=== PATIENT | female | born 1940 | race Caucasian/White ===

== ENCOUNTER 2018-04-28 20:36 | Inpatient (IN) | payer MEDICARE, BC ==
[2018-04-28] MEDS ORDERED: SODIUM CHLORIDE 0.9% 1,000 ML IV STA (21:22)
[2018-04-28 22:07] LABS: ALT 31 U/L (9-52); AST 17 U/L (14-36); Albumin 3.4 g/dL (3.5-5.0); Alkaline Phosphatase 78 U/L (38-126); Anion Gap 7 mmol/L; Blood Urea Nitrogen 23 mg/dL (7-17); Calcium 8.4 mg/dL (8.4-10.2); Carbon Dioxide 24 mmol/L (22-30); Chloride 108 mmol/L (98-107); Glucose 101 mg/dL (74-99); Lipase 35 U/L (23-300); Magnesium 1.9 mg/dL (1.6-2.3); Partial Thromboplastin Time 23.2 sec (22.0-30.0); Potassium 3.9 mmol/L (3.5-5.1); Sodium 139 mmol/L (137-145); Total Bilirubin 0.7 mg/dL (0.2-1.3); Total Protein 6.3 g/dL (6.3-8.2)
[2018-04-28 22:09] LABS: Anisocytosis Moderate; Basophils % (A) 0 %; Eosinophils # (A) 0.1 k/uL (0-0.7); Eosinophils % (A) 4 %; HCT 20.3 % (34.0-46.0); HGB 7.1 gm/dL (11.4-16.0); Lymphocytes # (A) 0.9 k/uL (1.0-4.8); Lymphocytes % (A) 51 %; MCH 32.3 pg (25.0-35.0); MCHC 34.9 g/dL (31.0-37.0); MCV 92.4 fL (80.0-100.0); Macrocytosis Slight; Monocytes % (A) 2 %; Neutrophils # (A) 0.7 k/uL (1.3-7.7); Neutrophils % (A) 40 %; RBC 2.19 m/uL (3.80-5.40); RDW 21.7 % (11.5-15.5)
[2018-04-28 22:20] LABS: Platelet Count 10 k/uL (150-450); WBC 1.8 k/uL (3.8-10.6)
[2018-04-28 22:32] LABS: Creatine Kinase MB 0.7 ng/mL (0.0-2.4); Troponin I 0.013 ng/mL (0.000-0.034)
[2018-04-28 22:48] LABS: Poikilocytosis (M) Present
--- NOTE | 2018-04-28 22:49 | ED ---
General Adult HPI - General Chief complaint: Recheck/Abnormal Lab/Rx Stated complaint: abnormal labs Time Seen by Provider: 04/28/18 20:44 Source: patient, EMS, RN notes reviewed, old records reviewed Mode of arrival: EMS Limitations: no limitations - History of Present Illness Initial comments: This is a 78-year-old female the ER for evaluation. Patient resents today for evaluation regards to pancytopenia. Patient is a transfer patient accepted from [facility] for evaluation and treatment of oncological or hematological issue. Patient denies history of CVA. Patient was recently prescribed antibiotic for UTI they think that might be culprit curtis is no prior history of similar issue. Patient has history of polycythemia , history of recent UTI on antibiotic - Related Data Home Medications Medication Instructions Recorded Confirmed Acetaminophen Tab [Tylenol Tab] 650 mg PO Q4H PRN 04/28/18 04/28/18 Aspirin EC [Ecotrin Low Dose] 81 mg PO DAILY 04/28/18 04/28/18 Atorvastatin [Lipitor] 40 mg PO HS 04/28/18 04/28/18 Ciprofloxacin HCl [Cipro] 500 mg PO Q12H 04/28/18 04/28/18 Clopidogrel Bisulfate [Plavix] 75 mg PO DAILY 04/28/18 04/28/18 Docusate [Colace] 100 mg PO Q12H 04/28/18 04/28/18 Hydroxyurea [Hydrea] 1,000 mg PO BID 04/28/18 04/28/18 Metoprolol Tartrate [Lopressor] 12.5 mg PO BID 04/28/18 04/28/18 Promethazine 25mg/Ml 25 mg IM Q6H PRN 04/28/18 04/28/18 traMADol HCL [Ultram] 50 mg PO Q8H PRN 04/28/18 04/28/18 Allergies Allergy/AdvReac Type Severity Reaction Status Date / Time Penicillins Allergy Rash/Hives Verified 04/28/18 21:02 codeine AdvReac Nausea & Verified 04/28/18 21:02 Vomiting Review of Systems ROS Statement: Those systems with pertinent positive or pertinent negative responses have been documented in the HPI. ROS Other: All systems not noted in ROS Statement are negative. Past Medical History Past Medical History: Hyperlipidemia Additional Past Medical History / Comment(s): polycythemia, History of Any Multi-Drug Resistant Organisms: None Reported Past Surgical History: Cholecystectomy, Coronary Bypass/CABG, Hysterectomy Additional Past Surgical History / Comment(s): stomach abscess removed, Past Psychological History: No Psychological Hx Reported Smoking Status: Never smoker Past Alcohol Use History: None Reported Past Drug Use History: None Reported General Exam Limitations: no limitations General appearance: alert, in no apparent distress Head exam: Present: atraumatic, normocephalic, normal inspection Eye exam: Present: normal appearance, PERRL, EOMI. Absent: scleral icterus, conjunctival injection, periorbital swelling ENT exam: Present: normal exam, mucous membranes moist Neck exam: Present: normal inspection. Absent: tenderness, meningismus, lymphadenopathy Respiratory exam: Present: normal lung sounds bilaterally. Absent: respiratory distress, wheezes, rales, rhonchi, stridor Cardiovascular Exam: Present: regular rate, normal rhythm, normal heart sounds. Absent: systolic murmur, diastolic murmur, rubs, gallop, clicks GI/Abdominal exam: Present: soft, normal bowel sounds. Absent: distended, tenderness, guarding, rebound, rigid Extremities exam: Present: normal inspection, full ROM, normal capillary refill. Absent: tenderness, pedal edema, joint swelling, calf tenderness Back exam: Present: normal inspection Neurological exam: Present: alert, oriented X3, CN II-XII intact Psychiatric exam: Present: normal affect, normal mood Skin exam: Present: warm, dry, intact, normal color. Absent: rash Course Vital Signs 04/28/18 20:38 Temperature 97.2 F L Pulse Rate 106 H Respiratory 18 Rate Blood Pressure 126/60 O2 Sat by Pulse 98 Oximetry - Reevaluation(s) Reevaluation #1: 04/28/18 22:47 Patient was accepted in transfer from [facility] for abnormal lab values including anemia and pancytopenia. Medical Decision Making - Medical Decision Making Plan I female the ER for evaluation and pancytopenia. Unknown cause. Patient denies blood in stool. Patient will be admitted for hematology evaluation - Lab Data Result diagrams: 04/28/18 20:55 04/28/18 20:55 Lab Results 04/28/18 04/28/18 04/28/18 Range/Units 20:48 20:55 20:55 WBC 1.8 L* (3.8-10.6) k/uL RBC 2.19 L (3.80-5.40) m/uL Hgb 7.1 L (11.4-16.0) gm/dL Hct 20.3 L (34.0-46.0) % MCV 92.4 (80.0-100.0) fL MCH 32.3 (25.0-35.0) pg MCHC 34.9 (31.0-37.0) g/dL RDW 21.7 H (11.5-15.5) % Plt Count 10 L* (150-450) k/uL PT (9.0-12.0) sec INR (<1.2) APTT (22.0-30.0) sec Sodium (137-145) mmol/L Potassium (3.5-5.1) mmol/L Chloride (98-107) mmol/L Carbon Dioxide (22-30) mmol/L Anion Gap mmol/L BUN (7-17) mg/dL Creatinine (0.52-1.04) mg/dL Est GFR (CKD-EPI)AfAm (>60 ml/min/1.73 sqM) Est GFR (CKD-EPI)NonAf (>60 ml/min/1.73 sqM) Glucose (74-99) mg/dL Calcium (8.4-10.2) mg/dL Magnesium (1.6-2.3) mg/dL Total Bilirubin (0.2-1.3) mg/dL AST (14-36) U/L ALT (9-52) U/L Alkaline Phosphatase (38-126) U/L Total Creatine Kinase 20 L (30-135) U/L CK-MB (CK-2) 0.7 (0.0-2.4) ng/mL CK-MB (CK-2) Rel Index 3.5 Troponin I 0.013 (0.000-0.034) ng/mL Total Protein (6.3-8.2) g/dL Albumin (3.5-5.0) g/dL Lipase (23-300) U/L Blood Type A Positive Blood Type Recheck CABO Indicated Antibody Screen NEGATIVE Spec Expiration Date 05/01/2018 - 235404/28/18 04/28/18 Range/Units 20:55 20:55 WBC (3.8-10.6) k/uL RBC (3.80-5.40) m/uL Hgb (11.4-16.0) gm/dL Hct (34.0-46.0) % MCV (80.0-100.0) fL MCH (25.0-35.0) pg MCHC (31.0-37.0) g/dL RDW (11.5-15.5) % Plt Count (150-450) k/uL PT 10.0 (9.0-12.0) sec INR 1.0 (<1.2) APTT 23.2 (22.0-30.0) sec Sodium 139 (137-145) mmol/L Potassium 3.9 (3.5-5.1) mmol/L Chloride 108 H (98-107) mmol/L Carbon Dioxide 24 (22-30) mmol/L Anion Gap 7 mmol/L BUN 23 H (7-17) mg/dL Creatinine 0.63 (0.52-1.04) mg/dL Est GFR (CKD-EPI)AfAm >90 (>60 ml/min/1.73 sqM) Est GFR (CKD-EPI)NonAf 86 (>60 ml/min/1.73 sqM) Glucose 101 H (74-99) mg/dL Calcium 8.4 (8.4-10.2) mg/dL Magnesium 1.9 (1.6-2.3) mg/dL Total Bilirubin 0.7 (0.2-1.3) mg/dL AST 17 (14-36) U/L ALT 31 (9-52) U/L Alkaline Phosphatase 78 (38-126) U/L Total Creatine Kinase (30-135) U/L CK-MB (CK-2) (0.0-2.4) ng/mL CK-MB (CK-2) Rel Index Troponin I (0.000-0.034) ng/mL Total Protein 6.3 (6.3-8.2) g/dL Albumin 3.4 L (3.5-5.0) g/dL Lipase 35 (23-300) U/L Blood Type Blood Type Recheck Antibody Screen Spec Expiration Date Disposition Clinical Impression: Pancytopenia Disposition: ADMITTED IP TO THIS HOSP Condition: Fair Is patient prescribed a controlled substance at d/c from ED?: No Referrals: Josseline Zambrano MD [Primary Care Provider] - 1-2 days
[2018-04-28 23:57] VITALS: BMI 19.1
[2018-04-29 10:11] LABS: Anisocytosis Moderate; Basophils % (A) 0 %; Eosinophils # (A) 0.1 k/uL (0-0.7); Eosinophils % (A) 5 %; Lymphocytes # (A) 0.7 k/uL (1.0-4.8); Lymphocytes % (A) 44 %; MCH 34.1 pg (25.0-35.0); MCHC 35.8 g/dL (31.0-37.0); MCV 95.2 fL (80.0-100.0); Macrocytosis Slight; Mean Platelet Volume 8.3; Monocytes % (A) 1 %; Neutrophils # (A) 0.7 k/uL (1.3-7.7); Neutrophils % (A) 47 %; Poikilocytosis Slight; RBC 1.76 m/uL (3.80-5.40); RDW 22.5 % (11.5-15.5); Reticulocyte % 0.3 % (0.5-2.0)
[2018-04-29] MEDS ORDERED: ACETAMINOPHEN TAB 325 MG TAB PO PRN (10:36)
[2018-04-29] MEDS ORDERED: PROMETHAZINE IM PRN (10:36)
[2018-04-29] MEDS ORDERED: traMADol 50 MG TAB PO PRN (10:36)
[2018-04-29 10:37] LABS: WBC 1.5 k/uL (3.8-10.6)
[2018-04-29 10:39] LABS: HCT 16.8 % (34.0-46.0); Platelet Count 10 k/uL (150-450)
--- NOTE | 2018-04-29 14:28 | P.CONS ---
History of Present Illness - Reason for Consult Consult date: 04/29/18 pancytopenia Requesting physician: Eris Araiza - Chief Complaint abnormal labs on routine blood work - History of Present Illness Ms. Mays is a very pleasant female pt who had triple bypass in February. Since then she has been rehabilitation and residing at skilled facility. She recently was treated for UTI with cipro, then on routine lab work she was found to be pancytopenic. She was sent to the hospital for evaluation and work up. On questioning pt blood problems started in February, she was told she has a blood disorder-sounded like polycythemia vera- but could not remember for certain, she thinks she saw a strategic partnership representative at the [facility], she has hydrea on her med list, not sure why she takes it or who prescribes it. Denies fevers, sweats, dysphagia, nausea, vomiting, can't say how much wt. loss, she has lost her appetite some, no diarrhea, constipation, black or bloody stool. 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 No other physical c/o, no new or unusual pain. Review of Systems ROS as stated, pt has trouble with remembering the timing of some events ROS unobtainable: due to mental status Past Medical History Past Medical History: Hyperlipidemia Additional Past Medical History / Comment(s): polycythemia, History of Any Multi-Drug Resistant Organisms: None Reported Past Surgical History: Cholecystectomy, Coronary Bypass/CABG, Hysterectomy Additional Past Surgical History / Comment(s): stomach abscess removed, CABG (01/2018) Past Anesthesia/Blood Transfusion Reactions: No Reported Reaction Past Psychological History: No Psychological Hx Reported Smoking Status: Never smoker Past Alcohol Use History: None Reported Past Drug Use History: None Reported - Past Family History Mother Family Medical History: Myocardial Infarction ([place]) Father Family Medical History: Asthma, COPD, Myocardial Infarction ([place]) Medications and Allergies Home Medications Medication Instructions Recorded Confirmed Type Acetaminophen Tab [Tylenol Tab] 650 mg PO Q4H PRN 04/28/18 04/28/18 History Aspirin EC [Ecotrin Low Dose] 81 mg PO DAILY 04/28/18 04/28/18 History Atorvastatin [Lipitor] 40 mg PO HS 04/28/18 04/28/18 History Ciprofloxacin HCl [Cipro] 500 mg PO Q12H 04/28/18 04/28/18 History Clopidogrel Bisulfate [Plavix] 75 mg PO DAILY 04/28/18 04/28/18 History Docusate [Colace] 100 mg PO Q12H 04/28/18 04/28/18 History Hydroxyurea [Hydrea] 1,000 mg PO BID 04/28/18 04/28/18 History Metoprolol Tartrate [Lopressor] 12.5 mg PO BID 04/28/18 04/28/18 History Promethazine 25mg/Ml 25 mg IM Q6H PRN 04/28/18 04/28/18 History traMADol HCL [Ultram] 50 mg PO Q8H PRN 04/28/18 04/28/18 History Allergies Allergy/AdvReac Type Severity Reaction Status Date / Time Penicillins Allergy Rash/Hives Verified 04/28/18 21:02 codeine AdvReac Nausea & Verified 04/28/18 21:02 Vomiting Physical Exam Vitals: Vital Signs Temp Pulse Pulse Resp BP BP Pulse Ox 04/29/18 12:12 97.9 F 93 16 101/50 98 04/29/18 11:42 97.6 F 95 16 99/55 98 04/29/18 11:32 98.7 F 95 16 101/57 98 04/29/18 04:23 97.7 F 56 L 14 118/58 96 04/28/18 23:51 97.5 F L 103 H 14 121/59 97 04/28/18 22:58 90 18 96/53 99 04/28/18 20:38 97.2 F L 106 H 18 126/60 98 Intake and Output 04/28/18 04/29/18 04/29/18 22:59 06:59 14:59 Intake Total 570 0 Balance 570 0 Intake: Intake, IV Titration 450 Amount Sodium Chloride 0.9% 1, 450 000 ml @ 75 mls/hr IV . [id number] STA Rx#:[id number] Oral 120 Blood Product 0 Rc As-3 Unit 0 [id number] Other: Voiding Method Incontinent Toilet Incontinent # Voids 2 Weight 52.163 kg 52.16 kg 52.16 kg - Constitutional General appearance: average body habitus, cooperative, no acute distress - EENT Eyes: anicteric sclerae, normal appearance ENT: normal oropharynx - Neck Neck: no lymphadenopathy - Respiratory Respiratory: bilateral: CTA - Cardiovascular Rhythm: irregularly irregular Heart sounds: normal: S1, S2 Abnormal Heart Sounds: systolic murmur leg Peripheral Edema: bilateral: Trace - Gastrointestinal General gastrointestinal: no absent bowel sounds, no decreased bowel sounds, no distended, no hepatomegaly, no hyperactive bowel sounds, normal bowel sounds, no organomegaly, no rigid, no scaphoid, soft, no splenomegaly, no tenderness, no umbilical hernia, no ventral hernia - Integumentary Integumentary: pale - Neurologic Neurologic: CNII-XII intact - Musculoskeletal Musculoskeletal: generalized weakness, strength equal bilaterally - Psychiatric Psychiatric: A&O x's 3, appropriate affect Results CBC & Chem 7: 04/29/18 09:30 04/28/18 20:55 Labs: Abnormal Lab Results - Last 24 Hours (Table) 04/28/18 04/28/18 04/28/18 Range/Units 20:48 20:55 20:55 WBC 1.8 L* (3.8-10.6) k/uL RBC 2.19 L (3.80-5.40) m/uL Hgb 7.1 L (11.4-16.0) gm/dL Hct 20.3 L (34.0-46.0) % RDW 21.7 H (11.5-15.5) % Plt Count 10 L* (150-450) k/uL Neutrophils # 0.7 L (1.3-7.7) k/uL Lymphocytes # 0.9 L (1.0-4.8) k/uL Retic Count (0.5-2.0) % Chloride (98-107) mmol/L BUN (7-17) mg/dL Glucose (74-99) mg/dL Total Creatine Kinase 20 L (30-135) U/L Albumin (3.5-5.0) g/dL Crossmatch See Detail 04/28/18 04/29/18 Range/Units 20:55 09:30 WBC 1.5 L* (3.8-10.6) k/uL RBC 1.76 L (3.80-5.40) m/uL Hgb 6.0 L* (11.4-16.0) gm/dL Hct 16.8 L* (34.0-46.0) % RDW 22.5 H (11.5-15.5) % Plt Count 10 L* (150-450) k/uL Neutrophils # 0.7 L (1.3-7.7) k/uL Lymphocytes # 0.7 L (1.0-4.8) k/uL Retic Count 0.3 L (0.5-2.0) % Chloride 108 H (98-107) mmol/L BUN 23 H (7-17) mg/dL Glucose 101 H (74-99) mg/dL Total Creatine Kinase (30-135) U/L Albumin 3.4 L (3.5-5.0) g/dL Crossmatch Assessment and Plan (1) Pancytopenia Narrative/Plan: From what I can make out of pt history she was diagnosed with polycythemia in [place] when she was having heart surgery. She has been taking hydrea and not sure who prescriber is. I have a call out to PCP. Hold hydrea Pancytopenia work-up has been ordered. IM has ordered blood, transfuse to keep Hgb >7 unless symptomatic. No s/s bleeding, close monitoring, transfuse for plt<10,000 or symptoms. No GCSF at this time, ANC 700, monitor for fever, pt is on abx. Current Visit: Yes Status: Acute Priority: High Code(s): D61.818 - OTHER PANCYTOPENIA SNOMED Code(s): 196474451
[2018-04-29 16:59] LABS: Iron Saturation 95.69 (12.00-45.00); Rheumatoid Factor <4 IU/mL (0-13)
[2018-04-29] MEDS ORDERED: CIPROFLOXACIN HCL 500 MG TAB PO SCH (21:00)
[2018-04-29] MEDS ORDERED: HYDROXYUREA 500 MG CAP PO SCH (21:00)
[2018-04-29] MEDS: ATORVASTATIN 40 MG TAB PO SCH (21:42)
[2018-04-29] MEDS: METOPROLOL TARTRATE 12.5 MG TAB PO SCH (21:42)
[2018-04-29] MEDS: DOCUSATE 100 MG CAP PO SCH (21:42)
--- NOTE | 2018-04-30 00:46 | P.HPIM ---
History of Present Illness H&P Date: 04/29/18 Chief Complaint: Pancytopenia Patient is a 78-year-old female with a known history of recent triple vessel coronary artery bypass graft in February 2018 and polycythemia who is currently at rehab and is being treated for urinary tract infection with ciprofloxacin. Patient had lab workup done yesterday showed pancytopenia and patient was transferred to ER for further evaluation. Patient also developed some petechial rash on the hand. Currently denied any fever or chills. Denied any previous history of blood dyscrasias. Otherwise patient denied any chest pain or shortness of breath. No nausea vomiting or abdominal pain no diarrhea or dysuria. No hematemesis or melena. Patientwas previously taking have a medication for her bladder before surgery. Patient is unsure why she is taking Hydrea. Hematology was consulted for further evaluation. Review of Systems Constitutional: Patient denies any fever or chills . No generalized weakness or weight loss. Abdomen: Patient denied nausea vomiting and diarrhea and abdominal pain. Cardiovascular: Patient denies any chest pain or short of breath no palpitations. Respiratory: patient denied any cough is from production. No shortness of breath Neurologic: Patient denied any numbness or tingling headache. Musculoskeletal: Patient denies any complaints of joint swelling or deformity. Skin: Negative Psychiatric: Negative Endocrine: No heat or cold intolerance. No recent weight gain. Genitourinary: No dysuria or hematuria. All other 14 point ROS negative except the above Past Medical History Past Medical History: Hyperlipidemia Additional Past Medical History / Comment(s): polycythemia, History of Any Multi-Drug Resistant Organisms: None Reported Past Surgical History: Cholecystectomy, Coronary Bypass/CABG, Hysterectomy Additional Past Surgical History / Comment(s): stomach abscess removed, CABG (01/2018) Past Anesthesia/Blood Transfusion Reactions: No Reported Reaction Past Psychological History: No Psychological Hx Reported Smoking Status: Never smoker Past Alcohol Use History: None Reported Past Drug Use History: None Reported - Past Family History Mother Family Medical History: Myocardial Infarction ([place]) Father Family Medical History: Asthma, COPD, Myocardial Infarction ([place]) Medications and Allergies Home Medications Medication Instructions Recorded Confirmed Type Acetaminophen Tab [Tylenol Tab] 650 mg PO Q4H PRN 04/28/18 04/28/18 History Aspirin EC [Ecotrin Low Dose] 81 mg PO DAILY 04/28/18 04/28/18 History Atorvastatin [Lipitor] 40 mg PO HS 04/28/18 04/28/18 History Ciprofloxacin HCl [Cipro] 500 mg PO Q12H 04/28/18 04/28/18 History Clopidogrel Bisulfate [Plavix] 75 mg PO DAILY 04/28/18 04/28/18 History Docusate [Colace] 100 mg PO Q12H 04/28/18 04/28/18 History Hydroxyurea [Hydrea] 1,000 mg PO BID 04/28/18 04/28/18 History Metoprolol Tartrate [Lopressor] 12.5 mg PO BID 04/28/18 04/28/18 History Promethazine 25mg/Ml 25 mg IM Q6H PRN 04/28/18 04/28/18 History traMADol HCL [Ultram] 50 mg PO Q8H PRN 04/28/18 04/28/18 History Allergies Allergy/AdvReac Type Severity Reaction Status Date / Time Penicillins Allergy Rash/Hives Verified 04/28/18 21:02 codeine AdvReac Nausea & Verified 04/28/18 21:02 Vomiting Physical Exam Vitals: Vital Signs Temp Pulse Pulse Resp BP BP Pulse Ox 04/29/18 11:32 98.7 F 95 16 101/57 98 04/29/18 04:23 97.7 F 56 L 14 118/58 96 04/28/18 23:51 97.5 F L 103 H 14 121/59 97 04/28/18 22:58 90 18 96/53 99 04/28/18 20:38 97.2 F L 106 H 18 126/60 98 Intake and Output 04/28/18 04/29/18 04/29/18 22:59 06:59 14:59 Intake Total 570 0 Balance 570 0 Intake: Intake, IV Titration 450 Amount Sodium Chloride 0.9% 1, 450 000 ml @ 75 mls/hr IV . [id number] STA Rx#:[id number] Oral 120 Blood Product 0 Rc As-3 Unit 0 [id number] Other: Voiding Method Incontinent Toilet Incontinent # Voids 2 Weight 52.163 kg 52.16 kg 52.16 kg PHYSICAL EXAMINATION: Patient is lying in the bed comfortably, no acute distress, awake alert and oriented.. HEENT: Normocephalic. Neck is supple. Pupils reactive. Nostrils clear. Oral cavity is moist. Ears reveal no drainage. Neck reveals no JVD, carotid bruits, or thyromegaly. CHEST EXAMINATION: Trachea is central. Symmetrical expansion. Lung jeffery clear to auscultation and percussion. CARDIAC: Normal S1, S2 with no gallops. No murmurs ABDOMEN: Soft. Bowel sounds normal. No organomegaly. No abdominal bruits. Extremities: reveal no edema. No clubbing or cyanosis Neurologically awake, alert, oriented x3 with well-coordinated movements. No focal deficits noted Skin: Some petechial rash noted on the right forearm and no other skin lesions. Psychiatric: Coperative. Nonsuicidal Musculoskeletal: No joint swelling or deformity. Normal range of motion. Results CBC & Chem 7: 04/29/18 09:30 04/28/18 20:55 Labs: Abnormal Lab Results - Last 24 Hours (Table) 04/28/18 04/28/18 04/28/18 Range/Units 20:48 20:55 20:55 WBC 1.8 L* (3.8-10.6) k/uL RBC 2.19 L (3.80-5.40) m/uL Hgb 7.1 L (11.4-16.0) gm/dL Hct 20.3 L (34.0-46.0) % RDW 21.7 H (11.5-15.5) % Plt Count 10 L* (150-450) k/uL Neutrophils # 0.7 L (1.3-7.7) k/uL Lymphocytes # 0.9 L (1.0-4.8) k/uL Retic Count (0.5-2.0) % Chloride (98-107) mmol/L BUN (7-17) mg/dL Glucose (74-99) mg/dL Total Creatine Kinase 20 L (30-135) U/L Albumin (3.5-5.0) g/dL Crossmatch See Detail 04/28/18 04/29/18 Range/Units 20:55 09:30 WBC 1.5 L* (3.8-10.6) k/uL RBC 1.76 L (3.80-5.40) m/uL Hgb 6.0 L* (11.4-16.0) gm/dL Hct 16.8 L* (34.0-46.0) % RDW 22.5 H (11.5-15.5) % Plt Count 10 L* (150-450) k/uL Neutrophils # 0.7 L (1.3-7.7) k/uL Lymphocytes # 0.7 L (1.0-4.8) k/uL Retic Count 0.3 L (0.5-2.0) % Chloride 108 H (98-107) mmol/L BUN 23 H (7-17) mg/dL Glucose 101 H (74-99) mg/dL Total Creatine Kinase (30-135) U/L Albumin 3.4 L (3.5-5.0) g/dL Crossmatch Thrombosis Risk Factor Assmnt - DVT/VTE Prophylaxis DVT/VTE Prophylaxis: Mechanical Prophylaxis ordered - Choose All That Apply Any of the Below Risk Factors Present?: No Other Risk Factors: Yes Each Risk Factor Represents 3 Points: History of DVT/PE Thrombosis Risk Factor Assessment Total Risk Factor Score: 3 Thrombosis Risk Factor Assessment Level: Moderate Risk Assessment and Plan Assessment: Pancytopenia etiology unknown. Possible medication induced versus infection Urinary tract infection and is being treated with ciprofloxacin Recent coronary artery bypass graft in February 2018 History of polycythemia Plan: Patient be continued on IV fluids and follow up CBC. Pancytopenia workup including iron studies B12 folate level, serum protein electrophoresis and immuno fixation, anemia and rheumatoid factor was ordered. Hematology is following. Will hold antiplatelet medication and follow up closely. Further recommendations based on the clinical course. Time with Patient: Greater than 30
[2018-04-30 07:39] LABS: Anisocytosis Moderate; HCT 20.8 % (34.0-46.0); MCH 32.8 pg (25.0-35.0); MCHC 36.7 g/dL (31.0-37.0); Macrocytosis Slight; Mean Platelet Volume 9.4; Poikilocytosis Slight; RBC 2.32 m/uL (3.80-5.40); RDW 21.9 % (11.5-15.5)
[2018-04-30 07:42] LABS: HGB 7.6 gm/dL (11.4-16.0); MCV 89.6 fL (80.0-100.0); Platelet Count 10 k/uL (150-450); WBC 1.9 k/uL (3.8-10.6)
[2018-04-30 08:22] LABS: Eosinophils # (M) 0.02 k/uL (0-0.7); Lymphocytes # (M) 0.93 k/uL (1.0-4.8); Monocytes # (M) 0.11 k/uL (0-1.0); Neutrophils # (M) 0.84 k/uL (1.3-7.7); Neutrophils % (M) 44 %; Nucleated Red Blood Cells 0 /100 WBC (0-0); Total Cells Counted 100
[2018-04-30] MEDS: DOCUSATE 100 MG CAP PO SCH ×2 (09:00→21:16)
[2018-04-30] MEDS: METOPROLOL TARTRATE 12.5 MG TAB PO SCH ×2 (09:00→21:16)
[2018-04-30] MEDS ORDERED: CLOPIDOGREL 75 MG TAB PO SCH (09:00)
[2018-04-30] MEDS ORDERED: POLYETHYLENE GLYCOL 3350 17 GM POWD.PACK PO PRN (11:43)
[2018-04-30] MEDS: CYANOCOBALAMIN 1,000 MCG/ML 1 ML VIAL IM SCH (15:51)
--- NOTE | 2018-04-30 15:59 | P.PN ---
Subjective Progress Note Date: 04/30/18 Principal diagnosis: Pancytopenia Patient seen today in follow-up, she states feeling pretty well today, her stomach is still occasionally upset, no vomiting, chest pains, difficulty in breathing, abdominal cramping, diarrhea or constipation, no black or bloody stool, her urine is blood tinged, she denies dysuria, swelling or pain. Objective - Vital Signs Vital signs: Vital Signs Temp 98.2 F 04/30/18 14:24 Pulse 86 04/30/18 14:24 Resp 18 04/30/18 14:24 BP 102/58 04/30/18 14:24 Pulse Ox 97 04/30/18 14:24 Intake & Output 04/29/18 04/30/18 04/30/18 18:59 06:59 18:59 Intake Total 760 385 0 Balance 760 385 0 Weight 52.16 kg Intake: Intake, IV Titration 450 385 Amount Sodium Chloride 0.9% 1, 450 385 000 ml @ 75 mls/hr IV . [id number] STA Rx#:[id number] Blood Product 310 0 Platelet Pheresis Acda 0 Unit [id number] Rc As-3 Unit 310 [id number] Other: Voiding Method Toilet Toilet Toilet Incontinent Incontinent Incontinent # Voids 1 1 - Constitutional General appearance: Present: average body habitus, cooperative, no acute distress - EENT Eyes: Present: anicteric sclerae ENT: Present: normal oropharynx - Respiratory Respiratory: bilateral: CTA - Cardiovascular Heart sounds: normal: S1, S2 - Gastrointestinal General gastrointestinal: Present: normal bowel sounds, soft - Integumentary Integumentary: Present: pale - Neurologic Neurologic: Present: CNII-XII intact - Musculoskeletal Musculoskeletal: Present: generalized weakness, strength equal bilaterally - Psychiatric Psychiatric: Present: A&O x's 3, appropriate affect, intact judgment & insight - Labs CBC & Chem 7: 04/30/18 06:43 04/28/18 20:55 Labs: Abnormal Lab Results - Last 24 Hours (Table) 04/28/18 04/28/18 04/30/18 Range/Units 20:48 20:55 06:43 WBC 1.9 L* (3.8-10.6) k/uL RBC 2.32 L (3.80-5.40) m/uL Hgb 7.6 L D (11.4-16.0) gm/dL Hct 20.8 L (34.0-46.0) % RDW 21.9 H (11.5-15.5) % Plt Count 10 L* (150-450) k/uL Neutrophils # (Manual) 0.84 L (1.3-7.7) k/uL Lymphocytes # (Manual) 0.93 L (1.0-4.8) k/uL Iron 222 H (50-170) ug/dL Iron Saturation 95.69 H (12.00-45.00) Ferritin 495.5 H (10.0-291.0) ng/mL Free [place] LC, Quant 3.11 H (0.33-1.94) mg/dL Crossmatch See Detail Assessment and Plan (1) Pancytopenia Narrative/Plan: Workup negative for iron deficiency. B12 level is low normal, will supplement while inpatient. Electrophoresis and immunofixation still pending. Discussed the case with patient primary care physician Dr. Sanfordrect the patient is new to her as well just last week. Patient has diagnosis of polycythemia vera , diagnosed back in January or February when she was in the hospital for cardiac bypass surgery. Patient was seen by hematology and started on a dose of 1000 mg of Hydrea twice a day, patient has not followed up with hematology since then. Highly suspect that patient's pancytopenia is related to Hydrea dose, as it typically needs to be adjusted based on counts. Hydrea has been placed on hold for now. Continue to monitor CBC and recommend patient follow up with hematology as soon as possible the outpatient setting. 1 unit of platelets has been ordered for hematuria, platelet count of 10,000. Urinalysis has been requested. Current Visit: Yes Status: Acute Priority: High Code(s): D61.818 - OTHER PANCYTOPENIA SNOMED Code(s): 118914826
[2018-04-30 16:13] LABS: Appearance,Urine Clear (Clear); Bacteria,Urine Rare /hpf; Bilirubin,Urine Negative (Negative); Blood,Urine Large (Negative); Color,Urine Light Red; Glucose,Urine (UA) Negative (Negative); Ketones,Urine Negative (Negative); Leukocyte Esterase,Urine Negative (Negative); Nitrite,Urine Negative (Negative); Protein,Urine Trace (Negative); RBC,Urine >182 /hpf (0-5); Specific Gravity,Urine 1.015 (1.001-1.035); Urobilinogen,Urine <2.0 mg/dL (<2.0)
[2018-04-30] MEDS: ATORVASTATIN 40 MG TAB PO SCH (21:16)
[2018-05-01 08:21] LABS: Anisocytosis Moderate; Basophils % (A) 0 %; Eosinophils # (A) 0.1 k/uL (0-0.7); Eosinophils % (A) 4 %; HCT 20.3 % (34.0-46.0); HGB 7.1 gm/dL (11.4-16.0); Lymphocytes # (A) 0.7 k/uL (1.0-4.8); Lymphocytes % (A) 47 %; MCV 91.2 fL (80.0-100.0); Macrocytosis Slight; Mean Platelet Volume 9.8; Monocytes % (A) 2 %; Neutrophils # (A) 0.7 k/uL (1.3-7.7); Neutrophils % (A) 43 %; RBC 2.23 m/uL (3.80-5.40); RDW 21.3 % (11.5-15.5)
[2018-05-01 08:22] LABS: Platelet Count 14 k/uL (150-450); WBC 1.5 k/uL (3.8-10.6)
[2018-05-01 08:57] LABS: Poikilocytosis (M) Present
[2018-05-01] MEDS: METOPROLOL TARTRATE 12.5 MG TAB PO SCH ×2 (10:09→20:51)
[2018-05-01] MEDS: CYANOCOBALAMIN 1,000 MCG/ML 1 ML VIAL IM SCH (10:09)
[2018-05-01] MEDS: DOCUSATE 100 MG CAP PO SCH ×2 (10:10→20:51)
[2018-05-01] MEDS ORDERED: FILGRASTIM-SNDZ 480 MCG/0.8 ML SYRINGE SQ SCH (20:15)
--- NOTE | 2018-05-01 20:16 | P.PN ---
Subjective Progress Note Date: 05/01/18 Principal diagnosis: Pancytopenia Patient seen and examined in follow-up today. She is feeling better since admission. Apparently she was seeing fur operator out of [facility] and was discharged to [facility] and has not follow-up or had labs monitored since this time. Objective - Vital Signs Vital signs: Vital Signs Temp 98 F 05/01/18 15:00 Pulse 84 05/01/18 15:00 Resp 16 05/01/18 15:00 BP 102/61 05/01/18 15:00 Pulse Ox 95 05/01/18 15:00 Intake & Output 05/01/18 05/01/18 05/02/18 06:59 18:59 06:59 Intake Total 640 Balance 640 Weight 52.16 kg Intake: Oral 640 Other: Voiding Method Toilet Toilet Incontinent Incontinent # Voids 2 3 # Bowel Movements 3 - Constitutional General appearance: Present: cooperative, no acute distress, thin - EENT Eyes: Present: EOMI, PERRLA, dentition normal ENT: Present: hard of hearing, NA/AT, normal oropharynx - Neck Details: Supple, Trachea midline Neck: Present: normal ROM - Respiratory Respiratory: bilateral: CTA (No increased effort) - Cardiovascular Rhythm: regular Heart sounds: normal: S1, S2 - Labs CBC & Chem 7: 05/01/18 07:03 04/28/18 20:55 Labs: Abnormal Lab Results - Last 24 Hours (Table) 04/29/18 05/01/18 Range/Units 09:30 07:03 WBC 1.5 L* (3.8-10.6) k/uL RBC 2.23 L (3.80-5.40) m/uL Hgb 7.1 L (11.4-16.0) gm/dL Hct 20.3 L (34.0-46.0) % RDW 21.3 H (11.5-15.5) % Plt Count 14 L* (150-450) k/uL Neutrophils # 0.7 L (1.3-7.7) k/uL Lymphocytes # 0.7 L (1.0-4.8) k/uL RBC Folate 1,544 H (280 - 791) ng/mL Assessment and Plan Plan: Assessment and Plan (1) Pancytopenia Narrative/Plan: Workup negative for iron deficiency. B12 level is low normal, will supplement while inpatient. Electrophoresis and immunofixation still pending. - I have requested the patients diagnostics labs/scans/Bone Marrow, JAK2 from previous Language Teacher. She states she was discharged to a rehabilitation and has not had labs monitored since. She apparently has diagnosis of polycythemia vera, diagnosed back in January or February when she was in the hospital for cardiac bypass surgery. Patient was seen by hematology and started on a dose of 1000 mg of Hydrea twice a day, patient has not followed up with hematology since then. Highly suspect that patient's pancytopenia is related to Hydrea dose, as it typically needs to be adjusted based on counts. - Hydrea has been placed on hold for now. - Continue to monitor CBC and recommend patient follow up with hematology as soon as possible the outpatient setting. In discussion with her today she would prefer further follow-up here through [facility], will await all diagnostics from recent outside hospital stay before re-initiation of hydroxyurea. - Monitor blood counts closely and provide supportive transfusions prn. - With Neutropenia Fever and identified UTI, I will start zarxio today, discussed case in detail with Dr. Zavala Current Visit: Yes Status: Acute Priority: High Code(s): D61.818 - OTHER PANCYTOPENIA SNOMED Code(s): 356585357
[2018-05-01] MEDS: ATORVASTATIN 40 MG TAB PO SCH (20:50)
[2018-05-01] MEDS: FILGRASTIM-SNDZ 480 MCG/0.8 ML SYRINGE SQ SCH (22:36)
--- NOTE | 2018-05-02 01:30 | P.PN ---
Subjective Progress Note Date: 04/30/18 Principal diagnosis: Pancytopenia Patient is a 78-year-old female with a known history of recent triple vessel coronary artery bypass graft in February 2018 and polycythemia who is currently at rehab and is being treated for urinary tract infection with ciprofloxacin. Patient had lab workup done yesterday showed pancytopenia and patient was transferred to ER for further evaluation. Patient also developed some petechial rash on the hand. Currently denied any fever or chills. Denied any previous history of blood dyscrasias. Otherwise patient denied any chest pain or shortness of breath. No nausea vomiting or abdominal pain no diarrhea or dysuria. No hematemesis or melena. Patientwas previously taking have a medication for her bladder before surgery. Patient is unsure why she is taking Hydrea. Hematology was consulted for further evaluation. 04/30/2018 Patient denied any complaints of chest pain or shortness of breath. No bruising or active bleeding noted. No commerce abdominal pain nausea or vomiting. Patient is still thrombocytopenic and is being transfused with platelets. Otherwise patient has recent history of polycythemia vera and was started on Hydrea by hematology. Patient never followed up off of that. Pancytopenia likely due to Hydrea as per hematology evaluation. Otherwise patient denied any complaints today. All other review of systems negative except the above Current medications reviewed. Objective - Vital Signs Vital signs: Vital Signs Temp 97.3 F L 04/30/18 22:15 Pulse 100 04/30/18 22:15 Resp 16 04/30/18 22:15 BP 99/58 04/30/18 22:15 Pulse Ox 95 04/30/18 22:15 Intake & Output 04/30/18 04/30/18 05/01/18 06:59 18:59 06:59 Intake Total 385 525 590 Balance 385 525 590 Intake: Intake, IV Titration 385 Amount Sodium Chloride 0.9% 1, 385 000 ml @ 75 mls/hr IV . [id number] STA Rx#:[id number] Oral 590 Blood Product 525 Platelet Pheresis Acda 525 Unit [id number] Other: Voiding Method Toilet Toilet Incontinent Incontinent # Voids 1 1 2 - Exam PHYSICAL EXAMINATION: Patient is lying in the bed comfortably, no acute distress, awake alert and oriented.. HEENT: Normocephalic. Neck is supple. Pupils reactive. Nostrils clear. Oral cavity is moist. Ears reveal no drainage. Neck reveals no JVD, carotid bruits, or thyromegaly. CHEST EXAMINATION: Trachea is central. Symmetrical expansion. Lung jeffery clear to auscultation and percussion. CARDIAC: Normal S1, S2 with no gallops. No murmurs ABDOMEN: Soft. Bowel sounds normal. No organomegaly. No abdominal bruits. Extremities: reveal no edema. No clubbing or cyanosis Neurologically awake, alert, oriented x3 with well-coordinated movements. No focal deficits noted Skin: No rash or skin lesions. Psychiatric: Coperative. Nonsuicidal Musculoskeletal: No joint swelling or deformity. Normal range of motion. - Labs CBC & Chem 7: 05/01/18 07:03 04/28/18 20:55 Labs: Abnormal Lab Results - Last 24 Hours (Table) 04/28/18 04/30/18 04/30/18 Range/Units 20:55 06:43 15:55 WBC 1.9 L* (3.8-10.6) k/uL RBC 2.32 L (3.80-5.40) m/uL Hgb 7.6 L D (11.4-16.0) gm/dL Hct 20.8 L (34.0-46.0) % RDW 21.9 H (11.5-15.5) % Plt Count 10 L* (150-450) k/uL Neutrophils # (Manual) 0.84 L (1.3-7.7) k/uL Lymphocytes # (Manual) 0.93 L (1.0-4.8) k/uL Urine Protein Trace H (Negative) Urine Blood Large H (Negative) Urine RBC >182 H (0-5) /hpf Urine Bacteria Rare H (None) /hpf Free [place] LC, Quant 3.11 H (0.33-1.94) mg/dL Assessment and Plan Assessment: Pancytopenia. Likely due to Hydrea History of polycythemia vera Urinary tract infection and is being treated with ciprofloxacin Recent coronary artery bypass graft in February 2018 History of polycythemia Plan: Patient be continued on IV fluids and follow up CBC. Pancytopenia workup including iron studies B12 folate level, serum protein electrophoresis and immuno fixation, anemia and rheumatoid factor was ordered. Hematology is following. Will hold antiplatelet medication and follow up closely. Further recommendations based on the clinical course. Time with Patient: Greater than 30
--- NOTE | 2018-05-02 01:31 | P.PN ---
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 Patient had lab workup done yesterday showed pancytopenia and patient was transferred to ER for further evaluation. Patient also developed some petechial rash on the hand. Currently denied any fever or chills. Denied any previous history of blood dyscrasias. Otherwise patient denied any chest pain or shortness of breath. No nausea vomiting or abdominal pain no diarrhea or dysuria. No hematemesis or melena. Patientwas previously taking have a medication for her bladder before surgery. Patient is unsure why she is taking Hydrea. Hematology was consulted for further evaluation. 04/30/2018 Patient denied any complaints of chest pain or shortness of breath. No bruising or active bleeding noted. No commerce abdominal pain nausea or vomiting. Patient is still thrombocytopenic and is being transfused with platelets. Otherwise patient has recent history of polycythemia vera and was started on Hydrea by hematology. Patient never followed up off of that. Pancytopenia likely due to Hydrea as per hematology evaluation. Otherwise patient denied any complaints today. 05/01/2018 Patient denied any new complaints today. Platelet count slightly improved to 14 ,000. No other acute overnight issues otherwise. All other review of systems negative except the above Current medications reviewed. Objective - Vital Signs Vital signs: Vital Signs Temp 97.6 F 05/01/18 06:29 Pulse 73 05/01/18 06:29 Resp 16 05/01/18 06:29 BP 107/51 05/01/18 06:29 Pulse Ox 97 05/01/18 06:29 Intake & Output 04/30/18 05/01/18 05/01/18 18:59 06:59 18:59 Intake Total 525 640 Balance 525 640 Weight 52.16 kg Intake: Oral 640 Blood Product 525 Platelet Pheresis Acda 525 Unit [id number] Other: Voiding Method Toilet Toilet Toilet Incontinent Incontinent Incontinent # Voids 1 2 3 # Bowel Movements 3 - Exam PHYSICAL EXAMINATION: Patient is lying in the bed comfortably, no acute distress, awake alert and oriented.. HEENT: Normocephalic. Neck is supple. Pupils reactive. Nostrils clear. Oral cavity is moist. Ears reveal no drainage. Neck reveals no JVD, carotid bruits, or thyromegaly. CHEST EXAMINATION: Trachea is central. Symmetrical expansion. Lung jeffery clear to auscultation and percussion. CARDIAC: Normal S1, S2 with no gallops. No murmurs ABDOMEN: Soft. Bowel sounds normal. No organomegaly. No abdominal bruits. Extremities: reveal no edema. No clubbing or cyanosis Neurologically awake, alert, oriented x3 with well-coordinated movements. No focal deficits noted Skin: No rash or skin lesions. Psychiatric: Coperative. Nonsuicidal Musculoskeletal: No joint swelling or deformity. Normal range of motion. - Labs CBC & Chem 7: 05/01/18 07:03 04/28/18 20:55 Labs: Abnormal Lab Results - Last 24 Hours (Table) 04/29/18 05/01/18 Range/Units 09:30 07:03 WBC 1.5 L* (3.8-10.6) k/uL RBC 2.23 L (3.80-5.40) m/uL Hgb 7.1 L (11.4-16.0) gm/dL Hct 20.3 L (34.0-46.0) % RDW 21.3 H (11.5-15.5) % Plt Count 14 L* (150-450) k/uL Neutrophils # 0.7 L (1.3-7.7) k/uL Lymphocytes # 0.7 L (1.0-4.8) k/uL RBC Folate 1,544 H (280 - 791) ng/mL Assessment and Plan Assessment: Pancytopenia. Likely due to Hydrea History of polycythemia vera Urinary tract infection and is being treated with ciprofloxacin Recent coronary artery bypass graft in February 2018 History of polycythemia Plan: Patient be continued on IV fluids and follow up CBC. Pancytopenia workup including iron studies B12 folate level, serum protein electrophoresis and immuno fixation, anemia and rheumatoid factor was ordered. Hematology is following. Will hold antiplatelet medication and follow up closely. Further recommendations based on the clinical course. Time with Patient: Greater than 30
[2018-05-02 07:43] LABS: Anisocytosis Slight; Basophils % (A) 0 %; Eosinophils % (A) 2 %; HCT 20.6 % (34.0-46.0); HGB 7.3 gm/dL (11.4-16.0); Lymphocytes # (A) 0.5 k/uL (1.0-4.8); Lymphocytes % (A) 36 %; MCH 31.3 pg (25.0-35.0); MCHC 35.3 g/dL (31.0-37.0); MCV 88.7 fL (80.0-100.0); Mean Platelet Volume 8.9; Monocytes # (A) 0.1 k/uL (0-1.0); Monocytes % (A) 4 %; Neutrophils # (A) 0.8 k/uL (1.3-7.7); Neutrophils % (A) 57 %; RBC 2.32 m/uL (3.80-5.40); RDW 19.7 % (11.5-15.5)
[2018-05-02 07:47] LABS: Platelet Count 15 k/uL (150-450); WBC 1.5 k/uL (3.8-10.6)
[2018-05-02 09:43] LABS: Albumin 3.56 g/dL (3.80-4.90); Gamma Globulin 1.21 g/dL (0.70-1.50); Protein, Total 6.4 g/dL (6.2-8.2)
--- NOTE | 2018-05-02 09:56 | PN ---
PROGRESS NOTE DATE OF SERVICE: May 02, 2018. CHIEF COMPLAINT: Tired. Adelaide is seen today as a followup. She feels tired, but overall she reported she feels better and she is improving. No nausea or vomiting. No fever or chills. No melena, hematochezia, or hematuria. CURRENT MEDICATION: Include Tylenol 650 mg every 4 hours as needed, Lipitor 40 mg q.h.s., vitamin B12 at 1000 mcg daily, and Colace 100 mg q.12 hours. Filgrastim 480 mcg subcu daily, metoprolol 12.5 mg b.i.d., MiraLAX as needed, and tramadol 50 every 8 hours as needed. PHYSICAL EXAMINATION: She is alert, oriented x3. She is not is not in acute distress. Well developed. Her vital signs are temperature 98, a afebrile. The pulse is 73. The blood pressure 97/53. The pulse ox 90% on room air. HEENT: Normocephalic, atraumatic. The oral mucosa are intact. NECK: Supple. Chest: Equal expansion bilaterally. LUNGS: Clear to auscultation. Heart is regular rate and rhythm. ABDOMEN: Soft. No obvious organomegaly or masses. No tenderness. Extremities revealed no significant edema. Skin a few bruises especially on her upper extremities. LABORATORY DATA: WBC are 1.5, hemoglobin 7.3, hematocrit is 20.6, platelets are 15. IMPRESSION: 1. Severe pancytopenia. This is suspected to be related to hydroxyurea. The patient started 1000 mg b.i.d. of hydroxyurea in February of 2018 after heart surgery at [facility] and apparently she has not had any followup on that. We are still awaiting the records to find out the exact reason why the patient was not on hydroxyurea. Apparently she had open-heart surgery in early February and then this hematologic issue arose after her surgery. As far as to her knowledge, she was not told that she has any hematologic issue until after her heart surgery. I am not so sure if she really has a myeloproliferative disorder which required her to be to started on hydroxyurea or if she had reactive thrombocytosis after her open-heart surgery. Her current iron studies are not consistent with the reported polycythemia vera. Usually you would expect the iron studies to be low normal or below or significantly low in polycythemia vera due to increased iron consumption. Also, she has a low normal B12 level and that also is not consistent with myeloproliferative disorder as well. 2. Urinary tract infection. She is currently being treated. RECOMMENDATION: 1. Continue stimulating factor for now. 2. Monitor blood count very closely. 3. Awaiting records from [facility]. 4. It may take up prolonged time for her blood count to recover from hydroxyurea. If there is no improvement in her blood count, then may consider further evaluation with bone marrow aspirate and biopsy. Thank you very much. The above was discussed with the patient and I have answered all her questions. MMODL / IJN: [id number] /
[2018-05-02] MEDS: METOPROLOL TARTRATE 12.5 MG TAB PO SCH ×2 (10:16→21:55)
[2018-05-02] MEDS: CYANOCOBALAMIN 1,000 MCG/ML 1 ML VIAL IM SCH (10:17)
[2018-05-02] MEDS: DOCUSATE 100 MG CAP PO SCH ×2 (10:17→21:55)
[2018-05-02] MEDS: ATORVASTATIN 40 MG TAB PO SCH (21:55)
[2018-05-02] MEDS: FILGRASTIM-SNDZ 480 MCG/0.8 ML SYRINGE SQ SCH (21:55)
[2018-05-03 07:27] LABS: Anisocytosis Moderate; MCH 32.6 pg (25.0-35.0); MCHC 36.1 g/dL (31.0-37.0); MCV 90.2 fL (80.0-100.0); Macrocytosis Slight; Mean Platelet Volume 9.1; RBC 2.09 m/uL (3.80-5.40); RDW 20.7 % (11.5-15.5)
[2018-05-03 07:44] LABS: HCT 18.8 % (34.0-46.0); HGB 6.8 gm/dL (11.4-16.0); WBC 1.7 k/uL (3.8-10.6)
[2018-05-03 07:45] LABS: Platelet Count 21 k/uL (150-450)
[2018-05-03 08:53] LABS: Band Neutrophils % 1 %; Lymphocytes # (M) 0.65 k/uL (1.0-4.8); Neutrophils % (M) 55 %; Nucleated Red Blood Cells 0 /100 WBC (0-0); Total Cells Counted 100
[2018-05-03] MEDS: CYANOCOBALAMIN 1,000 MCG/ML 1 ML VIAL IM SCH (09:20)
[2018-05-03] MEDS: DOCUSATE 100 MG CAP PO SCH ×2 (09:20→21:05)
[2018-05-03] MEDS: METOPROLOL TARTRATE 12.5 MG TAB PO SCH ×3 (12:59→23:10)
--- NOTE | 2018-05-03 18:44 | PN ---
PROGRESS NOTE DATE OF SERVICE: May 03, 2018. CHIEF COMPLAINT: Tired. Adelaide was seen today in followup. She feels tired, but no fever or chills. No melena. No hematochezia or hematuria. Her appetite is poor, but she is doing okay. MEDICATIONS: Medications reviewed in her electronic medical record. PHYSICAL EXAMINATION: She is alert, oriented x3. No distress. Vital signs: Temperature 97.5, pulse is 83, respirations 16, blood pressure 90/50. HEENT: Normocephalic, atraumatic. NECK: Supple. Chest equal expansion bilaterally. LUNGS: Clear to auscultation. Heart is regular rate and rhythm. ABDOMEN: Soft. No obvious organomegaly. Extremities reveal no edema. Skin reveals a few bruises. LABORATORY DATA: WBC 1.7, hemoglobin 6.8, hematocrit 18.8, platelets are 21. IMPRESSION: Severe pancytopenia. This is likely related to hydroxyurea. She was taking 1000 mg b.i.d. for about 2 months. Some records are available now from [facility]. Prior to her cardiac surgery, she had CBC done on February 12, 2018 which revealed hemoglobin around 17 g/dL, and she also has some leukocytosis and thrombocytosis. This is likely consistent with myeloproliferative disorder with possible polycythemia vera. However, additional studies such as JAK2 mutation and BCR/ABL, mutation are not available to me at this point in time. RECOMMENDATION: 1. Continue granulocyte colony-stimulating factors. 2. Continue to hold the hydroxyurea for now. 3. Supportive transfusion as needed. 4. I expect if her bone marrow does not fully recover to a bit to its baseline, despite holding hydroxyurea, then may consider bone marrow evaluation. The above was discussed with the patient and family at bedside and I have answered all their questions to their satisfaction. Thank you end. MMODL / IJN: [id number] /
[2018-05-03] MEDS: ATORVASTATIN 40 MG TAB PO SCH (21:05)
[2018-05-03] MEDS: FILGRASTIM-SNDZ 480 MCG/0.8 ML SYRINGE SQ SCH (21:05)
--- NOTE | 2018-05-04 01:42 | P.PN ---
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 Patient had lab workup done yesterday showed pancytopenia and patient was transferred to ER for further evaluation. Patient also developed some petechial rash on the hand. Currently denied any fever or chills. Denied any previous history of blood dyscrasias. Otherwise patient denied any chest pain or shortness of breath. No nausea vomiting or abdominal pain no diarrhea or dysuria. No hematemesis or melena. Patientwas previously taking have a medication for her bladder before surgery. Patient is unsure why she is taking Hydrea. Hematology was consulted for further evaluation. 04/30/2018 Patient denied any complaints of chest pain or shortness of breath. No bruising or active bleeding noted. No commerce abdominal pain nausea or vomiting. Patient is still thrombocytopenic and is being transfused with platelets. Otherwise patient has recent history of polycythemia vera and was started on Hydrea by hematology. Patient never followed up off of that. Pancytopenia likely due to Hydrea as per hematology evaluation. Otherwise patient denied any complaints today. 05/01/2018 Patient denied any new complaints today. Platelet count slightly improved to 14 ,000. No other acute overnight issues otherwise. 05/02/2018 Patient denied any new complaints today. WBC count improved to 1.5. Platelets 15,000. No other issues at this time. All other review of systems negative except the above Current medications reviewed. Objective - Vital Signs Vital signs: Vital Signs Temp 98.8 F 05/02/18 13:54 Pulse 84 05/02/18 15:22 Resp 16 05/02/18 15:22 BP 96/57 05/02/18 13:54 Pulse Ox 97 05/02/18 13:54 Intake & Output 05/02/18 05/02/18 05/03/18 06:59 18:59 06:59 Intake Total 237 240 Balance 237 240 Intake: Oral 237 240 Other: Voiding Method Toilet Toilet Incontinent Incontinent # Voids 1 3 - Exam PHYSICAL EXAMINATION: Patient is lying in the bed comfortably, no acute distress, awake alert and oriented.. HEENT: Normocephalic. Neck is supple. Pupils reactive. Nostrils clear. Oral cavity is moist. Ears reveal no drainage. Neck reveals no JVD, carotid bruits, or thyromegaly. CHEST EXAMINATION: Trachea is central. Symmetrical expansion. Lung jeffery clear to auscultation and percussion. CARDIAC: Normal S1, S2 with no gallops. No murmurs ABDOMEN: Soft. Bowel sounds normal. No organomegaly. No abdominal bruits. Extremities: reveal no edema. No clubbing or cyanosis Neurologically awake, alert, oriented x3 with well-coordinated movements. No focal deficits noted Skin: No rash or skin lesions. Psychiatric: Coperative. Nonsuicidal Musculoskeletal: No joint swelling or deformity. Normal range of motion. - Labs CBC & Chem 7: 05/03/18 06:29 04/28/18 20:55 Labs: Abnormal Lab Results - Last 24 Hours (Table) 04/28/18 05/02/18 Range/Units 20:55 07:10 WBC 1.5 L* (3.8-10.6) k/uL RBC 2.32 L (3.80-5.40) m/uL Hgb 7.3 L (11.4-16.0) gm/dL Hct 20.6 L (34.0-46.0) % RDW 19.7 H (11.5-15.5) % Plt Count 15 L* (150-450) k/uL Neutrophils # 0.8 L (1.3-7.7) k/uL Lymphocytes # 0.5 L (1.0-4.8) k/uL Albumin (PEP) 3.56 L (3.80-4.90) g/dL Assessment and Plan Assessment: Pancytopenia. Likely due to Hydrea History of polycythemia vera and was placed on Hydrea and patient followed up. Urinary tract infection and is being treated with ciprofloxacin Recent coronary artery bypass graft in February 2018 History of polycythemia Plan: Patient be continued on IV fluids and follow up CBC. Pancytopenia workup including iron studies B12 folate level, serum protein electrophoresis and immuno fixation, anemia and rheumatoid factor was ordered. Negative workup so far. Hematology is following. Will hold antiplatelet medication and follow up closely. Further recommendations based on the clinical course. Time with Patient: Greater than 30
--- NOTE | 2018-05-04 01:43 | P.PN ---
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 Patient had lab workup done yesterday showed pancytopenia and patient was transferred to ER for further evaluation. Patient also developed some petechial rash on the hand. Currently denied any fever or chills. Denied any previous history of blood dyscrasias. Otherwise patient denied any chest pain or shortness of breath. No nausea vomiting or abdominal pain no diarrhea or dysuria. No hematemesis or melena. Patientwas previously taking have a medication for her bladder before surgery. Patient is unsure why she is taking Hydrea. Hematology was consulted for further evaluation. 04/30/2018 Patient denied any complaints of chest pain or shortness of breath. No bruising or active bleeding noted. No commerce abdominal pain nausea or vomiting. Patient is still thrombocytopenic and is being transfused with platelets. Otherwise patient has recent history of polycythemia vera and was started on Hydrea by hematology. Patient never followed up off of that. Pancytopenia likely due to Hydrea as per hematology evaluation. Otherwise patient denied any complaints today. 05/01/2018 Patient denied any new complaints today. Platelet count slightly improved to 14 ,000. No other acute overnight issues otherwise. 05/02/2018 Patient denied any new complaints today. WBC count improved to 1.5. Platelets 15,000. No other issues at this time. 05/03/2018 The physical slightly improved to 1.7 and platelets 20,000. Patient is otherwise is symptomatic. And spit discharge in next 1-2 days if the counts continues to improve. Patient can be restarted back on aspirin and Plavix upon discharge. Patient says that she is also on anticoagulation with eliquis due to recent DVT. All other review of systems negative except the above Current medications reviewed. Objective - Vital Signs Vital signs: Vital Signs Temp 98.1 F 05/03/18 15:40 Pulse 84 05/03/18 16:00 Resp 18 05/03/18 16:00 BP 104/68 05/03/18 15:40 Pulse Ox 98 05/03/18 15:40 Intake & Output 05/03/18 05/03/18 05/04/18 06:59 18:59 06:59 Intake Total 120 550 Balance 120 550 Intake: Oral 120 240 Blood Product 310 Rc Irr As3 Unit 310 [id number] Other: Voiding Method Toilet Toilet Incontinent # Voids 1 1 - Exam PHYSICAL EXAMINATION: Patient is lying in the bed comfortably, no acute distress, awake alert and oriented.. HEENT: Normocephalic. Neck is supple. Pupils reactive. Nostrils clear. Oral cavity is moist. Ears reveal no drainage. Neck reveals no JVD, carotid bruits, or thyromegaly. CHEST EXAMINATION: Trachea is central. Symmetrical expansion. Lung jeffery clear to auscultation and percussion. CARDIAC: Normal S1, S2 with no gallops. No murmurs ABDOMEN: Soft. Bowel sounds normal. No organomegaly. No abdominal bruits. Extremities: reveal no edema. No clubbing or cyanosis Neurologically awake, alert, oriented x3 with well-coordinated movements. No focal deficits noted Skin: No rash or skin lesions. Psychiatric: Coperative. Nonsuicidal Musculoskeletal: No joint swelling or deformity. Normal range of motion. - Labs CBC & Chem 7: 05/03/18 06:29 08 20:55 Labs: Abnormal Lab Results - Last 24 Hours (Table) 05/03/18 05/03/18 Range/Units 06:29 10:49 WBC 1.7 L* (3.8-10.6) k/uL RBC 2.09 L (3.80-5.40) m/uL Hgb 6.8 L* (11.4-16.0) gm/dL Hct 18.8 L* (34.0-46.0) % RDW 20.7 H (11.5-15.5) % Plt Count 21 L* (150-450) k/uL Neutrophils # (Manual) 0.90 L (1.3-7.7) k/uL Lymphocytes # (Manual) 0.65 L (1.0-4.8) k/uL Crossmatch See Detail Assessment and Plan Assessment: Pancytopenia. Likely due to Hydrea History of polycythemia vera and was placed on Hydrea and patient followed up. Urinary tract infection and is being treated with ciprofloxacin Recent coronary artery bypass graft in February 2018 History of polycythemia Plan: Patient be continued on IV fluids and follow up CBC. Pancytopenia workup including iron studies B12 folate level, serum protein electrophoresis and immuno fixation, anemia and rheumatoid factor was ordered. Negative workup so far. Hematology is following. Will hold antiplatelet medication and follow up closely. Further recommendations based on the clinical course. Time with Patient: Greater than 30
[2018-05-04 07:13] LABS: Anisocytosis Slight; HGB 7.3 gm/dL (11.4-16.0); MCH 30.6 pg (25.0-35.0); MCHC 34.8 g/dL (31.0-37.0); Mean Platelet Volume 9.6; RBC 2.38 m/uL (3.80-5.40); RDW 18.8 % (11.5-15.5)
[2018-05-04 07:16] LABS: WBC 1.7 k/uL (3.8-10.6)
[2018-05-04 07:35] LABS: Anion Gap 6 mmol/L; Blood Urea Nitrogen 22 mg/dL (7-17); Calcium 8.3 mg/dL (8.4-10.2); Carbon Dioxide 25 mmol/L (22-30); Chloride 108 mmol/L (98-107); Glucose 92 mg/dL (74-99); Potassium 4.1 mmol/L (3.5-5.1); Sodium 139 mmol/L (137-145)
[2018-05-04 07:44] LABS: Band Neutrophils % 3 %; Eosinophils # (M) 0.02 k/uL (0-0.7); Neutrophils % (M) 43 %; Nucleated Red Blood Cells 0 /100 WBC (0-0); Total Cells Counted 100
[2018-05-04 07:45] LABS: Platelet Count 31 k/uL (150-450); Poikilocytosis (M) Present
[2018-05-04 07:46] LABS: Hypochromasia (M) Present
[2018-05-04] MEDS: DOCUSATE 100 MG CAP PO SCH ×2 (08:41→22:23)
[2018-05-04] MEDS: METOPROLOL TARTRATE 12.5 MG TAB PO SCH ×2 (08:41→21:42)
[2018-05-04] MEDS: CYANOCOBALAMIN 1,000 MCG/ML 1 ML VIAL IM SCH (08:42)
--- NOTE | 2018-05-04 11:59 | P.PN ---
Subjective Progress Note Date: 05/04/18 Principal diagnosis: Pancytopenia Pt seen in f/u, her CBC continues to be low, her hydrea was discontinued on admit, she has received PRBCs x 2 and 1 unit SDP, she is on G-CSF. Pt denies any bleeding but she did have some blood smeared in her brief, she thinks it is vaginal in origin. Her stomach remains upset but denies vomiting, she eats and drinks most of her meals pe documentation, not taking in supplements. No other physical c/o, she is working with PT. Objective - Vital Signs Vital signs: Vital Signs Temp 97.8 F 05/04/18 07:00 Pulse 77 05/04/18 07:00 Resp 16 05/04/18 07:00 BP 113/65 05/04/18 07:00 Pulse Ox 97 05/04/18 07:00 Intake & Output 05/03/18 05/04/18 05/04/18 18:59 06:59 18:59 Intake Total 550 220 Balance 550 220 Intake: Oral 240 220 Blood Product 310 Rc Irr As3 Unit 310 [id number] Other: Voiding Method Toilet Toilet Toilet # Voids 1 2 - Constitutional General appearance: Present: average body habitus, cooperative, no acute distress - Respiratory Respiratory: bilateral: CTA - Cardiovascular Heart sounds: normal: S1, S2 - Gastrointestinal General gastrointestinal: Present: soft Localized gastrointestinal: tender: epigastric periumbilical - Integumentary Integumentary: Present: pale - Neurologic Neurologic: Present: CNII-XII intact - Musculoskeletal Musculoskeletal: Present: generalized weakness - Psychiatric Psychiatric: Present: A&O x's 3, appropriate affect, intact judgment & insight - Labs CBC & Chem 7: 05/04/18 06:54 05/04/18 06:54 Labs: Abnormal Lab Results - Last 24 Hours (Table) 05/03/18 05/04/18 05/04/18 Range/Units 10:49 06:54 06:54 WBC 1.7 L* (3.8-10.6) k/uL RBC 2.38 L (3.80-5.40) m/uL Hgb 7.3 L (11.4-16.0) gm/dL Hct 21.0 L (34.0-46.0) % RDW 18.8 H (11.5-15.5) % Plt Count 31 L* (150-450) k/uL Neutrophils # (Manual) 0.70 L (1.3-7.7) k/uL Lymphocytes # (Manual) 0.90 L (1.0-4.8) k/uL Chloride 108 H (98-107) mmol/L BUN 22 H (7-17) mg/dL Calcium 8.3 L (8.4-10.2) mg/dL Crossmatch See Detail Assessment and Plan (1) Pancytopenia Narrative/Plan: Workup negative for iron deficiency. B12 level is low normal, IM supplementation has been changed to oral. Electrophoresis and immunofixation are negative for monoclonal protein. Hydrea was discontinued for now. Continue to monitor CBC. Patient follow up with hematology as soon as possible the outpatient setting, she already has appt scheduled. Current Visit: Yes Status: Acute Priority: High Code(s): D61.818 - OTHER PANCYTOPENIA SNOMED Code(s): 187940934
--- NOTE | 2018-05-04 15:30 | P.PN ---
Subjective Progress Note Date: 05/04/18 Progress note being dictated for Dr. Marmolejo. Pancytopenia Interval history:Patient is a 78-year-old female with a known history of recent triple vessel coronary artery bypass graft in February 2018 and polycythemia who is currently at rehab and is being treated for urinary tract infection with ciprofloxacin. Patient had lab workup done yesterday showed pancytopenia and patient was transferred to ER for further evaluation. Patient also developed some petechial rash on the hand. Currently denied any fever or chills. Denied any previous history of blood dyscrasias. Otherwise patient denied any chest pain or shortness of breath. No nausea vomiting or abdominal pain no diarrhea or dysuria. No hematemesis or melena. Patientwas previously taking have a medication for her bladder before surgery. Patient is unsure why she is taking Hydrea. Hematology was consulted for further evaluation. 04/30/2018 Patient denied any complaints of chest pain or shortness of breath. No bruising or active bleeding noted. No commerce abdominal pain nausea or vomiting. Patient is still thrombocytopenic and is being transfused with platelets. Otherwise patient has recent history of polycythemia vera and was started on Hydrea by hematology. Patient never followed up off of that. Pancytopenia likely due to Hydrea as per hematology evaluation. Otherwise patient denied any complaints today. 05/01/2018 Patient denied any new complaints today. Platelet count slightly improved to 14 ,000. No other acute overnight issues otherwise. 05/02/2018 Patient denied any new complaints today. WBC count improved to 1.5. Platelets 15,000. No other issues at this time. 05/03/2018 The physical slightly improved to 1.7 and platelets 20,000. Patient is otherwise is symptomatic. And spit discharge in next 1-2 days if the counts continues to improve. Patient can be restarted back on aspirin and Plavix upon discharge. Patient says that she is also on anticoagulation with eliquis due to recent DVT. All other review of systems negative except the above Current medications reviewed. 05/04/2018 maintained on G-CSF, with platelets improving up into the 30s. Received packed RBC transfusions yesterday with current hemoglobin 7.3. Reporting"significant bleeding, possibly from vaginal area". Denies chest pain , palpitations. Objective - Vital Signs Vital signs: Vital Signs Temp 97.8 F 05/04/18 07:00 Pulse 77 05/04/18 07:00 Resp 16 05/04/18 07:00 BP 113/65 05/04/18 07:00 Pulse Ox 97 05/04/18 07:00 Intake & Output 05/03/18 05/04/18 05/04/18 18:59 06:59 18:59 Intake Total 550 220 Balance 550 220 Intake: Oral 240 220 Blood Product 310 Rc Irr As3 Unit 310 [id number] Other: Voiding Method Toilet Toilet Toilet # Voids 1 2 - Exam PHYSICAL EXAMINATION: Patient is lying in the bed comfortably, no acute distress, awake alert and oriented.. HEENT: Normocephalic. Neck is supple. Pupils reactive. Nostrils clear. Oral cavity is moist. Neck reveals no JVD, carotid bruits, or thyromegaly. CHEST EXAMINATION: Trachea is central. Symmetrical expansion. Lung jeffery clear to auscultation and percussion. CARDIAC: Normal S1, S2 with no gallops. No murmurs ABDOMEN: Soft. Bowel sounds normal. No organomegaly. No abdominal bruits. Extremities: reveal no edema. No clubbing or cyanosis Neurologically awake, alert, oriented x3 with well-coordinated movements. No focal deficits noted Skin: No rash or skin lesions. Psychiatric: Coperative. Nonsuicidal Musculoskeletal: No joint swelling or deformity. Normal range of motion. - Labs CBC & Chem 7: 05/04/18 06:54 05/04/18 06:54 Labs: Abnormal Lab Results - Last 24 Hours (Table) 05/03/18 05/04/18 05/04/18 Range/Units 10:49 06:54 06:54 WBC 1.7 L* (3.8-10.6) k/uL RBC 2.38 L (3.80-5.40) m/uL Hgb 7.3 L (11.4-16.0) gm/dL Hct 21.0 L (34.0-46.0) % RDW 18.8 H (11.5-15.5) % Plt Count 31 L* (150-450) k/uL Neutrophils # (Manual) 0.70 L (1.3-7.7) k/uL Lymphocytes # (Manual) 0.90 L (1.0-4.8) k/uL Chloride 108 H (98-107) mmol/L BUN 22 H (7-17) mg/dL Calcium 8.3 L (8.4-10.2) mg/dL Crossmatch See Detail Assessment and Plan Assessment: Pancytopenia. Likely due to Hydrea History of polycythemia vera and was placed on Hydrea and patient followed up. Urinary tract infection and is being treated with ciprofloxacin Recent coronary artery bypass graft in February 2018 History of polycythemia Plan: Continue on current medication regime ,monitoring and symptomatic treatment. Antiplatelet medications remain on hold, platelets slowly improving , up to 31. Initially planning for discharge back to subacute rehab, but patient now reporting bleeding, possibly from the vaginal area. History of recent CABG in February and recent PE in March. Continue monitoring overnight, close monitoring of CBC. Discharge anticoagulation recommendations as per hematology/oncology. The impression and plan of care has been dictated as directed. : I performed a history and examination of this patient, discussed the same with the dictator. I agree with the dictator's note ,documented as a scribe. Any additional findings or plans will be noted.
[2018-05-04] MEDS: ATORVASTATIN 40 MG TAB PO SCH (21:42)
[2018-05-04] MEDS: FILGRASTIM-SNDZ 480 MCG/0.8 ML SYRINGE SQ SCH (22:23)
[2018-05-05 08:16] VITALS: RESP 18
[2018-05-05] MEDS: CYANOCOBALAMIN 1,000 MCG/ML 1 ML VIAL IM SCH (09:00)
[2018-05-05] MEDS: METOPROLOL TARTRATE 12.5 MG TAB PO SCH (09:00)
[2018-05-05] MEDS: DOCUSATE 100 MG CAP PO SCH (09:00)
[2018-05-05 10:41] LABS: Anisocytosis Moderate; HCT 21.9 % (34.0-46.0); HGB 7.4 gm/dL (11.4-16.0); MCH 31.3 pg (25.0-35.0); MCHC 33.9 g/dL (31.0-37.0); MCV 92.3 fL (80.0-100.0); Macrocytosis Slight; Mean Platelet Volume 8.3; RBC 2.37 m/uL (3.80-5.40); RDW 20.6 % (11.5-15.5)
[2018-05-05 10:47] LABS: Platelet Count 58 k/uL (150-450)
[2018-05-05 10:48] LABS: WBC 1.3 k/uL (3.8-10.6)
[2018-05-05 11:16] LABS: Band Neutrophils % 2 %; Eosinophils # (M) 0.01 k/uL (0-0.7); Lymphocytes # (M) 0.72 k/uL (1.0-4.8); Monocytes # (M) 0.21 k/uL (0-1.0); Neutrophils % (M) 26 %; Nucleated Red Blood Cells 0 /100 WBC (0-0); Total Cells Counted 100
[2018-05-05 11:17] LABS: Poikilocytosis (M) Present
--- NOTE | 2018-05-05 11:34 | P.PN ---
Subjective Progress Note Date: 05/05/18 Principal diagnosis: Pancytopenia Pt seen in f/u, she is feeling okay this a.m. No fevers, nausea, dysuria, diarrhea, bleeding or pain to report Objective - Vital Signs Vital signs: Vital Signs Temp 97.8 F 05/05/18 07:00 Pulse 74 05/05/18 07:00 Resp 18 05/05/18 07:00 BP 114/68 05/05/18 07:00 Pulse Ox 95 05/05/18 07:00 Intake & Output 05/04/18 05/05/18 05/05/18 18:59 06:59 18:59 Intake Total 180 125 Balance 180 125 Intake: IV 180 .9 kvo 180 Oral 125 Other: Voiding Method Toilet Toilet Incontinent # Voids 2 - Exam Well-developed, thin, sitting up in bed, no acute distress, alert and oriented to self place and time, most of situation, respirations even and unlabored, patient able to move herself independently, no gross focal or motor or neuro deficits are noted, no lower extremity swelling visible. - Labs CBC & Chem 7: 05/05/18 09:44 05/04/18 06:54 Labs: Abnormal Lab Results - Last 24 Hours (Table) 05/05/18 Range/Units 09:44 WBC 1.3 L* (3.8-10.6) k/uL RBC 2.37 L (3.80-5.40) m/uL Hgb 7.4 L (11.4-16.0) gm/dL Hct 21.9 L (34.0-46.0) % RDW 20.6 H (11.5-15.5) % Plt Count 58 L D (150-450) k/uL Assessment and Plan (1) Pancytopenia Current Visit: Yes Status: Acute Priority: High Code(s): D61.818 - OTHER PANCYTOPENIA SNOMED Code(s): 484335870 (2) Pancytopenia due to chemotherapy Current Visit: Yes Status: Acute Priority: High Code(s): D61.810 - ANTINEOPLASTIC CHEMOTHERAPY INDUCED PANCYTOPENIA SNOMED Code(s): 5522624 (3) Polycythemia Current Visit: Yes Status: Acute Priority: High Code(s): D75.1 - SECONDARY POLYCYTHEMIA SNOMED Code(s): 915859292 Plan: This case was reviewed with Primary Care physician who did confirm that patient was recently diagnosed with polycythemia vera. 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 No follow up with inhalation therapist since initiation of Hydrea. Pancytopenia on admission is secondary to treatment of polycythemia with the Hydrea. Patient has been transfused with 2 units of blood and 1 unit of single donor platelets since admission. Since discontinuation of Hydrea patient's counts have been slow to improve but, they are improving. Platelet count today is up to 58,000, hemoglobin stable at 7.4, white count down slightly from yesterday to 1.3. Case discussed with Attending. Reinforced with patient, and will document in medical record patient needs to have CBC and follow-up with inhalation therapist for treatment of polycythemia vera. Patient will continue to hold Hydrea at this time. Patient was on eliquis for PE diagnosed 03/16/18 at [facility], provoked postoperatively, confirmed with records obtained from [facility]. She was also on Plavix from cardiology who performed her CABG. Due to patient's platelet count of 58,000 today she is okay for anticoagulation with caution. Would prefer that patient only be on anticoagulation and not combination with antiplatelet therapy until her platelet count is certain to be recovering. She needs to follow-up with her Electrophysiologist in regards to antiplatelet therapy as soon as possible. No further Hematologic intervention.
--- NOTE | 2018-05-05 14:48 | P.DS ---
Providers Date of admission: 04/28/18 22:49 Attending physician: Bradley Medina MD Consults: 04/28/18 22:49 Consult Physician Routine Consulting Provider: Cesar Coles Consult Reason/Comments: pancytopenia Do you want consulting provider notified?: Yes Primary care physician: Josseline Zambrano Hospital Course: Final Diagnoses: Pancytopenia. 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 Patient had lab workup done yesterday showed pancytopenia and patient was transferred to ER for further evaluation. Patient also developed some petechial rash on the hand. Currently denied any fever or chills. Denied any previous history of blood dyscrasias. Otherwise patient denied any chest pain or shortness of breath. No nausea vomiting or abdominal pain no diarrhea or dysuria. No hematemesis or melena. Patientwas previously taking have a medication for her bladder before surgery. Patient is unsure why she is taking Hydrea. Hematology was consulted for further evaluation. 04/30/2018 Patient denied any complaints of chest pain or shortness of breath. No bruising or active bleeding noted. No commerce abdominal pain nausea or vomiting. Patient is still thrombocytopenic and is being transfused with platelets. Otherwise patient has recent history of polycythemia vera and was started on Hydrea by hematology. Patient never followed up off of that. Pancytopenia likely due to Hydrea as per hematology evaluation. Otherwise patient denied any complaints today. 05/01/2018 Patient denied any new complaints today. Platelet count slightly improved to 14 ,000. No other acute overnight issues otherwise. 05/02/2018 Patient denied any new complaints today. WBC count improved to 1.5. Platelets 15,000. No other issues at this time. 05/03/2018 The physical slightly improved to 1.7 and platelets 20,000. Patient is otherwise is symptomatic. And spit discharge in next 1-2 days if the counts continues to improve. Patient can be restarted back on aspirin and Plavix upon discharge. Patient says that she is also on anticoagulation with eliquis due to recent DVT. All other review of systems negative except the above Current medications reviewed. 05/04/2018 maintained on G-CSF, with platelets improving up into the 30s. Received packed RBC transfusions yesterday with current hemoglobin 7.3. Reporting"significant bleeding, possibly from vaginal area". Denies chest pain , palpitations. 05/05/2018. No further bleeding . Hemoglobin 7.4, platelets improved up to 58, WBC 1.3. Cleared by consults for discharge. Patient is being discharged in a stable condition with guarded prognosis to subacute rehab. Exam General: ALert & oriented X3, no acute distress, awake alert and oriented.. CHEST EXAMINATION: Trachea is central. Symmetrical expansion. Lung jeffery clear to auscultation and percussion. CARDIAC: Normal S1, S2 with no gallops. No murmurs ABDOMEN: Soft. Bowel sounds normal. No organomegaly. Neurologically No focal deficits noted. The impression and plan of care has been dictated as directed. : I performed a history and examination of this patient, discussed the same with the dictator. I agree with the dictator's note ,documented as a scribe. Any additional findings or plans will be noted. Time taken: 35 minutes Patient Condition at Discharge: Stable Plan - Discharge Summary Discharge Rx Participant: No New Discharge Prescriptions: New Filgrastim-Sndz [Zarxio] 480 mcg SQ HS syringe Aspirin EC [Ecotrin Low Dose] 81 mg PO DAILY #1 tablet.dr Vasquez Promethazine 25mg/Ml 25 mg IM Q6H PRN PRN Reason: Nausea Metoprolol Tartrate [Lopressor] 12.5 mg PO BID Docusate [Colace] 100 mg PO Q12H Atorvastatin [Lipitor] 40 mg PO HS Acetaminophen Tab [Tylenol] 650 mg PO Q4H PRN PRN Reason: Pain traMADol HCL [Ultram] 50 mg PO Q8H PRN #9 tablet PRN Reason: Moderate Pain Discontinued Clopidogrel Bisulfate [Plavix] 75 mg PO DAILY Hydroxyurea [Hydrea] 1,000 mg PO BID Ciprofloxacin HCl [Cipro] 500 mg PO Q12H Aspirin EC [Ecotrin Low Dose] 81 mg PO DAILY Discharge Medication List Acetaminophen Tab [Tylenol] 650 mg PO Q4H PRN 04/28/18 [History] Atorvastatin [Lipitor] 40 mg PO HS 04/28/18 [History] Docusate [Colace] 100 mg PO Q12H 04/28/18 [History] Metoprolol Tartrate [Lopressor] 12.5 mg PO BID 04/28/18 [History] Promethazine 25mg/Ml 25 mg IM Q6H PRN 04/28/18 [History] Aspirin EC [Ecotrin Low Dose] 81 mg PO DAILY #1 tablet. 05/04/18 [Rx] Filgrastim-Sndz [Zarxio] 480 mcg SQ HS syringe 05/04/18 [Rx] traMADol HCL [Ultram] 50 mg PO Q8H PRN #9 tablet 05/05/18 [Rx] Follow up Appointment(s)/Referral(s): PCP, @Jasmina Peters F [Other] - 3 Days Josseline Zambrano MD [Primary Care Provider] - 1 Week (after dc from [facility]) Activity/Diet/Wound Care/Special Instructions: Morena plavix,eliquis currently on hold, anticoagulation rec. as per Hematology/ONC. Plavix to be re-evaluated OP with Cardiothoracic Surgery & Hematology this week. [facility] - [phone] cbc,bmp in 3 days
[2018-05-05 15:11] VITALS: BP 120/72; PULSE 85; TEMP 98
[2018-05-05] MEDS ORDERED: APIXABAN 5 MG TAB PO SCH (21:00)
== END 2018-05-05 18:51 | disposition home health service (06) | DRG 810 ==
LOC: EC 20:36 → 5ONC 22:49
PROVIDERS: ADMIT Internal Medicine; ATTEND Internal Medicine
PROC: 30233N1 Transfusion of Nonautologous Red Blood Cells into Peripheral Vein, Percutaneous Approach (ICD-10-PCS; 2018-04-29)
PROC: 30233R1 Transfusion of Nonautologous Platelets into Peripheral Vein, Percutaneous Approach (ICD-10-PCS; principal; 2018-04-30)
DX: D61.810 Antineoplastic chemotherapy induced pancytopenia (principal); T45.1X5A Adverse effect of antineoplastic and immunosuppressive drugs, initial encounter; E78.5 Hyperlipidemia, unspecified; R50.81 Fever presenting with conditions classified elsewhere; R32 Unspecified urinary incontinence; Z79.02 Long term (current) use of antithrombotics/antiplatelets; Z79.82 Long term (current) use of aspirin; Z79.899 Other long term (current) drug therapy; Z95.1 Presence of aortocoronary bypass graft; Z86.2 Personal history of diseases of the blood and blood-forming organs and certain disorders involving the immune mechanism; Z79.01 Long term (current) use of anticoagulants; Z90.49 Acquired absence of other specified parts of digestive tract; Z86.718 Personal history of other venous thrombosis and embolism; Z90.710 Acquired absence of both cervix and uterus; Z88.5 Allergy status to narcotic agent; Z88.0 Allergy status to penicillin; Z82.49 Family history of ischemic heart disease and other diseases of the circulatory system; Z82.5 Family history of asthma and other chronic lower respiratory diseases
CPT/HCPCS: 36415; 80048; 80053; 81001; 82550; 82553; 82607; 82728; 82747; 83540; 83550; 83615; 83690; 83735; 83883; 84165; 84484; 85025; 85045; 85384; 85610; 85730; 86038; 86334; 86431; 86850; 86900; 86901; 86920; 99285

== ENCOUNTER 2022-07-11 08:54 | Inpatient (IN) | payer MEDICARE, BC ==
[2022-07-11] MEDS ORDERED: SODIUM CHLORIDE 0.9% 500 ML 500 ML IV ONE (09:16)
[2022-07-11 09:50] LABS: ALT 31 U/L (4-34); AST 26 U/L (14-36); African American GFR (CKD) >90 (>60 ml/min/1.73 sqM); Albumin 4.1 g/dL (3.5-5.0); Alkaline Phosphatase 93 U/L (38-126); Anion Gap 11 mmol/L; Blood Urea Nitrogen 19 mg/dL (7-17); Calcium 8.9 mg/dL (8.4-10.2); Carbon Dioxide 25 mmol/L (22-30); Chloride 102 mmol/L (98-107); Glucose 117 mg/dL (74-99); Magnesium 2.1 mg/dL (1.6-2.3); Non-African American GFR(CKD) 83 (>60 ml/min/1.73 sqM); Potassium 4.6 mmol/L (3.5-5.1); Sodium 138 mmol/L (137-145); Total Protein 6.9 g/dL (6.3-8.2)
[2022-07-11 09:51] LABS: Basophils # (A) 0.1 k/uL (0-0.2); Basophils % (A) 1 %; Eosinophils # (A) 0.5 k/uL (0-0.7); Eosinophils % (A) 3 %; HCT 52.7 % (34.0-46.0); Hypochromasia Slight; Lymphocytes # (A) 0.7 k/uL (1.0-4.8); Lymphocytes % (A) 4 %; MCH 30.5 pg (25.0-35.0); MCHC 32.2 g/dL (31.0-37.0); MCV 94.9 fL (80.0-100.0); Monocytes # (A) 0.2 k/uL (0-1.0); Monocytes % (A) 1 %; Neutrophils % (A) 90 %; Platelet Count 591 k/uL (150-450); RBC 5.55 m/uL (3.80-5.40); RDW 13.9 % (11.5-15.5); WBC 16.6 k/uL (3.8-10.6)
[2022-07-11 10:00] LABS: INR 1.1 (<1.2); Partial Thromboplastin Time 26.2 sec (22.0-30.0); Prothrombin Time 11.5 sec (9.0-12.0)
--- NOTE | 2022-07-11 10:17 | XR ---
EXAMINATION TYPE: XR chest 2V DATE OF EXAM: 07/11/2022 COMPARISON: None HISTORY: 82-year-old female chest pain TECHNIQUE: AP and lateral views FINDINGS: Median sternotomy wires are present with clips in the mediastinum. Heart borderline in size. Mild hyp erinflation. Mild interstitial prominence is likely chronic. Accentuated mid thoracic kyphosis. Ther e is focal nodularity along the medial aspect of the left upper lobe/left apex that could prevent ect atic vascularity. Underlying mass not excluded at this time. Otherwise, no consolidation or pleural e ffusion. IMPRESSION: 1. Borderline heart size, postoperative changes, and suspected underlying COPD. No definite acute pro cess. 2. However, there is nodular soft tissue density at the medial left upper lobe. Underlying nodule/mas s not excluded. Ectatic vasculature is a possibility. Nonemergent follow-up contrast enhanced CT ches t recommended.
--- NOTE | 2022-07-11 10:39 | ED ---
Chest Pain HPI - General Chief Complaint: Chest Pain Stated Complaint: chest tightness, dehydration Time Seen by Provider: 07/11/22 09:04 Source: patient, RN notes reviewed Mode of arrival: ambulatory Limitations: no limitations - History of Present Illness Initial Comments: This 82-year-old female presents emergency Department chief complaint chest pain , cough congestion. Patient states she's been having chest tightness worsened just today. Patient does admit that she's had a CABG in the past. Patient states that she has a minimal productive cough patient denies prior smoker. Patient had CABG in 2018. Patient denies any leg pain History DVT or PE. Patient states she feels very weak, run down to this time. Patient is brought in by family. - Related Data Home Medications Medication Instructions Recorded Confirmed Acetaminophen Tab [Tylenol] 650 mg PO Q4H PRN 04/28/18 04/28/18 Atorvastatin [Lipitor] 40 mg PO HS 04/28/18 04/28/18 Docusate [Colace] 100 mg PO Q12H 04/28/18 04/28/18 Metoprolol Tartrate [Lopressor] 12.5 mg PO BID 04/28/18 04/28/18 Promethazine 25mg/Ml 25 mg IM Q6H PRN 04/28/18 04/28/18 Apixaban [Eliquis] 5 mg PO BID 05/05/18 05/05/18 Previous Rx's Medication Instructions Recorded Apixaban [Eliquis] 5 mg PO BID #1 tab 05/05/18 Cyanocobalamin (Vitamin B-12) 1,000 mcg PO DAILY #30 tablet 05/05/18 [Vitamin B-12] Allergies Allergy/AdvReac Type Severity Reaction Status Date / Time Penicillins Allergy Rash/Hives Verified 07/11/22 09:00 codeine AdvReac Nausea & Verified 07/11/22 09:00 Vomiting Review of Systems ROS Statement: Those systems with pertinent positive or pertinent negative responses have been documented in the HPI. ROS Other: All systems not noted in ROS Statement are negative. Past Medical History Past Medical History: Hyperlipidemia Additional Past Medical History / Comment(s): polycythemia, History of Any Multi-Drug Resistant Organisms: None Reported Past Surgical History: Cholecystectomy, Coronary Bypass/CABG, Hysterectomy Additional Past Surgical History / Comment(s): stomach abscess removed, CABG (02/17/2018) Past Anesthesia/Blood Transfusion Reactions: No Reported Reaction Past Psychological History: No Psychological Hx Reported Smoking Status: Never smoker Past Alcohol Use History: None Reported Past Drug Use History: None Reported - Past Family History Mother Family Medical History: Myocardial Infarction ([place]) Father Family Medical History: Asthma, COPD, Myocardial Infarction ([place]) General Exam Limitations: no limitations General appearance: alert, in no apparent distress Head exam: Present: atraumatic, normocephalic, normal inspection Eye exam: Present: normal appearance, PERRL, EOMI. Absent: scleral icterus, c onjunctival injection, periorbital swelling ENT exam: Present: normal exam, mucous membranes moist Neck exam: Present: normal inspection. Absent: tenderness, meningismus, lymphadenopathy Respiratory exam: Absent: normal lung sounds bilaterally, respiratory distress, wheezes, rales, rhonchi, stridor Cardiovascular Exam: Present: regular rate, normal rhythm, normal heart sounds. Absent: systolic murmur, diastolic murmur, rubs, gallop, clicks GI/Abdominal exam: Present: soft, normal bowel sounds. 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 Patient will have an patient CT, patient will have cardiology, facial placed on antibiotics Disposition Clinical Impression: Lung mass, Chest pain, URI (upper respiratory infection) Disposition: ADMITTED IP TO THIS HOSP Condition: Fair Referrals: Josseline Zambrano MD [Primary Care Provider] - 1-2 days Time of Disposition: 10:39
[2022-07-11] MEDS ORDERED: NITROGLYCERIN SL TABS 0.4 MG TAB SUBLINGUAL PRN (10:58)
[2022-07-11] MEDS ORDERED: RX INFO: IV CONTRAST WAS GIVEN 1 EACH MISC MISCELLANE PRN (10:59)
[2022-07-11] MEDS ORDERED: cefTRIAXone IN SWFI 1,000 MG/10 ML SYRINGE IVP STA (11:00)
[2022-07-11] MEDS ORDERED: AZITHROMYCIN 500 MG in SODIUM CHLORIDE 0.9% 250 ML IVPB STA (11:00)
--- NOTE | 2022-07-11 11:46 | CT ---
EXAMINATION TYPE: CT chest w con CT DLP: 196.4 mGycm, Automated exposure control for dose reduction was used. DATE OF EXAM: 07/11/2022 11:32 AM COMPARISON: . Chest radiograph from same day. CLINICAL INDICATION:Female, 82 years old with history of Abnormal x-ray, lung mass; PHH, Abnormal CXR , trouble breathing TECHNIQUE: Multiple axial images were obtained through the chest following the administration of 100 cc of Isovue 300. Coronal and sagittal reformats reviewed. FINDINGS: LUNGS/ PLEURA: No pneumothorax, pleural effusion, or focal consolidation. Medial left apical spiculat ed mass measuring 3.1 x 2.5 cm (series 204, image 8). Additional pleural base anterior left upper lob e 1.3 cm spiculated nodule (series 204, image 15). AIRWAY: Patent and unremarkable.. HEART: Mildly enlarged. No pericardial effusion. Mitral annulus calcifications. . MEDIASTINUM: No gross evidence of adenopathy. Calcified subcarinal lymph node. VASCULATURE: No aortic aneurysm. MUSCULOSKELETAL: No acute osseous abnormalities. No aggressive osseous lesion. Benign vertebral heman giomas within the T7, T8, T9, and T11 vertebral bodies. Increased thoracic kyphosis. Median sternotom y wires. SOFT TISSUES/LYMPH NODES: Unremarkable. LOWER NECK: Multinodular thyroid gland with dystrophic calcifications.. UPPER ABDOMEN: Nonspecific thickening of the left adrenal gland. Prominent right external renal pelvi s. Abnormal appearance of the partially visualized left kidney with 1.1 cm calculus and suggested hyd ronephrosis with stranding and questionable heterogenous mass. IMPRESSION: 1. Spiculated 3.1 cm left apical mass corresponding to chest radiograph with additional left upper lo be spiculated nodule. Findings concerning for metastasis versus primary malignancy. 2. Abnormal appearance of the partially visualized left kidney with a 1.1 cm calculus and suggested h ydronephrosis with stranding and questionable heterogenous mass. Further evaluation with CT abdomen a nd pelvis is recommended. 3. Nonspecific thickening of the left adrenal gland which could be related to #1 and #2.
[2022-07-11] MEDS: SODIUM CHLORIDE 0.9% 1,000 ML IV SCH (16:02)
--- NOTE | 2022-07-11 21:49 | CA ---
Transthoracic Echo Report Name: Adelaide Mays Age: 82 Gender: F : 1940 Exam Date: 07/11/2022 13:40 Exam Location: [facility] Ht (in): 63 Wt (lb): 130 Ordering Physician: Brandon Navarro Attending/Referring Phys: [id number], Melanie Certified Diabetes Educator Capri Toledo, [id number] Procedure CPT: Indications: Chest Pain Cardiac Hx: Technical Quality: Good Contrast 1: Total Dose (mL): Contrast 2: Total Dose (mL): MEASUREMENTS (Male / Female) Normal Values 2D ECHO LV Diastolic Diameter PLAX 4.9 cm 4.2 - 5.9 / 3.9 - 5.3 cm LV Systolic Diameter PLAX 3.4 cm IVS Diastolic Thickness 0.9 cm 0.6 - 1.0 / 0.6 - 0.9 cm LVPW Diastolic Thickness 1.0 cm 0.6 - 1.0 / 0.6 - 0.9 cm LV Relative Wall Thickness 0.4 RV Internal Dim ED PLAX 3.2 cm LA Systolic Diameter LX 3.7 cm 3.0 - 4.0 / 2.7 - 3.8 cm LA Volume 61.7 cm??? 18 - 58 / 22 - 52 cm??? M-MODE Aortic Root Diameter MM 3.2 cm MV E Point Septal Separation 0.9 cm AV Cusp Separation MM 2.2 cm DOPPLER AV Peak Velocity 107.5 cm/s AV Peak Gradient 4.6 mmHg MV Area PHT 3.3 cm??? Mitral E Point Velocity 100.4 cm/s Mitral A Point Velocity 119.8 cm/s Mitral E to A Ratio 0.8 MV Deceleration Time 230.9 ms MV E' Velocity 5.4 cm/s Mitral E to MV E' Ratio 18.6 TR Peak Velocity 228.1 cm/s TR Peak Gradient 20.8 mmHg Right Ventricular Systolic Press 25.2 mmHg FINDINGS Left Ventricle Left ventricular ejection fraction is estimated at 60-65 %. Left ventricular cavity size normal. Left ventricular wall thickness normal. Right Ventricle Normal right ventricular size and function. Right ventricular systolic pressure within normal limits. Right Atrium Normal right atrial size. Left Atrium Mildly increased left atrial volume. No evidence for an atrial septal defect. Mitral Valve Mitral valve thickened. Mild mitral regurgitation. Aortic Valve Trileaflet aortic valve. Focal thickening of the aortic valve cusps. Tricuspid Valve Mild tricuspid regurgitation. Pulmonic Valve Structurally normal pulmonic valve. Pericardium Normal pericardium. No pericardial effusion. Aorta Normal size aortic root and proximal ascending aorta. CONCLUSIONS Normal LV size and systolic function Previewed by: Dr. Tom Almodovar MD (Electronically Signed) Final Date: 11 July 2022 21:48
--- NOTE | 2022-07-11 23:48 | P.HPIM ---
History of Present Illness H&P Date: 07/11/22 Chief Complaint: Chest pain Patient is a 82-year-old female with a known history of hypertension, hyperlipidemia and memory impairment, coronary artery disease history of CABG in 2018 presents to ER with complaints of chest pain and congestion with cough for the past 1 week which is worsening. Patient felt like tightness in the lower chest. No radiation of the pain. Associated nausea. No episodes of vomiting. Patient is also complaining of generalized weakness and not being active as before. Denied any diarrhea. Denied any hematemesis or melena. Patient is also having exertional shortness of breath. Appetite has decreased recently. Denies any loss of weight. Denies any leg swelling. Patient was brought to the hospital by her family. Chest x-ray showed borderline heart size, postoperative changes and suspected underlying COPD. No definite acute process. However there is nodular soft tissue density in the medial left upper lobe. Underlying nodule/mass not excluded. Ectatic vasculature is possibility. Nonemergent follow-up contrast- enhanced CT chest was recommended. EKG showed sinus rhythm with first-degree AV block CT chest showed a spiculated 3.1 cm left apical mass corresponding to chest radiograph with additional left upper lobe spiculated nodule. Findings concerning for metastasis versus primary malignancy. Abnormal A. 70 partially visualized left kidney with a 1.1 cm calculus and suggested hydronephrosis with stranding and questionable heterogenous mass. Further evaluation with CT abdomen pelvis is recommended. Nonspecific thickening of the left adrenal gland which could be related to 1 and 2 Laboratory data showed WBC 16.6 hemoglobin 17.0 and platelets 591 Sodium 138 potassium 4.6 chloride 102 bicarb is 25 BUN 19 and creatinine 0.63 and calcium 8.9 troponin x3 negative proBNP 222 and albumin 4.1 and liver enzymes are not elevated. Review of Systems Constitutional: Patient denies any fever or chills . Patient does have generalized weakness. Abdomen: Patient denied any nausea or vomiting or abd. pain Cardiovascular: Patient complains of chest pain. Respiratory shortness of breath. No leg swelling. No palpitations. Respiratory: Complains of congested cough and shortness of breath Neurologic: Patient denied any numbness or tingling headache. Musculoskeletal: Patient denies any complaints of joint swelling or deformity. Skin: Negative Psychiatric: Negative Endocrine: No heat or cold intolerance. No recent weight gain. Genitourinary: No dysuria or hematuria. All other 14 point ROS negative except the above Past Medical History Past Medical History: Hyperlipidemia, Hypertension, Memory Impairment Additional Past Medical History / Comment(s): polycythemia, History of Any Multi-Drug Resistant Organisms: None Reported Past Surgical History: Cholecystectomy, Coronary Bypass/CABG, Hysterectomy Additional Past Surgical History / Comment(s): stomach abscess removed, CABG (02/17/2018) Past Anesthesia/Blood Transfusion Reactions: No Reported Reaction Past Psychological History: No Psychological Hx Reported Smoking Status: Never smoker Past Alcohol Use History: None Reported Past Drug Use History: None Reported - Past Family History Mother Family Medical History: Myocardial Infarction ([place]) Father Family Medical History: Asthma, COPD, Myocardial Infarction ([place]) Medications and Allergies Home Medications Medication Instructions Recorded Confirmed Type Aspirin EC [Ecotrin Low Dose] 81 mg PO DAILY 07/11/22 07/11/22 History Hydroxyurea [Hydrea] 1,000 mg PO DAILY 07/11/22 07/11/22 History Isosorbide Mononitrate ER [Imdur] 30 mg PO DAILY 07/11/22 07/11/22 History Metoprolol Succinate (ER) [Toprol 25 mg PO DAILY 07/11/22 07/11/22 History Xl] Nitroglycerin Sl Tabs [Nitrostat] 0.4 mg SUBLINGUAL Q5M PRN 07/11/22 07/11/22 History Allergies Allergy/AdvReac Type Severity Reaction Status Date / Time Penicillins Allergy Rash/Hives Verified 07/11/22 11:28 codeine AdvReac Nausea & Verified 07/11/22 11:28 Vomiting Physical Exam Vitals: Vital Signs Temp Pulse Pulse Resp BP BP Pulse Ox 07/11/22 15:49 71 16 136/67 99 07/11/22 09:06 73 07/11/22 08:56 97 F L 72 18 161/83 96 Intake and Output 07/11/22 07/11/22 07/12/22 14:59 22:59 06:59 Intake Total 250 Balance 250 Intake: Oral 250 Other: Weight 58.967 kg PHYSICAL EXAMINATION: Patient is lying in the bed comfortably, no acute distress, awake alert and oriented.. Cachectic and thin build. HEENT: Normocephalic. Neck is supple. Pupils reactive. Nostrils clear. Oral cavity is moist. Neck reveals no JVD, carotid bruits, or thyromegaly. CHEST EXAMINATION: Trachea is central. Symmetrical expansion. Lung jeffery clear to auscultation and percussion. CARDIAC: Normal S1, S2 with no gallops. No murmurs ABDOMEN: Soft. Bowel sounds present. Nontender. No organomegaly. No abdominal bruits. Extremities: reveal no edema. No clubbing or cyanosis Neurologically awake, alert, oriented x3 with well-coordinated movements. No focal deficits noted Skin: No rash or skin lesions. Psychiatric: Coperative. Nonsuicidal, Musculoskeletal: No joint swelling or deformity. Normal range of motion. Results CBC & Chem 7: 07/11/22 09:26 07/11/22 09:26 Labs: Abnormal Lab Results - Last 24 Hours (Table) 07/11/22 07/11/22 Range/Units 09:26 09:26 WBC 16.6 H (3.8-10.6) k/uL RBC 5.55 H (3.80-5.40) m/uL Hgb 17.0 H (11.4-16.0) gm/dL Hct 52.7 H (34.0-46.0) % Plt Count 591 H (150-450) k/uL Neutrophils # 15.0 H (1.3-7.7) k/uL Lymphocytes # 0.7 L (1.0-4.8) k/uL BUN 19 H (7-17) mg/dL Glucose 117 H (74-99) mg/dL Thrombosis Risk Factor Assmnt - DVT/VTE Prophylaxis DVT/VTE Prophylaxis: Pharmacologic Prophylaxis ordered - Choose All That Apply Each Risk Factor Represents 3 Points: Age 75 years or older Other congenital or acquired thrombophilia - If yes, enter type in comment: No Thrombosis Risk Factor Assessment Total Risk Factor Score: 3 Thrombosis Risk Factor Assessment Level: Moderate Risk Assessment and Plan Assessment: Newly diagnosed left upper lobe 3.1 cm lung mass and pulmonary nodule. Highly suspicious for malignancy versus metastatic lesion. Left hydronephrosis and questionable heterogenous mass. Left adrenal gland nonspecific thickening. Chest tightness. Likely due to underlying mass. Rule out ACS. Leukocytosis Coronary artery disease history of CABG in 2018 Hyperlipidemia Hypertension Memory impairment DVT prophylaxis with heparin subcu Plan: Patient with recurrent IV hydration with normal saline and empiric antibiotics now ceftriaxone. Pulmonary and urology was consulted. Continue supportive care and telemetry monitoring and follow-up closely. Discussed with the patient and her family member at bedside in detail. Prognosis is guarded at this time. Time with Patient: Greater than 30
[2022-07-12 04:52] LABS: Appearance,Urine Clear (Clear); Bacteria,Urine Rare /hpf; Bilirubin,Urine Negative (Negative); Blood,Urine Moderate (Negative); Color,Urine Yellow; Glucose,Urine (UA) Negative (Negative); Ketones,Urine Negative (Negative); Leukocyte Esterase,Urine Large (Negative); Mucus,Urine Rare /hpf; Nitrite,Urine Negative (Negative); PH, Urine 6.5 (5.0-8.0); Protein,Urine Trace (Negative); RBC,Urine 40 /hpf (0-5); Specific Gravity,Urine 1.022 (1.001-1.035); Squamous Epithelial Cell,Urine 2 /hpf (0-4); Urobilinogen,Urine <2.0 mg/dL (<2.0); WBC,Urine 102 /hpf (0-5)
[2022-07-12] MEDS ORDERED: ASPIRIN 325 MG TAB PO SCH (09:00)
[2022-07-12] MEDS: HEPARIN SODIUM,PORCINE/PF 5,000 UNIT/0.5 ML SYRINGE SQ SCH ×2 (09:05→21:20)
[2022-07-12] MEDS: ISOSORBIDE MONONITRATE ER 30 MG TAB.ER.24H PO SCH (09:06)
[2022-07-12] MEDS: HYDROXYUREA 500 MG CAP PO SCH (09:06)
[2022-07-12] MEDS: METOPROLOL SUCCINATE (ER) 25 MG TAB.ER.24H PO SCH (09:06)
--- NOTE | 2022-07-12 10:28 | P.CRDCN ---
History of Present Illness Consult date: 07/12/22 History of present illness: HISTORY OF PRESENT ILLNESS: This is a 82-year-old female with a past medical history significant for hypertension, hyperlipidemia, and coronary artery disease with previous three- vessel CABG in 2018. Patient does not follow with a former hand. We have been asked to see the patient in consultation for chest pain. Patient examined at the bedside. Patient states yesterday she began having some chest tightness. She s tates that when she takes her potassium pill, the pain resolves (?). She denies any chest pain or pressure this morning. Vital signs are stable. * EKG reveals sinus mechanism with right bundle branch block * Chest xray borderline heart size, postoperative changes, and suspected underlying COPD. No definite acute process. However there is nodular soft tissue density at the medial left upper lobe. Underlying nodule/mass not excluded. * Laboratory data: WBC 16.6. Hemoglobin 17.0. Platelet count 591. Sodium 138. Potassium 4.6. BUN 19. Creatinine 0.63. Troponin negative 3. ProBNP 222. * Current home cardiac medications include metoprolol succinate 25 mg daily, aspirin 81 mg daily, and Imdur 30 mg daily * Echocardiogram obtained revealed ejection fraction 60-65%, mild MR, mild TR REVIEW OF SYSTEMS: At the time of my exam: CONSTITUTIONAL: Denies fever or chills. HEENT: Denies blurred vision, vision changes, or eye pain. Denies hemoptysis CARDIOVASCULAR: Denies chest pain. Denies orthopnea. Denies PND. Denies palpitations RESPIRATORY: Denies shortness of breath. GASTROINTESTINAL: Denies abdominal pain. Denies nausea or vomiting. HEMATOLOGIC: Denies bleeding disorders. GENITOURINARY: Denies any blood in urine. SKIN: Denies pruitis. Denies rash. PHYSICAL EXAM: VITAL SIGNS: Reviewed. GENERAL: Well-developed in no acute distress. HEENT: Head is normocephalic. Pupils are equal, round. Sclerae anicteric. Mucous membranes of the mouth are moist. Neck supple. No JVD or thyromegaly LUNGS: Respirations even and unlabored. Lungs essentially clear to auscultation bilaterally. HEART: Regular rate and rhythm. S1 and S2 heard. ABDOMEN: Soft. Nondistended. Nontender. EXTREMITIES: Normal range of motion. No clubbing or cyanosis. Peripheral pulses intact. No lower extremity edema NEUROLOGIC: Awake and alert. Oriented x 3. ASSESSMENT: Chest pain Left upper lobe lung mass Left hydronephrosis and questionable mass Coronary artery disease with history of 3V CABG in 2018 Hypertension Hyperlipidemia, intolerance to statin, unsure of reaction PLAN: An acute coronary event has been ruled out Resume home cardiac medications No further inpatient recommendations from a cardiac standpoint We will sign off. Please reconsult if needed. Nurse practitioner note has been reviewed by physician. Signing provider agrees with the documented findings, assessment, and plan of care. Past Medical History Past Medical History: Hyperlipidemia, Hypertension, Memory Impairment Additional Past Medical History / Comment(s): polycythemia, History of Any Multi-Drug Resistant Organisms: None Reported Past Surgical History: Cholecystectomy, Coronary Bypass/CABG, Hysterectomy Additional Past Surgical History / Comment(s): stomach abscess removed, CABG (02/17/2018) Past Anesthesia/Blood Transfusion Reactions: No Reported Reaction Past Psychological History: No Psychological Hx Reported Smoking Status: Never smoker Past Alcohol Use History: None Reported Past Drug Use History: None Reported - Past Family History Mother Family Medical History: Myocardial Infarction ([place]) Father Family Medical History: Asthma, COPD, Myocardial Infarction ([place]) Medications and Allergies Home Medications Medication Instructions Recorded Confirmed Type Aspirin EC [Ecotrin Low Dose] 81 mg PO DAILY 07/11/22 07/11/22 History Hydroxyurea [Hydrea] 1,000 mg PO DAILY 07/11/22 07/11/22 History Isosorbide Mononitrate ER [Imdur] 30 mg PO DAILY 07/11/22 07/11/22 History Metoprolol Succinate (ER) [Toprol 25 mg PO DAILY 07/11/22 07/11/22 History Xl] Nitroglycerin Sl Tabs [Nitrostat] 0.4 mg SUBLINGUAL Q5M PRN 07/11/22 07/11/22 History Allergies Allergy/AdvReac Type Severity Reaction Status Date / Time Penicillins Allergy Rash/Hives Verified 07/11/22 11:28 codeine AdvReac Nausea & Verified 07/11/22 11:28 Vomiting Physical Exam Vitals: Vital Signs Temp Pulse Pulse Resp BP BP Pulse Ox 07/12/22 02:00 97.4 F L 71 17 126/78 95 07/11/22 15:49 71 16 136/67 99 07/11/22 09:06 73 10/27/22 08:56 97 F L 72 18 161/83 96 Intake and Output 07/11/22 07/12/22 07/12/22 22:59 06:59 14:59 Intake Total 250 Balance 250 Intake: Oral 250 Other: # Voids 8 # Bowel Movements 1 Results 07/11/22 09:26 07/11/22 09:26 Cardiac Enzymes 07/11/22 07/11/22 07/11/22 Range/Units 09:26 09:26 12:25 AST 26 (14-36) U/L Troponin I <0.012 <0.012 (0.000-0.034) ng/mL 07/11/22 Range/Units 15:32 AST (14-36) U/L Troponin I <0.012 (0.000-0.034) ng/mL Coagulation 07/11/22 Range/Units 09:26 PT 11.5 (9.0-12.0) sec APTT 26.2 (22.0-30.0) sec CBC 07/11/22 Range/Units 09:26 WBC 16.6 H (3.8-10.6) k/uL RBC 5.55 H (3.80-5.40) m/uL Hgb 17.0 H (11.4-16.0) gm/dL Hct 52.7 H (34.0-46.0) % Plt Count 591 H (150-450) k/uL Comprehensive Metabolic Panel 07/11/22 Range/Units 09:26 Sodium 138 (137-145) mmol/L Potassium 4.6 (3.5-5.1) mmol/L Chloride 102 (98-107) mmol/L Carbon Dioxide 25 (22-30) mmol/L BUN 19 H (7-17) mg/dL Creatinine 0.63 (0.52-1.04) mg/dL Glucose 117 H (74-99) mg/dL Calcium 8.9 (8.4-10.2) mg/dL AST 26 (14-36) U/L ALT 31 (4-34) U/L Alkaline Phosphatase 93 (38-126) U/L Total Protein 6.9 (6.3-8.2) g/dL Albumin 4.1 (3.5-5.0) g/dL Current Medications Generic Name Dose Route Start Last Admin Trade Name Freq PRN Reason Stop Dose Admin Aspirin 325 mg 07/12/22 09:00 Aspirin 325 Mg Tab PO DAILY [facility] Heparin Sodium (Porcine) 5,000 unit 07/12/22 09:00 Heparin Sodium,Porcine/Pf 5,000 Unit/0.5 Ml Syringe SQ Q12HR [facility] Hydroxyurea 1,000 mg 07/12/22 09:00 Hydroxyurea 500 Mg Cap PO DAILY [facility] Sodium Chloride 1,000 mls @ 75 mls/hr 07/11/22 15:30 07/11/22 16:02 Saline 0.9% IV 75 mls/hr .[id number] LUCIA Administration Ceftriaxone Sodium 1 gm/ 50 mls @ 100 mls/hr 07/12/22 09:00 Sodium Chloride IVPB Q24HR [facility] Protocol Isosorbide Mononitrate 30 mg 07/12/22 09:00 Isosorbide Mononitrate Er 30 Mg Tab.Er.24h PO DAILY [facility] Metoprolol Succinate 25 mg 07/12/22 09:00 Metoprolol Succinate (Er) 25 Mg Tab.Er.24h PO DAILY [facility] Miscellaneous Information 1 each 07/11/22 10:59 Rx Info: Iv Contrast Was Given 1 Each Misc MISCELLANE 07/13/22 10:59 DAILY PRN Per Protocol Nitroglycerin 0.4 mg 07/11/22 10:58 Nitroglycerin Sl Tabs 0.4 Mg Tab SUBLINGUAL Q5M PRN Chest Pain Intake and Output 07/11/22 07/12/22 07/12/22 22:59 06:59 14:59 Intake Total 250 Balance 250 Intake: Oral 250 Other: # Voids 8 # Bowel Movements 1 07/11/22 09:26 07/11/22 09:26
[2022-07-12 10:45] LABS: Basophils # (A) 0.11 X 10*3/uL (0.00-0.10); Eosinophils # (A) 1.04 X 10*3/uL (0.04-0.35); Eosinophils % (A) 9.5 %; HCT 50.9 % (37.2-46.3); HGB 16.1 g/dL (12.0-15.0); Immature Grans, Automated 0.4 %; Lymphocytes # (A) 1.01 X 10*3/uL (0.90-5.00); Lymphocytes % (A) 9.3 %; MCH 30.1 pg (27.0-32.0); MCHC 31.6 g/dL (32.0-37.0); MCV 95.3 fL (80.0-97.0); Mean Platelet Volume 9.4 fL (9.5-12.2); Monocytes # (A) 0.22 X 10*3/uL (0.20-1.00); NRBC Per 100 WBC 0 /100 WBCS (0.0-0.0); Neutrophils # (A) 8.49 X 10*3/uL (1.80-7.70); Neutrophils % (A) 77.8 %; Platelet Count 574 X 10*3/uL (140-440); RBC 5.34 X 10*6/uL (4.10-5.20); RDW 13.9 % (11.5-14.5); WBC 10.91 X 10*3/uL (4.50-10.00)
[2022-07-12 10:48] LABS: African American GFR (CKD) 97.1 (60.0-200.0); BUN/Creat Ratio 18.66 Ratio (12.00-20.00); Blood Urea Nitrogen 11.4 mg/dL (9.0-27.0); Calcium 8.6 mg/dL (8.7-10.3); Carbon Dioxide 24.3 mmol/L (20.0-27.5); Chloride 106 mmol/L (96-109); Chol/HDL Ratio 2.95 Ratio; Glucose 111 mg/dL (70-110); LDL Cholesterol,Calculated 64.8 mg/dL (0.0-131.0); Non-African American GFR(CKD) 83.8 (60.0-200.0); Potassium 4.6 mmol/L (3.5-5.5); Sodium 139 mmol/L (135-145); VLDL Calculation 16.54 mg/dL (5.00-40.00)
[2022-07-12] MEDS: SODIUM CHLORIDE 0.9% 1,000 ML IV SCH ×2 (11:18→21:21)
--- NOTE | 2022-07-12 11:25 | P.GSCN ---
History of Present Illness Consult date: 07/12/22 Reason for Consult: Renal mass Requesting physician: Brandon Navarro History of present illness: Patient is a 82-year-old female with a pmh significant for hypertension, hyperlipidemia, coronary artery disease, and CABG in 2018. She presented to the emergency department on 07/11/22 with complaints of chest pain, cough, and congestion for one week. The patient is also complained of generalized weakness and shortness of breath with exertion. Chest x-ray showed borderline heart size, postoperative changes and suspected underlying COPD. No definite acute process. However there is nodular soft tissue density in the medial left upper lobe. Underlying nodule/mass not excluded. Ectatic vasculature is possibility. EKG showed sinus rhythm with first-degree AV block. CT chest showed a spiculated 3.1 cm left apical mass corresponding to chest radiograph with additional left upper lobe spiculated nodule. Findings concerning for metastasis versus primary malignancy. Abnormal appearance of partially visualized left kidney with a 1.1 cm calculus and suggested hydronephrosis with stranding and questionable heterog enous mass. Nonspecific thickening of the left adrenal gland. Review of Systems - Constitutional Reports poor appetite, Denies weight loss - Cardiovascular Reports chest pain, Reports shortness of breath - Respiratory Reports cough - Gastrointestinal Reports constipation, Denies abdominal pain, Denies nausea, Denies vomiting - Genitourinary Genitourinary: Reports difficulty voiding, Reports flank pain, Reports hematuria, Denies dysuria Past Medical History Past Medical History: Hyperlipidemia, Hypertension, Memory Impairment Additional Past Medical History / Comment(s): polycythemia, History of Any Multi-Drug Resistant Organisms: None Reported Past Surgical History: Cholecystectomy, Coronary Bypass/CABG, Hysterectomy Additional Past Surgical History / Comment(s): stomach abscess removed, CABG (02/17/2018) Past Anesthesia/Blood Transfusion Reactions: No Reported Reaction Past Psychological History: No Psychological Hx Reported Smoking Status: Never smoker Past Alcohol Use History: None Reported Past Drug Use History: None Reported - Past Family History Mother Family Medical History: Myocardial Infarction ([place]) Father Family Medical History: Asthma, COPD, Myocardial Infarction ([place]) Medications and Allergies Home Medications Medication Instructions Recorded Confirmed Type Aspirin EC [Ecotrin Low Dose] 81 mg PO DAILY 07/11/22 07/11/22 History Hydroxyurea [Hydrea] 1,000 mg PO DAILY 07/11/22 07/11/22 History Isosorbide Mononitrate ER [Imdur] 30 mg PO DAILY 07/11/22 07/11/22 History Metoprolol Succinate (ER) [Toprol 25 mg PO DAILY 07/11/22 07/11/22 History Xl] Nitroglycerin Sl Tabs [Nitrostat] 0.4 mg SUBLINGUAL Q5M PRN 07/11/22 07/11/22 History Allergies Allergy/AdvReac Type Severity Reaction Status Date / Time Penicillins Allergy Rash/Hives Verified 07/11/22 11:28 codeine AdvReac Nausea & Verified 07/11/22 11:28 Vomiting Surgical - Exam Vital Signs Temp Pulse Resp BP Pulse Ox 97 F L 72 18 161/83 96 07/11/22 08:56 07/11/22 08:56 07/11/22 08:56 07/11/22 08:56 07/11/22 08:56 General: Well developed, well nourished. No acute distress. HEENT: Head is atraumatic, normocephalic. Lungs: Respirations even and nonlabored. Abdomen/GI: Soft. No guarding, rigidity, or abdominal tenderness. Musculoskeletal/ Extremities: PIERCE, + generalized weakness Skin: Warm and dry, Neurologic: Awake, alert and oriented times 3. CN II-XII grossly intact. No focal deficits. Psychiatric: Appropriate mood and affect. Results - Labs 07/12/22 08:01 07/12/22 08:01 Abnormal Lab Results - Last 24 Hours (Table) 07/12/22 Range/Units 01:00 Urine Protein Trace H (Negative) Urine Blood Moderate H (Negative) Ur Leukocyte Esterase Large H (Negative) Urine RBC 40 H (0-5) /hpf Urine WBC 102 H (0-5) /hpf Urine WBC Clumps Few H (None) /hpf Urine Bacteria Rare H (None) /hpf Urine Mucus Rare H (None) /hpf Microbiology - Last 24 Hours (Table) 07/12/22 01:00 Urine Culture - Preliminary Urine,Voided - Imaging Chest x-ray: report reviewed CT scan - chest: report reviewed EKG: report reviewed Assessment and Plan Assessment: The patient is sitting up in bed eating breakfast. No nausea or vomiting. She denies any history of previous kidney stones. She reports having intermittent left flank pain, some hematuria, her urine has been malodorous. She denies any dysuria. No lymph node enlargement or abdominal tenderness. Urine culture pending. (1) Renal calculus, left Current Visit: Yes Status: Acute Code(s): N20.0 - CALCULUS OF KIDNEY SNOMED Code(s): 66291305 Plan: The patient has just received IV contrast yesterday. To prevent any kidney injury, further evaluation with CT abdomen pelvis without and with contrast tomorrow is recommended. Creatinine currently 0.6. If the patient is cleared to be discharged by the attending, the abdominal/pelvis CT can be done on an outpatient basis with follow up at our office with Dr. Segundo. Impression and plan of care have been directed as dictated by the signing physician. Rosaline Schmidt nurse practitioner acting as scribe for signing physician. Rosaline Schmidt [facility] Palliative Care/Urology [employer] [id number] Email: [email or web address] I have personally seen and examined the patient, reviewed the documentation and agree with the assessment and plan as written. Number of minutes spent on the visit: 30. Carlito Segundo MD Time with Patient: Greater than 30
--- NOTE | 2022-07-12 14:30 | P.CNPUL ---
History of Present Illness Consult date: 07/12/22 Requesting physician: Norbert Persaud Reason for consult: abnormal CXR/CT Chief complaint: Chest pain, cough, congestion History of present illness: This is a pleasant 82-year-old female patient who follows with Dr. Zambrano as her primary care provider. She has a history of coronary artery disease with previous coronary artery bypass grafting in 2018, hyperlipidemia, polycythemia, lifelong nonsmoker. She presented here to the emergency room yesterday with complaints of chest pain, cough and congestion. No fever, chills or night sweats. No hemoptysis. No weight loss. Chest x-ray reveals mild cardiomegaly, no acute pulmonary process. Recent nodular soft tissue density in the medial left upper lobe. Computed tomography scan of the chest does reveal a spiculated 3.1 cm left apical mass with additional left upper lobe spiculated nodule. Concerns for metastasis versus primary malignancy. There is also 1.1 cm calculus and suggested hydronephrosis with stranding and questionable heterogenous mass on the left kidney. Echocardiogram reveals preserved left ventricular systolic function with ejection fraction of 60-65%. EKG reveals evidence of a right bundle branch block. Blood culture reveals no growth. Urinalysis with moderate blood. Large glucose site esterase. High WBCs. Culture pending. Troponins negative 3. White count 10.9. Hemoglobin 16.1. Sodium 139. Potassium 4.6. BUN 11. Creatinine 0.6. She was initiated on ceftriaxone. Heparin for DVT prophylaxis. Normal saline at 75 mL per hour. She is seen today in consultation on the regular medical floor. She is currently sitting up in bed. Awake and alert in no acute distress. Denies any worsening shortness of breath, cough or congestion. No hemoptysis. No weight loss. Afebrile. Maintaining O2 saturations in the 90s on room air. Review of Systems REVIEW OF SYSTEMS: CONSTITUTIONAL: Denies any recent significant weight loss or weight gain. EYES: Denies change in vision. EARS, NOSE, MOUTH, THROAT: Denies headaches, denies sore throat. CARDIOVASCULAR: Positive for chest pain, no palpitations or syncopal episodes. RESPIRATORY: Positive for shortness of breath, cough, congestion no hemoptysis. GASTROINTESTINAL: Denies change in appetite, denies abdominal pain GENITOURINARY: Denies hematuria, denies infections. MUSKULOSKELETAL: Denies pain, denies swelling. INTEGUMENTARY: Denies rash, denies eczema. NEUROLOGICAL: Denies recent memory loss, no recent seizure activity. PSYCHIATRIC: Denies anxiety, denies depression. HEMATOLOGIC/LYMPHATIC: Denies anemia, denies enlarged lymph nodes. Past Medical History Past Medical History: Hyperlipidemia, Hypertension, Memory Impairment Additional Past Medical History / Comment(s): polycythemia, History of Any Multi-Drug Resistant Organisms: None Reported Past Surgical History: Cholecystectomy, Coronary Bypass/CABG, Hysterectomy Additional Past Surgical History / Comment(s): stomach abscess removed, CABG (02/17/2018) Past Anesthesia/Blood Transfusion Reactions: No Reported Reaction Past Psychological History: No Psychological Hx Reported Smoking Status: Never smoker Past Alcohol Use History: None Reported Past Drug Use History: None Reported - Past Family History Mother Family Medical History: Myocardial Infarction ([place]) Father Family Medical History: Asthma, COPD, Myocardial Infarction ([place]) Medications and Allergies Home Medications Medication Instructions Recorded Confirmed Type Aspirin EC [Ecotrin Low Dose] 81 mg PO DAILY 07/11/22 07/11/22 History Hydroxyurea [Hydrea] 1,000 mg PO DAILY 07/11/22 07/11/22 History Isosorbide Mononitrate ER [Imdur] 30 mg PO DAILY 07/11/22 07/11/22 History Metoprolol Succinate (ER) [Toprol 25 mg PO DAILY 07/11/22 07/11/22 History Xl] Nitroglycerin Sl Tabs [Nitrostat] 0.4 mg SUBLINGUAL Q5M PRN 07/11/22 07/11/22 History Allergies Allergy/AdvReac Type Severity Reaction Status Date / Time Penicillins Allergy Rash/Hives Verified 07/11/22 11:28 codeine AdvReac Nausea & Verified 07/11/22 11:28 Vomiting Physical Exam Vitals: Vital Signs Temp Pulse Resp BP Pulse Ox 07/12/22 12:00 97.9 F 69 15 107/59 94 L 07/12/22 07:54 98.2 F 59 L 14 121/66 94 L 07/12/22 02:00 97.4 F L 71 17 126/78 95 07/11/22 15:49 71 16 136/67 99 Intake and Output 07/11/22 07/12/22 07/12/22 22:59 06:59 14:59 Intake Total 250 Balance 250 Intake: Oral 250 Other: # Voids 8 # Bowel Movements 1 GENERAL EXAM: Alert, pleasant 82-year-old female, on room air, comfortable in no apparent distress. HEAD: Normocephalic. EYES: Normal reaction of pupils, equal size. NOSE: Clear with pink turbinates. THROAT: No erythema or exudates. NECK: No masses, no JVD. CHEST: No chest wall deformity. LUNGS: Equal air entry with no crackles, wheeze, rhonchi or dullness. CVS: S1 and S2 normal with no audible murmur, regular rhythm. ABDOMEN: No hepatosplenomegaly, normal bowel sounds, no guarding or rigidity. SPINE: No scoliosis or deformity SKIN: No rashes CENTRAL NERVOUS SYSTEM: No focal deficits, tone is normal in all 4 extremities. EXTREMITIES: There is no peripheral edema. No clubbing, no cyanosis. Peripheral pulses are intact. Results - Laboratory Findings CBC and BMP: 07/12/22 08:01 07/12/22 08:01 PT/INR, D-dimer PT 11.5 sec (9.0-12.0) 07/11/22 09:26 INR 1.1 (<1.2) 07/11/22 09:26 Abnormal lab findings: Abnormal Labs 07/11/22 07/11/22 07/12/22 09:26 09:26 01:00 WBC 16.6 H RBC 5.55 H Hgb 17.0 H Hct 52.7 H MCHC Plt Count 591 H MPV Neutrophils # 15.0 H Lymphocytes # 0.7 L Eosinophils # Basophils # Anion Gap BUN 19 H Glucose 117 H Calcium Urine Protein Trace H Urine Blood Moderate H Ur Leukocyte Esterase Large H Urine RBC 40 H Urine WBC 102 H Urine WBC Clumps Few H Urine Bacteria Rare H Urine Mucus Rare H 07/12/22 07/12/22 08:01 08:01 WBC 10.91 H RBC 5.34 H Hgb 16.1 H Hct 50.9 H MCHC 31.6 L Plt Count 574 H MPV 9.4 L Neutrophils # 8.49 H Lymphocytes # Eosinophils # 1.04 H Basophils # 0.11 H Anion Gap 8.30 L BUN Glucose 111 H Calcium 8.6 L Urine Protein Urine Blood Ur Leukocyte Esterase Urine RBC Urine WBC Urine WBC Clumps Urine Bacteria Urine Mucus - Diagnostic Findings Chest x-ray: image reviewed CT scan - chest: image reviewed Assessment and Plan Assessment: Atypical chest pain, acute coronary syndrome ruled out Spiculated 3.1 cm left apical mass with additional left upper lobe spiculated nodule. Findings concerning for metastasis versus primary malignancy Abnormal appearance of the left kidney with a 1.1 cm calculus and suggested hydronephrosis with stranding and questionable heterogenous mass Urinary tract infection, suspected, cultures pending, currently on ceftriaxone History of coronary disease status post coronary artery bypass grafting, 2018 Lifelong nonsmoker Polycythemia maintained on Hydrea Plan: The patient was seen and evaluated CAT scan, chest x-ray, labs and medications reviewed Stable and on room air Could be discharged to home once cleared by medicine Antibiotics for suspected UTI Will need follow-up PET scan Follow-up in our office with Dr. Johnson in 1-2 weeks I have personally seen and examined the patient, performed the documentation and the assessment and plan as written. Number of minutes spent on the visit: 20.
--- NOTE | 2022-07-12 18:23 | P.PN ---
Subjective Progress Note Date: 07/12/22 82-year-old female with a known history of hypertension, hyperlipidemia and memory impairment, coronary artery disease history of CABG in 2018 presents to ER with complaints of chest pain and congestion with cough for the past 1 week which is worsening. Patient felt like tightness in the lower chest. No radiation of the pain. Associated nausea. No episodes of vomiting. Patient is also complaining of generalized weakness and not being active as before. Denied any diarrhea. Denied any hematemesis or melena. Patient is also having exertional shortness of breath. Appetite has decreased recently. Denies any loss of weight. Denies any leg swelling. Patient was brought to the hospital by her family. Chest x-ray showed borderline heart size, postoperative changes and suspected underlying COPD. No definite acute process. However there is nodular soft tissue density in the medial left upper lobe. Underlying nodule/mass not excluded. Ectatic vasculature is possibility. Nonemergent follow-up contrast- enhanced CT chest was recommended. EKG showed sinus rhythm with first-degree AV block CT chest showed a spiculated 3.1 cm left apical mass corresponding to chest radiograph with additional left upper lobe spiculated nodule. Findings concerning for metastasis versus primary malignancy. Abnormal A. 70 partially visualized left kidney with a 1.1 cm calculus and suggested hydronephrosis with stranding and questionable heterogenous mass. Further evaluation with CT abdomen pelvis is recommended. Nonspecific thickening of the left adrenal gland which could be related to 1 and 2 Laboratory data showed WBC 16.6 hemoglobin 17.0 and platelets 591 Sodium 138 potassium 4.6 chloride 102 bicarb is 25 BUN 19 and creatinine 0.63 and calcium 8.9 troponin x3 negative proBNP 222 and albumin 4.1 and liver enzymes are not elevated. Objective - Vital Signs Vital signs: Vital Signs Temp 98.2 F 07/12/22 07:54 Pulse 59 L 07/12/22 07:54 Resp 14 07/12/22 07:54 BP 121/66 07/12/22 07:54 Pulse Ox 94 L 07/12/22 07:54 FiO2 Intake & Output 07/11/22 07/12/22 07/12/22 18:59 06:59 18:59 Intake Total 250 Balance 250 Weight 58.967 kg Intake: Oral 250 Other: # Voids 8 # Bowel Movements 1 - Exam HEENT: Normocephalic. Neck is supple. Pupils reactive. Nostrils clear. Oral cavity is moist. Neck reveals no JVD, carotid bruits, or thyromegaly. CHEST EXAMINATION: Trachea is central. Symmetrical expansion. Lung jeffery clear to auscultation and percussion. CARDIAC: Normal S1, S2 with no gallops. No murmurs ABDOMEN: Soft. Bowel sounds present. Nontender. No organomegaly. No abdominal bruits. Extremities: reveal no edema. No clubbing or cyanosis Neurologically awake, alert, oriented x3 with well-coordinated movements. No focal deficits noted Skin: No rash or skin lesions. Psychiatric: Coperative. Nonsuicidal, Musculoskeletal: No joint swelling or deformity. Normal range of motion. - Labs CBC & Chem 7: 07/12/22 08:01 07/12/22 08:01 Labs: Abnormal Lab Results - Last 24 Hours (Table) 07/12/22 07/12/22 07/12/22 Range/Units 01:00 08:01 08:01 WBC 10.91 H (4.50-10.00) X 10*3/uL RBC 5.34 H (4.10-5.20) X 10*6/uL Hgb 16.1 H (12.0-15.0) g/dL Hct 50.9 H (37.2-46.3) % MCHC 31.6 L (32.0-37.0) g/dL Plt Count 574 H (140-440) X 10*3/uL MPV 9.4 L (9.5-12.2) fL Neutrophils # 8.49 H (1.80-7.70) X 10*3/uL Eosinophils # 1.04 H (0.04-0.35) X 10*3/uL Basophils # 0.11 H (0.00-0.10) X 10*3/uL Anion Gap 8.30 L (10.00-18.00) mmol/L Glucose 111 H (70-110) mg/dL Calcium 8.6 L (8.7-10.3) mg/dL Urine Protein Trace H (Negative) Urine Blood Moderate H (Negative) Ur Leukocyte Esterase Large H (Negative) Urine RBC 40 H (0-5) /hpf Urine WBC 102 H (0-5) /hpf Urine WBC Clumps Few H (None) /hpf Urine Bacteria Rare H (None) /hpf Urine Mucus Rare H (None) /hpf Microbiology - Last 24 Hours (Table) 07/12/22 01:00 Urine Culture - Preliminary Urine,Voided Assessment and Plan Assessment: Newly diagnosed left upper lobe 3.1 cm lung mass and pulmonary nodule. Highly suspicious for malignancy versus metastatic lesion. Left hydronephrosis and questionable heterogenous mass. Left adrenal gland nonspecific thickening. Chest tightness. Likely due to underlying mass. Rule out ACS. Leukocytosis Coronary artery disease history of CABG in 2018 Hyperlipidemia Hypertension Memory impairment DVT prophylaxis with heparin subcu Plan: Patient with recurrent IV hydration with normal saline and empiric antibiotics now ceftriaxone. Pulmonary and urology was consulted. Continue supportive care and telemetry monitoring and follow-up closely. Discussed with the patient and her family member at bedside in detail. Prognosis is guarded at this time.
--- NOTE | 2022-07-12 19:34 | P.CONS ---
History of Present Illness - Reason for Consult Consult date: 07/12/22 lung and adrenal mass Requesting physician: Norbert Persaud - Chief Complaint tightness in chest - History of Present Illness This is a very nice lady who was first evaluated at [facility] in April/2018 when she was admitted for severe pancytopenia and febrile neutropenia, she was treated with broad spectrum antibiotics, received transfusion with PRBC and G-CSF. (she had platelets counts of 10K,hemoglobin of 6gm/dl and total wbc of 1.5k). 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 Her records from [facility] were obtained when she was inpatient, it showed that she had hemoglobin of 17gm/dl and leukocytosis and thrombocytosis just prior to her open heart surgery. She had a PE after her open heart surgery and was on eliquis for 3 months. 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 Recs for hydrea, pt did not w ant, recs for phlebotomy, pt didn't want, she ultimately decided on the hydrea, taking dose and freq that she chooses. She follows up, last being seen in March 2022. She is currently admitted with c/o chest tightness, cough and SOB. She denies wt loss, gets around well on her own, she has noted decreased appetite, increased freq of PALACIOS lately but no other neuro symptoms. No other c/o. Review of Systems 10 point ROS is neg except as stated in HPI Past Medical History Past Medical History: Hyperlipidemia, Hypertension, Memory Impairment Additional Past Medical History / Comment(s): polycythemia, History of Any Multi-Drug Resistant Organisms: None Reported Past Surgical History: Cholecystectomy, Coronary Bypass/CABG, Hysterectomy Additional Past Surgical History / Comment(s): stomach abscess removed, CABG (02/17/2018) Past Anesthesia/Blood Transfusion Reactions: No Reported Reaction Past Psychological History: No Psychological Hx Reported Smoking Status: Never smoker Past Alcohol Use History: None Reported Past Drug Use History: None Reported - Past Family History Mother Family Medical History: Myocardial Infarction ([place]) Father Family Medical History: Asthma, COPD, Myocardial Infarction ([place]) Medications and Allergies Home Medications Medication Instructions Recorded Confirmed Type Aspirin EC [Ecotrin Low Dose] 81 mg PO DAILY 07/11/22 07/11/22 History Hydroxyurea [Hydrea] 1,000 mg PO DAILY 07/11/22 07/11/22 History Isosorbide Mononitrate ER [Imdur] 30 mg PO DAILY 07/11/22 07/11/22 History Metoprolol Succinate (ER) [Toprol 25 mg PO DAILY 07/11/22 07/11/22 History Xl] Nitroglycerin Sl Tabs [Nitrostat] 0.4 mg SUBLINGUAL Q5M PRN 07/11/22 07/11/22 History Allergies Allergy/AdvReac Type Severity Reaction Status Date / Time Penicillins Allergy Rash/Hives Verified 07/11/22 11:28 codeine AdvReac Nausea & Verified 07/11/22 11:28 Vomiting Physical Exam Vitals: Vital Signs Temp Pulse Resp BP Pulse Ox 07/12/22 07:54 98.2 F 59 L 14 121/66 94 L 07/12/22 02:00 97.4 F L 71 17 126/78 95 07/11/22 15:49 71 16 136/67 99 Intake and Output 07/11/22 07/12/22 07/12/22 22:59 06:59 14:59 Intake Total 250 Balance 250 Intake: Oral 250 Other: # Voids 8 # Bowel Movements 1 - Constitutional General appearance: average body habitus, cooperative, no acute distress - EENT dry mucous membranes Eyes: anicteric sclerae, edentulous ENT: hearing grossly normal - Neck Neck: no lymphadenopathy - Respiratory Respiratory: left: wheezing, bilateral: diminished - Cardiovascular Rhythm: regular Heart sounds: normal: S1, S2 Abnormal Heart Sounds: no systolic murmur, no diastolic murmur, no rub, no S3 Gallop, no S4 Gallop, no click, no other leg Peripheral Edema: bilateral: None - Gastrointestinal General gastrointestinal: no absent bowel sounds, no decreased bowel sounds, no distended, no hepatomegaly, no hyperactive bowel sounds, normal bowel sounds, no organomegaly, no rigid, no scaphoid, soft, no splenomegaly, no tenderness, no umbilical hernia, no ventral hernia - Integumentary Integumentary: normal - Neurologic Neurologic: CNII-XII intact - Musculoskeletal Musculoskeletal: strength equal bilaterally - Psychiatric Psychiatric: A&O x's 3, appropriate affect, intact judgment & insight Results CBC & Chem 7: 07/12/22 08:01 07/12/22 08:01 Labs: Abnormal Lab Results - Last 24 Hours (Table) 07/12/22 07/12/22 07/12/22 Range/Units 01:00 08:01 08:01 WBC 10.91 H (4.50-10.00) X 10*3/uL RBC 5.34 H (4.10-5.20) X 10*6/uL Hgb 16.1 H (12.0-15.0) g/dL Hct 50.9 H (37.2-46.3) % MCHC 31.6 L (32.0-37.0) g/dL Plt Count 574 H (140-440) X 10*3/uL MPV 9.4 L (9.5-12.2) fL Neutrophils # 8.49 H (1.80-7.70) X 10*3/uL Eosinophils # 1.04 H (0.04-0.35) X 10*3/uL Basophils # 0.11 H (0.00-0.10) X 10*3/uL Anion Gap 8.30 L (10.00-18.00) mmol/L Glucose 111 H (70-110) mg/dL Calcium 8.6 L (8.7-10.3) mg/dL Urine Protein Trace H (Negative) Urine Blood Moderate H (Negative) Ur Leukocyte Esterase Large H (Negative) Urine RBC 40 H (0-5) /hpf Urine WBC 102 H (0-5) /hpf Urine WBC Clumps Few H (None) /hpf Urine Bacteria Rare H (None) /hpf Urine Mucus Rare H (None) /hpf Microbiology - Last 24 Hours (Table) 07/12/22 01:00 Urine Culture - Preliminary Urine,Voided Comments: echo report reviewed Chest x-ray: report reviewed CT scan - chest: report reviewed Assessment and Plan (1) Lung mass Current Visit: Yes Status: Acute Priority: High Code(s): R91.8 - OTHER NONSPECIFIC ABNORMAL FINDING OF LUNG FIELD SNOMED Code(s): 458120892 (2) Polycythemia Current Visit: No Status: Chronic Priority: Medium Code(s): D75.1 - SECONDARY POLYCYTHEMIA SNOMED Code(s): 735945409 Plan: Patient states she does not take her Hydrea regularly for PV. Hemoglobin is elevated as would be anticipated. Hydrea is ordered. No phlebotomy right now. Lt chest mass found on work up for SOB. Pt is interested in having biopsy of this, Pulmonary is on consult, will await their assessment and recommendations. There was also a kidney mass seen. Urology has been consulted, await their assessment recommendations. Oncology will wait and see if any biopsies are going to be planned. PET scan is recommended outpt. attests: I have seen and examined patient, performed H&P, developed impression and plan of care. Discussed with dictator. Agree with documentation, dictated as a scribe Time with Patient: Greater than 30
--- NOTE | 2022-07-13 06:02 | P.PN ---
Progress Note - Text Progress Note Date: 07/13/22 Ms. Mays is afebrile. She reports mild abdominal discomfort. She denies dysuria and hematuria, but states that her urine is cloudy. Her serum creatinine level yesterday was stable at 0.6. A urine culture is pending. Blood cultures are negative. I have ordered a CT urogram to better evaluate the left renal abnormalities.
[2022-07-13] MEDS: METOPROLOL SUCCINATE (ER) 25 MG TAB.ER.24H PO SCH (09:30)
[2022-07-13] MEDS: HEPARIN SODIUM,PORCINE/PF 5,000 UNIT/0.5 ML SYRINGE SQ SCH ×2 (09:30→22:00)
[2022-07-13] MEDS: ASPIRIN 81 MG PO SCH (09:30)
[2022-07-13] MEDS: ISOSORBIDE MONONITRATE ER 30 MG TAB.ER.24H PO SCH (09:30)
[2022-07-13] MEDS: HYDROXYUREA 500 MG CAP PO SCH (09:31)
[2022-07-13] MEDS: SODIUM CHLORIDE 0.9% 1,000 ML IV SCH ×2 (11:42→22:00)
--- NOTE | 2022-07-13 13:10 | P.PN ---
Subjective Progress Note Date: 07/13/22 This is a pleasant 82-year-old female patient who follows with Dr. Zambrano as her primary care provider. She has a history of coronary artery disease with previous coronary artery bypass grafting in 2018, hyperlipidemia, polycythemia, lifelong nonsmoker. She presented here to the emergency room yesterday with complaints of chest pain, cough and congestion. No fever, chills or night sweats. No hemoptysis. No weight loss. Chest x-ray reveals mild cardiomegaly, no acute pulmonary process. Recent nodular soft tissue density in the medial left upper lobe. Computed tomography scan of the chest does reveal a spiculated 3.1 cm left apical mass with additional left upper lobe spiculated nodule. Concerns for metastasis versus primary malignancy. There is also 1.1 cm calculus and suggested hydronephrosis with stranding and questionable heterogenous mass on the left kidney. Echocardiogram reveals preserved left ventricular systolic function with ejection fraction of 60-65%. EKG reveals mel dence of a right bundle branch block. Blood culture reveals no growth. Urinalysis with moderate blood. Large leukocyte esterase. High WBCs. Culture pending. Troponins negative 3. White count 10.9. Hemoglobin 16.1. Sodium 139. Potassium 4.6. BUN 11. Creatinine 0.6. She was initiated on ceftriaxone. Heparin for DVT prophylaxis. Normal saline at 75 mL per hour. She is seen today in consultation on the regular medical floor. She is currently sitting up in bed. Awake and alert in no acute distress. Denies any worsening shortness of breath, cough or congestion. No hemoptysis. No weight loss. Afebrile. Maintaining O2 saturations in the 90s on room air. The patient is seen today 07/13/2022 in follow-up on the regular medical floor. She continues to rest comfortably in bed. Awake and alert in no acute distress. Denies any further chest discomfort. No shortness of breath cough or congestion. No hemoptysis. She is maintaining good O2 saturations in the 90s on room air. Afebrile. The culture shows no growth. Urine culture pending. She is continued on ceftriaxone. 0.9 normal saline at 75 ML's per hour. Heparin for DVT prophylaxis. Objective - Vital Signs Vital signs: Vital Signs Temp 98.1 F 07/13/22 07:52 Pulse 72 07/13/22 08:00 Resp 18 07/13/22 07:52 BP 164/52 07/13/22 07:52 Pulse Ox 95 07/13/22 07:52 FiO2 Intake & Output 07/12/22 07/13/22 07/13/22 18:59 06:59 18:59 Weight 58.8 kg Other: # Voids 5 4 - Exam GENERAL EXAM: Alert, 82-year-old female, on room air, comfortable in no apparent distress. HEAD: Normocephalic. EYES: Normal reaction of pupils, equal size. NOSE: Clear with pink turbinates. THROAT: No erythema or exudates. NECK: No masses, no JVD. CHEST: No chest wall deformity. LUNGS: Equal air entry with no crackles, wheeze, rhonchi or dullness. CVS: S1 and S2 normal with no audible murmur, regular rhythm. ABDOMEN: No hepatosplenomegaly, normal bowel sounds, no guarding or rigidity. SPINE: No scoliosis or deformity SKIN: No rashes CENTRAL NERVOUS SYSTEM: No focal deficits, tone is normal in all 4 extremities. EXTREMITIES: There is no peripheral edema. No clubbing, no cyanosis. Peripheral pulses are intact. - Labs CBC & Chem 7: 07/12/22 08:01 07/12/22 08:01 Labs: Microbiology - Last 24 Hours (Table) 07/11/22 11:20 Blood Culture - Preliminary Blood No Growth after 24 hours 07/11/22 11:17 Blood Culture - Preliminary Blood No Growth after 24 hours Assessment and Plan Assessment: Atypical chest pain, acute coronary syndrome ruled out Spiculated 3.1 cm left apical mass with additional left upper lobe spiculated nodule. Findings concerning for metastasis versus primary malignancy Abnormal appearance of the left kidney with a 1.1 cm calculus and suggested hydronephrosis with stranding and questionable heterogenous mass Urinary tract infection, suspected, cultures pending, currently on ceftriaxone History of coronary disease status post coronary artery bypass grafting, 2018 Lifelong nonsmoker Polycythemia maintained on Hydrea Plan: The patient was seen and evaluated Medications reviewed Stable and on room air Could be discharged to home Antibiotics for suspected UTI Will need follow-up PET scan Follow-up in our office with Dr. Johnson in 1-2 weeks I have personally seen and examined the patient, performed the documentation and the assessment and plan as written. Number of minutes spent on the visit: 10.
--- NOTE | 2022-07-13 14:29 | CT ---
EXAMINATION TYPE: CT abdomen pelvis wo/w con DATE OF EXAM: 07/13/2022 COMPARISON: None INDICATION: left flank pian, r/o renal stone vs. renal mass DLP: 1061.6 mGycm, Automated exposure control for dose reduction was used. CONTRAST: 100 mL of Isovue 300. Study performed without Oral Contrast TECHNIQUE: Axial images were obtained from above the diaphragm to the pubic rami in the axial plane a t 5 mm thick sections. Reconstructed images are reviewed on the computer in the coronal plane. FINDINGS: Limited CT sections are obtained the lung bases. The lung bases are clear. CT ABDOMEN: Liver: Normal Spleen: Normal Pancreas: Severely atrophic Adrenal glands: The adrenal glands are normal. Gallbladder: Partially decompressed. There appears to be a calcification external to the gallbladder adjacent to the hepatic cortex. Kidneys: No masses are evident. Bilateral hydronephrosis appears to be present greater on the left. T here is a obstructing 1.2 x 1.3 cm calcification within the left inferior pole renal pelvis. There i s a 0.5 cm calcification in the distal left hemipelvis. Distal ureteral stone may be within the diffe rential dislocation. Confirmation this is within the ureter is not identified. Dilated ureter distall y is not identified. No cysts are present. Aorta: Vascular calcification is within the aorta. Inferior vena cava: Normal. CT PELVIS: Scattered diverticuli are within the pelvis. No acute diverticulitis is evident. No suspicious dilate d loops of bowel are evident. Study is without oral contrast limiting bowel evaluation. Appendix: Normal as visualized. Urinary bladder: Normal. Genitourinary structures: Uterus and ovaries are not identified. Osseous structures: No suspicious lytic or sclerotic lesions. IMPRESSIONS: 1. 1.2 x 1.3 cm inferior pole left renal stone may be contributing to some hydronephrosis. 2. There is a 0.5 cm calcification in the distal left hemipelvis. Distal ureteral stone may be within the differential dislocation. Confirmation this is within the ureter is not identified. Dilated uret er distally is not identified. 2. There is bilateral hydronephrosis without additional etiologies for obstruction.
[2022-07-14] MEDS: METOPROLOL SUCCINATE (ER) 25 MG TAB.ER.24H PO SCH (07:12)
[2022-07-14] MEDS: HYDROXYUREA 500 MG CAP PO SCH (07:12)
[2022-07-14] MEDS: ISOSORBIDE MONONITRATE ER 30 MG TAB.ER.24H PO SCH (07:12)
[2022-07-14] MEDS: ASPIRIN 81 MG PO SCH (07:12)
[2022-07-14] MEDS: HEPARIN SODIUM,PORCINE/PF 5,000 UNIT/0.5 ML SYRINGE SQ SCH ×2 (07:12→20:47)
[2022-07-14 09:24] LABS: Basophils # (A) 0.14 X 10*3/uL (0.00-0.10); Basophils % (A) 1.5 %; Eosinophils # (A) 0.78 X 10*3/uL (0.04-0.35); Eosinophils % (A) 8.5 %; HCT 47.1 % (37.2-46.3); HGB 14.7 g/dL (12.0-15.0); Immature Grans, Automated 0.4 %; Lymphocytes # (A) 1.15 X 10*3/uL (0.90-5.00); Lymphocytes % (A) 12.5 %; MCH 29.6 pg (27.0-32.0); MCHC 31.2 g/dL (32.0-37.0); Mean Platelet Volume 9.1 fL (9.5-12.2); Monocytes # (A) 0.23 X 10*3/uL (0.20-1.00); Monocytes % (A) 2.5 %; NRBC Per 100 WBC 0 /100 WBCS (0.0-0.0); Neutrophils # (A) 6.87 X 10*3/uL (1.80-7.70); Neutrophils % (A) 74.6 %; Platelet Count 543 X 10*3/uL (140-440); RBC 4.96 X 10*6/uL (4.10-5.20); RDW 13.8 % (11.5-14.5); WBC 9.21 X 10*3/uL (4.50-10.00)
--- NOTE | 2022-07-14 10:35 | P.PN ---
Progress Note - Text Progress Note Date: 07/14/22 Ms. Mays continues to report mild left flank discomfort. I reviewed her CT scan. There is evidence of bilateral mild hydronephrosis. A calcification is seen within the left hemipelvis, which likely is a phlebolith rather than a ureteral calculus but this cannot be determined with certainty. She has a 12 x 13 mm left lower pole renal calculus which may be contributing to her left hydronephrosis. There is no renal mass. I had a lengthy discussion with Ms. Mays this morning reviewing alternative treatment options. These include extracorporal shockwave lithotripsy (ESWL), ureteroscopy with laser lithotripsy, and percutaneous nephrolithotomy (PCNL). The pros, cons, and risks of each were reviewed with her. She is undecided between ureteroscopy and a PCNL. She also experiences occasional right-sided discomfort, so I will recommend that bilateral retrograde pyelograms be performed at the time of which ever procedure she chooses. Given that she is undecided at this time, she will follow up with me in 2 weeks after considering these options. Once she makes a choice, arrangements will be made to proceed in that manner. Please notify me if I can be of any further assistance during this hospitalization.
[2022-07-14 11:12] LABS: African American GFR (CKD) 103.7 (60.0-200.0); Anion Gap 10.1 mmol/L (10.00-18.00); Calcium 8.3 mg/dL (8.7-10.3); Carbon Dioxide 22.9 mmol/L (20.0-27.5); Non-African American GFR(CKD) 89.5 (60.0-200.0)
[2022-07-14] MEDS: SODIUM CHLORIDE 0.9% 1,000 ML IV SCH ×2 (14:24→23:15)
--- NOTE | 2022-07-14 18:52 | P.PN ---
Subjective Progress Note Date: 07/13/22 82-year-old female with a known history of hypertension, hyperlipidemia and memory impairment, coronary artery disease history of CABG in 2018 presents to ER with complaints of chest pain and congestion with cough for the past 1 week which is worsening. Patient felt like tightness in the lower chest. No radiation of the pain. Associated nausea. No episodes of vomiting. Patient is also complaining of generalized weakness and not being active as before. Denied any diarrhea. Denied any hematemesis or melena. Patient is also having exertional shortness of breath. Appetite has decreased recently. Denies any loss of weight. Denies any leg swelling. Patient was brought to the hospital by her family. Chest x-ray showed borderline heart size, postoperative changes and suspected underlying COPD. No definite acute process. However there is nodular soft tissue density in the medial left upper lobe. Underlying nodule/mass not excluded. Ectatic vasculature is possibility. Nonemergent follow-up contrast- enhanced CT chest was recommended. EKG showed sinus rhythm with first-degree AV block CT chest showed a spiculated 3.1 cm left apical mass corresponding to chest radiograph with additional left upper lobe spiculated nodule. Findings concerning for metastasis versus primary malignancy. Abnormal A. 70 partially visualized left kidney with a 1.1 cm calculus and suggested hydronephrosis with stranding and questionable heterogenous mass. Further evaluation with CT abdomen pelvis is recommended. Nonspecific thickening of the left adrenal gland which could be related to 1 and 2 Laboratory data showed WBC 16.6 hemoglobin 17.0 and platelets 591 Sodium 138 potassium 4.6 chloride 102 bicarb is 25 BUN 19 and creatinine 0.63 and calcium 8.9 troponin x3 negative proBNP 222 and albumin 4.1 and liver enzymes are not elevated. 07/13/2022 Patient is seen and evaluated in follow-up on the regular medical floor. She continues to rest comfortably in bed. Awake and alert in no acute distress. Denies any further chest discomfort. No shortness of breath cough or congestion. No hemoptysis. She is maintaining good O2 saturations in the 90s on room air. Afebrile. The culture shows no growth. Urine culture pending. She is continued on ceftriaxone. 0.9 normal saline at 75 ML's per hour. Heparin for DVT prophylaxis. - Patient is cleared by pulmonary for discharge home with further workup as an outpatient with Dr. Agarwal in 1-2 weeks; patient will need a PET scan -- Urology is consulted and evaluation is pending Objective - Vital Signs Vital signs: Vital Signs Temp 98.1 F 07/13/22 07:52 Pulse 72 07/13/22 08:00 Resp 18 07/13/22 07:52 BP 164/52 07/13/22 07:52 Pulse Ox 95 07/13/22 07:52 FiO2 Intake & Output 07/12/22 07/13/22 07/13/22 18:59 06:59 18:59 Weight 58.8 kg Other: # Voids 5 4 - Exam HEENT: Normocephalic. Neck is supple. Pupils reactive. Nostrils clear. Oral cavity is moist. Neck reveals no JVD, carotid bruits, or thyromegaly. CHEST EXAMINATION: Trachea is central. Symmetrical expansion. Lung jeffery clear to auscultation and percussion. CARDIAC: Normal S1, S2 with no gallops. No murmurs ABDOMEN: Soft. Bowel sounds present. Nontender. No organomegaly. No abdominal bruits. Extremities: reveal no edema. No clubbing or cyanosis Neurologically awake, alert, oriented x3 with well-coordinated movements. No focal deficits noted Skin: No rash or skin lesions. Psychiatric: Coperative. Nonsuicidal, Musculoskeletal: No joint swelling or deformity. Normal range of motion. - Labs CBC & Chem 7: 07/14/22 04:47 07/14/22 04:47 Labs: Microbiology - Last 24 Hours (Table) 07/11/22 11:20 Blood Culture - Preliminary Blood No Growth after 24 hours 07/11/22 11:17 Blood Culture - Preliminary Blood No Growth after 24 hours 07/12/22 01:00 Urine Culture - Preliminary Urine,Voided Assessment and Plan Assessment: Newly diagnosed left upper lobe 3.1 cm lung mass and pulmonary nodule. Highly suspicious for malignancy versus metastatic lesion. Left hydronephrosis and questionable heterogenous mass. Left adrenal gland nonspecific thickening. Chest tightness. Likely due to underlying mass. Rule out ACS. Leukocytosis Coronary artery disease history of CABG in 2018 Hyperlipidemia Hypertension Memory impairment DVT prophylaxis with heparin subcu Plan: Patient with recurrent IV hydration with normal saline and empiric antibiotics now ceftriaxone. Pulmonary and urology was consulted. Continue supportive care and telemetry monitoring and follow-up closely. Discussed with the patient and her family member at bedside in detail. Progn osis is guarded at this time.
--- NOTE | 2022-07-14 18:56 | P.PN ---
Subjective Progress Note Date: 07/14/22 Principal diagnosis: Spiculated 3.1 cm left apical mass Urinary tract infection Left kidney with a 1.1 cm calculus and suggested hydronephrosis with stranding and questionable heterogenous mass 82-year-old female with a known history of hypertension, hyperlipidemia and memory impairment, coronary artery disease history of CABG in 2018 presents to ER with complaints of chest pain and congestion with cough for the past 1 week which is worsening. Patient felt like tightness in the lower chest. No radiation of the pain. Associated nausea. No episodes of vomiting. Patient is also complaining of generalized weakness and not being active as before. Denied any diarrhea. Denied any hematemesis or melena. Patient is also having exertional shortness of breath. Appetite has decreased recently. Denies any loss of weight. Denies any leg swelling. Patient was brought to the hospital by her family. Chest x-ray showed borderline heart size, postoperative changes and suspected underlying COPD. No definite acute process. However there is nodular soft tissue density in the medial left upper lobe. Underlying nodule/mass not excluded. Ectatic vasculature is possibility. Nonemergent follow-up contrast- enhanced CT chest was recommended. EKG showed sinus rhythm with first-degree AV block CT chest showed a spiculated 3.1 cm left apical mass corresponding to chest radiograph with additional left upper lobe spiculated nodule. Findings conc erning for metastasis versus primary malignancy. Abnormal A. 70 partially visualized left kidney with a 1.1 cm calculus and suggested hydronephrosis with stranding and questionable heterogenous mass. Further evaluation with CT abdomen pelvis is recommended. Nonspecific thickening of the left adrenal gland which could be related to 1 and 2 Laboratory data showed WBC 16.6 hemoglobin 17.0 and platelets 591 Sodium 138 potassium 4.6 chloride 102 bicarb is 25 BUN 19 and creatinine 0.63 and calcium 8.9 troponin x3 negative proBNP 222 and albumin 4.1 and liver enzymes are not elevated. 07/13/2022 Patient is seen and evaluated in follow-up on the regular medical floor. She continues to rest comfortably in bed. Awake and alert in no acute distress. Denies any further chest discomfort. No shortness of breath cough or congestion. No hemoptysis. She is maintaining good O2 saturations in the 90s on room air. Afebrile. The culture shows no growth. Urine culture pending. She is continued on ceftriaxone. 0.9 normal saline at 75 ML's per hour. Heparin for DVT prophylaxis. - Patient is cleared by pulmonary for discharge home with further workup as an outpatient with Dr. Agarwal in 1-2 weeks; patient will need a PET scan -- Urology is consulted and evaluation is pending 07/14/2022 Patient is seen and evaluated in room at bedside; denies any specific complaints Has been evaluated by urology-- CT scan-- bilateral mild hydronephrosis. A calcification is seen within the left hemipelvis, which likely is a phlebolith rather than a ureteral calculus but this cannot be determined with certainty. She has a 12 x 13 mm left lower pole renal calculus which may be contributing to her left hydronephrosis. There is no renal mass. Patient will follow up with urology in 2 weeks for further recommendations and treatment of renal calculus -- Patient has been cleared by pulmonary for follow-up as an outpatient in about 2 weeks and further workup - Oncology has seen patient and recommending PET scan as an outpatient Patient has a difficult social situation and requesting discharge be postponed until tomorrow Objective - Vital Signs Vital signs: Vital Signs Temp 97.6 F 07/14/22 07:33 Pulse 68 07/14/22 07:33 Resp 17 07/14/22 07:33 BP 134/74 07/14/22 07:33 Pulse Ox 94 L 07/14/22 07:33 FiO2 Intake & Output 07/13/22 07/14/22 07/14/22 18:59 06:59 18:59 Intake Total 1500 800 Balance 1500 800 Intake: Intake, IV Titration 1000 Amount Sodium Chloride 0.9% 1, 900 000 ml @ 75 mls/hr IV . [id number] [facility]UC[facility] Rx#:[id number] cefTRIAXone 1 gm In 100 Sodium Chloride 0.9% 50 ml @ 100 mls/hr IVPB Q24HR LUC[facility] Rx#:[id number] Oral 500 800 Other: # Voids 5 2 - Exam HEENT: Normocephalic. Neck is supple. Pupils reactive. Nostrils clear. Oral cavity is moist. Neck reveals no JVD, carotid bruits, or thyromegaly. CHEST EXAMINATION: Trachea is central. Symmetrical expansion. Lung jeffery clear to auscultation and percussion. CARDIAC: Normal S1, S2 with no gallops. No murmurs ABDOMEN: Soft. Bowel sounds present. Nontender. No organomegaly. No abdominal bruits. Extremities: reveal no edema. No clubbing or cyanosis Neurologically awake, alert, oriented x3 with well-coordinated movements. No focal deficits noted Skin: No rash or skin lesions. Psychiatric: Coperative. Nonsuicidal, Musculoskeletal: No joint swelling or deformity. Normal range of motion. - Labs CBC & Chem 7: 07/14/22 04:47 07/14/22 04:47 Labs: Abnormal Lab Results - Last 24 Hours (Table) 07/14/22 07/14/22 Range/Units 04:47 04:47 Hct 47.1 H (37.2-46.3) % MCHC 31.2 L (32.0-37.0) g/dL Plt Count 543 H (140-440) X 10*3/uL MPV 9.1 L (9.5-12.2) fL Eosinophils # 0.78 H (0.04-0.35) X 10*3/uL Basophils # 0.14 H (0.00-0.10) X 10*3/uL BUN 8.0 L (9.0-27.0) mg/dL Creatinine 0.5 L (0.6-1.5) mg/dL Calcium 8.3 L (8.7-10.3) mg/dL Microbiology - Last 24 Hours (Table) 07/12/22 01:00 Urine Culture - Final Urine,Voided 07/11/22 11:17 Blood Culture - Preliminary Blood No Growth after 48 hours 07/11/22 11:20 Blood Culture - Preliminary Blood No Growth after 48 hours Assessment and Plan Assessment: Newly diagnosed left upper lobe 3.1 cm lung mass and pulmonary nodule. Highly suspicious for malignancy versus metastatic lesion. Left hydronephrosis and questionable heterogenous mass. Left adrenal gland nonspecific thickening. Chest tightness. Likely due to underlying mass. Rule out ACS. Leukocytosis Coronary artery disease history of CABG in 2018 Hyperlipidemia Hypertension Memory impairment DVT prophylaxis with heparin subcu Plan: Patient with recurrent IV hydration with normal saline and empiric antibiotics now ceftriaxone. Pulmonary and urology was consulted. Continue supportive care and telemetry monitoring and follow-up closely. Discussed with the patient and her family member at bedside in detail. Prognosis is guarded at this time.
[2022-07-15 08:12] VITALS: BP 165/82; PULSE 72; RESP 17; TEMP 98.3
[2022-07-15 09:36] LABS: African American GFR (CKD) 97.7 (60.0-200.0); Anion Gap 11.2 mmol/L (10.00-18.00); Basophils # (A) 0.16 X 10*3/uL (0.00-0.10); Basophils % (A) 1.6 %; Blood Urea Nitrogen 9.6 mg/dL (9.0-27.0); Calcium 8.6 mg/dL (8.7-10.3); Carbon Dioxide 21.8 mmol/L (20.0-27.5); Eosinophils # (A) 0.67 X 10*3/uL (0.04-0.35); Eosinophils % (A) 6.9 %; HCT 50.2 % (37.2-46.3); HGB 15.4 g/dL (12.0-15.0); Immature Grans, Automated 0.4 %; Lymphocytes # (A) 0.95 X 10*3/uL (0.90-5.00); Lymphocytes % (A) 9.8 %; MCH 29.3 pg (27.0-32.0); MCHC 30.7 g/dL (32.0-37.0); MCV 95.6 fL (80.0-97.0); Mean Platelet Volume 9.3 fL (9.5-12.2); Monocytes % (A) 2.1 %; NRBC Per 100 WBC 0 /100 WBCS (0.0-0.0); Neutrophils # (A) 7.72 X 10*3/uL (1.80-7.70); Neutrophils % (A) 79.2 %; Non-African American GFR(CKD) 84.3 (60.0-200.0); Platelet Count 583 X 10*3/uL (140-440); Potassium 4.3 mmol/L (3.5-5.5); RBC 5.25 X 10*6/uL (4.10-5.20); WBC 9.74 X 10*3/uL (4.50-10.00)
[2022-07-15] MEDS: HEPARIN SODIUM,PORCINE/PF 5,000 UNIT/0.5 ML SYRINGE SQ SCH (09:44)
[2022-07-15] MEDS: ASPIRIN 81 MG PO SCH (09:44)
[2022-07-15] MEDS: METOPROLOL SUCCINATE (ER) 25 MG TAB.ER.24H PO SCH (09:44)
[2022-07-15] MEDS: HYDROXYUREA 500 MG CAP PO SCH (09:44)
[2022-07-15] MEDS: ISOSORBIDE MONONITRATE ER 30 MG TAB.ER.24H PO SCH (09:44)
--- NOTE | 2022-07-15 17:51 | P.PN ---
Subjective Progress Note Date: 07/15/22 Principal diagnosis: PV, new lung mass In f/u today pt is sitting at bedside, dressed and ready to go home. Denies ongoing chest pain, she can ambulate short distances without significant SOB Objective - Vital Signs Vital signs: Vital Signs Temp 98.3 F 07/15/22 08:00 Pulse 72 07/15/22 08:00 Resp 17 07/15/22 08:00 BP 165/82 07/15/22 08:00 Pulse Ox 93 L 07/15/22 08:00 FiO2 Intake & Output 07/14/22 07/15/22 07/15/22 18:59 06:59 18:59 Intake Total 1150 300 Balance 1150 300 Intake: Intake, IV Titration 850 Amount Sodium Chloride 0.9% 1, 750 000 ml @ 75 mls/hr IV . [id number] [facility]UC[facility] Rx#:[id number] cefTRIAXone 1 gm In 100 Sodium Chloride 0.9% 50 ml @ 100 mls/hr IVPB Q24HR LUCIA Rx#:[id number] Oral 300 300 Other: # Voids 4 2 - Constitutional General appearance: Present: cooperative, no acute distress, thin - EENT Eyes: Present: anicteric sclerae, EOMI ENT: Present: hearing grossly normal - Neurologic Neurologic: Present: CNII-XII intact (grossly) - Musculoskeletal Musculoskeletal: Present: strength equal bilaterally - Psychiatric Psychiatric: Present: A&O x's 3, appropriate affect, intact judgment & insight - Labs CBC & Chem 7: 07/15/22 04:30 07/15/22 04:30 Labs: Abnormal Lab Results - Last 24 Hours (Table) 07/15/22 07/15/22 Range/Units 04:30 04:30 RBC 5.25 H (4.10-5.20) X 10*6/uL Hgb 15.4 H (12.0-15.0) g/dL Hct 50.2 H (37.2-46.3) % MCHC 30.7 L (32.0-37.0) g/dL Plt Count 583 H (140-440) X 10*3/uL MPV 9.3 L (9.5-12.2) fL Neutrophils # 7.72 H (1.80-7.70) X 10*3/uL Eosinophils # 0.67 H (0.04-0.35) X 10*3/uL Basophils # 0.16 H (0.00-0.10) X 10*3/uL Calcium 8.6 L (8.7-10.3) mg/dL Microbiology - Last 24 Hours (Table) 07/11/22 11:20 Blood Culture - Preliminary Blood No Growth after 96 hours 07/11/22 11:17 Blood Culture - Preliminary Blood No Growth after 96 hours Assessment and Plan (1) Lung mass Status: Acute Priority: High Code(s): R91.8 - OTHER NONSPECIFIC ABNORMAL FINDING OF LUNG FIELD SNOMED Code(s): 254770872 (2) Polycythemia Status: Chronic Priority: Medium Code(s): D75.1 - SECONDARY POLYCYTHEMIA SNOMED Code(s): 802036595 Plan: Patient states she does not take her Hydrea regularly for PV. Hemoglobin is elevated as would be anticipated. Hydrea is ordered. No phlebotomy right now. F/U with Dr. Byrd as sched in a few weeks Lt chest mass found on work up for SOB. Pt stated today she does NOT think she wants a biopsy. She has seen Pulmonary and the plan is to have a PET and f/u with Dr. Johnson. Will await Pulm assessment and recommendations. Pt does have a f/u with Dr. Byrd at the end of Jul. There was also a kidney mass seen. Urology has been consulted, await their assessment recommendations.
== END 2022-07-15 11:15 | disposition home health service (06) | DRG 153 ==
LOC: EC 08:54 → 6NMEDSUR 11:25 → OBSVTOIN 12:00 → 3SCARD 12:32 → 4SSUR 17:48
PROVIDERS: ADMIT Internal Medicine; ATTEND Internal Medicine
DX: J06.9 Acute upper respiratory infection, unspecified (principal); N13.6 Pyonephrosis; R07.89 Other chest pain; R91.8 Other nonspecific abnormal finding of lung field; I25.10 Atherosclerotic heart disease of native coronary artery without angina pectoris; D75.1 Secondary polycythemia; E27.8 Other specified disorders of adrenal gland; E78.5 Hyperlipidemia, unspecified; E86.0 Dehydration; I08.1 Rheumatic disorders of both mitral and tricuspid valves; I10 Essential (primary) hypertension; I44.0 Atrioventricular block, first degree; I45.10 Unspecified right bundle-branch block; I87.8 Other specified disorders of veins; Z79.01 Long term (current) use of anticoagulants; Z79.82 Long term (current) use of aspirin; Z79.899 Other long term (current) drug therapy; Z90.710 Acquired absence of both cervix and uterus; Z95.1 Presence of aortocoronary bypass graft; Z88.0 Allergy status to penicillin; Z88.5 Allergy status to narcotic agent; Z87.19 Personal history of other diseases of the digestive system; Z90.49 Acquired absence of other specified parts of digestive tract
CPT/HCPCS: 36415; 71046; 71260; 74178; 80048; 80053; 80061; 81001; 83735; 83880; 84484; 85025; 85610; 85730; 87040; 87086; 93005; 93306; 96365; 96375; 99285

== ENCOUNTER 2022-08-21 12:36 | Day surgery (SDC) | payer MEDICARE, BC ==
[2022-08-20 11:19] VITALS: BMI 21.2
[~2022-08-21 12:36] MED LIST: ALBUTEROL NEB (CONC) 2.5 MG/0.5 ML INHALATION ONE; ATROPINE SULFATE 0.4 MG/ML 1 ML VIAL IM ONE; LACTATED RINGERS 1,000 ML IV SCH; LIDOCAINE 2% (PF) 20 MG/ML 5 ML VIAL INHALATION ONE; LIDOCAINE VISCOUS 300 MG/15 ML CUP MUCOUS MEM ONE; SODIUM CHLORIDE 0.9% 1,000 ML IV SCH
[2022-08-21] MEDS ORDERED: LIDOCAINE 1% (10MG/ML) FOR IV START INTRADERMA ONE (13:35)
[2022-08-21 13:36] VITALS: TEMP 97.4
--- NOTE | 2022-08-21 14:43 | CT ---
EXAMINATION TYPE: CT Chest wo con Veran Protocol DATE OF EXAM: 08/21/2022 COMPARISON: Chest CT July 11, 2022 HISTORY: Veran Protocol CT DLP: 573 mGycm Automated exposure control for dose reduction was used. FINDINGS: Exam is for bronchoscopy planning and not for diagnostic purposes. There is persistent suspicion is 3 .1 x 2.4 cm medial left upper lobe mass axial series 6 image 14. There is persistent 1.2 cm spiculate d nodule in the periphery of the left upper lobe axial image 19. Mild bibasilar linear scarring and/o r atelectasis is redemonstrated. Mild cardiomegaly with post-CABG changes redemonstrated. Calcified s ubcentimeter subcarinal lymph node. Persistent severe left-sided hydronephrosis with dominant calculu s in the collecting system. IMPRESSION: As above.
[2022-08-21] MEDS ORDERED: fentaNYL (PF) 50 MCG/ML 2 ML AMP ONE (14:48)
[2022-08-21] MEDS ORDERED: PHENYLEPHRINE-0.9% NACL SYG 1,000 MCG/10 ML SYRINGE ONE (14:48)
[2022-08-21] MEDS ORDERED: LIDOCAINE 2% INJ 20 MG/ML (2 ML VIAL) ONE (14:48)
[2022-08-21] MEDS ORDERED: PROPOFOL 10 MG/ML 20 ML VIAL IV ONE (14:48)
[2022-08-21] MEDS ORDERED: SUCCINYLCHOLINE CHLORIDE 200 MG/10 ML VIAL IV ONE (14:48)
--- NOTE | 2022-08-21 16:18 | XR ---
EXAMINATION TYPE: XR chest 1V portable DATE OF EXAM: 08/21/2022 COMPARISON: CT study earlier today. HISTORY: Postbronchoscopy. TECHNIQUE: Single AP portable frontal upright view of the chest is obtained. FINDINGS: There is background chronic emphysematous and pulmonary fibrotic changes with some areas o f increased opacity in the left upper lung corresponding to the 2 nodules redemonstrated. No pneumoth orax seen after bronchoscopy and sampling. Overlying sternal wires and mediastinal clips redemonstrat ed. The cardiac silhouette size is stable and mildly enlarged. The osseous structures are demineral ized. IMPRESSION: As above. No pneumothorax is noted.
[2022-08-21 16:21] VITALS: RESP 16
[2022-08-21 16:48] VITALS: BP 130/62; PULSE 84
--- NOTE | 2022-08-21 19:49 | OP ---
OPERATIVE REPORT PROCEDURE PERFORMED: Navigational bronchoscopy with washes; transbronchial biopsies, left upper lobe; brushes left upper lobe; and needle biopsy, left upper lobe. PREOPERATIVE DIAGNOSIS: Lung mass, rule out lung cancer. POSTOPERATIVE DIAGNOSIS: Lung mass, rule out lung cancer. There was informed consent and universal timeout. The patient's procedure took place and was in room #1. ELIGIBILITY ANALYST: Dr. Ortega. DESCRIPTION OF PROCEDURE: The patient's general anesthesia was provided by the anesthesiologist, Dr. Anderson and the [employer] Mc[employer]. The patient was maintained on the mechanical ventilator under general anesthesia. At that point, the bronchoscope was inserted through the bronchoscope adapter connected to the endotracheal tube. There was a thorough evaluation of both lungs. The right upper lobe and its 3 segments, right middle lobe and its 2 segments, right lower lobe and its 5 segments, left upper lobe proper and its 2 segments, lingula and its 2 segments and left lower lobe and its 4 segments were all evaluated. Mucosa was normal. There were no distinct masses or tumors. There was no bleeding. Next, we used the electromagnetic navigational system to guide us to lesion in the left upper lobe. There were 2 lesions, 1 more medially and posteriorly, and 1 more peripherally. We chose to go after the 1 that was more peripheral. Multiple transbronchial biopsies were done with good localization. Also, the needle biopsies were done in this area as well. After that, brushes and washes were done in this area as well. The patient tolerated the procedure well without any complication. There was minimal bleeding. The patient was stable throughout the procedure. She will be recovered by Anesthesia. Again, there were no complications. I was able to speak with both daughters, who came to the hospital with her mother. MMODL / IJN: [id number] /
== END 2022-08-21 17:04 | disposition home or self-care (01) ==
LOC: ORWHC2ENDO 12:36
PROVIDERS: ATTEND Internal Medicine Critical Care Medicine
DX: R91.8 Other nonspecific abnormal finding of lung field (principal)
CPT/HCPCS: 31628; 89050; 71045; 71250; 31629; 31625; 31623; 31624; 31627; J0330; J3010; J2370; J2704; J2001; 88104; 88108; 88305

== ENCOUNTER 2024-01-01 08:36 | Day surgery (SDC) | payer MEDICARE, BC ==
[2023-12-31 13:25] VITALS: BMI 22.6
[~2024-01-01 08:36] MED LIST changes: -ALBUTEROL NEB (CONC) 2.5 MG/0.5 ML INHALATION ONE; -ATROPINE SULFATE 0.4 MG/ML 1 ML VIAL IM ONE; +DEXAMETHASONE SOD PHOSPHATE 4 MG/ML 1 ML VIAL IV ONE; -LIDOCAINE 2% (PF) 20 MG/ML 5 ML VIAL INHALATION ONE; -LIDOCAINE VISCOUS 300 MG/15 ML CUP MUCOUS MEM ONE; +ONDANSETRON 4 MG/2 ML VIAL IVP ONE; -SODIUM CHLORIDE 0.9% 1,000 ML IV SCH; +fentaNYL (PF) 50 MCG/ML 2 ML AMP IV PRN
[2024-01-01] MEDS: LACTATED RINGERS 1,000 ML IV SCH (09:20)
[2024-01-01] MEDS: LIDOCAINE 1% (10MG/ML) FOR IV START INTRADERMA ONE (09:44)
[2024-01-01] MEDS ORDERED: LIDOCAINE 1% INJ 10MG/ML (20 ML MDV) ONE (10:40)
[2024-01-01] MEDS ORDERED: SUCCINYLCHOLINE CHLORIDE 200 MG/10 ML VIAL IV ONE (10:40)
[2024-01-01] MEDS ORDERED: PROPOFOL 10 MG/ML 20 ML VIAL IV ONE (10:40)
[2024-01-01] MEDS ORDERED: fentaNYL (PF) 50 MCG/ML 2 ML AMP ONE (10:40)
[2024-01-01] MEDS: EPINEPHrine 10 ML SYRINGE (0.1 MG/ML) MISCELLANE ONE (11:13)
--- NOTE | 2024-01-01 11:25 | CT ---
EXAMINATION TYPE: CT chest wo con, ION bronchoscopy protocol DATE OF EXAM: 01/01/2024 COMPARISON: 08/21/2022 HISTORY: 83-year-old female scheduled for bronchoscopy, protocol for ION bronchoscopy TECHNIQUE: Contiguous CT of the chest without IV contrast. Coronal/sagittal reconstructions performed . CT DLP: 404.2mGycm. Automatic exposure control utilized for a dose reduction. FINDINGS: Heart borderline enlarged without pericardial effusion. 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 Ectatic ascending aorta 3.9 cm. In metatarsal vessel branching anatomy. Thyroid nodules measuring up to 2.9 cm on the right are unchanged. Borderline caliber right and left main pulmonary arteries up to 2.5 cm may reflect underlying pulmona ry hypertension. Calcified subcarinal lymph node. Additional scattered nonenlarged and mildly enlarged mediastinal lym ph nodes measuring up to 1.3 cm precarinal space and 1.1 cm prevascular space. Strandy atelectasis or scarring in the lower lungs. Medial left upper lobe mass measuring 5.8 cm versus 3.1 cm back in 2021. 1.5 cm subpleural nodule ant erior left upper lobe versus 1.2 cm in 202. No consolidation or pleural effusion. Visualized upper abdomen shows unchanged mild left hydronephrosis which should be correlated clinical ly. Similar low-density thickening of the left adrenal gland. There may be new enlargement of the rig ht adrenal gland to approximately 3.0 x 1.9 cm. Markedly accentuated midthoracic kyphosis. No osseous process seen. IMPRESSION: 1. Medial left upper lobe mass currently 5.8 cm versus 3.1 cm back in 2021. 2. 1.5 cm subpleural nodule anterior left upper lobe versus 1.2 cm, previously. 3. A couple mildly enlarged mediastinal lymph nodes 1.3 cm precarinal and 1.1 cm prevascular space. 4. Unchanged mild left hydronephrosis partially visualized left kidney. 5. There may be new enlargement of the right adrenal gland. Metastatic disease here is a differentia l consideration.
--- NOTE | 2024-01-01 11:44 | P.PCN ---
Date of Procedure: 01/01/24 Operative Findings: Operative Findings: Preoperative Diagnosis: Left upper lobe pulmonary mass Medistinal adenopathy Postoperative Diagnosis: same Procedure(s) Performed: Flexible bronchoscopy Robotic-assisted bronchoscopy and addition to radial ultrasound evaluation of the left upper lobe mass Robotic-assisted transbronchial needle aspirate, transbronchial biopsies of the left upper lobe mass nodule in addition to a bronchioloalveolar lavage EBUS EBUS guided transbronchial needle aspirate biopsy station 4 L and 7 lymph nodes. Anesthesia: GETA Surgeon: Natan Lindsay Estimated Blood Loss (ml): 0 Pathology: other Condition: stable Disposition: same day Operative Findings: A physical exam was performed. Informed consent was obtained from the patient after explaining all the risks (pneumothorax, life threatening bleeding, infection and adverse effects due to medications), benefits and alternatives to the procedure which the patient appeared to understand and so stated. The patient was connected to the monitoring devices. General anesthesia was induced and the patient was intubated by anesthesia. A final timeout was performed and the procedure confirmed by the attending staff bronchoscopist. The bronchoscope was inserted and the airway examined. The flexible bronchoscope was removed and the robotic bronchoscope was inserted. Registration was completed. I next guided the robotic bronchoscope using the navigation system into the left upper lobe superior segment. Once in proper position, the bronchoscope was frozen. The radial EBUS probe was placed through the bronchoscope and confirmed abnormal u/s images vs normal lung. A needle was placed through the working channel and under fluoroscopic guidance, we sampled the area thought to have the mass twice. We then used a cloud biopsy pattern with ultrasound confirmation for 2 additional passes with the needle. U/S evaluation was then used to reconfirm location. Forceps were next introduced through working channel and extended the appropriate distance and 3 transbronchial biopsies were performed using fluoroscopic guidance. The u/s probe was then reinserted to confirm location. When confirmed this process was repeated for a total of 8-10 transbronchial biopsies. After reassessment with EBUS, a brush was placed through the extendable working channel for 1 pass with fluoroscopic guidance. U/S evaluation was then used to confirm location. 40ml of saline was then instilled into the area of the lesion. 10cc was aspiratred. Initially bloody aspiorate was obtained consistent with some endobronchial bleeding encountered postbiopsy. A total of 2 cc of epinephrine was given and following that this is a cold saline solution. The bleeding was stopped. lavage was done. Another 20 cc saline was infused and 10 ml of effluent from the BAL was collected. The aspirate was bloody and ultimately declotted and based on that, the sample was discarded. The robotic bronchoscope was removed and the airway inspected no evidence of any ongoing endobronchial bleeding. Following that, the robotic bronchoscope was removed and endobronchial ultrasound was inserted. Careful examination of the mediastinal stations was done and the patient was found to have a 5 mm station 4 L lymph node, a 10x9 mm station 7 lymph node. Transbronchial needle aspirate of the mediastinal stations was done using a 22-gauge with a sharp needle. A total of 3 passes were obtained from each station. The endobronchial ultrasound was removed. Flex. bronchoscope was inserted and regular suctioning was done. At the completion of the procedure, no residual secretions or bloody material within the airway. The bronchoscope was removed. The patient was extubated. FINDINGS: 1.The airways appeared normal 2 Successful navigation, ultrasonographic identification, and biopsies of left upper lobe mass 3.The the radial ultrasound view was eccentric/concentric 4 successful mediastinal staging by endobronchial ultrasound RECOMMENDATIONS: Await pathology and cytology results The referring physician will be alerted to the results when available. The patient was advised to follow up with the referring physician with the biopsy results Patient will be called with results.
--- NOTE | 2024-01-01 12:02 | FL ---
EXAMINATION TYPE: FL bronchoscopy Intraoperative/procedural fluoroscopic services were provided. Tota l fluoroscopy time is 27 seconds with a total of 1 submitted images to PACS. Please see the operative /procedural note for further details. DAP: 0.4543 Gycm2
[2024-01-01 12:11] VITALS: TEMP 97
--- NOTE | 2024-01-01 12:26 | XR ---
EXAMINATION TYPE: XR chest 1V DATE OF EXAM: 01/01/2024 COMPARISON: 12/10/2023 and 08/21/2022 HISTORY: 83-year-old female post biopsy follow-up TECHNIQUE: Single frontal view of the chest is obtained. FINDINGS: Known left apical mass. The patient is rotated towards the left altering normal cardiac me diastinal contours. There may be some minimal associated postbiopsy contusion. No appreciable pneumot horax. Hyperinflation. Heart upper limits of normal in size. Median sternotomy wires and post-CABG cl ips. IMPRESSION: No left apical mass. Limited due to patient rotation. No obvious pneumothorax. There may be some minimal associated postbiopsy contusion.
[2024-01-01 13:40] VITALS: BP 146/79; PULSE 81; RESP 18
== END 2024-01-01 13:25 | disposition home or self-care (01) ==
LOC: ORWHC2ENDO 08:36
PROVIDERS: ATTEND Internal Medicine Critical Care Medicine
DX: C34.12 Malignant neoplasm of upper lobe, left bronchus or lung (principal); I25.2 Old myocardial infarction; I10 Essential (primary) hypertension; E78.5 Hyperlipidemia, unspecified; E03.9 Hypothyroidism, unspecified; K21.9 Gastro-esophageal reflux disease without esophagitis; Z95.5 Presence of coronary angioplasty implant and graft; Z87.442 Personal history of urinary calculi; Z79.51 Long term (current) use of inhaled steroids; Z79.82 Long term (current) use of aspirin; Z98.890 Other specified postprocedural states; Z79.899 Other long term (current) drug therapy; Z90.710 Acquired absence of both cervix and uterus; Z88.0 Allergy status to penicillin; Z88.5 Allergy status to narcotic agent
CPT/HCPCS: 88305; 88342; 88341; 87070; 87205; 87116; 87102; 87206; 71045; 71250; 31628; 31629; 31623; 31624; 31652; J0330; J2001; J0171; J3010; J2704; S2900

== ENCOUNTER → 2024-01-15 | Outpatient (CLI) | payer MEDICARE, BC ==
--- NOTE | 2024-01-17 11:35 | PE ---
EXAMINATION TYPE: PET CT fusion skull to thigh DATE OF EXAM: 01/15/2024 COMPARISON: CT chest 01/01/2024 Prior PET/CT: None HISTORY: Lung cancer TECHNIQUE: Following the intravenous administration of 11.58 mCi of F-18 FDG, whole body images are performed from the skull base to the midthigh. Images are reviewed on the computer in the coronal, a xial, and sagittal planes. Reconstructed rotating images are created on independent workstation and reviewed on the computer. A localization and attenuation correction CT is performed in conjunction with the PET scan. DLP: 239.36 mGycm SCAN: Initial Blood glucose: 104 mg/dL Average Mediastinum SUV: 1.93 Average Liver SUV: 2.36 FINDINGS: NECK: No abnormal uptake THORAX: There is enhancement of the periphery of the left apical mass. SUV is 19.41, example image 36 and 12.47, example image 47. The hypodense area within the anterior left upper lung field is photopenic, the periphery has mild up take at 2.89. Example image 51 the inferior medial border is slightly greater at 3.91. There is intense uptake within a mediastinal lymph node image 58, SUV 8.36. Aortopulmonic window lymp h node has intensity of 7.03, image 60 some subtle uptake may be anterior to the aorta within the med iastinum. Image 63, SUV 3.16. ABDOMEN: There is intense uptake within the posterior medial liver, example image 99, SUV 10.96. Find ing is suspicious for metastatic lesion. PELVIS: No abnormal uptake OSSEOUS STRUCTURES: No abnormal uptake LOCALIZATION CT: Findings correlate with the PET/CT. COMPARISON: None IMPRESSION: 1. Marked increased uptake within the left lung mass with some peripheral uptake of a more anterior l eft upper lobe lesion compatible with neoplasm. 2. Scattered hyperintense small lymph nodes compatible with metastatic lesions discussed above. 3. Marked uptake within the posterior medial right lobe liver compatible with a neoplasm.
== END | disposition home or self-care (01) ==
LOC: RADPETMAIN 07:13
PROVIDERS: ATTEND Internal Medicine Hematology & Oncology
DX: C34.12 Malignant neoplasm of upper lobe, left bronchus or lung (principal); R91.8 Other nonspecific abnormal finding of lung field
CPT/HCPCS: 78815; A9552

== ENCOUNTER 2024-02-08 12:26 | Inpatient (IN) | payer MEDICARE, BC ==
[2024-02-08 13:20] LABS: Anisocytosis Moderate; HCT 40.9 % (34.0-46.0); HGB 12.9 gm/dL (11.4-16.0); MCH 29.4 pg (25.0-35.0); MCHC 31.5 g/dL (31.0-37.0); MCV 93.3 fL (80.0-100.0); Macrocytosis Slight; Mean Platelet Volume 8.2; Microcytosis Slight; Platelet Count 609 k/uL (150-450); RBC 4.38 m/uL (3.80-5.40); RDW 23.7 % (11.5-15.5); WBC 35.1 k/uL (3.8-10.6)
--- NOTE | 2024-02-08 13:20 | ED ---
Weakness HPI - General Chief complaint: Weakness Stated complaint: Nausea, vomiting Time Seen by Provider: 02/08/24 12:52 Source: patient, family, RN notes reviewed Mode of arrival: wheelchair Limitations: no limitations - History of Present Illness Initial comments: This is an 83-year-old female who presents to the emergency department for weakness. Patient has metastatic lung cancer and follows with Dr. Byrd. For the last 2 days she has been increasingly weak. She is nauseous and not eating anything. Also reports generalized abdominal discomfort and constipation. She does have Zofran which is effective, however family has not been able to get her to take it. She did just begin the new medication Tabrecta for the lung cancer before symptoms began. She is not receiving chemotherapy infusions in conjunction with the Tabrecta. She has a hx of UTIs in the past and reports a recent episode of incontinence. MD Complaint: generalized weakness - Related Data Home Medications Medication Instructions Recorded Confirmed Aspirin EC [Ecotrin Low Dose] 81 mg PO DAILY 07/11/22 02/08/24 Nitroglycerin Sl Tabs [Nitrostat] 0.4 mg SUBLINGUAL Q5M PRN 07/11/22 02/08/24 Albuterol Sulfate [Albuterol 1 - 2 puff INHALATION RT-Q4H PRN 08/20/22 02/08/24 Sulfate Hfa] ALPRAZolam [Xanax] 0.5 mg PO BID PRN 02/08/24 02/08/24 Capmatinib Hydrochloride [Tabrecta] 400 mg PO BID 02/08/24 02/08/24 HYDROcodone/APAP 5-325MG [[place] 1 tab PO QID PRN 02/08/24 02/08/24 5-325] Ibuprofen [Motrin] 800 mg PO Q8H PRN 02/08/24 02/08/24 Magic Mouth Wash 5 ml PO QID 02/08/24 02/08/24 Metoprolol Succinate (ER) [Toprol 25 - 50 mg PO DAILY PRN 02/08/24 02/08/24 Xl] Ondansetron [Zofran] 4 mg PO Q6H PRN 02/08/24 02/08/24 dexAMETHasone [Decadron] 4 mg PO DAILY 02/08/24 02/08/24 Allergies Allergy/AdvReac Type Severity Reaction Status Date / Time codeine Allergy Rash/Hives, Verified 02/08/24 14:20 swelling in throat Penicillins Allergy Rash/Hives, Verified 02/08/24 14:20 swelling in throat Review of Systems ROS Statement: Those systems with pertinent positive or pertinent negative responses have been documented in the HPI. ROS Other: All systems not noted in ROS Statement are negative. Past Medical History Past Medical History: Cancer, Hyperlipidemia, Hypertension, Myocardial Infarction ([place]) Additional Past Medical History / Comment(s): polycythemia, kidney stone, uterine cancer, lung cancer, was to have started a different antihypertensive but is not currently taking - couldn't remember what it was Last Myocardial Infarction Date:: 2017 History of Any Multi-Drug Resistant Organisms: None Reported Past Surgical History: Cholecystectomy, Coronary Bypass/CABG, Hysterectomy Additional Past Surgical History / Comment(s): stomach abscess removed, CABG (02/17/2018) Past Anesthesia/Blood Transfusion Reactions: No Reported Reaction, Motion Sickness Past Psychological History: No Psychological Hx Reported Smoking Status: Never smoker - Past Family History Mother Family Medical History: Myocardial Infarction ([place]) Father Family Medical History: Asthma, COPD, Myocardial Infarction ([place]) General Exam Limitations: no limitations General appearance: alert, in no apparent distress Head exam: Present: atraumatic, normocephalic, normal inspection Respiratory exam: Present: normal lung sounds bilaterally. Absent: respiratory distress, wheezes, rales, rhonchi, stridor Cardiovascular Exam: Present: tachycardia GI/Abdominal exam: Present: soft, tenderness (generalized), normal bowel sounds. Absent: distended Neurological exam: Present: alert, oriented X3, CN II-XII intact Psychiatric exam: Present: normal affect, normal mood Skin exam: Present: warm, dry, intact, normal color. Absent: rash Course Vital Signs 02/08/24 02/08/24 02/08/24 12:44 13:31 14:51 Temperature 99.1 F 98.3 F Pulse Rate 120 H 121 H 105 H Respiratory 20 20 20 Rate Blood Pressure 100/65 96/59 107/57 O2 Sat by Pulse 97 95 97 Oximetry 02/08/24 02/08/24 02/08/24 16:59 18:45 19:23 Temperature 99.1 F Pulse Rate 104 H 151 H 138 H Respiratory 16 18 16 Rate Blood Pressure 109/55 118/58 93/53 O2 Sat by Pulse 95 95 98 Oximetry 02/08/24 02/08/24 02/08/24 19:30 19:43 20:15 Temperature Pulse Rate 135 H 117 H 109 H Respiratory 18 18 17 Rate Blood Pressure 91/53 90/48 O2 Sat by Pulse 96 95 Oximetry 02/08/24 02/09/24 02/09/24 23:29 00:00 04:00 Temperature Pulse Rate 101 H 101 H 71 Respiratory 17 16 18 Rate Blood Pressure 80/48 83/47 99/61 O2 Sat by Pulse 101 H 95 98 Oximetry Medical Decision Making - Medical Decision Making This is an 83 year old female who presents to the emergency department for weakness and nausea. Was pt. sent in by a medical professional or institution? @ -No Did you speak to anyone other than the patient for history? @ -No Did you review nursing and triage notes? @ -Yes, and I agree, it is accurate with regards to the patient's symptoms. Were old charts reviewed? @ -No Differential Diagnosis? @ -Differential Weakness: Hypoglycemia, shock, sepsis, hyponatremia, anemia, infection, [place], ETOH, adverse medicine reaction, overdose, stroke, this is not meant to be an all-inclusive list. EKG interpreted by me (3pts min.)? @ -EKG interpreted by me demonstrating the following: Sinus tachycardia versus A-fib with RVR. Ventricular rate 121 bpm, QRS duration 136 ms, QTc 426 ms. X-rays interpreted by me (1pt min.)? @ -Not obtained CT interpreted by me (1pt min.)? @ -CTA of the chest obtained. My interpretation identifies no evidence of a pu lmonary embolus. CT scan of the abdomen and pelvis obtained. My interpretation identifies no dilation of the bowel loops. U/S interpreted by me (1pt. min.)? @ -Not obtained What testing was considered but not performed? (CT, X-rays, U/S, labs)? Why? @ -None What meds were considered but not given? Why? @ -None Did you discuss the management of the patient with other professionals? @ -Yes, Dr. Cardoso, who accepts the patient for admission. Did you reconcile home meds? @ -Yes Was smoking cessation discussed for >3mins.? @ -No Was critical care preformed (if so, how long)? @ -Yes, >35 minutes Were there social determinants of health that impacted care today? How? (Homelessness, low income, unemployed, alcoholism, drug addiction, transportation, low edu. Level, literacy, decrease access to med. care, intermediate, rehab)? @ -No Was there de-escalation of care discussed even if they declined? (Discuss DNR or withdrawal of care, Hospice)? @ -No What co-morbidities impacted this encounter? (DM, HTN, Smoking, COPD, CAD, Cancer, CVA, Hep., AIDS, mental health diagnosis, sleep apnea, morbid obesity)? @ -Metastatic lung cancer, HLD, HTN Was patient admitted / discharged? @ -Admitted. Lab work demonstrates significant leukocytosis with a white blood cell count of 35,100. She also has signs of dehydration with a BUN of 34 and slightly decreased GFR. Troponin elevated at 0.050. Blood sugar elevated at 203. Patient denies a hx of diabetes. Hemoglobin A1c ordered. Urinalysis is suggestive of infection and urine was sent for culture. CTA of the chest obtained demonstrating no evidence of a pulmonary embolus. She has an enlarged pulmonary trunk, which can be seen with pulmonary hypertension. There is slight interval progression of malignancy in the left upper lobe and stable size/appearance of mediastinal lymph nodes. CT scan of the abdomen/pelvis demonstrates right adrenal metastasis which is similar to the PET scan on 01/15/2024. There is a calculus in the left renal pelvis which was present on pr ior study and seems slightly larger. Proximal left ureter is inflamed and mildly enlarged however no definitive ureteral calculi are observed. There is also peripelvic and perinephric fat stranding concerning for hydronephrosis with superimposed infectious/inflammatory process. She did have some increased intrahepatic and extrahepatic biliary duct dilation which extends to the ampulla. Cause is not clear. LFTs fairly unremarkable. Patient was tachycardic in the emergency department, initially with heart rates in the 120s. After a 2 L bolus of IV fluids heart rate did improve into the low 100s. Based on the leukocytosis with tachycardia and identified source of infection, patient does meet sepsis criteria at 1538 when I saw the positive urinalysis. Blood cultures were obtained and she was given 2 g of ceftriaxone. A total of 2L of IV fluids had already been given as a bolus and maintenance fluids were initiated. Patient admitted to medicine for to UTI, sepsis, and elevated trop onin. Serial troponins ordered. Consult placed for infectious disease regarding the UTI/sepsis, urology regarding the renal pelvis calculus with hydronephrosis, cardiology regarding the elevated troponins, and hem/onc due to this being a cancer patient. After admission orders were placed, patient went to stand up and her heart rate jumped into the 150s. She maintained a heart rate in the 140s to 150s and seemed to be in A-fib versus a-flutter. Repeat EKG obtained demonstrating atrial fibrillation with RVR. On observation of the satellite project site monitor, patient seemed to be continuing to go back and forth between sinus tachycardia and A-fib during the whole time she was in the emergency department. Patient was was started on Cardizem and heparin drip. Undiagnosed new problem with uncertain prognosis? @ -None Drug Therapy requiring intensive monitoring for toxicity (Heparin, Nitro, Insulin, Cardizem)? @ -Cardizem and Heparin Were any procedures done? @ -None Diagnosis/symptom? @ -Sepsis, UTI, elevated troponin, new onset a-fib Acute, or Chronic, or Acute on Chronic? @ -Acute Uncomplicated (without systemic symptoms) or Complicated (systemic symptoms)? @ -Complicated Side effects of treatment? @ -None Exacerbation, Progression, or Severe Exacerbation] @ -Not applicable Poses a threat to life or bodily function? @ -Yes, sepsis can lead to organ failure and . This case was discussed in detail with the attending ED physician, Dr. Araiza. Presentation, findings, and treatment plan discussed in detail as well. - Lab Data Result diagrams: 02/09/24 03:37 02/08/24 13:08 Lab Results 02/08/24 02/08/24 02/08/24 Range/Units 13:08 13:08 13:08 WBC 35.1 H (3.8-10.6) k/uL RBC 4.38 (3.80-5.40) m/uL Hgb 12.9 (11.4-16.0) gm/dL Hct 40.9 (34.0-46.0) % MCV 93.3 (80.0-100.0) fL MCH 29.4 (25.0-35.0) pg MCHC 31.5 (31.0-37.0) g/dL RDW 23.7 H (11.5-15.5) % Plt Count 609 H (150-450) k/uL MPV 8.2 Neutrophils % (Manual) 96 % Band Neuts % (Manual) 2 % Monocytes % (Manual) 2 % Neutrophils # (Manual) 34.30 H (1.3-7.7) k/uL Monocytes # (Manual) 0.70 (0-1.0) k/uL Nucleated RBCs 0 (0-0) /100 WBC Manual Slide Review Performed Anisocytosis Moderate Microcytosis Slight Macrocytosis Slight PT 11.9 (10.0-12.5) sec INR 1.1 (<1.2) APTT 25.0 (22.0-30.0) sec Sodium 139 (137-145) mmol/L Potassium 3.9 (3.5-5.1) mmol/L Chloride 107 (98-107) mmol/L Carbon Dioxide 24 (22-30) mmol/L Anion Gap 8 mmol/L BUN 34 H (7-17) mg/dL Creatinine 1.00 (0.52-1.04) mg/dL Est GFR (CKD-EPI)AfAm 60 (>60 ml/min/1.73 sqM) Est GFR (CKD-EPI)NonAf 52 (>60 ml/min/1.73 sqM) Glucose 203 H (74-99) mg/dL Plasma Lactic Acid Ho (0.7-2.0) mmol/L Calcium 8.9 (8.4-10.2) mg/dL Magnesium 1.7 (1.6-2.3) mg/dL Total Bilirubin 0.8 (0.2-1.3) mg/dL AST 18 (14-36) U/L ALT 17 (4-34) U/L Alkaline Phosphatase 137 H (38-126) U/L Troponin I (0.000-0.034) ng/mL Total Protein 6.6 (6.3-8.2) g/dL Albumin 3.2 L (3.5-5.0) g/dL Urine Color Urine Appearance (Clear) Urine pH (5.0-8.0) Ur Specific [place] (1.001-1.035) Urine Protein (Negative) Urine Glucose (UA) (Negative) Urine Ketones (Negative) Urine Blood (Negative) Urine Nitrite (Negative) Urine Bilirubin (Negative) Urine Urobilinogen (<2.0) mg/dL Ur Leukocyte Esterase (Negative) Urine RBC (0-5) /hpf Urine WBC (0-5) /hpf Urine WBC Clumps (None) /hpf Urine Bacteria (None) /hpf Urine Mucus (None) /hpf 02/08/24 02/08/24 02/08/24 Range/Units 13:08 13:08 13:08 WBC (3.8-10.6) k/uL RBC (3.80-5.40) m/uL Hgb (11.4-16.0) gm/dL Hct (34.0-46.0) % MCV (80.0-100.0) fL MCH (25.0-35.0) pg MCHC (31.0-37.0) g/dL RDW (11.5-15.5) % Plt Count (150-450) k/uL MPV Neutrophils % (Manual) % Band Neuts % (Manual) % Monocytes % (Manual) % Neutrophils # (Manual) (1.3-7.7) k/uL Monocytes # (Manual) (0-1.0) k/uL Nucleated RBCs (0-0) /100 WBC Manual Slide Review Anisocytosis Microcytosis Macrocytosis PT (10.0-12.5) sec INR (<1.2) APTT (22.0-30.0) sec Sodium (137-145) mmol/L Potassium (3.5-5.1) mmol/L Chloride (98-107) mmol/L Carbon Dioxide (22-30) mmol/L Anion Gap mmol/L BUN (7-17) mg/dL Creatinine (0.52-1.04) mg/dL Est GFR (CKD-EPI)AfAm (>60 ml/min/1.73 sqM) Est GFR (CKD-EPI)NonAf (>60 ml/min/1.73 sqM) Glucose (74-99) mg/dL Plasma Lactic Acid Ho 1.8 (0.7-2.0) mmol/L Calcium (8.4-10.2) mg/dL Magnesium (1.6-2.3) mg/dL Total Bilirubin (0.2-1.3) mg/dL AST (14-36) U/L ALT (4-34) U/L Alkaline Phosphatase (38-126) U/L Troponin I 0.050 H* (0.000-0.034) ng/mL Total Protein (6.3-8.2) g/dL Albumin (3.5-5.0) g/dL Urine Color Yellow Urine Appearance Turbid H (Clear) Urine pH 6.0 (5.0-8.0) Ur Specific [place] 1.023 (1.001-1.035) Urine Protein 2+ H (Negative) Urine Glucose (UA) Negative (Negative) Urine Ketones 1+ H (Negative) Urine Blood Moderate H (Negative) Urine Nitrite Negative (Negative) Urine Bilirubin Negative (Negative) Urine Urobilinogen <2.0 (<2.0) mg/dL Ur Leukocyte Esterase Large H (Negative) Urine RBC 32 H (0-5) /hpf Urine WBC >182 H (0-5) /hpf Urine WBC Clumps Many H (None) /hpf Urine Bacteria Few H (None) /hpf Urine Mucus Many H (None) /hpf - Radiology Data Radiology results: report reviewed, image reviewed Disposition Clinical Impression: Sepsis, UTI (urinary tract infection), Elevated troponin, New onset a-fib Disposition: ADMITTED IP TO THIS HOSP
[2024-02-08] MEDS: SODIUM CHLORIDE 0.9% 1,000 ML IV STA ×3 (13:27→17:03)
[2024-02-08] MEDS: ONDANSETRON 4 MG/2 ML VIAL IVP STA (13:30)
[2024-02-08] MEDS: DEXAMETHASONE SOD PHOSPHATE 10 MG/ML 1 ML VIAL IVP STA (13:33)
[2024-02-08 13:34] LABS: ALT 17 U/L (4-34); AST 18 U/L (14-36); African American GFR (CKD) 60 (>60 ml/min/1.73 sqM); Albumin 3.2 g/dL (3.5-5.0); Alkaline Phosphatase 137 U/L (38-126); Anion Gap 8 mmol/L; Blood Urea Nitrogen 34 mg/dL (7-17); Calcium 8.9 mg/dL (8.4-10.2); Carbon Dioxide 24 mmol/L (22-30); Chloride 107 mmol/L (98-107); Glucose 203 mg/dL (74-99); Magnesium 1.7 mg/dL (1.6-2.3); Non-African American GFR(CKD) 52 (>60 ml/min/1.73 sqM); Potassium 3.9 mmol/L (3.5-5.1); Sodium 139 mmol/L (137-145); Total Bilirubin 0.8 mg/dL (0.2-1.3); Total Protein 6.6 g/dL (6.3-8.2)
[2024-02-08] MEDS: HYDROmorphone 0.5 MG/0.5 ML SYRINGE IVP STA (13:36)
[2024-02-08 13:37] LABS: INR 1.1 (<1.2); Prothrombin Time 11.9 sec (10.0-12.5)
[2024-02-08 13:57] LABS: Band Neutrophils % 2 %; Neutrophils % (M) 96 %; Nucleated Red Blood Cells 0 /100 WBC (0-0); Total Cells Counted 100
[2024-02-08 15:34] LABS: Appearance,Urine Turbid (Clear); Bacteria,Urine Few /hpf; Bilirubin,Urine Negative (Negative); Blood,Urine Moderate (Negative); Color,Urine Yellow; Glucose,Urine (UA) Negative (Negative); Ketones,Urine 1+ (Negative); Leukocyte Esterase,Urine Large (Negative); Mucus,Urine Many /hpf; Nitrite,Urine Negative (Negative); Protein,Urine 2+ (Negative); RBC,Urine 32 /hpf (0-5); Specific Gravity,Urine 1.023 (1.001-1.035); Urobilinogen,Urine <2.0 mg/dL (<2.0); WBC,Urine >182 /hpf (0-5)
--- NOTE | 2024-02-08 16:53 | CT ---
EXAMINATION TYPE: CT chest angio for PE CT DLP: 349.2 mGycm, Automated exposure control for dose reduction was used. DATE OF EXAM: 02/08/2024 2:58 PM COMPARISON: CT chest 01/01/2024. Refer PET/CT 01/15/2024 CLINICAL INDICATION:Female, 83 years old with history of Tachycardia, new onset a-fib, lung cancer pt ; a-fib, lung ca TECHNIQUE/CONTRAST: CTA scan of the thorax is performed with IV Contrast, patient injected with 80 mL of Isovue 370, MIP images are created and reviewed these are created on a separate workstation.. FINDINGS: There is adequate contrast bolus and timing. PULMONARY ARTERIES: There is no evidence for a filling defect within the pulmonary vasculature to sug gest acute pulmonary embolism. The pulmonary trunk is enlarged, this can be seen with pulmonary hyper tension. Trunk measures 3.6 CM. AORTA: Mild atherosclerotic calcifications of the aorta and branches. Ascending aorta is 3.4 CM, josé cending is 2.2 CM. No dissection flap is seen. HEART: Mild cardiomegaly. [place] coronary arterial calcifications, and post-CABG changes. No appreci able pericardial effusion. LOWER NECK: Diffuse thyroid hypodense nodularity and calcifications again seen.. MEDIASTINUM: To the left of the proximal aortic arch there is a node with short axis of 8 mm image 46 series 401 which is unchanged from the last CT, and was shown to be hot on PET. A couple of mildly p rominent lymph nodes along the arch more distally appear unchanged, with short axes 6.6 mm and 6.7 mm . There was elevated radiotracer activity in the left anterior hilar region, which could be related t o a lymph node, nevertheless not clearly demonstrated by this exam. Other nonenlarged mediastinal nod es remain stable. No new or enlarging adenopathy is suggested. SOFT TISSUES/AXILLA: Chest wall soft tissues show no evidence of mass. No enlarged axillary nodes are seen. LUNGS/ PLEURA: Left upper lobe lung mass does not appear significantly changed, allowing for techniqu e and measurement differences, measuring approximately 5.5 cm AP currently. There is now a bridge of soft tissue extending from this mass anteriorly and encompassing 1.5 cm the region of the previous lara bpleural spiculated nodule suggesting progression of malignancy/metastatic disease. Apart from this, there is no new or enlarging nodularity, mass, or airspace consolidation. Mild depen dent subsegmental atelectasis. AIRWAY: Central airways are patent. MUSCULOSKELETAL: Generalized osteopenia. Sternotomy wires. Chronic degenerative changes of the dorsal spine with exaggerated kyphosis. No clearly acute bony abnormality. UPPER ABDOMEN: Please see CT abdomen report for findings. IMPRESSION: 1. No evidence of pulmonary embolism. 2. Enlarged pulmonary trunk, can be seen with pulmonary hypertension. 3. Slight interval progression of malignancy in the left upper lobe, with bridging soft tissue now ex tending in contiguity from the previously seen mass anteriorly and encompassing the 1.5 cm region of spiculated subpleural nodularity present before. 4. Stable size/appearance of mediastinal lymph nodes, a couple of which along the left aortic arch and left hilum were shown to be hot on PET. These will be reasses sed on subsequent follow-up imaging.
[2024-02-08] MEDS ORDERED: NITROGLYCERIN SL TABS 0.4 MG TAB SUBLINGUAL PRN (16:58)
[2024-02-08] MEDS ORDERED: ONDANSETRON 4 MG TAB PO PRN (16:58)
--- NOTE | 2024-02-08 17:59 | CT ---
EXAMINATION TYPE: CT abdomen pelvis w con CT DLP: 391 mGycm, Automated exposure control for dose reduction was used. DATE OF EXAM: 02/08/2024 2:58 PM COMPARISON: PET/CT 02/07/2024, CT abdomen and pelvis 07/13/2022 CLINICAL INDICATION:Female, 83 years old with history of Abdominal pain, N/V, leukocytosis; nausea, v omiting TECHNIQUE: Axial CT of the abdomen and pelvis. Sagittal and coronal reformats were created on a [employer] workstation. IV contrast used:80 mL of Isovue-370 Oral contrast used: None FINDINGS: LOWER CHEST: Please see separate CT chest for other findings. Mitral valve calcification versus prost hesis noted. ABDOMEN LIVER: Unremarkable GALLBLADDER AND BILE DUCTS: What may be the gallbladder appears similar to before. There is increased intrahepatic and extrahepatic biliary dilatation which extends to the ampulla. Cause not apparent by this study. PANCREAS: Diffuse fatty infiltration without acute finding SPLEEN: Unremarkable. ADRENAL GLANDS: Right adrenal gland is enlarged and smudgy in appearance measuring 4.6 x 2.7 cm; this appears to represent metastasis which is new since 07/13/2022 but appears similar to the PET CT 2023 (and was shown to be hot on that exam). Left adrenal appears stable, generally thickened and jason ws homogeneous enhancement and no distinct evidence of mass. KIDNEYS AND URETERS: Kidneys are enhancing, albeit with slightly delayed nephrogram on the left. There is a 15.5 x 11 mm c alculus within the left renal pelvis trending inferiorly, which was also present on the prior study a nd seems slightly larger. There are abnormally dilated calyces throughout, especially the upper pole calyx with shows urothelial enhancement as well. Peripelvic and perinephritic fat stranding is also s uggested. Proximal ureter also appears inflamed and mildly enlarged, however becomes difficult to tra ce continuing distally and no definite ureteral calculi are observed. A couple of cysts are suggested in the mid to lower left kidney. On the right, there appears to be a punctate calculus lower pole. No definite collecting system calcu li are seen, however there are cystic-appearing areas in the right renal hilum which could reflect pa rapelvic cysts over dilated calyces. No clear evidence of hydroureter or ureteral calculus is seen. PELVIS BLADDER: Moderately distended, grossly unremarkable. REPRODUCTIVE: Uterus and ovaries not clearly seen, correlate with surgical history. ABDOMEN & PELVIS STOMACH AND BOWEL: Nondistended, without evidence of obstruction. Appendix not readily visualized. Mi ld/moderate stool throughout colon. Numerous diverticula in the distal aspects of the colon without e vidence of diverticulitis. PERITONEUM/RETROPERITONEUM: No evidence of pneumoperitoneum or free fluid. VASCULATURE: Moderate mixed atherosclerotic disease is present throughout the abdominal aorta and its branches. No evidence of aortic aneurysm. Mild narrowings of the proximal celiac and superior mesen teric arteries. Mild narrowing of the proximal right more than left renal arteries. Multiple surgical clips are seen extending along the bilateral iliac vessels. Portal veins are enhancing. Splenic vei n appears patent. LYMPH NODES: Multiple mildly prominent left para-aortic lymph nodes, likely reactive. No enlarged nod es by CT size criteria. SOFT TISSUE/ABDOMINAL WALL: No acute abnormality. Mild body wall edema suggested. MUSCULOSKELETAL: Generalized osteopenia. Mild/moderate degenerative changes of the lumbar spine. No a cute abnormality is demonstrated. IMPRESSION: 1. Increased intrahepatic and extrahepatic biliary dilatation which extends to the ampulla. Cause no t apparent by this study. Correlate with LFTs. 2. Right adrenal metastasis, new since 07/13/2022 but appears similar to the PET CT 01/15/2024. 3. Kidneys are enhancing, with slightly delayed nephrogram on the left. 4. There is a 15.5 x 11 mm calculus within the left renal pelvis trending inferiorly, which was also present on the prior study and seems slightly larger. 5. Abnormally dilated calyces throughout the left kidney, especially the upper pole calyx which show s urothelial enhancement. Proximal ureter also appears inflamed and mildly enlarged, however becomes difficult to trace continuing distally and no definite ureteral calculi are observed. Peripelvic and perinephritic fat stranding is also suggested. Findings raise concern for hydronephrosis with superim posed infectious/inflammatory process. 6. On the right, there appears to be a punctate calculus in the lower pole. No definite collecting s ystem calculi are seen, however there are cystic-appearing areas in the right renal hilum which could reflect parapelvic cysts over dilated calyces. No clear evidence of hydroureter or ureteral calculus is seen. 7. Moderately distended bladder. 8. No evidence of bowel obstruction, free fluid, or free air. 9. Numerous diverticula in the distal aspects of the colon without convincing evidence of diverticul itis.
[2024-02-08] MEDS ORDERED: NALOXONE 0.4 MG/ML 1 ML VIAL IV PRN (18:03)
[2024-02-08] MEDS ORDERED: ACETAMINOPHEN TAB 325 MG TAB PO PRN (18:03)
[2024-02-08] MEDS ORDERED: HYDROmorphone 1 MG/ML 1 ML SYRINGE IVP PRN (18:03)
[2024-02-08] MEDS: NON FORMULARY DRUG (Magic Mouth Wash 5 ML) PO SCH (18:30)
[2024-02-08] MEDS: ONDANSETRON 4 MG/2 ML VIAL IVP PRN (18:43)
[2024-02-08] MEDS: HYDROmorphone 0.5 MG/0.5 ML SYRINGE IVP PRN (18:49)
[2024-02-08] MEDS: SODIUM CHLORIDE 0.9% 500 ML 500 ML IV STA (19:32)
[2024-02-08] MEDS: HEPARIN SOD,PORK IN 0.45% NACL 25,000 UNIT in 0.45% NACL 1 250ML.BAG IV SCH (19:35)
[2024-02-08] MEDS: HEPARIN SODIUM 1,000 UN/ML (10ML VL) IV ONE (19:36)
[2024-02-08] MEDS: DILTIAZEM DRIP BOLUS FROM BAG 1 MG SOLN IV ONE ×2 (19:39→20:01)
[2024-02-08] MEDS: DILTIAZEM 125 MG in SODIUM CHLORIDE 0.9% 100 ML IV SCH (19:44)
[2024-02-08] MEDS: CAPMATINIB HYDROCHLORIDE 200 MG PO SCH (20:16)
[2024-02-08] MEDS: METOPROLOL TARTRATE 5 MG/5 ML VIAL IVP STA (21:08)
[2024-02-08] MEDS: MAG HYDROX/AL HYDROX/SIMETH 30 ML, LIDOCAINE VISCOUS 2% 30 ML, diphenhydrAMINE ELIXIR 7... PO SCH (23:26)
[2024-02-09 04:04] LABS: Anisocytosis Moderate; Basophils % (A) 0 %; Eosinophils % (A) 0 %; HGB 10.3 gm/dL (11.4-16.0); Hypochromasia Slight; Lymphocytes # (A) 0.3 k/uL (1.0-4.8); Lymphocytes % (A) 1 %; MCH 30.7 pg (25.0-35.0); MCHC 32.2 g/dL (31.0-37.0); MCV 95.1 fL (80.0-100.0); Macrocytosis Moderate; Mean Platelet Volume 8.2; Monocytes # (A) 0.5 k/uL (0-1.0); Monocytes % (A) 2 %; Neutrophils # (A) 22.3 k/uL (1.3-7.7); Neutrophils % (A) 96 %; Platelet Count 421 k/uL (150-450); RBC 3.37 m/uL (3.80-5.40); RDW 23.6 % (11.5-15.5); WBC 23.2 k/uL (3.8-10.6)
[2024-02-09 04:13] LABS: INR 1.1 (<1.2); Prothrombin Time 11.7 sec (10.0-12.5)
[2024-02-09] MEDS: HEPARIN SODIUM 1,000 UN/ML (10ML VL) IV PRN (04:27)
[2024-02-09] MEDS: ALBUTEROL NEBULIZED 2.5 MG/3 ML INHALATION PRN (08:31)
[2024-02-09] MEDS: PANTOPRAZOLE 40 MG/10 ML VIAL IV SCH (08:39)
[2024-02-09] MEDS: METOCLOPRAMIDE 5 MG/ML 2 ML VIAL IVP PRN (08:57)
[2024-02-09] MEDS: ASPIRIN 81 MG PO SCH (09:16)
[2024-02-09] MEDS: dexAMETHasone 4 MG TAB PO SCH (09:16)
[2024-02-09] MEDS: ALPRAZolam 0.5 MG TAB PO PRN (09:20)
--- NOTE | 2024-02-09 12:00 | P.GSCN ---
History of Present Illness Consult date: 02/09/24 Reason for Consult: Left renal calculus, UTI Requesting physician: John Cardoso History of present illness: The patient is an 83-year-old white female being treated by Dr. Byrd for metastatic lung cancer. She presented to the ER yesterday with a 2-day history of progressive weakness, associated with nausea, diminished appetite, constipation, and abdominal discomfort. She denies dysuria, hematuria, and flank pain. She has known she has a left renal calculus for a couple of years, and states that she intermittently experiences left flank discomfort, but not pain. She has been treated for UTIs in the past. Review of Systems - Constitutional Reports poor appetite, Reports weakness - Cardiovascular Reports high blood pressure - Gastrointestinal Reports abdominal pain, Reports constipation, Reports nausea - Genitourinary Genitourinary: Reports as per HPI Past Medical History Past Medical History: Cancer, Hyperlipidemia, Hypertension, Myocardial Infarction ([place]) Additional Past Medical History / Comment(s): polycythemia, kidney stone, uterine cancer, lung cancer, was to have started a different antihypertensive but is not currently taking - couldn't remember what it was Last Myocardial Infarction Date:: 2017 History of Any Multi-Drug Resistant Organisms: None Reported Past Surgical History: Cholecystectomy, Coronary Bypass/CABG, Hysterectomy Additional Past Surgical History / Comment(s): stomach abscess removed, CABG (02/17/2018) Past Anesthesia/Blood Transfusion Reactions: No Reported Reaction, Motion Sickness Past Psychological History: No Psychological Hx Reported Smoking Status: Never smoker - Past Family History Mother Family Medical History: Myocardial Infarction (MA) Father Family Medical History: Asthma, COPD, Myocardial Infarction ([place]) Medications and Allergies Home Medications Medication Instructions Recorded Confirmed Type Aspirin EC [Ecotrin Low Dose] 81 mg PO DAILY 07/11/22 02/08/24 History Nitroglycerin Sl Tabs [Nitrostat] 0.4 mg SUBLINGUAL Q5M PRN 07/11/22 02/08/24 History Albuterol Sulfate [Albuterol 1 - 2 puff INHALATION RT-Q4H PRN 08/20/22 02/08/24 History Sulfate Hfa] ALPRAZolam [Xanax] 0.5 mg PO BID PRN 02/08/24 02/08/24 History Capmatinib Hydrochloride [Tabrecta] 400 mg PO BID 02/08/24 02/08/24 History HYDROcodone/APAP 5-325MG [[place] 1 tab PO QID PRN 02/08/24 02/08/24 History 5-325] Ibuprofen [Motrin] 800 mg PO Q8H PRN 02/08/24 02/08/24 History Magic Mouth Wash 5 ml PO QID 02/08/24 02/08/24 History Metoprolol Succinate (ER) [Toprol 25 - 50 mg PO DAILY PRN 02/08/24 02/08/24 History Xl] Ondansetron [Zofran] 4 mg PO Q6H PRN 02/08/24 02/08/24 History dexAMETHasone [Decadron] 4 mg PO DAILY 02/08/24 02/08/24 History Allergies Allergy/AdvReac Type Severity Reaction Status Date / Time codeine Allergy Rash/Hives, Verified 02/08/24 14:20 swelling in throat Penicillins Allergy Rash/Hives, Verified 02/08/24 14:20 swelling in throat Surgical - Exam Vital Signs Temp Pulse Resp BP Pulse Ox 99.1 F 120 H 20 100/65 97 02/08/24 12:44 02/08/24 12:44 02/08/24 12:44 02/08/24 12:44 02/08/24 12:44 - General well developed, well nourished, moderate distress - Respiratory normal respiratory effort - Abdomen Abdomen: soft, non tender, no guarding, no rigid, no rebound - Psychiatric oriented to time, oriented to person, oriented to place, speech is normal, memory intact Results - Labs 02/09/24 03:37 02/08/24 13:08 Abnormal Lab Results - Last 24 Hours (Table) 02/08/24 02/08/24 02/08/24 Range/Units 13:08 13:08 13:08 WBC 35.1 H (3.8-10.6) k/uL RBC (3.80-5.40) m/uL Hgb (11.4-16.0) gm/dL Hct (34.0-46.0) % RDW 23.7 H (11.5-15.5) % Plt Count 609 H (150-450) k/uL Neutrophils # (1.3-7.7) k/uL Neutrophils # (Manual) 34.30 H (1.3-7.7) k/uL Lymphocytes # (1.0-4.8) k/uL APTT (22.0-30.0) sec BUN 34 H (7-17) mg/dL Glucose 203 H (74-99) mg/dL Hemoglobin A1c (<=6.0) % Alkaline Phosphatase 137 H (38-126) U/L Troponin I 0.050 H* (0.000-0.034) ng/mL Albumin 3.2 L (3.5-5.0) g/dL Urine Appearance (Clear) Urine Protein (Negative) Urine Ketones (Negative) Urine Blood (Negative) Ur Leukocyte Esterase (Negative) Urine RBC (0-5) /hpf Urine WBC (0-5) /hpf Urine WBC Clumps (None) /hpf Urine Bacteria (None) /hpf Urine Mucus (None) /hpf 02/08/24 02/08/24 02/08/24 Range/Units 13:08 19:59 19:59 WBC (3.8-10.6) k/uL RBC (3.80-5.40) m/uL Hgb (11.4-16.0) gm/dL Hct (34.0-46.0) % RDW (11.5-15.5) % Plt Count (150-450) k/uL Neutrophils # (1.3-7.7) k/uL Neutrophils # (Manual) (1.3-7.7) k/uL Lymphocytes # (1.0-4.8) k/uL APTT (22.0-30.0) sec BUN (7-17) mg/dL Glucose (74-99) mg/dL Hemoglobin A1c 6.2 H (<=6.0) % Alkaline Phosphatase (38-126) U/L Troponin I 0.040 H* (0.000-0.034) ng/mL Albumin (3.5-5.0) g/dL Urine Appearance Turbid H (Clear) Urine Protein 2+ H (Negative) Urine Ketones 1+ H (Negative) Urine Blood Moderate H (Negative) Ur Leukocyte Esterase Large H (Negative) Urine RBC 32 H (0-5) /hpf Urine WBC >182 H (0-5) /hpf Urine WBC Clumps Many H (None) /hpf Urine Bacteria Few H (None) /hpf Urine Mucus Many H (None) /hpf 02/09/24 02/09/24 02/09/24 Range/Units 00:35 00:35 03:37 WBC 23.2 H (3.8-10.6) k/uL RBC 3.37 L (3.80-5.40) m/uL Hgb 10.3 L (11.4-16.0) gm/dL Hct 32.0 L (34.0-46.0) % RDW 23.6 H (11.5-15.5) % Plt Count (150-450) k/uL Neutrophils # 22.3 H (1.3-7.7) k/uL Neutrophils # (Manual) (1.3-7.7) k/uL Lymphocytes # 0.3 L (1.0-4.8) k/uL APTT 41.3 H (22.0-30.0) sec BUN (7-17) mg/dL Glucose (74-99) mg/dL Hemoglobin A1c (<=6.0) % Alkaline Phosphatase (38-126) U/L Troponin I 0.052 H* (0.000-0.034) ng/mL Albumin (3.5-5.0) g/dL Urine Appearance (Clear) Urine Protein (Negative) Urine Ketones (Negative) Urine Blood (Negative) Ur Leukocyte Esterase (Negative) Urine RBC (0-5) /hpf Urine WBC (0-5) /hpf Urine WBC Clumps (None) /hpf Urine Bacteria (None) /hpf Urine Mucus (None) /hpf 02/09/24 Range/Units 03:37 WBC (3.8-10.6) k/uL RBC (3.80-5.40) m/uL Hgb (11.4-16.0) gm/dL Hct (34.0-46.0) % RDW (11.5-15.5) % Plt Count (150-450) k/uL Neutrophils # (1.3-7.7) k/uL Neutrophils # (Manual) (1.3-7.7) k/uL Lymphocytes # (1.0-4.8) k/uL APTT 33.9 H (22.0-30.0) sec BUN (7-17) mg/dL Glucose (74-99) mg/dL Hemoglobin A1c (<=6.0) % Alkaline Phosphatase (38-126) U/L Troponin I (0.000-0.034) ng/mL Albumin (3.5-5.0) g/dL Urine Appearance (Clear) Urine Protein (Negative) Urine Ketones (Negative) Urine Blood (Negative) Ur Leukocyte Esterase (Negative) Urine RBC (0-5) /hpf Urine WBC (0-5) /hpf Urine WBC Clumps (None) /hpf Urine Bacteria (None) /hpf Urine Mucus (None) /hpf Diabetes panel 02/08/24 02/08/24 Range/Units 13:08 19:59 Sodium 139 (137-145) mmol/L Potassium 3.9 (3.5-5.1) mmol/L Chloride 107 (98-107) mmol/L Carbon Dioxide 24 (22-30) mmol/L BUN 34 H (7-17) mg/dL Creatinine 1.00 (0.52-1.04) mg/dL Glucose 203 H (74-99) mg/dL Hemoglobin A1c 6.2 H (<=6.0) % Calcium 8.9 (8.4-10.2) mg/dL AST 18 (14-36) U/L ALT 17 (4-34) U/L Alkaline Phosphatase 137 H (38-126) U/L Total Protein 6.6 (6.3-8.2) g/dL Albumin 3.2 L (3.5-5.0) g/dL Calcium panel 02/08/24 Range/Units 13:08 Calcium 8.9 (8.4-10.2) mg/dL Albumin 3.2 L (3.5-5.0) g/dL Pituitary panel 02/08/24 Range/Units 13:08 Sodium 139 (137-145) mmol/L Potassium 3.9 (3.5-5.1) mmol/L Chloride 107 (98-107) mmol/L Carbon Dioxide 24 (22-30) mmol/L BUN 34 H (7-17) mg/dL Creatinine 1.00 (0.52-1.04) mg/dL Glucose 203 H (74-99) mg/dL Calcium 8.9 (8.4-10.2) mg/dL Adrenal panel 02/08/24 Range/Units 13:08 Sodium 139 (137-145) mmol/L Potassium 3.9 (3.5-5.1) mmol/L Chloride 107 (98-107) mmol/L Carbon Dioxide 24 (22-30) mmol/L BUN 34 H (7-17) mg/dL Creatinine 1.00 (0.52-1.04) mg/dL Glucose 203 H (74-99) mg/dL Calcium 8.9 (8.4-10.2) mg/dL Total Bilirubin 0.8 (0.2-1.3) mg/dL AST 18 (14-36) U/L ALT 17 (4-34) U/L Alkaline Phosphatase 137 H (38-126) U/L Total Protein 6.6 (6.3-8.2) g/dL Albumin 3.2 L (3.5-5.0) g/dL - Imaging CT scan - abdomen: report reviewed, image reviewed Assessment and Plan Assessment: CT scan shows an 11 x 16 mm left renal pelvic calculus. There is evidence of left hydronephrosis, though it is not obviously due to the renal pelvic calculus. (1) Acute pyelonephritis Current Visit: Yes Status: Acute Code(s): N10 - ACUTE PYELONEPHRITIS SNOMED Code(s): 80578024 (2) Calculus of kidney Current Visit: Yes Status: Acute Code(s): N20.0 - CALCULUS OF KIDNEY SNOMED Code(s): 03764832 (3) Hydronephrosis with renal and ureteral calculous obstruction Current Visit: Yes Status: Acute Code(s): N13.2 - HYDRONEPHROSIS WITH RENAL AND URETERAL CALCULOUS OBSTRUCTION SNOMED Code(s): 108556830 Plan: When I initially saw the patient, she had hoped that she could avoid in tervention of any type. However, blood cultures have shown E. coli, which is likely of urinary origin. In view of this, I have strongly advised the patient to undergo left ureteral stent insertion, to which she is reluctantly agreeable. I explained the rationale for the procedure, as well as potential risks. She is undecided whether or not she would wish to undergo ureteroscopy with laser lithotripsy to remove the calculus, but I explained that a ureteral stent can remain in place for up to 3 months since she will have plenty of time to make that decision. Time with Patient: Greater than 30
--- NOTE | 2024-02-09 12:23 | P.CRDCN ---
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 Patient does not follow with a scientific technical writer. We have been asked to evaluate the patient for new onset of atrial fibrillation and elevated troponins. Patient states she came into the hospital because she was not able to urinate, not eating and drinking. She started chemotherapy and radiation [address] Byrd. She denies history of afib. No palpitations. She complains of chills. Patient states she is feeling a little bit better. At the time of evaluation, telemetry is sinus rhythm with PACs. Patient is status post 3 and half liters of IV fluid with improvement of the initial tachycardia. Patient was prepared for admission and then she had an EKG change and what appears to be atrial fibrillation with RVR and that is when Cardizem drip was started. She has subsequently converted to sinus rhythm and Cardizem was discontinued. She has also been started on heparin drip, and IV antibiotics. Regarding scientific technical writer, patient states that she sees Dr. Almodovar but she only saw him in the hospital in June 2022. Patient did not follow-up in the office. EKG #1 sinus mechaism with PACs at 121 bpm with right bundle branch block, #2 suspect atrial fibrillation at 151 bpm with right bundle branch block CTA of the chest: No PE. Enlarged pulmonary trunk seen and pulmonary hypertension. Slight interval progression of malignancy in the left upper lobe. Stable size of mediastinal lymph nodes. CT of the abdomen pelvis revealed increased intrahepatic and extrahepatic biliary dilatation. Right adrenal metastasis. A 15 x 11 mm calculus in the left renal pelvis. Concern for hydronephrosis with superimposed infectious or inflammatory process. Laboratory studies: Initial WBC 35.1 now 23.2, hemoglobin 10.3. Platelet count 421. Potassium 3.9, BUN 34 creatinine 1. Troponins 0.05, 0.04, 0.052. Alkaline phosphatase 137. Lipase 69. Urinalysis leukoesterase large, RBCs 32 and WBCs greater than 182. Home cardiac medications: Aspirin 81 mg daily, Toprol XL 25 to 50 mg daily as needed, Nitrostat as needed Echocardiogram performed on 07/11/2022 revealed EF of 60 to 65%. Review Of Systems: At the time of my exam: CONSTITUTIONAL: Denies fever or chills. Reports fatigue HEENT: Denies blurred vision, vision changes, or eye pain. Denies hemoptysis CARDIOVASCULAR: Denies chest pain. Denies orthopnea. Denies PND. Denies palpitations RESPIRATORY: Denies shortness of breath. GASTROINTESTINAL: Denies abdominal pain. Denies nausea or vomiting. HEMATOLOGIC: Denies bleeding disorders. GENITOURINARY: Denies any blood in urine. + urinary symptoms SKIN: Denies pruitis. Denies rash. Physical examination: Gen: This is an 83-year-old female in no acute distress VS: reviewed, blood pressure 90/43, heart rate 77, pulse ox 99% on 2 L nasal cannula. HEENT: Head is atraumatic, normocephalic. Pupils equal, round. Sclerae is anicteric. NECK: Supple. No JVD. LUNGS: Clear to auscultation. No wheezes or rhonchi. No intercostal retractions. HEART: Regular rate and rhythm. No murmur. ABDOMEN: Soft No tenderness. EXTREMITIES: No pedal edema. No calf tenderness. NEUROLOGICAL: Patient is awake, alert and oriented x3. 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 Nurse practitioner note has been reviewed, I agree with documented findings and plan of care. Patient was seen and examined. Past Medical History Past Medical History: Cancer, Hyperlipidemia, Hypertension, Myocardial Infarction (MA) Additional Past Medical History / Comment(s): polycythemia, kidney stone, uterine cancer, lung cancer, was to have started a different antihypertensive but is not currently taking - couldn't remember what it was Last Myocardial Infarction Date:: 2017 History of Any Multi-Drug Resistant Organisms: None Reported Past Surgical History: Cholecystectomy, Coronary Bypass/CABG, Hysterectomy Additional Past Surgical History / Comment(s): stomach abscess removed, CABG (02/17/2018) Past Anesthesia/Blood Transfusion Reactions: No Reported Reaction, Motion Sickness Past Psychological History: No Psychological Hx Reported Smoking Status: Never smoker - Past Family History Mother Family Medical History: Myocardial Infarction ([place]) Father Family Medical History: Asthma, COPD, Myocardial Infarction ([place]) Medications and Allergies Home Medications Medication Instructions Recorded Confirmed Type Aspirin EC [Ecotrin Low Dose] 81 mg PO DAILY 07/11/22 02/08/24 History Nitroglycerin Sl Tabs [Nitrostat] 0.4 mg SUBLINGUAL Q5M PRN 07/11/22 02/08/24 History Albuterol Sulfate [Albuterol 1 - 2 puff INHALATION RT-Q4H PRN 08/20/22 02/08/24 History Sulfate Hfa] ALPRAZolam [Xanax] 0.5 mg PO BID PRN 02/08/24 02/08/24 History Capmatinib Hydrochloride [Tabrecta] 400 mg PO BID 02/08/24 02/08/24 History HYDROcodone/APAP 5-325MG [[place] 1 tab PO QID PRN 02/08/24 02/08/24 History 5-325] Ibuprofen [Motrin] 800 mg PO Q8H PRN 02/08/24 02/08/24 History Magic Mouth Wash 5 ml PO QID 02/08/24 02/08/24 History Metoprolol Succinate (ER) [Toprol 25 - 50 mg PO DAILY PRN 02/08/24 02/08/24 History Xl] Ondansetron [Zofran] 4 mg PO Q6H PRN 02/08/24 02/08/24 History dexAMETHasone [Decadron] 4 mg PO DAILY 02/08/24 02/08/24 History Allergies Allergy/AdvReac Type Severity Reaction Status Date / Time codeine Allergy Rash/Hives, Verified 02/08/24 14:20 swelling in throat Penicillins Allergy Rash/Hives, Verified 02/08/24 14:20 swelling in throat Physical Exam Vitals: Vital Signs Temp Pulse Resp BP Pulse Ox 02/09/24 06:00 77 16 90/43 99 02/09/24 04:00 71 18 99/61 98 02/09/24 00:00 101 H 16 83/47 95 02/08/24 23:29 101 H 17 80/48 101 H 02/08/24 20:15 109 H 17 90/48 95 02/08/24 19:43 117 H 18 02/08/24 19:30 135 H 18 91/53 96 02/08/24 19:23 138 H 16 93/53 98 02/08/24 18:45 99.1 F 151 H 18 118/58 95 02/08/24 16:59 104 H 16 109/55 95 02/08/24 14:51 105 H 20 107/57 97 02/08/24 13:31 98.3 F 121 H 20 96/59 95 02/08/24 12:44 99.1 F 120 H 20 100/65 97 Intake and Output 02/08/24 02/09/24 02/09/24 22:59 06:59 14:59 Intake Total 112.772 Balance 112.772 Intake: Intake, IV Titration 112.772 Amount Diltiazem 125 mg In 53.667 Sodium Chloride 0.9% 100 ml @ 5 MG/HR 5 mls/hr IV .Q24H [facility] Rx#:[id number] Heparin Sod,Pork in 0.45% 59.105 NaCl 25,000 unit In 0.45 % NaCl 1 250ml.bag @ 12 UNITS/KG/HR 6.641 mls/hr IV .Q24H [facility] Rx#: [id number] Results 02/09/24 03:37 02/08/24 13:08 Cardiac Enzymes 02/08/24 02/08/24 02/08/24 Range/Units 13:08 13:08 19:59 AST 18 (14-36) U/L Troponin I 0.050 H* 0.040 H* (0.000-0.034) ng/mL 02/09/24 Range/Units 00:35 AST (14-36) U/L Troponin I 0.052 H* (0.000-0.034) ng/mL Coagulation 02/08/24 02/09/24 02/09/24 Range/Units 13:08 00:35 03:37 PT 11.9 11.7 (10.0-12.5) sec APTT 25.0 41.3 H (22.0-30.0) sec 02/09/24 Range/Units 03:37 PT (10.0-12.5) sec APTT 33.9 H (22.0-30.0) sec CBC 02/08/24 02/09/24 Range/Units 13:08 03:37 WBC 35.1 H 23.2 H (3.8-10.6) k/uL RBC 4.38 3.37 L (3.80-5.40) m/uL Hgb 12.9 10.3 L (11.4-16.0) gm/dL Hct 40.9 32.0 L (34.0-46.0) % Plt Count 609 H 421 (150-450) k/uL Comprehensive Metabolic Panel 02/08/24 Range/Units 13:08 Sodium 139 (137-145) mmol/L Potassium 3.9 (3.5-5.1) mmol/L Chloride 107 (98-107) mmol/L Carbon Dioxide 24 (22-30) mmol/L BUN 34 H (7-17) mg/dL Creatinine 1.00 (0.52-1.04) mg/dL Glucose 203 H (74-99) mg/dL Calcium 8.9 (8.4-10.2) mg/dL AST 18 (14-36) U/L ALT 17 (4-34) U/L Alkaline Phosphatase 137 H (38-126) U/L Total Protein 6.6 (6.3-8.2) g/dL Albumin 3.2 L (3.5-5.0) g/dL Current Medications Generic Name Dose Route Start Last Admin Trade Name Freq PRN Reason Stop Dose Admin Acetaminophen 650 mg 02/08/24 18:03 Acetaminophen Tab 325 Mg Tab PO Q6HR PRN Mild Pain or Fever > 100.5 Hydrocodone Bitart/Acetaminophen 1 each 02/08/24 16:58 Hydrocodone/Apap 5-325mg 1 Each Tab PO QID PRN Pain Albuterol Sulfate 2.5 mg 02/08/24 16:58 Albuterol Nebulized 2.5 Mg/3 Ml INHALATION RT-Q4H PRN Shortness Of Breath Alprazolam 0.5 mg 02/08/24 16:58 Alprazolam 0.5 Mg Tab PO BID PRN Anxiety Aspirin 81 mg 02/09/24 09:00 Aspirin 81 Mg PO DAILY [facility] Al Hydroxide/Mg Hydroxide 30 0 ml 02/08/24 22:00 02/08/24 23:26 ml/ Lidocaine HCl 30 ml/ PO Not Given Diphenhydramine HCl 75 mg/ QID [facility] Nystatin 3,000,000 unit Dexamethasone 4 mg 02/09/24 09:00 Dexamethasone 4 Mg Tab PO DAILY [facility] Heparin Sodium (Porcine) 0 unit 02/08/24 18:56 02/09/24 04:27 Heparin Sodium 1,000 Un/Ml (10ml Vl) IV 2,766.9 unit PER PROTOCOL PRN Administration Low PTT Protocol Hydromorphone HCl 0.5 mg 02/08/24 18:03 02/08/24 18:49 Hydromorphone 0.5 Mg/0.5 Ml Syringe IVP 0.5 mg Q3HR PRN Administration Moderate Pain (Scale 4 to 6) Hydromorphone HCl 1 mg 02/08/24 18:03 Hydromorphone 1 Mg/Ml 1 Ml Syringe IVP Q3HR PRN Severe Pain (Scale 7 to 10) Ceftriaxone Sodium 2 gm/ 50 mls @ 100 mls/hr 02/09/24 09:00 Sodium Chloride IVPB Q24HR [facility] Protocol Diltiazem HCl 125 mg/ Sodium 125 mls @ 5 mls/hr 02/08/24 19:00 02/09/24 06:28 Chloride IV 0 mg/hr .Q24H [facility] 0 mls/hr Infusion 5 MG/HR Heparin Sodium/Sodium Chloride 250 mls @ 6.641 mls/hr 02/08/24 19:00 02/09/24 04:29 25,000 unit/ Sodium Chloride IV 15 units/kg/hr .Q24H [facility] 8.301 mls/hr Titration Protocol 12 UNITS/KG/HR Ibuprofen 800 mg 02/08/24 16:58 Ibuprofen 800 Mg Tab PO Q8H PRN Pain Naloxone HCl 0.2 mg 02/08/24 18:03 Naloxone 0.4 Mg/Ml 1 Ml Vial IV Q2M PRN Opioid Reversal Nitroglycerin 0.4 mg 02/08/24 16:58 Nitroglycerin Sl Tabs 0.4 Mg Tab SUBLINGUAL Q5M PRN Chest Pain Non-Formulary Medication 400 mg 02/08/24 21:00 02/08/24 20:16 Capmatinib Hydrochloride [Tabrecta] PO Not Given BID [facility] Ondansetron HCl 4 mg 02/08/24 16:58 Ondansetron 4 Mg Tab PO Q6H PRN Nausea Ondansetron HCl 4 mg 02/08/24 18:03 02/09/24 05:06 Ondansetron 4 Mg/2 Ml Vial IVP 4 mg Q8HR PRN Administration Nausea And Vomiting Pantoprazole Sodium 40 mg 02/09/24 09:00 Pantoprazole 40 Mg/10 Ml Vial IV DAILY [facility] Intake and Output 02/08/24 02/09/24 02/09/24 22:59 06:59 14:59 Intake Total 112.772 Balance 112.772 Intake: Intake, IV Titration 112.772 Amount Diltiazem 125 mg In 53.667 Sodium Chloride 0.9% 100 ml @ 5 MG/HR 5 mls/hr IV .Q24H [facility] Rx#:[id number] Heparin Sod,Pork in 0.45% 59.105 NaCl 25,000 unit In 0.45 % NaCl 1 250ml.bag @ 12 UNITS/KG/HR 6.641 mls/hr IV .Q24H [facility] Rx#: [id number] 02/09/24 03:37 02/08/24 13:08
[2024-02-09] MEDS ORDERED: LIDOCAINE 1% INJ 10MG/ML (20 ML MDV) ONE (12:31)
[2024-02-09] MEDS ORDERED: PHENYLEPHRINE 10 MG/ML VIAL ONE (12:31)
[2024-02-09] MEDS ORDERED: PROPOFOL 10 MG/ML 20 ML VIAL IV ONE (12:31)
[2024-02-09] MEDS ORDERED: SUCCINYLCHOLINE CHLORIDE 200 MG/10 ML VIAL IV ONE (12:31)
[2024-02-09] MEDS ORDERED: fentaNYL (PF) 50 MCG/ML 2 ML AMP ONE (12:31)
[2024-02-09] MEDS: SODIUM CHLORIDE 0.9% 1,000 ML IV ONE (12:36)
[2024-02-09] MEDS ORDERED: Potassium Replacement Protocol 1 EACH MISC MISCELLANE PRN (12:43)
[2024-02-09] MEDS ORDERED: Magnesium Replacement Protocol 1 EACH MISC MISCELLANE PRN (12:43)
[2024-02-09] MEDS: IOPAMIDOL-370 50ML BTL MISCELLANE ONE ×2 (12:59)
--- NOTE | 2024-02-09 13:52 | P.OP ---
Date of Procedure: 02/09/24 Preoperative Diagnosis: Left hydronephrosis, left renal pelvic calculus Postoperative Diagnosis: Same Procedure(s) Performed: Cystoscopy, left retrograde pyelogram, left ureteral stent insertion Anesthesia: SIRIA Surgeon: Carlito Segundo Estimated Blood Loss (ml): 0 IV fluids (ml): 400 Pathology: none sent Condition: stable Disposition: PACU Indications for Procedure: The patient is an 83-year-old white female being treated by Dr. Byrd for metastatic lung cancer. She presented to the ER yesterday with a 2-day history of progressive weakness, associated with nausea, diminished appetite, constipation, and abdominal discomfort. CT scan shows an 11 x 16 mm left renal pelvic calculus. There is evidence of left hydronephrosis, though it is not obviously due to the renal pelvic calculus. Urinalysis is suggestive of a UTI, and preliminary blood cultures show E. coli. She now comes for stent placement. Operative Findings: 1) Bladder distention. 2) Narrowing of the left proximal ureter. 3) Left renal pelvic calculus. 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 Description of Procedure: The patient was taken to the operating room and placed in the dorsolithotomy position, with legs supported in Fabrice stirrups. The external genitalia was prepped and draped sterilely. The 30 lens was used to introduce the 22-Romanian Stortz cystoscopic sheath through the urethra and into the bladder under direct vision. The bladder was noted to be distended with contrast on fluoroscopy, and visualization within the bladder was poor. The bladder was drained, then irrigated several times. It was then possible to perform cystoscopy. Both ureteral orifices were of normal anatomic location and configuration. No tumors or foreign bodies were seen. Using a 10 Romanian cone-tip catheter, a left retrograde pyelogram was performed. The distal and mid ureter appeared normal. Narrowing of the left proximal ureter was noted, with some irregularity. The lower pole calyces appeared nor mal, showing no dilation. The calculus was seen as a filling defect within the renal pelvis, adjacent to the mid pole calyces which also were not dilated. The upper pole calyces were dilated, as the infundibulum draining the upper pole calyces appeared quite narrowed. A 0.035 inch Glidewire was passed through the cystoscope. The left ureteral orifice was cannulated, and the Glidewire was slowly advanced up to the proximal ureter. It was difficult to advance the tip of the Glidewire through the narrowed segment of the proximal ureter, and when it did reach the renal pelvis it preferentially went into the lower pole calyces. A 6 Romanian open-ended catheter was passed over the wire, up to the area of narrowing within the proximal ureter. The Glidewire was then exchanged for an angled tip wire, with the goal of manipulating the tip of the wire into the dilated upper pole calyces. However, despite much manipulation, this could not be accomplished. At 1 point, access was lost and it was difficult to get the Glidewire back into the kidney. Ultimately, the tip of the wire was advanced into the mid pole calyces adjacent to the renal pelvic calculus. The Glidewire was then backloaded into the cystoscope, which was passed into the bladder. A 24 cm, 4.8-Romanian double-J ureteral stent was placed over the wire. Proper stent positioning was verified fluoroscopically and endoscopically. The bladder was emptied and the cystoscope removed. The patient tolerated the procedure well was taken to the recovery room in stable condition. Ideally, the patient might benefit from placement of a nephrostomy tube into the dilated upper pole calyces. However, this would require hospital transfer and the patient questioned whether she might prefer to then to go through any procedures. I am hopeful that the patient will remain clinically stable and improve such that nephrostomy tube placement will be unnecessary.
--- NOTE | 2024-02-09 14:01 | P.HPIM ---
History of Present Illness H&P Date: 02/09/24 History of present illness; 83-year-old lady with past medical history significant for hypertension, hyperlipidemia and memory impairment, coronary artery disease history of CABG in 2018, lung cancer who presented to the ER for evaluation for weakness. Patient has been feeling weak for the last 2 days, patient has been having poor appetite. Patient is complaining of nausea and unable to keep anything down. Patient also complaining abdominal pain. There is no complaint of blood in the stools. Patient is complaining of constipation. Denies any fever or chills. There is no complaint of chest pain or shortness of breath. Because of the symptoms, patient was in the ER Initial lab work done in the ER showed WBC 35.1, hemoglobin 12.9, platelet count 609, sodium 139, potassium 3.9, BUN 34, creatinine 1, glucose 203, plasma lactate 1.8, troponin 0.05 total protein 6.6, albumin 3.2 UA done showed leukocyte Estrace large amount, urine nitrite negative, urine WBC greater than 182 CTA chest done showed no evidence of PE, enlarged pulmonary trunk can be seen with pulmonary hypertension. Slightly interval progression of malignancy in the left upper lobe with bridging soft tissue CT abdominal pelvis done showed increased intrahepatic and extrahepatic biliary dilatation which extends to the ampulla. Right adrenal metastasis new since 07/13/22. Left 15.5 x 11 mm calculus within the left renal pelvis with abnormally dilated calyces throughout the left kidney EKG done in the ER showed heart rate of 151, no P waves irregular in rate and rhythm, no ST segment elevation or depression seen, no T-wave inversions seen. Chest x-ray done in the ER Patient admitted to internal medicine service REVIEW OF SYSTEMS: CONSTITUTIONAL: As mentioned above HEENT: No recent visual problems or hearing problems. Denied any sore throat. CARDIOVASCULAR: No chest pain, orthopnea, PND, no palpitations, no syncope. PULMONARY: No shortness of breath, no cough, no hemoptysis. GASTROINTESTINAL: As mentioned above NEUROLOGICAL: No headaches, no weakness, no numbness. HEMATOLOGICAL: Denies any bleeding or petechiae. GENITOURINARY: Denies any burning micturition, frequency, or urgency. MUSCULOSKELETAL/RHEUMATOLOGICAL: Denies any joint pain, swelling, or any muscle pain. ENDOCRINE: Denies any polyuria or polydipsia. The rest of the 14-point review of systems is negative. PHYSICAL EXAMINATION: GENERAL: The patient is alert , not in any acute distress. Well developed, well nourished. HEENT: Pupils are round and equally reacting to light. EOMI. No scleral icterus. No conjunctival pallor. Normocephalic, atraumatic. No pharyngeal erythema. No thyromegaly. CARDIOVASCULAR: S1 and S2 present. Tachycardic, irregular in rhythm PULMONARY: Chest is clear to auscultation, no wheezing or crackles. ABDOMEN: Soft, nontender, nondistended, normoactive bowel sounds. No palpable organomegaly. MUSCULOSKELETAL: No joint swelling or deformity. EXTREMITIES: No cyanosis, clubbing, or pedal edema. NEUROLOGICAL: Gross neurological examination did not reveal any focal deficits. SKIN: No rashes. Assessment and plan A-fib with RVR UTI Left renal stone with left hydronephrosis Bacteremia History of metastatic lung cancer Coronary artery disease history of CABG in 2018 Hyperlipidemia Hypertension Memory impairment Monitor vital signs Monitor CBC Monitor CMP Continue telemetry monitoring Follow-up on blood cultures Follow-up on urine culture continue IV Rocephin Ordered 2D echo Continue IV heparin and Cardizem drip Cardiology consulted Urology consulted ID consulted oncology consulted Labs and medication were reviewed.. Continue same treatment. Continue with symptomatic treatment. Resume home medication. Monitor labs and vitals. DVT and GI prophylaxis. Further recommendations as per clinical course of the patient Dictation was produced using [employer] dictation software. please excuse any grammatical, word or spelling errors. Past Medical History Past Medical History: Cancer, Hyperlipidemia, Hypertension, Myocardial Infarction (CT) Additional Past Medical History / Comment(s): polycythemia, kidney stone, uterine cancer, lung cancer, was to have started a different antihypertensive but is not currently taking - couldn't remember what it was Last Myocardial Infarction Date:: 2018 History of Any Multi-Drug Resistant Organisms: None Reported Past Surgical History: Cholecystectomy, Coronary Bypass/CABG, Hysterectomy Additional Past Surgical History / Comment(s): stomach abscess removed, CABG (02/17/2018) Past Anesthesia/Blood Transfusion Reactions: No Reported Reaction, Motion Sickness Past Psychological History: No Psychological Hx Reported Smoking Status: Never smoker - Past Family History Mother Family Medical History: Myocardial Infarction (CT) Father Family Medical History: Asthma, COPD, Myocardial Infarction (CT) Medications and Allergies Home Medications Medication Instructions Recorded Confirmed Type Aspirin EC [Ecotrin Low Dose] 81 mg PO DAILY 07/11/22 02/08/24 History Nitroglycerin Sl Tabs [Nitrostat] 0.4 mg SUBLINGUAL Q5M PRN 07/11/22 02/08/24 History Albuterol Sulfate [Albuterol 1 - 2 puff INHALATION RT-Q4H PRN 08/20/22 02/08/24 History Sulfate Hfa] ALPRAZolam [Xanax] 0.5 mg PO BID PRN 02/08/24 02/08/24 History Capmatinib Hydrochloride [Tabrecta] 400 mg PO BID 02/08/24 02/08/24 History HYDROcodone/APAP 5-325MG [[place] 1 tab PO QID PRN 02/08/24 02/08/24 History 5-325] Ibuprofen [Motrin] 800 mg PO Q8H PRN 02/08/24 02/08/24 History Magic Mouth Wash 5 ml PO QID 02/08/24 02/08/24 History Metoprolol Succinate (ER) [Toprol 25 - 50 mg PO DAILY PRN 02/08/24 02/08/24 History Xl] Ondansetron [Zofran] 4 mg PO Q6H PRN 02/08/24 02/08/24 History dexAMETHasone [Decadron] 4 mg PO DAILY 02/08/24 02/08/24 History Allergies Allergy/AdvReac Type Severity Reaction Status Date / Time codeine Allergy Rash/Hives, Verified 02/08/24 14:20 swelling in throat Penicillins Allergy Rash/Hives, Verified 02/08/24 14:20 swelling in throat Physical Exam Vitals: Vital Signs Temp Pulse Pulse Resp BP BP Pulse Ox 02/09/24 08:40 97.8 F 83 18 110/60 95 02/09/24 06:00 77 16 90/43 99 02/09/24 04:00 71 18 99/61 98 02/09/24 00:00 101 H 16 83/47 95 02/08/24 23:29 101 H 17 80/48 101 H 02/08/24 20:15 109 H 17 90/48 95 02/08/24 19:43 117 H 18 02/08/24 19:30 135 H 18 91/53 96 02/08/24 19:23 138 H 16 93/53 98 02/08/24 18:45 99.1 F 151 H 18 118/58 95 02/08/24 16:59 104 H 16 109/55 95 02/08/24 14:51 105 H 20 107/57 97 02/08/24 13:31 98.3 F 121 H 20 96/59 95 02/08/24 12:44 99.1 F 120 H 20 100/65 97 Intake and Output 02/08/24 02/09/24 02/09/24 22:59 06:59 14:59 Intake Total 112.772 Balance 112.772 Intake: Intake, IV Titration 112.772 Amount Diltiazem 125 mg In 53.667 Sodium Chloride 0.9% 100 ml @ 5 MG/HR 5 mls/hr IV .Q24H [facility] Rx#:[id number] Heparin Sod,Pork in 0.45% 59.105 NaCl 25,000 unit In 0.45 % NaCl 1 250ml.bag @ 12 UNITS/KG/HR 6.641 mls/hr IV .Q24H [facility] Rx#: [id number] Results CBC & Chem 7: 02/09/24 03:37 02/08/24 13:08 Labs: Abnormal Lab Results - Last 24 Hours (Table) 02/08/24 02/08/24 02/08/24 Range/Units 13:08 13:08 13:08 WBC 35.1 H (3.8-10.6) k/uL RBC (3.80-5.40) m/uL Hgb (11.4-16.0) gm/dL Hct (34.0-46.0) % RDW 23.7 H (11.5-15.5) % Plt Count 609 H (150-450) k/uL Neutrophils # (1.3-7.7) k/uL Neutrophils # (Manual) 34.30 H (1.3-7.7) k/uL Lymphocytes # (1.0-4.8) k/uL APTT (22.0-30.0) sec BUN 34 H (7-17) mg/dL Glucose 203 H (74-99) mg/dL Hemoglobin A1c (<=6.0) % Alkaline Phosphatase 137 H (38-126) U/L Troponin I 0.050 H* (0.000-0.034) ng/mL Albumin 3.2 L (3.5-5.0) g/dL Urine Appearance (Clear) Urine Protein (Negative) Urine Ketones (Negative) Urine Blood (Negative) Ur Leukocyte Esterase (Negative) Urine RBC (0-5) /hpf Urine WBC (0-5) /hpf Urine WBC Clumps (None) /hpf Urine Bacteria (None) /hpf Urine Mucus (None) /hpf 02/08/24 02/08/24 02/08/24 Range/Units 13:08 19:59 19:59 WBC (3.8-10.6) k/uL RBC (3.80-5.40) m/uL Hgb (11.4-16.0) gm/dL Hct (34.0-46.0) % RDW (11.5-15.5) % Plt Count (150-450) k/uL Neutrophils # (1.3-7.7) k/uL Neutrophils # (Manual) (1.3-7.7) k/uL Lymphocytes # (1.0-4.8) k/uL APTT (22.0-30.0) sec BUN (7-17) mg/dL Glucose (74-99) mg/dL Hemoglobin A1c 6.2 H (<=6.0) % Alkaline Phosphatase (38-126) U/L Troponin I 0.040 H* (0.000-0.034) ng/mL Albumin (3.5-5.0) g/dL Urine Appearance Turbid H (Clear) Urine Protein 2+ H (Negative) Urine Ketones 1+ H (Negative) Urine Blood Moderate H (Negative) Ur Leukocyte Esterase Large H (Negative) Urine RBC 32 H (0-5) /hpf Urine WBC >182 H (0-5) /hpf Urine WBC Clumps Many H (None) /hpf Urine Bacteria Few H (None) /hpf Urine Mucus Many H (None) /hpf 02/09/24 02/09/24 02/09/24 Range/Units 00:35 00:35 03:37 WBC 23.2 H (3.8-10.6) k/uL RBC 3.37 L (3.80-5.40) m/uL Hgb 10.3 L (11.4-16.0) gm/dL Hct 32.0 L (34.0-46.0) % RDW 23.6 H (11.5-15.5) % Plt Count (150-450) k/uL Neutrophils # 22.3 H (1.3-7.7) k/uL Neutrophils # (Manual) (1.3-7.7) k/uL Lymphocytes # 0.3 L (1.0-4.8) k/uL APTT 41.3 H (22.0-30.0) sec BUN (7-17) mg/dL Glucose (74-99) mg/dL Hemoglobin A1c (<=6.0) % Alkaline Phosphatase (38-126) U/L Troponin I 0.052 H* (0.000-0.034) ng/mL Albumin (3.5-5.0) g/dL Urine Appearance (Clear) Urine Protein (Negative) Urine Ketones (Negative) Urine Blood (Negative) Ur Leukocyte Esterase (Negative) Urine RBC (0-5) /hpf Urine WBC (0-5) /hpf Urine WBC Clumps (None) /hpf Urine Bacteria (None) /hpf Urine Mucus (None) /hpf 02/09/24 Range/Units 03:37 WBC (3.8-10.6) k/uL RBC (3.80-5.40) m/uL Hgb (11.4-16.0) gm/dL Hct (34.0-46.0) % RDW (11.5-15.5) % Plt Count (150-450) k/uL Neutrophils # (1.3-7.7) k/uL Neutrophils # (Manual) (1.3-7.7) k/uL Lymphocytes # (1.0-4.8) k/uL APTT 33.9 H (22.0-30.0) sec BUN (7-17) mg/dL Glucose (74-99) mg/dL Hemoglobin A1c (<=6.0) % Alkaline Phosphatase (38-126) U/L Troponin I (0.000-0.034) ng/mL Albumin (3.5-5.0) g/dL Urine Appearance (Clear) Urine Protein (Negative) Urine Ketones (Negative) Urine Blood (Negative) Ur Leukocyte Esterase (Negative) Urine RBC (0-5) /hpf Urine WBC (0-5) /hpf Urine WBC Clumps (None) /hpf Urine Bacteria (None) /hpf Urine Mucus (None) /hpf Microbiology - Last 24 Hours (Table) 02/08/24 16:10 Blood Culture Gram Stain - Preliminary Blood Blood Culture - Preliminary Molecular ID 02/08/24 15:55 Blood Culture Gram Stain - Preliminary Blood
--- NOTE | 2024-02-09 14:05 | FL ---
EXAMINATION TYPE: FL urography retrograde Intraoperative/procedural fluoroscopic services were provid ed. Total fluoroscopy time is 7.34 seconds with a total of 10 submitted images to PACS. Please see th e operative/procedural note for further details. DAP: 32.049 Gycm2
[2024-02-09] MEDS: METOPROLOL SUCCINATE (ER) 25 MG TAB.ER.24H PO SCH (16:39)
[2024-02-09] MEDS: LOSARTAN 25 MG TAB PO STA (18:15)
--- NOTE | 2024-02-09 20:47 | HP ---
HISTORY AND PHYSICAL CHIEF COMPLAINT: Nausea, vomiting, and abdominal pain. HISTORY OF PRESENT ILLNESS: This is an 83-year-old woman with a past medical history of multiple complex medical issues, hypertension, hyperlipidemia, history of lung cancer, being followed by Dr. Zambrano . Not feeling well over the past few days. The patient has abdominal pain, nausea, vomiting. The patient was unable to take any medications. The patient was also evaluated by Urology previously, but the patient was found to have E coli grown from the culture and Dr. Segundo recommended intervention for left renal lithiasis and possible hydronephrosis at this time. The patient also had blood cultures initially positive for gram-negative bacilli at this time. There is no history of any fever, rigors, or chills at this time. The CT scan showed some progression of the left upper lobe pneumonia which the patient is being treated with Dr. Byrd. The patient also had new-onset atrial fibrillation and is being treated with IV Cardizem drip. The troponins were also found to be indeterminate, elevated up to 0.052. There is no history of any headache or loss of consciousness. PAST MEDICAL HISTORY: Reviewed include hypertension, lung cancer, rest of the history and rest of the chart is also reviewed as above. MEDICATIONS: Again reviewed include metoprolol, dose and rest of medications reviewed. ALLERGIES: Codeine, penicillin. FAMILY HISTORY: History of myocardial infarction. SOCIAL HISTORY: No history of smoking or alcohol. REVIEW OF SYSTEMS: A 14-point review is negative except as mentioned earlier. PHYSICAL EXAMINATION: VITAL SIGNS: Pulse is 83, blood pressure 110/60, respirations 18. HEENT: Conjunctivae normal. CARDIOVASCULAR: S1, S2 regular. RESPIRATIONS: Breath sounds at the bases. Few scattered rhonchi and crackles. ABDOMEN: Soft, mild diffuse discomfort present. No guarding, no rigidity, no masses palpable. Bowel sounds diminished. LEGS: No edema, no swelling. NERVOUS SYSTEM: No focal deficits. SKIN: No ulcer, rash, bleeding. JOINTS: No active deforming arthropathy. LABORATORY DATA: WBC 23.2. Rest of the labs are noted. ASSESSMENT: 1. Acute UTI with pyelonephritis with sepsis present on admission. 2. Nausea, vomiting, possible acute gastritis. 3. Atrial fibrillation, new onset with fast ventricular rate. 4. Troponin 0.05, indeterminate. 5. Left hydronephrosis and obstructive urolithiasis. 6. Elevated WBC. 7. Left lung cancer, possibly progressing. 8. Hypertension. 9. Hyperlipidemia. 10.History of polycythemia. 11.Multiple complex medical issues. RECOMMENDATIONS AND DISCUSSION: This 83-year-old woman presented with multiple complex medical issues, we will monitor the patient closely. Initiate broad-spectrum IV antibiotics. Rocephin has been initiated. We will follow the cultures. Infectious Disease evaluation. Cardiology has been also consulted. A 2D echo will be ordered. Otherwise, Dr. Segundo is planning urology evaluation. The patient is currently medically stable, but overall prognosis remains extremely guarded. We will continue to monitor. Further recommendations to follow. See orders for details. MMODL / IJN: [id number] /
[2024-02-09] MEDS: PANTOPRAZOLE 40 MG/10 ML VIAL IVP SCH (21:01)
--- NOTE | 2024-02-10 07:12 | P.CONS ---
History of Present Illness - Reason for Consult Consult date: 02/09/24 UTI sepsis Requesting physician: Iraida Quiñones - Chief Complaint Weakness not feeling well x few days - History of Present Illness Patient is a 83-year-old female with a past medical history significant for hypertension hyperlipidemia ID history of uterine and lung cancer as well as kidney stone, patient has been brought into the hospital for evaluation of weakness and this patient symptom has been getting worse for the last 2 days before presentation to the hospital patient was complaining of feeling nauseated and not eating anything also complaining of generalized abdominal discomfort and constipation patient also with history of urinary incontinence with the symptoms the patient has been evaluated on presentation to the hospital patient did have a low-grade fever of 99.1 F patient was not tachycardic or hypotensive mildly hypoxic currently on 2 L nasal cannula oxygen patient did have a white count of 35,000 down to 23.2 today creatinine was no rmal troponin is elevated liver enzymes are normal urine has been positive blood cultures given positive gram-negative bacilli prompting this consultation patient did have a CT angiogram of the chest no evidence of PE interval progression of malignancy in the left upper lobe and left neuropathy abdominal pelvis CT increasing intrahepatic and excavated bili dilatation kidney stones and left-sided hydronephrosis patient has been evaluated by urology and the patient is status post cystoscopy with left ureteral stent insertion patient has been started on Rocephin infectious he was consulted because of bacteremia Review of Systems Positive point and negatives has been mentioned in the HPI, complete review of systems was performed and all other systems are negative Past Medical History Past Medical History: Cancer, Hyperlipidemia, Hypertension, Myocardial Infarction (ID) Additional Past Medical History / Comment(s): polycythemia, kidney stone, uterine cancer, lung cancer, was to have started a different antihypertensive but is not currently taking - couldn't remember what it was Last Myocardial Infarction Date:: 2017 History of Any Multi-Drug Resistant Organisms: None Reported Past Surgical History: Cholecystectomy, Coronary Bypass/CABG, Hysterectomy Additional Past Surgical History / Comment(s): stomach abscess removed, CABG (02/17/2018) Past Anesthesia/Blood Transfusion Reactions: No Reported Reaction, Motion Sickness Past Psychological History: No Psychological Hx Reported Smoking Status: Never smoker - Past Family History Mother Family Medical History: Myocardial Infarction (ID) Father Family Medical History: Asthma, COPD, Myocardial Infarction (ID) Medications and Allergies Home Medications Medication Instructions Recorded Confirmed Type Aspirin EC [Ecotrin Low Dose] 81 mg PO DAILY 07/11/22 02/08/24 History Nitroglycerin Sl Tabs [Nitrostat] 0.4 mg SUBLINGUAL Q5M PRN 07/11/22 02/08/24 History Albuterol Sulfate [Albuterol 1 - 2 puff INHALATION RT-Q4H PRN 08/20/22 02/08/24 History Sulfate Hfa] Capmatinib Hydrochloride [Tabrecta] 400 mg PO BID 02/08/24 02/08/24 History Ibuprofen [Motrin] 800 mg PO Q8H PRN 02/08/24 02/08/24 History Magic Mouth Wash 5 ml PO QID 02/08/24 02/08/24 History Ondansetron [Zofran] 4 mg PO Q6H PRN 02/08/24 02/08/24 History dexAMETHasone [Decadron] 4 mg PO DAILY 02/08/24 02/08/24 History ALPRAZolam [Xanax] 0.5 mg PO BID PRN 3 Days #6 tab 02/14/24 Rx Ciprofloxacin HCl [Cipro] 500 mg PO Q12HR 10 Days #20 tab 02/14/24 Rx HYDROcodone/APAP 5-325MG [Brooker 1 each PO QID PRN #12 tab 02/14/24 Rx 5-325] Metoprolol Succinate (ER) [Toprol 25 mg PO DAILY 30 Days #30 tab 02/14/24 Rx XL] Allergies Allergy/AdvReac Type Severity Reaction Status Date / Time codeine Allergy Rash/Hives, Verified 02/08/24 14:20 swelling in throat Penicillins Allergy Rash/Hives, Verified 02/08/24 14:20 swelling in throat Physical Exam Vitals: Vital Signs Temp Pulse Pulse Resp BP BP Pulse Ox 02/09/24 11:07 83 16 95/53 97 02/09/24 08:40 97.8 F 83 18 110/60 95 02/09/24 06:00 77 16 90/43 99 02/09/24 04:00 71 18 99/61 98 02/09/24 00:00 101 H 16 83/47 95 02/08/24 23:29 101 H 17 80/48 101 H 02/08/24 20:15 109 H 17 90/48 95 02/08/24 19:43 117 H 18 02/08/24 19:30 135 H 18 91/53 96 02/08/24 19:23 138 H 16 93/53 98 02/08/24 18:45 99.1 F 151 H 18 118/58 95 02/08/24 16:59 104 H 16 109/55 95 02/08/24 14:51 105 H 20 107/57 97 Intake and Output 02/08/24 02/09/24 02/09/24 22:59 06:59 14:59 Intake Total 112.772 603.126 Output Total 700 Balance 112.772 -96.874 Intake: IV 500 Intake, IV Titration 112.772 103.126 Amount Diltiazem 125 mg In 53.667 Sodium Chloride 0.9% 100 ml @ 5 MG/HR 5 mls/hr IV .Q24H [facility] Rx#:[id number] Heparin Sod,Pork in 0.45% 59.105 53.126 NaCl 25,000 unit In 0.45 % NaCl 1 250ml.bag @ 12 UNITS/KG/HR 6.641 mls/hr IV .Q24H [facility] Rx#: [id number] cefTRIAXone 2 gm In 50 Sodium Chloride 0.9% 50 ml @ 100 mls/hr IVPB Q24HR [facility] Rx#:[id number] Oral 0 Output: Urine 700 Straight 700 Estimated Blood Loss 0 Other: # Bowel Movements 0 Weight 55.338 kg GENERAL DESCRIPTION: Elderly female lying in bed, no distress. No tachypnea or accessory muscle of respiration use. HEENT: Shows Pallor , no scleral icterus. Oral mucous membrane is dry. No pharyngeal erythema or thrush NECK: Trachea central, no thyromegaly. LUNGS: Unlabored breathing. Clear to auscultation anteriorly. No wheeze or crackle. HEART: S1, S2, regular rate and rhythm. No loud murmur ABDOMEN: Soft, no tenderness , guarding or rigidity, no organomegaly EXTREMITIES: No edema of feet. SKIN: No rash, no masses palpable. NEUROLOGICAL: The patient is awake, alert, mood and affect normal. Results CBC & Chem 7: 02/14/24 05:30 02/12/24 05:55 Labs: Abnormal Lab Results - Last 24 Hours (Table) 02/08/24 02/08/24 02/08/24 Range/Units 13:08 13:08 19:59 WBC (3.8-10.6) k/uL RBC (3.80-5.40) m/uL Hgb (11.4-16.0) gm/dL Hct (34.0-46.0) % RDW (11.5-15.5) % Neutrophils # (1.3-7.7) k/uL Neutrophils # (Manual) 34.30 H (1.3-7.7) k/uL Lymphocytes # (1.0-4.8) k/uL APTT (22.0-30.0) sec Hemoglobin A1c (<=6.0) % Troponin I 0.040 H* (0.000-0.034) ng/mL Urine Appearance Turbid H (Clear) Urine Protein 2+ H (Negative) Urine Ketones 1+ H (Negative) Urine Blood Moderate H (Negative) Ur Leukocyte Esterase Large H (Negative) Urine RBC 32 H (0-5) /hpf Urine WBC >182 H (0-5) /hpf Urine WBC Clumps Many H (None) /hpf Urine Bacteria Few H (None) /hpf Urine Mucus Many H (None) /hpf 02/08/24 02/09/24 02/09/24 Range/Units 19:59 00:35 00:35 WBC (3.8-10.6) k/uL RBC (3.80-5.40) m/uL Hgb (11.4-16.0) gm/dL Hct (34.0-46.0) % RDW (11.5-15.5) % Neutrophils # (1.3-7.7) k/uL Neutrophils # (Manual) (1.3-7.7) k/uL Lymphocytes # (1.0-4.8) k/uL APTT 41.3 H (22.0-30.0) sec Hemoglobin A1c 6.2 H (<=6.0) % Troponin I 0.052 H* (0.000-0.034) ng/mL Urine Appearance (Clear) Urine Protein (Negative) Urine Ketones (Negative) Urine Blood (Negative) Ur Leukocyte Esterase (Negative) Urine RBC (0-5) /hpf Urine WBC (0-5) /hpf Urine WBC Clumps (None) /hpf Urine Bacteria (None) /hpf Urine Mucus (None) /hpf 02/09/24 02/09/24 02/09/24 Range/Units 03:37 03:37 10:10 WBC 23.2 H (3.8-10.6) k/uL RBC 3.37 L (3.80-5.40) m/uL Hgb 10.3 L (11.4-16.0) gm/dL Hct 32.0 L (34.0-46.0) % RDW 23.6 H (11.5-15.5) % Neutrophils # 22.3 H (1.3-7.7) k/uL Neutrophils # (Manual) (1.3-7.7) k/uL Lymphocytes # 0.3 L (1.0-4.8) k/uL APTT 33.9 H 33.2 H (22.0-30.0) sec Hemoglobin A1c (<=6.0) % Troponin I (0.000-0.034) ng/mL Urine Appearance (Clear) Urine Protein (Negative) Urine Ketones (Negative) Urine Blood (Negative) Ur Leukocyte Esterase (Negative) Urine RBC (0-5) /hpf Urine WBC (0-5) /hpf Urine WBC Clumps (None) /hpf Urine Bacteria (None) /hpf Urine Mucus (None) /hpf Microbiology - Last 24 Hours (Table) 02/08/24 16:10 Blood Culture Gram Stain - Preliminary Blood Blood Culture - Preliminary Molecular ID 02/08/24 15:55 Blood Culture Gram Stain - Preliminary Blood Assessment and Plan (1) Acute pyelonephritis Status: Acute Priority: High Code(s): N10 - ACUTE PYELONEPHRITIS SNOMED Code(s): 55843460 (2) E coli bacteremia Status: Acute Priority: High Code(s): R78.81 - BACTEREMIA; B96.20 - UNSP ESCHERICHIA COLI THE CAUSE OF DISEASES CLASSD [facility] SNOMED Code(s): 029521546598 (3) Penicillin allergy Status: Acute Code(s): Z88.0 - ALLERGY STATUS TO PENICILLIN SNOMED Code(s): 56851606 (4) Sepsis Status: Acute Code(s): A41.9 - SEPSIS, UNSPECIFIED ORGANISM SNOMED Code(s): 32324851 Plan: 1patient is hospital with sepsis in this patient who did have a low-grade fever elevated white count source is complicated UTI in this patient with evidence of left-sided hydronephrosis status post cystoscopy and left ureteral stent placement. 2patient with gram-negative bacteremia source is likely complicated UTI. 3patient with a penicillin allergy that will limit the number of antibiotics safe to use 4Rocephin 2 g daily while waiting for the culture to finalize We will follow on clinical condition and cultures to further adjust medication if needed Thank you for this consultation we will follow the patient along with you Dictation was produced using [employer] dictation software. please excuse any grammatical, word or spelling errors. Time with Patient: Greater than 30
[2024-02-10 08:31] LABS: Anisocytosis Moderate; Basophils % (A) 0 %; Eosinophils % (A) 0 %; HGB 12.1 gm/dL (11.4-16.0); Hypochromasia Marked; Lymphocytes # (A) 0.3 k/uL (1.0-4.8); Lymphocytes % (A) 1 %; MCH 29.5 pg (25.0-35.0); MCHC 29.6 g/dL (31.0-37.0); MCV 99.9 fL (80.0-100.0); Macrocytosis Marked; Monocytes # (A) 0.7 k/uL (0-1.0); Monocytes % (A) 3 %; Neutrophils # (A) 21.4 k/uL (1.3-7.7); Neutrophils % (A) 95 %; Platelet Count 564 k/uL (150-450); RDW 23.9 % (11.5-15.5); WBC 22.6 k/uL (3.8-10.6)
[2024-02-10] MEDS ORDERED: LOSARTAN 25 MG TAB PO SCH (09:00)
[2024-02-10 09:02] LABS: ALT 34 U/L (4-34); AST 34 U/L (14-36); African American GFR (CKD) 76 (>60 ml/min/1.73 sqM); Albumin 2.9 g/dL (3.5-5.0); Alkaline Phosphatase 108 U/L (38-126); Anion Gap 6 mmol/L; Blood Urea Nitrogen 33 mg/dL (7-17); Calcium 8.3 mg/dL (8.4-10.2); Carbon Dioxide 27 mmol/L (22-30); Chloride 113 mmol/L (98-107); Glucose 126 mg/dL (74-99); Magnesium 1.9 mg/dL (1.6-2.3); Non-African American GFR(CKD) 66 (>60 ml/min/1.73 sqM); Potassium 3.7 mmol/L (3.5-5.1); Sodium 146 mmol/L (137-145); Total Bilirubin 0.3 mg/dL (0.2-1.3)
--- NOTE | 2024-02-10 09:22 | P.PN ---
Subjective Progress Note Date: 02/10/24 Principal diagnosis: The patient underwent left ureteral stent insertion on February 09, 2024. 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 However, the remainder of the kidney should be adequately drained. She has a large renal pelvic calculus. The patient underwent cystoscopy with left ureteral stent insertion on February 09, 2024. The upper pole calyces were dilated, apparently due to infundibular stenosis. The ureteral stent could not be placed within the upper pole calyces. The patient states that she is feeling better today, but she does report epigastric discomfort and poor appetite. Objective - Vital Signs Vital signs: Vital Signs Temp 98.6 F 02/10/24 04:00 Pulse 78 02/10/24 04:00 Resp 18 02/10/24 04:00 BP 124/73 02/10/24 04:00 Pulse Ox 97 02/09/24 23:48 FiO2 Intake & Output 02/09/24 02/09/24 02/10/24 06:59 18:59 06:59 Intake Total 112.772 703.126 240 Output Total 950 Balance 112.772 -246.874 240 Weight 55.338 kg Intake: IV 600 Intake, IV Titration 112.772 103.126 Amount Diltiazem 125 mg In 53.667 Sodium Chloride 0.9% 100 ml @ 5 MG/HR 5 mls/hr IV .Q24H [facility] Rx#:[id number] Heparin Sod,Pork in 0.45% 59.105 53.126 NaCl 25,000 unit In 0.45 % NaCl 1 250ml.bag @ 12 UNITS/KG/HR 6.641 mls/hr IV .Q24H [facility] Rx#: [id number] cefTRIAXone 2 gm In 50 Sodium Chloride 0.9% 50 ml @ 100 mls/hr IVPB Q24HR [facility] Rx#:[id number] Oral 0 240 Output: Urine 950 Straight 700 Estimated Blood Loss 0 Other: Voiding Method Indwelling Catheter Indwelling Catheter # Bowel Movements 0 - Constitutional General appearance: Present: average body habitus, cooperative, no acute distress - Gastrointestinal Gastrointestinal Comment(s): Soft, mild tenderness, non-distended, no guarding, no rebound. - Psychiatric Psychiatric: Present: A&O x's 3 - Labs CBC & Chem 7: 05/28/24 07:39 02/10/24 07:39 Labs: Abnormal Lab Results - Last 24 Hours (Table) 02/09/24 Range/Units 10:10 APTT 33.2 H (22.0-30.0) sec Microbiology - Last 24 Hours (Table) 02/08/24 16:10 Blood Culture Gram Stain - Preliminary Blood Blood Culture - Preliminary Molecular ID 02/08/24 15:55 Blood Culture Gram Stain - Preliminary Blood Assessment and Plan Assessment: CT scan shows an 11 x 16 mm left renal pelvic calculus. There is evidence of left hydronephrosis, though the upper pole calyceal dilation is not due to the renal pelvic calculus. (1) Acute pyelonephritis Current Visit: Yes Status: Acute Code(s): N10 - ACUTE PYELONEPHRITIS SNOMED Code(s): 62156529 (2) Calculus of kidney Current Visit: Yes Status: Acute Code(s): N20.0 - CALCULUS OF KIDNEY SNOMED Code(s): 72333929 (3) Hydronephrosis with renal and ureteral calculous obstruction Current Visit: Yes Status: Acute Code(s): N13.2 - HYDRONEPHROSIS WITH RENAL AND URETERAL CALCULOUS OBSTRUCTION SNOMED Code(s): 692456356 Plan: The patient underwent successful left ureteral stent insertion. She was found to have narrowing of the left proximal ureter. 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 The proximal end of the ureteral stent is curled within a midpole calyx, but is not draining the upper pole calyces. The patient is receiving ceftriaxone and is clinically improved.
--- NOTE | 2024-02-10 12:56 | P.PN ---
Subjective Progress Note Date: 02/10/24 83-year-old lady with past medical history significant for hypertension, hyperlipidemia and memory impairment, coronary artery disease history of CABG in 2018, lung cancer who presented to the ER for evaluation for weakness. Patient has been feeling weak for the last 2 days, patient has been having poor a ppetite. Patient is complaining of nausea and unable to keep anything down. Patient also complaining abdominal pain. There is no complaint of blood in the stools. Patient is complaining of constipation. Denies any fever or chills. There is no complaint of chest pain or shortness of breath. Because of the symptoms, patient was in the ER Initial lab work done in the ER showed WBC 35.1, hemoglobin 12.9, platelet count 609, sodium 139, potassium 3.9, BUN 34, creatinine 1, glucose 203, plasma lactate 1.8, troponin 0.05 total protein 6.6, albumin 3.2 UA done showed leukocyte Estrace large amount, urine nitrite negative, urine WBC greater than 182 CTA chest done showed no evidence of PE, enlarged pulmonary trunk can be seen with pulmonary hypertension. Slightly interval progression of malignancy in the left upper lobe with bridging soft tissue CT abdominal pelvis done showed increased intrahepatic and extrahepatic biliary dilatation which extends to the ampulla. Right adrenal metastasis new since 07/13/22. Left 15.5 x 11 mm calculus within the left renal pelvis with abnormally dilated calyces throughout the left kidney EKG done in the ER showed heart rate of 151, no P waves irregular in rate and rhythm, no ST segment elevation or depression seen, no T-wave inversions seen. Chest x-ray done in the ER Patient admitted to internal medicine service 02/09. Patient seen and examined. Patient underwent cystoscopy with left retrograde pyelogram and left ureteral stent placement on 02/08. Initial lab work done today showed WBC 22.6 hemoglobin 1, platelet count 564, sodium 146, potassium 3.7, BUN 33, creatinine 0.82. States she is feeling much better. Denies any abdominal pain. REVIEW OF SYSTEMS: CONSTITUTIONAL: No fever, no malaise,. CARDIOVASCULAR: No chest pain, no palpitations, no syncope. PULMONARY: No shortness of breath, no cough, GASTROINTESTINAL: No diarrhea, no nausea, no vomiting, no abdominal pain. NEUROLOGICAL: No headaches, no weakness, PHYSICAL EXAMINATION: GENERAL: The patient is alert and oriented x3, not in any acute distress. Well developed, well nourished. HEENT: Pupils are round and equally reacting to light. EOMI. No scleral icterus. No conjunctival pallor. Normocephalic, atraumatic. No pharyngeal erythema. No thyromegaly. CARDIOVASCULAR: S1 and S2 present. No murmurs, rubs, or gallops. PULMONARY: Chest is clear to auscultation, no wheezing or crackles. ABDOMEN: Soft, nontender, nondistended, normoactive bowel sounds. No palpable organomegaly. MUSCULOSKELETAL: No joint swelling or deformity. EXTREMITIES: No cyanosis, clubbing, or pedal edema. NEUROLOGICAL: Gross neurological examination did not reveal any focal deficits. SKIN: No rashes. Assessment and plan A-fib with RVR UTI Pyelonephritis Left renal stone with left hydronephrosis Bacteremia History of metastatic lung cancer Coronary artery disease history of CABG in 2018 Hyperlipidemia Hypertension Memory impairment Monitor vital signs Monitor CBC Monitor CMP Continue telemetry monitoring Follow-up on blood cultures Follow-up on urine culture S/p cystoscopy with left retrograde pyelogram and left ureteral stent placement on 02/08 continue IV Rocephin Ordered 2D echo Continue Toprol Cardiology following Urology following ID following oncology consulted Labs and medication were reviewed.. Continue same treatment. Continue with symptomatic treatment. Resume home medication. Monitor labs and vitals. DVT and GI prophylaxis. Further recommendations as per clinical course of the patient Dictation was produced using [employer] dictation software. please excuse any grammatical, word or spelling errors. Objective - Vital Signs Vital signs: Vital Signs Temp 98.3 F 02/10/24 09:25 Pulse 90 02/10/24 09:25 Resp 18 02/10/24 09:25 BP 131/73 02/10/24 09:25 Pulse Ox 97 02/10/24 09:25 FiO2 Intake & Output 02/09/24 02/10/24 02/10/24 18:59 06:59 18:59 Intake Total 703.126 600 Output Total 950 850 Balance -246.874 -250 Weight 55.338 kg Intake: IV 600 Intake, IV Titration 103.126 Amount Heparin Sod,Pork in 0.45% 53.126 NaCl 25,000 unit In 0.45 % NaCl 1 250ml.bag @ 12 UNITS/KG/HR 6.641 mls/hr IV .Q24H [facility] Rx#: [id number] cefTRIAXone 2 gm In 50 Sodium Chloride 0.9% 50 ml @ 100 mls/hr IVPB Q24HR [facility] Rx#:[id number] Oral 0 600 Output: Urine 950 850 Straight 700 Estimated Blood Loss 0 Other: Voiding Method Indwelling Catheter Indwelling Catheter # Bowel Movements 0 - Labs CBC & Chem 7: 02/10/24 07:39 02/10/24 07:39 Labs: Abnormal Lab Results - Last 24 Hours (Table) 02/09/24 02/10/24 02/10/24 Range/Units 10:10 07:39 07:39 WBC 22.6 H (3.8-10.6) k/uL MCHC 29.6 L (31.0-37.0) g/dL RDW 23.9 H (11.5-15.5) % Plt Count 564 H (150-450) k/uL Neutrophils # 21.4 H (1.3-7.7) k/uL Lymphocytes # 0.3 L (1.0-4.8) k/uL Macrocytosis Marked A APTT 33.2 H (22.0-30.0) sec Sodium 146 H (137-145) mmol/L Chloride 113 H (98-107) mmol/L BUN 33 H (7-17) mg/dL Glucose 126 H (74-99) mg/dL Calcium 8.3 L (8.4-10.2) mg/dL Total Protein 6.0 L (6.3-8.2) g/dL Albumin 2.9 L (3.5-5.0) g/dL Microbiology - Last 24 Hours (Table) 02/08/24 16:10 Blood Culture Gram Stain - Preliminary Blood Blood Culture - Preliminary Molecular ID 02/08/24 15:55 Blood Culture Gram Stain - Preliminary Blood
--- NOTE | 2024-02-10 14:13 | MR ---
EXAMINATION TYPE: MR brain wo/w con DATE OF EXAM: 02/10/2024 COMPARISON: None HISTORY: Metastatic lung cancer. CONTRAST: Performed utilizing 5.5 mL intravenous Gadavist gadolinium contrast. TECHNIQUE: Multiplanar, multiecho imaging on a 3.0 [place] magnet is performed through the brain. Stud y is performed within 24 hours of arrival to the hospital. The craniovertebral junction is normal. The pituitary is normal. Diffusion-weighted imaging is performed. No abnormal hyperintensity is present to suggest an acute i ntracranial infarct or acute ischemic change. Signal through the brain appears normal. No suspicious abnormal signal or enhancement to suggest meta stasis is evident. Ventricles and sulci are appropriate for the patient age. IMPRESSION: 1. No suspicious changes to suggest metastatic disease.
--- NOTE | 2024-02-10 15:41 | P.PN ---
Subjective Progress Note Date: 02/10/24 Principal diagnosis: Reason for follow-up is E. coli UTI and bacteremia Patient is a 83-year-old female with a past medical history significant for hypertension hyperlipidemia ME history of uterine and lung cancer as well as kidney stone, patient has been brought into the hospital for evaluation of weakness, patient has been diagnosed with sepsis related to complicated UTI status post cystoscopy with left ureteral stent placement. On today's evaluation that is 02/10/2024, patient has been afebrile, patient is breathing comfortably and is currently on 2 L current oxygen, patient denies having any significant cough no chest pain shortness of breath, patient did have some nausea but no vomiting or diarrhea and no abdominal pain. Patient white count of 22.6, creatinine 0.82 Objective - Vital Signs Vital signs: Vital Signs Temp 98.3 F 02/10/24 09:25 Pulse 86 02/10/24 11:41 Resp 18 02/10/24 11:41 BP 135/72 02/10/24 11:41 Pulse Ox 97 02/10/24 11:41 FiO2 Intake & Output 02/09/24 02/10/24 02/10/24 18:59 06:59 18:59 Intake Total 703.126 600 Output Total 950 850 Balance -246.874 -250 Weight 55.338 kg Intake: IV 600 Intake, IV Titration 103.126 Amount Heparin Sod,Pork in 0.45% 53.126 NaCl 25,000 unit In 0.45 % NaCl 1 250ml.bag @ 12 UNITS/KG/HR 6.641 mls/hr IV .Q24H [facility] Rx#: [id number] cefTRIAXone 2 gm In 50 Sodium Chloride 0.9% 50 ml @ 100 mls/hr IVPB Q24HR [facility] Rx#:[id number] Oral 0 600 Output: Urine 950 850 Straight 700 Estimated Blood Loss 0 Other: Voiding Method Indwelling Catheter Indwelling Catheter Indwelling Catheter # Bowel Movements 0 - Exam GENERAL DESCRIPTION: An elderly female lying in bed in no distress RESPIRATORY SYSTEM: Unlabored breathing , decreased breath sounds at bases HEART: S1 S2 regular rate and rhythm , ABDOMEN: Soft , no tenderness EXTREMITIES: No edema feet - Labs CBC & Chem 7: 02/10/24 07:39 02/10/24 07:39 Labs: Abnormal Lab Results - Last 24 Hours (Table) 02/10/24 02/10/24 Range/Units 07:39 07:39 WBC 22.6 H (3.8-10.6) k/uL MCHC 29.6 L (31.0-37.0) g/dL RDW 23.9 H (11.5-15.5) % Plt Count 564 H (150-450) k/uL Neutrophils # 21.4 H (1.3-7.7) k/uL Lymphocytes # 0.3 L (1.0-4.8) k/uL Macrocytosis Marked A Sodium 146 H (137-145) mmol/L Chloride 113 H (98-107) mmol/L BUN 33 H (7-17) mg/dL Glucose 126 H (74-99) mg/dL Calcium 8.3 L (8.4-10.2) mg/dL Total Protein 6.0 L (6.3-8.2) g/dL Albumin 2.9 L (3.5-5.0) g/dL Assessment and Plan (1) E coli bacteremia Current Visit: Yes Status: Acute Code(s): R78.81 - BACTEREMIA; B96.20 - UNSP ESCHERICHIA COLI THE CAUSE OF DISEASES CLASSD [facility] SNOMED Code(s): 082011151211 (2) Penicillin allergy Current Visit: Yes Status: Acute Code(s): Z88.0 - ALLERGY STATUS TO PENICILLIN SNOMED Code(s): 15384530 (3) Acute pyelonephritis Current Visit: Yes Status: Acute Code(s): N10 - ACUTE PYELONEPHRITIS SNOMED Code(s): 24509021 (4) UTI (urinary tract infection) Current Visit: Yes Status: Acute Code(s): N39.0 - URINARY TRACT INFECTION, SITE NOT SPECIFIED SNOMED Code(s): 76705251 Plan: 1patient presented to hospital with sepsis in this patient who did have a low- grade fever elevated white count source is complicated UTI in this patient with evidence of left-sided hydronephrosis status post cystoscopy and left ureteral stent placement. 2patient with E. coli bacteremia source is likely complicated UTI. 3patient with a penicillin allergy that will limit the number of antibiotics safe to use 4patient to continue with Rocephin 2 g daily while waiting for the culture to finalize and monitor her clinical course closely Dictation was produced using [employer] software. please excuse any grammatical, word or spelling errors. Time with Patient: Less than 30
--- NOTE | 2024-02-10 18:35 | CA ---
Transthoracic Echo Report Name: Adelaide Mays Age: 83 Gender: F : 1940 Exam Date: 02/10/2024 14:30 Exam Location: [facility] Ht (in): 61 Wt (lb): 122 Ordering Physician: aMryam Sibley Attending/Referring Phys: [id number], [employer] Vianey Castillo RDCS Procedure CPT: Indications: LVF Cardiac Hx: Technical Quality: Technically difficult study Contrast 1: Definity Total Dose (mL): 2 Contrast 2: Total Dose (mL): MEASUREMENTS (Male / Female) Normal Values 2D ECHO LV Diastolic Diameter PLAX 4.8 cm 4.2 - 5.9 / 3.9 - 5.3 cm LV Systolic Diameter PLAX 4.1 cm IVS Diastolic Thickness 0.9 cm 0.6 - 1.0 / 0.6 - 0.9 cm LVPW Diastolic Thickness 1.0 cm 0.6 - 1.0 / 0.6 - 0.9 cm LV Relative Wall Thickness 0.4 RV Internal Dim ED PLAX 3.3 cm LVOT Diameter 2.0 cm LV Diastolic Volume MOD BP 82.8 cm??? 67 - 155 / 56 - 104 cm??? LV Systolic Volume MOD BP 38.5 cm??? 22 - 58 / 19 - 49 cm??? LV Ejection Fraction MOD BP 53.6 % >= 55 % LV Cardiac Index MOD BP 2175.2 cm???/min???m??? LV Diastolic Volume MOD 4C 111.9 cm??? LV Systolic Volume MOD 4C 53.6 cm??? LV Ejection Fraction MOD 4C 52.1 % LV Cardiac Index MOD 4C 2859.5 cm???/min???m??? LV Diastolic Length 4C 7.3 cm LV Systolic Length 4C 6.1 cm LV Diastolic Volume MOD 2C 56.9 cm??? LV Systolic Volume MOD 2C 24.5 cm??? LV Ejection Fraction MOD 2C 57.0 % LV Cardiac Index MOD 2C 1588.6 cm???/min???m??? LV Diastolic Length 2C 6.7 cm LV Systolic Length 2C 5.3 cm LA Volume 96.2 cm??? 18 - 58 / 22 - 52 cm??? LA Volume Index 62.0 cm???/m??? 16 - 28 cm???/m??? Ascending Aorta Diameter 3.8 cm DOPPLER AV Peak Velocity 125.9 cm/s AV Peak Gradient 6.3 mmHg AV Mean Velocity 82.3 cm/s AV Mean Gradient 3.2 mmHg AV Velocity Time Integral 25.3 cm LVOT Peak Velocity 99.6 cm/s LVOT Peak Gradient 4.0 mmHg LVOT Velocity Time Integral 20.6 cm LVOT Stroke Volume 64.5 cm??? LVOT Stroke Volume Index 42.1 ml/m??? LVOT Cardiac Index 3160.8 cm???/min???m??? AV Area Cont Eq vti 2.6 cm??? AV Area Cont Eq pk 2.5 cm??? MV Peak Velocity 164.5 cm/s MV Peak Gradient 10.8 mmHg MV Mean Velocity 114.1 cm/s MV Mean Gradient 6.0 mmHg MV Velocity Time Integral 22.1 cm MV Area PHT 4.8 cm??? Mitral E Point Velocity 106.5 cm/s Mitral A Point Velocity 95.7 cm/s Mitral E to A Ratio 1.1 MV Deceleration Time 156.5 ms TR Peak Velocity 256.3 cm/s TR Peak Gradient 26.3 mmHg Right Atrial Pressure 5.0 mmHg Pulmonary Artery Systolic Pressu 31.3 mmHg Right Ventricular Systolic Press 31.3 mmHg PV Peak Velocity 106.0 cm/s PV Peak Gradient 4.5 mmHg FINDINGS Left Ventricle Left ventricular ejection fraction is estimated at 50-55 %. Mildly increased posterior wall thickness. Mildly decreased left ventricular ejection fraction. No obvious regional wall motion abnormalities. Right Ventricle Mild right ventricular dilatation with moderately reduced function. Right ventricular systolic pressure within normal limits. Right Atrium Severe right atrial dilatation. Left Atrium Severely increased left atrial volume. Mildly increased left atrial area. Mitral Valve Mitral valve thickened. Mitral annular calcification. No evidence for mitral valve prolapse. Pzgi-tc-ljposyoc mitral regurgitation. Aortic Valve Trileaflet aortic valve. Aortic valve sclerosis. No aortic stenosis. Trace aortic regurgitation. Tricuspid Valve Structurally normal tricuspid valve. No tricuspid stenosis. Fjmy-ta-sbfoxgwn tricuspid regurgitation. Pulmonic Valve Structurally normal pulmonic valve. No pulmonic stenosis. Trace pulmonic regurgitation. Pericardium No pericardial effusion. Aorta Normal size aortic root and proximal ascending aorta. CONCLUSIONS Left ventricular ejection fraction is estimated at 50-55 %. Mildly decreased left ventricular ejection fraction. No obvious regional wall motion abnormalities. Mild LVH Moderate functional MR. Mitral annular calcification. Aortic valve sclerosis Severely dilated left and right atrium, RV appears dilated. RVSP estimated at 32 mmHg Previewed by: Dr Will Thomas (Electronically Signed) Final Date: 10 Feb 2024 18:33
--- NOTE | 2024-02-10 20:23 | P.CONS ---
History of Present Illness - Reason for Consult Consult date: 02/10/24 hx lung cancer Requesting physician: Iraida Quiñones - Chief Complaint weakness, nausea - History of Present Illness Patient is a 83 year old female with a significant history of polycythemia vera and recently diagnosed NSCLC. She is a patient of Dr. Byrd. She was first evaluated at [facility] in April/2018 when she was admitted for severe pancytopenia and febrile neutropenia, she was treated with broad spectrum antibiotics, received transfusion with PRBC and G-CSF. (she had platelets counts of 10K,hemoglobin of 6gm/dl and total wbc of 1.5k). She was treated for possible polycythemia Vera at [facility], just prior to her cardiac bypass surgery in February/2018, was put on hydroxyurea 1000 mg BID and then discharged for rehab and stayed on that dose until her presentation to [facility] in April/2018. Her records from [facility] were obtained when she was inpatient, it showed that she had hemoglobin of 17gm/dl and leukocytosis and thrombocytosis just prior to her open heart surgery. She had a PE after her open heart surgery and was on eliquis for 3 months. 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 Recs for hydrea, pt did not want, recs for phlebotomy, pt didn't want, she ultimately decided on the hydrea. However, has not been complaint with medication. Patient was seen in f/u on 08/14/2022 and had a recent admission at [facility] with c/o chest pain,had a CT scan of chest which revealed 3.1 cm mass in EILEEN and additional nodule in EILEEN,she declined biopsy as inpatient,was discharged home and had a PET scan on 08/04/2022 which revealed suspicious uptake in EILEEN mass,mediatinal node up to 11 mm with low SUV of 2.0. She had f/u scheduled with pulmonology but was then lost to f/u and was not seen in clinic till November 2023. Previous CT scan imaging was discussed with her. She previously declined lung biopsy, and it was discussed concern that she may have progressing lung cancer. Repeat CT scan and referral to Dr Lindsay for a biopsy was ordered. She had a repeat CT chest on 01/01/2024 showed EILEEN mass up to 5.9 cm,another lesion in EILEEN up to 1.5 cm,2 borderline enlarged mediastinal nodes 1.3 cm,new enlargement of right adrenal gland up to 3 cm. She underwent bronschoscopic evaluation, transbronchial biopsy of EILEEN was positive for poorly differentiated adenocarcinoma with possible focus of squamous cell,FNA of 4L and station 7 were negative. 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 She had PET scan on 01/15/2024 which showed marked increased uptake within the left lung mass with some peripheral uptake of a more anterior left upper lobe lesion compatible with neoplasm,scattered hyperintense small lymph nodes compatible with metastatic lesions , uptake within the posterior medial right lobe liver compatible with a neoplasm. She completed palliative XRT to EILEEN lung mass due to significant pain,related to involvement neural foramina. Hydrea was discontinued and she started tabrectinib on 01/30/2024. On f/u she was tolerating it well, and her left shoulder pain is much better. Patient presenting to the ER c/o progressing weakness and nausea vomiting. Patient was having issues with nausea and dry heaves prior to starting treatment. As noted above patient started treatment with tabrectinib on 01/30/2024 and overall was tolerating medication well. On admission UA suspicious for UTI, abx started. CTA chest revealed no evidence of pulmonary embolism. Enlarged pulmonary trunk. Slight interval progression of malignancy in the left upper lobe with bridging of soft tissue now extending in contact with the from the previously seen mass anteriorly and encompassing the 1.5 cm region of spiculated subpleural nodularity present before. Stable size/appearance of mediastinal lymph nodes. A couple of which along the left aortic arch and left hilum were shown to be hot on PET CT. CT abdomen and pelvis with contrast revealed increased intrahepatic and extrahepatic biliary dilatation which extends to the ampulla. Right adrenal metastasis, which appears similar to PET/CT on 01/15/2024. Kidneys are enhancing with slightly delayed nephrogram on the left. 15.5 x 11 mm calculus within the left renal pelvis trending inferiorly. Abnormally dilated calyces through the left kidney especially in the upper pole calyx which shows urethral enhancement. On the right, appears to be a punctate calculus in the lower pole. No definite Collecting system calculi are seen. No clear evidence of hydro ureter or ureteral calculus seen. Peripelvic and perinephritic fat stranding is also suggested. No evidence of bowel obstruction, free fluid or free air. Numerous diverticuli without convincing evidence of diverticulitis. CBC reviewed with noted leukocytosis, WBC elevated at 22.6, hemoglobin 12.1, MCV 99.9, platelets 564,000. Creatinine 0.82, GFR 66. Bilirubin and LFTs WNL. Blood cultures positive for E. coli. Patient continues on IV antibiotics, ID following. Remains afebrile Review of Systems 10 point ROS is negative except as stated in the HPI Past Medical History Past Medical History: Cancer, Hyperlipidemia, Hypertension, Myocardial Infarction ([place]) Additional Past Medical History / Comment(s): polycythemia, kidney stone, uterine cancer, lung cancer, was to have started a different antihypertensive but is not currently taking - couldn't remember what it was Last Myocardial Infarction Date:: 2017 History of Any Multi-Drug Resistant Organisms: None Reported Past Surgical History: Cholecystectomy, Coronary Bypass/CABG, Hysterectomy Additional Past Surgical History / Comment(s): stomach abscess removed, CABG (02/17/2018) Past Anesthesia/Blood Transfusion Reactions: No Reported Reaction, Motion Sickness Past Psychological History: No Psychological Hx Reported Smoking Status: Never smoker - Past Family History Mother Family Medical History: Myocardial Infarction ([place]) Father Family Medical History: Asthma, COPD, Myocardial Infarction ([place]) Medications and Allergies Home Medications Medication Instructions Recorded Confirmed Type Aspirin EC [Ecotrin Low Dose] 81 mg PO DAILY 07/11/22 02/08/24 History Nitroglycerin Sl Tabs [Nitrostat] 0.4 mg SUBLINGUAL Q5M PRN 07/11/22 02/08/24 History Albuterol Sulfate [Albuterol 1 - 2 puff INHALATION RT-Q4H PRN 08/20/22 02/08/24 History Sulfate Hfa] ALPRAZolam [Xanax] 0.5 mg PO BID PRN 02/08/24 02/08/24 History Capmatinib Hydrochloride [Tabrecta] 400 mg PO BID 02/08/24 02/08/24 History HYDROcodone/APAP 5-325MG [[place] 1 tab PO QID PRN 02/08/24 02/08/24 History 5-325] Ibuprofen [Motrin] 800 mg PO Q8H PRN 02/08/24 02/08/24 History Magic Mouth Wash 5 ml PO QID 02/08/24 02/08/24 History Metoprolol Succinate (ER) [Toprol 25 - 50 mg PO DAILY PRN 02/08/24 02/08/24 History Xl] Ondansetron [Zofran] 4 mg PO Q6H PRN 02/08/24 02/08/24 History dexAMETHasone [Decadron] 4 mg PO DAILY 02/08/24 02/08/24 History Allergies Allergy/AdvReac Type Severity Reaction Status Date / Time codeine Allergy Rash/Hives, Verified 02/08/24 14:20 swelling in throat Penicillins Allergy Rash/Hives, Verified 02/08/24 14:20 swelling in throat Physical Exam Vitals: Vital Signs Temp Pulse Resp BP BP Pulse Ox 02/10/24 11:03 90 18 02/10/24 09:25 98.3 F 90 18 131/73 97 02/10/24 04:00 98.6 F 78 18 124/73 02/10/24 02:00 88 16 02/09/24 23:48 98.3 F 86 18 109/65 97 02/09/24 20:00 88 16 02/09/24 19:49 97.8 F 88 16 104/58 97 02/09/24 17:45 86 18 106/69 98 02/09/24 17:15 92 18 103/54 02/09/24 17:00 80 18 112/61 96 02/09/24 16:45 88 18 96/56 96 02/09/24 16:00 73 16 02/09/24 15:30 97.9 F 82 18 109/59 99 02/09/24 15:15 73 16 112/65 96 02/09/24 15:00 69 14 114/52 96 02/09/24 14:45 76 16 115/56 97 02/09/24 14:30 71 16 112/61 97 02/09/24 14:15 74 18 109/63 98 02/09/24 14:00 76 16 112/56 98 02/09/24 13:49 97.7 F 79 16 116/53 99 Intake and Output 02/09/24 02/10/24 02/10/24 22:59 06:59 14:59 Intake Total 240 360 Output Total 250 850 Balance -10 -490 Intake: Oral 240 360 Output: Urine 250 850 Other: Voiding Method Indwelling Catheter Indwelling Catheter Indwelling Catheter - Constitutional General appearance: average body habitus, no acute distress - EENT Eyes: anicteric sclerae, EOMI ENT: hearing grossly normal - Respiratory Respiratory: bilateral: CTA - Cardiovascular Rhythm: regular Heart sounds: normal: S1, S2 - Gastrointestinal upper abd tenderness, L>R General gastrointestinal: soft, tenderness - Integumentary Integumentary: no cyanotic, no jaundiced - Neurologic Neurologic: CNII-XII intact - Musculoskeletal left lateral rib tenderness Musculoskeletal: strength equal bilaterally - Psychiatric Psychiatric: A&O x's 3 Results CBC & Chem 7: 02/10/24 07:39 02/10/24 07:39 Labs: Abnormal Lab Results - Last 24 Hours (Table) 02/10/24 02/10/24 Range/Units 07:39 07:39 WBC 22.6 H (3.8-10.6) k/uL MCHC 29.6 L (31.0-37.0) g/dL RDW 23.9 H (11.5-15.5) % Plt Count 564 H (150-450) k/uL Neutrophils # 21.4 H (1.3-7.7) k/uL Lymphocytes # 0.3 L (1.0-4.8) k/uL Macrocytosis Marked A Sodium 146 H (137-145) mmol/L Chloride 113 H (98-107) mmol/L BUN 33 H (7-17) mg/dL Glucose 126 H (74-99) mg/dL Calcium 8.3 L (8.4-10.2) mg/dL Total Protein 6.0 L (6.3-8.2) g/dL Albumin 2.9 L (3.5-5.0) g/dL Microbiology - Last 24 Hours (Table) 02/08/24 16:10 Blood Culture Gram Stain - Preliminary Blood Blood Culture - Preliminary Molecular ID 02/08/24 15:55 Blood Culture Gram Stain - Preliminary Blood CT scan - abdomen: report reviewed CT scan - chest: report reviewed CT scan - pelvis: report reviewed Assessment and Plan (1) Non-small cell lung cancer Current Visit: No Status: Acute Priority: Medium Code(s): C34.90 - MALIGNANT NEOPLASM OF UNSP PART OF UNSP BRONCHUS OR LUNG SNOMED Code(s): 690270667 (2) Acute pyelonephritis Current Visit: Yes Status: Acute Priority: High Code(s): N10 - ACUTE PYELONEPHRITIS SNOMED Code(s): 53007025 (3) Calculus of kidney Current Visit: Yes Status: Acute Priority: High Code(s): N20.0 - CALCULUS OF KIDNEY SNOMED Code(s): 80085255 (4) E coli bacteremia Current Visit: Yes Status: Acute Priority: High Code(s): R78.81 - BACTEREMIA; B96.20 - UNSP ESCHERICHIA COLI THE CAUSE OF DISEASES [facility]SD [facility] SNOMED Code(s): 364990378998 (5) UTI (urinary tract infection) Current Visit: Yes Status: Acute Priority: High Code(s): N39.0 - URINARY TRACT INFECTION, SITE NOT SPECIFIED SNOMED Code(s): 22898956 Plan: Metastatic NSCLC: -Full oncological history in [facility] -Completed palliative XRT to EILEEN lung mass due to significant pain, related to involvement neural foramina. -She started tabrectinib on 01/30/2024. On f/u she was tolerating it well, and her left shoulder pain is much better s/p RT -Tabrectinib will be held until she acutely recovers -Interval progression of malignancy noted on CTA chest would not be considered treatment failure as she has only been on regimen for 1 week. Will restart medication once she acutely recovers -MRI brain was scheduled for 02/10/24 to complete staging but was missed due to hospitalization. Will place order to obtain while inpt -Will schedule clinic f/u upon discharge Bacteremia, UTI: -Blood culture positive for e. coli, UA positive for UTI -Continues on IV abx -Defer management to ID and IM teams Doctor attests: I performed a history and physical examination of this patient, developed impression and plan of care. Discussed with dictator. I agree with dictators note, documented as a scribe.
--- NOTE | 2024-02-11 09:23 | P.PN ---
Subjective Progress Note Date: 02/11/24 Principal diagnosis: The patient underwent left ureteral stent insertion on February 09, 2024. 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 However, the remainder of the kidney should be adequately drained. She has a large renal pelvic calculus. The patient underwent cystoscopy with left ureteral stent insertion on February 09, 2024. The upper pole calyces were dilated, apparently due to infundibular stenosis. The ureteral stent could not be placed within the upper pole calyces. The is feeling much better today. She denies flank pain. Objective - Vital Signs Vital signs: Vital Signs Temp 98.2 F 02/10/24 20:00 Pulse 76 02/11/24 04:00 Resp 18 02/11/24 04:00 BP 154/75 02/11/24 04:00 Pulse Ox 97 02/11/24 04:00 FiO2 Intake & Output 02/10/24 02/10/24 02/11/24 06:59 18:59 06:59 Intake Total 600 118 Output Total 850 700 400 Balance -250 -582 -400 Intake: Oral 600 118 Output: Urine 850 700 400 Other: Voiding Method Indwelling Catheter Indwelling Catheter Indwelling Catheter - Constitutional General appearance: Present: average body habitus, no acute distress - Psychiatric Psychiatric: Present: A&O x's 3 - Labs CBC & Chem 7: 02/10/24 07:39 02/10/24 07:39 Labs: Abnormal Lab Results - Last 24 Hours (Table) 02/10/24 02/10/24 Range/Units 07:39 07:39 WBC 22.6 H (3.8-10.6) k/uL MCHC 29.6 L (31.0-37.0) g/dL RDW 23.9 H (11.5-15.5) % Plt Count 564 H (150-450) k/uL Neutrophils # 21.4 H (1.3-7.7) k/uL Lymphocytes # 0.3 L (1.0-4.8) k/uL Macrocytosis Marked A Sodium 146 H (137-145) mmol/L Chloride 113 H (98-107) mmol/L BUN 33 H (7-17) mg/dL Glucose 126 H (74-99) mg/dL Calcium 8.3 L (8.4-10.2) mg/dL Total Protein 6.0 L (6.3-8.2) g/dL Albumin 2.9 L (3.5-5.0) g/dL Microbiology - Last 24 Hours (Table) 02/08/24 13:08 Urine Culture - Final Urine,Clean Catch Escherichia coli 02/08/24 15:55 Blood Culture Gram Stain - Preliminary Blood Blood Culture - Preliminary Escherichia coli 02/08/24 16:10 Blood Culture Gram Stain - Preliminary Blood Blood Culture - Preliminary Escherichia coli Molecular ID Assessment and Plan Assessment: CT scan shows an 11 x 16 mm left renal pelvic calculus. There is evidence of left hydronephrosis, though the upper pole calyceal dilation is not due to the renal pelvic calculus. Blood cultures show E. coli, sensitivities pending. Urine culture shows pansensitive E. coli. (1) Acute pyelonephritis Current Visit: Yes Status: Acute Priority: High Code(s): N10 - ACUTE PYELONEPHRITIS SNOMED Code(s): 17424520 (2) Calculus of kidney Current Visit: Yes Status: Acute Priority: High Code(s): N20.0 - CALCULUS OF KIDNEY SNOMED Code(s): 65538390 (3) Hydronephrosis with renal and ureteral calculous obstruction Current Visit: Yes Status: Acute Code(s): N13.2 - HYDRONEPHROSIS WITH RENAL AND URETERAL CALCULOUS OBSTRUCTION SNOMED Code(s): 340261825 Plan: The patient underwent successful left ureteral stent insertion. She was found to have narrowing of the left proximal ureter. 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 The proximal end of the ureteral stent is curled within a midpole calyx, but is not draining the upper pole calyces. The patient is receiving ceftriaxone and is clinically much improved. She is urologically stable for discharge, and will follow-up with me in approximately 3 weeks. At that time, it will be confirmed that her UTI has resolved, and we will discuss management of her renal calculus. We did discuss it this morning and I have advised her to undergo ureteroscopy with laser lithotripsy. At that time, an attempt will be made to also dilate the narrowed upper pole infundibulum.
[2024-02-11 09:27] LABS: Anisocytosis Moderate; Basophils % (A) 0 %; Eosinophils # (A) 0.1 k/uL (0-0.7); Eosinophils % (A) 1 %; HCT 39.4 % (34.0-46.0); HGB 11.7 gm/dL (11.4-16.0); Hypochromasia Moderate; Lymphocytes # (A) 0.4 k/uL (1.0-4.8); Lymphocytes % (A) 2 %; MCH 28.5 pg (25.0-35.0); MCHC 29.6 g/dL (31.0-37.0); MCV 96.5 fL (80.0-100.0); Macrocytosis Moderate; Mean Platelet Volume 8.2; Monocytes # (A) 0.9 k/uL (0-1.0); Monocytes % (A) 4 %; Neutrophils # (A) 19.1 k/uL (1.3-7.7); Neutrophils % (A) 92 %; Platelet Count 673 k/uL (150-450); RBC 4.09 m/uL (3.80-5.40); RDW 23.7 % (11.5-15.5); WBC 20.7 k/uL (3.8-10.6)
[2024-02-11 09:35] LABS: ALT 28 U/L (4-34); AST 21 U/L (14-36); African American GFR (CKD) >90 (>60 ml/min/1.73 sqM); Albumin 2.9 g/dL (3.5-5.0); Alkaline Phosphatase 95 U/L (38-126); Anion Gap 4 mmol/L; Blood Urea Nitrogen 27 mg/dL (7-17); Calcium 8.7 mg/dL (8.4-10.2); Carbon Dioxide 30 mmol/L (22-30); Chloride 111 mmol/L (98-107); Glucose 198 mg/dL (74-99); Non-African American GFR(CKD) 80 (>60 ml/min/1.73 sqM); Potassium 4.2 mmol/L (3.5-5.1); Sodium 145 mmol/L (137-145); Total Bilirubin 0.4 mg/dL (0.2-1.3); Total Protein 5.9 g/dL (6.3-8.2)
--- NOTE | 2024-02-11 11:31 | CDI ---
Documentation Clarification Form Date: 02/11/2024 10:50:45 AM From: Tiarra Zimmer RN, CCDS Phone: [phone] Admit Date: 02/08/2024 07:17:00 PM Patient Name: Adelaide Mays Visit Number: [id number] Discharge Date: ATTENTION: The Clinical Documentation Specialists (CDI) and [facility] Coding Staff appreciate your assistance in clarifying documentation. Please respond to the clarification below the line at the bottom and electronically sign. The CDI & [facility] Coding staff will review the response and follow-up if needed. Please note: Queries are made part of the Legal Health Record. If you have any questions, please contact the author of this message via ITS. Dr. Holger Mccrary The patient has sepsis documentation in the ED assessment and the ID Consult and ongoing progress notes. Based on this information and the findings below, is there an additional diagnosis that is clinically appropriate for this patient? History/Risk Factors: Hyperlipidemia, Hypertension, Myocardial Infarction, Hyperlipidemia, Hypertension, Myocardial Infarction Clinical Indicators: 83-year-old female who presents to the ED for weakness. She has a hx of UTIs in the past and has a left renal calculus for a couple of years, and states that she intermittently experiences left flank discomfort. 02/07:CT abdomen/pelvis: 11 x16 left renal pelvis calculus. There is evidence of left hydronephrosis, though it is not obviously due to the renal pelvis calculus. ID Consult: patient is hospital with sepsis in this patient who did have a low- grade fever elevated white count source is complicated UTI in this patient with evidence of left-sided hydronephrosis status post cystoscopy and left ureteral stent placement. patient with gram-negative bacteremia source is likely complicated UTI. VS: 100/65 120 20 99.1 97% RA, 96/59 121 98.3 95% 2/l WBC 35.1, Neutrophils 34.30 (manual) Lactic acid: 1.8 Blood cultures: Escherichia coli UA: Ur Large Leukocyte Esterase, WBC >182 Urine culture Final Escherichia coli Treatment: Cardiac/Telemetry Monitoring Rocephin 2 GM IVPB Q 24 02/07-02/10 IV Bolus: .9 NS 1,000 ML X 3 Is there an additional diagnosis that is clinically appropriate for this patient? [ x ] Sepsis, due to E coli UTI, present on admission [ ] No additional diagnosis/not clinically significant [ ] Other, please specify [ ] Unable to determine SIRS Criteria: 2 or more of the following may indicate SIRS Temperature < 96.8F (36C) or > 101.0F (38.3C) Heart Rate > 90 bpm Respiratory Rate > 20 breaths/min or PaCO2 < 32 mmHg White Blood Cell Count > 12,000 or < 4,000 cells/mm3 or > 10% bands (Template Last Reviewed: September 2022) MTDD
--- NOTE | 2024-02-11 12:54 | P.PN ---
Subjective Progress Note Date: 02/11/24 In follow-up today patient is resting comfortably in bedside chair. No acute events. Patient reports improvement in symptoms. Denies pain and shortness of breath. Leukocytosis slowly improving, WBC 20.7 today. Hemoglobin 11.7. Platelets 673. Brain MRI showed no suspicious changes to suggest metastatic disease. Objective - Vital Signs Vital signs: Vital Signs Temp 98.2 F 02/11/24 09:20 Pulse 84 02/11/24 09:20 Resp 16 02/11/24 09:20 BP 140/65 02/11/24 09:20 Pulse Ox 96 02/11/24 09:20 FiO2 Intake & Output 02/10/24 02/11/24 02/11/24 18:59 06:59 18:59 Intake Total 118 218 Output Total 700 400 Balance -582 -400 218 Intake: Intake, IV Titration 100 Amount cefTRIAXone 2 gm In 100 Sodium Chloride 0.9% 50 ml @ 100 mls/hr IVPB Q24HR [facility] Rx#:[id number] Oral 118 118 Output: Urine 700 400 Other: Voiding Method Indwelling Catheter Indwelling Catheter Indwelling Catheter - Constitutional General appearance: Present: average body habitus, no acute distress - EENT Eyes: Present: anicteric sclerae ENT: Present: hearing grossly normal - Respiratory Details: breathing is even and unlabored - Cardiovascular Details: well perfused - Integumentary Integumentary: Absent: cyanotic - Musculoskeletal Musculoskeletal: Present: strength equal bilaterally - Psychiatric Psychiatric: Present: A&O x's 3 - Labs CBC & Chem 7: 02/11/24 08:49 02/11/24 08:49 Labs: Abnormal Lab Results - Last 24 Hours (Table) 02/11/24 02/11/24 Range/Units 08:49 08:49 WBC 20.7 H (3.8-10.6) k/uL MCHC 29.6 L (31.0-37.0) g/dL RDW 23.7 H (11.5-15.5) % Plt Count 673 H (150-450) k/uL Neutrophils # 19.1 H (1.3-7.7) k/uL Lymphocytes # 0.4 L (1.0-4.8) k/uL Chloride 111 H (98-107) mmol/L BUN 27 H (7-17) mg/dL Glucose 198 H (74-99) mg/dL Total Protein 5.9 L (6.3-8.2) g/dL Albumin 2.9 L (3.5-5.0) g/dL Microbiology - Last 24 Hours (Table) 02/08/24 13:08 Urine Culture - Final Urine,Clean Catch Escherichia coli 02/08/24 15:55 Blood Culture Gram Stain - Preliminary Blood Blood Culture - Preliminary Escherichia coli 02/08/24 16:10 Blood Culture Gram Stain - Preliminary Blood Blood Culture - Preliminary Escherichia coli Molecular ID - Imaging and Cardiology MRI - head: report reviewed Assessment and Plan (1) Non-small cell lung cancer Current Visit: No Status: Acute Priority: Medium Code(s): C34.90 - MALIGNANT NEOPLASM OF UNSP PART OF UNSP BRONCHUS OR LUNG SNOMED Code(s): 493580596 (2) Acute pyelonephritis Current Visit: Yes Status: Acute Priority: High Code(s): N10 - ACUTE PYELONEPHRITIS SNOMED Code(s): 67285099 (3) Calculus of kidney Current Visit: Yes Status: Acute Priority: High Code(s): N20.0 - CALCULUS OF KIDNEY SNOMED Code(s): 27162527 (4) E coli bacteremia Current Visit: Yes Status: Acute Priority: High Code(s): R78.81 - BACTEREMIA; B96.20 - UNSP ESCHERICHIA COLI THE CAUSE OF DISEASES CLASSD [facility] SNOMED Code(s): 323460631888 (5) UTI (urinary tract infection) Current Visit: Yes Status: Acute Priority: High Code(s): N39.0 - URINARY TRACT INFECTION, SITE NOT SPECIFIED SNOMED Code(s): 50534106 Plan: Bacteremia, UTI: -Blood and urine culture positive for e. coli -Continues on IV abx -Leukocytosis slowly improving, WBC 20.7 today -Defer management to ID and IM teams Metastatic NSCLC: -Full oncological history in [facility] -Completed palliative XRT to [facility] lung mass due to significant pain, related to involvement neural foramina. -She started tabrectinib on 01/30/2024. On f/u she was tolerating it well, and her left shoulder pain is much better s/p RT -Tabrectinib will be held until she acutely recovers -Interval progression of malignancy noted on CTA chest would not be considered treatment failure as she has only been on regimen for 1 week -MRI brain showed no suspicious changes to suggest metastatic disease. Reviewed imaging results with patient -Clinic f/u scheduled on 02/17, will ensure infection has been adequately treated prior to resuming treatment
[2024-02-11] MEDS: IBUPROFEN 800 MG TAB PO PRN (13:30)
--- NOTE | 2024-02-11 14:25 | P.PN ---
Subjective Progress Note Date: 02/11/24 83-year-old lady with past medical history significant for hypertension, hyperlipidemia and memory impairment, coronary artery disease history of CABG in 2018, lung cancer who presented to the ER for evaluation for weakness. Patient has been feeling weak for the last 2 days, patient has been having poor a ppetite. Patient is complaining of nausea and unable to keep anything down. Patient also complaining abdominal pain. There is no complaint of blood in the stools. Patient is complaining of constipation. Denies any fever or chills. There is no complaint of chest pain or shortness of breath. Because of the symptoms, patient was in the ER Initial lab work done in the ER showed WBC 35.1, hemoglobin 12.9, platelet count 609, sodium 139, potassium 3.9, BUN 34, creatinine 1, glucose 203, plasma lactate 1.8, troponin 0.05 total protein 6.6, albumin 3.2 UA done showed leukocyte Estrace large amount, urine nitrite negative, urine WBC greater than 182 CTA chest done showed no evidence of PE, enlarged pulmonary trunk can be seen with pulmonary hypertension. Slightly interval progression of malignancy in the left upper lobe with bridging soft tissue CT abdominal pelvis done showed increased intrahepatic and extrahepatic biliary dilatation which extends to the ampulla. Right adrenal metastasis new since 07/13/22. Left 15.5 x 11 mm calculus within the left renal pelvis with abnormally dilated calyces throughout the left kidney EKG done in the ER showed heart rate of 151, no P waves irregular in rate and rhythm, no ST segment elevation or depression seen, no T-wave inversions seen. Chest x-ray done in the ER Patient admitted to internal medicine service 02/09. Patient seen and examined. Patient underwent cystoscopy with left retrograde pyelogram and left ureteral stent placement on 02/08. Initial lab work done today showed WBC 22.6 hemoglobin 1, platelet count 564, sodium 146, potassium 3.7, BUN 33, creatinine 0.82. States she is feeling much better. Denies any abdominal pain. . Patient seen and examined. Vital signs stable. Patient continues to be afebrile. Labs done this morning showed WBC 20.7, hemoglobin 11.7, sodium 145, potassium 4.2, BUN 27, creatinine 0.69. 2D echo done showed LVEF 50 to 55%, mildly decreased left ventricular ejection fraction, no obvious regional wall motion normalities REVIEW OF SYSTEMS: CONSTITUTIONAL: No fever, no malaise,. CARDIOVASCULAR: No chest pain, no palpitations, no syncope. PULMONARY: No shortness of breath, no cough, GASTROINTESTINAL: No diarrhea, no nausea, no vomiting, no abdominal pain. NEUROLOGICAL: No headaches, no weakness, PHYSICAL EXAMINATION: GENERAL: The patient is alert and oriented x3, not in any acute distress. Well developed, well nourished. HEENT: Pupils are round and equally reacting to light. EOMI. No scleral icterus. No conjunctival pallor. Normocephalic, atraumatic. No pharyngeal erythema. No thyromegaly. CARDIOVASCULAR: S1 and S2 present. No murmurs, rubs, or gallops. PULMONARY: Chest is clear to auscultation, no wheezing or crackles. ABDOMEN: Soft, nontender, nondistended, normoactive bowel sounds. No palpable organomegaly. MUSCULOSKELETAL: No joint swelling or deformity. EXTREMITIES: No cyanosis, clubbing, or pedal edema. NEUROLOGICAL: Gross neurological examination did not reveal any focal deficits. SKIN: No rashes. Assessment and plan A-fib with RVR UTI Pyelonephritis Left renal stone with left hydronephrosis Bacteremia History of metastatic lung cancer Coronary artery disease history of CABG in 2018 Hyperlipidemia Hypertension Memory impairment Monitor vital signs Monitor CBC Monitor CMP Continue telemetry monitoring Follow-up on blood cultures Follow-up on urine culture S/p cystoscopy with left retrograde pyelogram and left ureteral stent placement on 02/08 continue IV Rocephin 2D echo done showed LVEF 50 to 55%, mildly decreased left ventricular ejection fraction, no obvious regional wall motion normalities Continue Toprol Cardiology following Urology following ID following oncology following, recommended continuation of palliative radiation therapy for lung mass. Labs and medication were reviewed.. Continue same treatment. Continue with symptomatic treatment. Resume home medication. Monitor labs and vitals. DVT and GI prophylaxis. Further recommendations as per clinical course of the patient Dictation was produced using [employer] dictation software. please excuse any grammatical, word or spelling errors. Objective - Vital Signs Vital signs: Vital Signs Temp 98.1 F 02/11/24 12:52 Pulse 72 02/11/24 12:52 Resp 16 02/11/24 12:52 BP 154/75 02/11/24 12:52 Pulse Ox 99 02/11/24 12:52 FiO2 Intake & Output 02/10/24 02/11/24 02/11/24 18:59 06:59 18:59 Intake Total 118 218 Output Total 700 400 Balance -582 -400 218 Intake: Intake, IV Titration 100 Amount cefTRIAXone 2 gm In 100 Sodium Chloride 0.9% 50 ml @ 100 mls/hr IVPB Q24HR [facility] Rx#:[id number] Oral 118 118 Output: Urine 700 400 Other: Voiding Method Indwelling Catheter Indwelling Catheter Indwelling Catheter - Labs CBC & Chem 7: 02/11/24 08:49 02/11/24 08:49 Labs: Abnormal Lab Results - Last 24 Hours (Table) 02/11/24 02/11/24 Range/Units 08:49 08:49 WBC 20.7 H (3.8-10.6) k/uL MCHC 29.6 L (31.0-37.0) g/dL RDW 23.7 H (11.5-15.5) % Plt Count 673 H (150-450) k/uL Neutrophils # 19.1 H (1.3-7.7) k/uL Lymphocytes # 0.4 L (1.0-4.8) k/uL Chloride 111 H (98-107) mmol/L BUN 27 H (7-17) mg/dL Glucose 198 H (74-99) mg/dL Total Protein 5.9 L (6.3-8.2) g/dL Albumin 2.9 L (3.5-5.0) g/dL Microbiology - Last 24 Hours (Table) 02/08/24 15:55 Blood Culture Gram Stain - Final Blood Blood Culture - Final Escherichia coli 02/08/24 16:10 Blood Culture Gram Stain - Final Blood Blood Culture - Final Escherichia coli Molecular ID 02/08/24 13:08 Urine Culture - Final Urine,Clean Catch Escherichia coli
[2024-02-12 08:26] LABS: HCT 35.2 % (37.2-46.3); MCH 29.4 pg (27.0-32.0); MCHC 31.3 g/dL (32.0-37.0); MCV 94.1 FL (80.0-97.0); Mean Platelet Volume 10.5 FL (9.5-12.2); NRBC Per 100 WBC 0 X 10*3/uL (0.00-0.01); Platelet Count 515 X 10*3/uL (140-440); RBC 3.74 X 10*6/uL (4.10-5.20); RDW 27.1 % (11.5-14.5); WBC 14.06 X 10*3/uL (4.50-10.00)
[2024-02-12 09:05] LABS: ALT 27 U/L (8-44); AST 16 U/L (13-35); Albumin/Globulin Ratio 1.07 Ratio (1.60-3.17); Alkaline Phosphatase 86 U/L (41-126); Anisocytosis (M) 2+; Basophils # (A) 0.04 X 10*3/uL (0.00-0.10); Basophils % (A) 0.3 %; Blood Urea Nitrogen 21.7 mg/dL (9.0-27.0); Calcium 8.5 mg/dL (8.7-10.3); Carbon Dioxide 28.3 mmol/L (21.6-31.8); Chloride 106 mmol/L (96-109); Elliptocytes 2+; Eosinophils # (A) 0.13 X 10*3/uL (0.04-0.35); Eosinophils % (A) 0.9 %; Globulin 2.8 g/dL (1.6-3.3); Glucose 126 mg/dL (70-110); Lymphocytes # (A) 0.74 X 10*3/uL (0.90-5.00); Lymphocytes % (A) 5.3 %; Monocytes # (A) 0.86 X 10*3/uL (0.20-1.00); Monocytes % (A) 6.1 %; Neutrophils # (A) 12.01 X 10*3/uL (1.80-7.70); Neutrophils % (A) 85.4 %; Potassium 4.2 mmol/L (3.5-5.5); Sodium 145 mmol/L (135-145); Total Bilirubin 0.3 mg/dL (0.3-1.2); Total Protein 5.8 g/dL (6.2-8.2)
--- NOTE | 2024-02-12 10:21 | P.PN ---
Subjective Progress Note Date: 02/12/24 Principal diagnosis: The patient underwent left ureteral stent insertion on February 09, 2024. 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 However, the remainder of the kidney should be adequately drained. She has a large renal pelvic calculus. The patient underwent cystoscopy with left ureteral stent insertion on February 09, 2024. The upper pole calyces were dilated, apparently due to infundibular stenosis. The ureteral stent could not be placed within the upper pole calyces. She continues to feel better. She reports vague left flank discomfort. Her appetite has improved. Objective - Vital Signs Vital signs: Vital Signs Temp 98.0 F 02/12/24 08:00 Pulse 71 02/12/24 08:00 Resp 16 02/12/24 08:00 BP 147/75 02/12/24 08:00 Pulse Ox 98 02/12/24 09:13 FiO2 Intake & Output 02/11/24 02/12/24 02/12/24 18:59 06:59 18:59 Intake Total 454 Output Total 400 500 Balance 54 -500 Intake: Intake, IV Titration 100 Amount cefTRIAXone 2 gm In 100 Sodium Chloride 0.9% 50 ml @ 100 mls/hr IVPB Q24HR [facility] Rx#:[id number] Oral 354 Output: Urine 400 500 Other: Voiding Method Indwelling Catheter Indwelling Catheter # Bowel Movements 0 - Constitutional General appearance: Present: average body habitus, cooperative, no acute distress - Psychiatric Psychiatric: Present: A&O x's 3 - Labs CBC & Chem 7: 02/12/24 05:55 02/12/24 05:55 Labs: Abnormal Lab Results - Last 24 Hours (Table) 02/12/24 02/12/24 Range/Units 05:55 05:55 WBC 14.06 H (4.50-10.00) X 10*3/uL RBC 3.74 L (4.10-5.20) X 10*6/uL Hgb 11.0 L (12.0-15.0) g/dL Hct 35.2 L (37.2-46.3) % MCHC 31.3 L (32.0-37.0) g/dL RDW 27.1 H (11.5-14.5) % Plt Count 515 H (140-440) X 10*3/uL Immature Gran # 0.28 H (0.00-0.04) X 10*3/uL Neutrophils # 12.01 H (1.80-7.70) X 10*3/uL Lymphocytes # 0.74 L (0.90-5.00) X 10*3/uL Anisocytosis (manual) 2+ A Elliptocytes 2+ A BUN/Creatinine Ratio 31.00 H (12.00-20.00) Ratio Glucose 126 H (70-110) mg/dL Calcium 8.5 L (8.7-10.3) mg/dL Total Protein 5.8 L (6.2-8.2) g/dL Albumin 3.0 L (3.8-4.9) g/dL Albumin/Globulin Ratio 1.07 L (1.60-3.17) Ratio Microbiology - Last 24 Hours (Table) 02/10/24 07:39 Blood Culture - Preliminary Blood 02/08/24 15:55 Blood Culture Gram Stain - Final Blood Blood Culture - Final Escherichia coli 02/08/24 16:10 Blood Culture Gram Stain - Final Blood Blood Culture - Final Escherichia coli Molecular ID Assessment and Plan (1) Acute pyelonephritis Current Visit: Yes Status: Acute Priority: High Code(s): N10 - ACUTE PYELONEPHRITIS SNOMED Code(s): 99227331 (2) Calculus of kidney Current Visit: Yes Status: Acute Priority: High Code(s): N20.0 - CALCULUS OF KIDNEY SNOMED Code(s): 59742837 (3) Hydronephrosis with renal and ureteral calculous obstruction Current Visit: Yes Status: Acute Code(s): N13.2 - HYDRONEPHROSIS WITH RENAL AND URETERAL CALCULOUS OBSTRUCTION SNOMED Code(s): 252313811 Plan: The patient underwent successful left ureteral stent insertion. She was found to have narrowing of the left proximal ureter. 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 The proximal end of the ureteral stent is curled within a midpole calyx, but is not draining the upper pole calyces. The patient is receiving ceftriaxone and is clinically much impr callie. She is urologically stable for discharge, and has elected to undergo ureteroscopic removal of her left renal calculus. Arrangements will be made to perform this as an outpatient. At that time, an attempt will be made to also dilate the narrowed upper pole infundibulum.
--- NOTE | 2024-02-12 13:33 | P.PN ---
Subjective Progress Note Date: 02/12/24 83-year-old lady with past medical history significant for hypertension, hyperlipidemia and memory impairment, coronary artery disease history of CABG in 2018, lung cancer who presented to the ER for evaluation for weakness. Patient has been feeling weak for the last 2 days, patient has been having poor a ppetite. Patient is complaining of nausea and unable to keep anything down. Patient also complaining abdominal pain. There is no complaint of blood in the stools. Patient is complaining of constipation. Denies any fever or chills. There is no complaint of chest pain or shortness of breath. Because of the symptoms, patient was in the ER Initial lab work done in the ER showed WBC 35.1, hemoglobin 12.9, platelet count 609, sodium 139, potassium 3.9, BUN 34, creatinine 1, glucose 203, plasma lactate 1.8, troponin 0.05 total protein 6.6, albumin 3.2 UA done showed leukocyte Estrace large amount, urine nitrite negative, urine WBC greater than 182 CTA chest done showed no evidence of PE, enlarged pulmonary trunk can be seen with pulmonary hypertension. Slightly interval progression of malignancy in the left upper lobe with bridging soft tissue CT abdominal pelvis done showed increased intrahepatic and extrahepatic biliary dilatation which extends to the ampulla. Right adrenal metastasis new since 07/13/22. Left 15.5 x 11 mm calculus within the left renal pelvis with abnormally dilated calyces throughout the left kidney EKG done in the ER showed heart rate of 151, no P waves irregular in rate and rhythm, no ST segment elevation or depression seen, no T-wave inversions seen. Chest x-ray done in the ER Patient admitted to internal medicine service 02/09. Patient seen and examined. Patient underwent cystoscopy with left retrograde pyelogram and left ureteral stent placement on 02/08. Initial lab work done today showed WBC 22.6 hemoglobin 1, platelet count 564, sodium 146, potassium 3.7, BUN 33, creatinine 0.82. States she is feeling much better. Denies any abdominal pain. . Patient seen and examined. Vital signs stable. Patient continues to be afebrile. Labs done this morning showed WBC 20.7, hemoglobin 11.7, sodium 145, potassium 4.2, BUN 27, creatinine 0.69. 2D echo done showed LVEF 50 to 55%, mildly decreased left ventricular ejection fraction, no obvious regional wall motion normalities 02/11. Patient seen and examined. Sitting comfortably in the bed. Still has leukocytosis. Denies any blood in the urine. REVIEW OF SYSTEMS: CONSTITUTIONAL: No fever, no malaise,. CARDIOVASCULAR: No chest pain, no palpitations, no syncope. PULMONARY: No shortness of breath, no cough, GASTROINTESTINAL: No diarrhea, no nausea, no vomiting, no abdominal pain. NEUROLOGICAL: No headaches, no weakness, PHYSICAL EXAMINATION: GENERAL: The patient is alert and oriented x3, not in any acute distress. Well developed, well nourished. HEENT: Pupils are round and equally reacting to light. EOMI. No scleral icterus. No conjunctival pallor. Normocephalic, atraumatic. No pharyngeal erythema. No thyromegaly. CARDIOVASCULAR: S1 and S2 present. No murmurs, rubs, or gallops. PULMONARY: Chest is clear to auscultation, no wheezing or crackles. ABDOMEN: Soft, nontender, nondistended, normoactive bowel sounds. No palpable organomegaly. MUSCULOSKELETAL: No joint swelling or deformity. EXTREMITIES: No cyanosis, clubbing, or pedal edema. NEUROLOGICAL: Gross neurological examination did not reveal any focal deficits. SKIN: No rashes. Assessment and plan A-fib with RVR UTI Pyelonephritis Left renal stone with left hydronephrosis Bacteremia History of metastatic lung cancer Coronary artery disease history of CABG in 2018 Hyperlipidemia Hypertension Memory impairment Monitor vital signs Monitor CBC Monitor CMP Continue telemetry monitoring Follow-up on blood cultures Follow-up on urine culture S/p cystoscopy with left retrograde pyelogram and left ureteral stent placement on 02/08 continue IV Rocephin 2D echo done showed LVEF 50 to 55%, mildly decreased left ventricular ejection fraction, no obvious regional wall motion normalities Continue Toprol Cardiology following Urology following ID following oncology following, recommended continuation of palliative radiation therapy for lung mass. Labs and medication were reviewed.. Continue same treatment. Continue with symptomatic treatment. Resume home medication. Monitor labs and vitals. DVT and GI prophylaxis. Further recommendations as per clinical course of the patient Dictation was produced using [employer] dictation software. please excuse any grammatical, word or spelling errors. Objective - Vital Signs Vital signs: Vital Signs Temp 98.0 F 02/12/24 08:00 Pulse 71 02/12/24 08:00 Resp 16 02/12/24 08:00 BP 147/75 02/12/24 08:00 Pulse Ox 98 02/12/24 09:13 FiO2 Intake & Output 02/11/24 02/12/24 02/12/24 18:59 06:59 18:59 Intake Total 454 Output Total 400 500 Balance 54 -500 Intake: Intake, IV Titration 100 Amount cefTRIAXone 2 gm In 100 Sodium Chloride 0.9% 50 ml @ 100 mls/hr IVPB Q24HR [facility] Rx#:[id number] Oral 354 Output: Urine 400 500 Other: Voiding Method Indwelling Catheter Indwelling Catheter # Bowel Movements 0 - Labs CBC & Chem 7: 02/12/24 05:55 02/12/24 05:55 Labs: Abnormal Lab Results - Last 24 Hours (Table) 02/12/24 02/12/24 Range/Units 05:55 05:55 WBC 14.06 H (4.50-10.00) X 10*3/uL RBC 3.74 L (4.10-5.20) X 10*6/uL Hgb 11.0 L (12.0-15.0) g/dL Hct 35.2 L (37.2-46.3) % MCHC 31.3 L (32.0-37.0) g/dL RDW 27.1 H (11.5-14.5) % Plt Count 515 H (140-440) X 10*3/uL Immature Gran # 0.28 H (0.00-0.04) X 10*3/uL Neutrophils # 12.01 H (1.80-7.70) X 10*3/uL Lymphocytes # 0.74 L (0.90-5.00) X 10*3/uL Anisocytosis (manual) 2+ A Elliptocytes 2+ A BUN/Creatinine Ratio 31.00 H (12.00-20.00) Ratio Glucose 126 H (70-110) mg/dL Calcium 8.5 L (8.7-10.3) mg/dL Total Protein 5.8 L (6.2-8.2) g/dL Albumin 3.0 L (3.8-4.9) g/dL Albumin/Globulin Ratio 1.07 L (1.60-3.17) Ratio Microbiology - Last 24 Hours (Table) 02/10/24 07:39 Blood Culture - Preliminary Blood 02/08/24 15:55 Blood Culture Gram Stain - Final Blood Blood Culture - Final Escherichia coli 02/08/24 16:10 Blood Culture Gram Stain - Final Blood Blood Culture - Final Escherichia coli Molecular ID
--- NOTE | 2024-02-12 15:14 | P.PN ---
Subjective Progress Note Date: 02/11/24 Principal diagnosis: Reason for follow-up is E. coli UTI and bacteremia Patient is a 83-year-old female with a past medical history significant for hypertension hyperlipidemia SD history of uterine and lung cancer as well as kidney stone, patient has been brought into the hospital for evaluation of weakness, patient has been diagnosed with sepsis related to complicated UTI status post cystoscopy with left ureteral stent placement. On today's evaluation that is 02/11/2024,the patient denies any fever or any chills, patient is breathing comfortably on 2 L nasal cannula oxygen, the patient denies chest pain shortness of breath and no significant cough, patient denies abdominal pain, no nausea vomiting or diarrhea. No new symptoms. Patient white count is down to 20.7, creatinine 0.6 9 repeat blood culture 4 negative blood and urine is E. coli that is a sensitive pathogen Objective - Vital Signs Vital signs: Vital Signs Temp 98.1 F 02/11/24 12:52 Pulse 72 02/11/24 12:52 Resp 16 02/11/24 12:52 BP 154/75 02/11/24 12:52 Pulse Ox 99 02/11/24 12:52 FiO2 Intake & Output 02/10/24 02/11/24 02/11/24 18:59 06:59 18:59 Intake Total 118 218 Output Total 700 400 Balance -582 -400 218 Intake: Intake, IV Titration 100 Amount cefTRIAXone 2 gm In 100 Sodium Chloride 0.9% 50 ml @ 100 mls/hr IVPB Q24HR [facility] Rx#:[id number] Oral 118 118 Output: Urine 700 400 Other: Voiding Method Indwelling Catheter Indwelling Catheter Indwelling Catheter - Exam GENERAL DESCRIPTION: An elderly female lying in bed in no distress RESPIRATORY SYSTEM: Unlabored breathing , decreased breath sounds at bases HEART: S1 S2 regular rate and rhythm , ABDOMEN: Soft , no tenderness EXTREMITIES: No edema feet - Labs CBC & Chem 7: 02/12/24 05:55 02/12/24 05:55 Labs: Abnormal Lab Results - Last 24 Hours (Table) 02/11/24 02/11/24 Range/Units 08:49 08:49 WBC 20.7 H (3.8-10.6) k/uL MCHC 29.6 L (31.0-37.0) g/dL RDW 23.7 H (11.5-15.5) % Plt Count 673 H (150-450) k/uL Neutrophils # 19.1 H (1.3-7.7) k/uL Lymphocytes # 0.4 L (1.0-4.8) k/uL Chloride 111 H (98-107) mmol/L BUN 27 H (7-17) mg/dL Glucose 198 H (74-99) mg/dL Total Protein 5.9 L (6.3-8.2) g/dL Albumin 2.9 L (3.5-5.0) g/dL Microbiology - Last 24 Hours (Table) 02/10/24 07:39 Blood Culture - Preliminary Blood 02/08/24 15:55 Blood Culture Gram Stain - Final Blood Blood Culture - Final Escherichia coli 02/08/24 16:10 Blood Culture Gram Stain - Final Blood Blood Culture - Final Escherichia coli Molecular ID 02/08/24 13:08 Urine Culture - Final Urine,Clean Catch Escherichia coli Assessment and Plan (1) E coli bacteremia Current Visit: Yes Status: Acute Priority: High Code(s): R78.81 - BACTEREMIA; B96.20 - UNSP ESCHERICHIA COLI THE CAUSE OF DISEASES CLASSD [facility] SNOMED Code(s): 096692049161 (2) Penicillin allergy Current Visit: Yes Status: Acute Code(s): Z88.0 - ALLERGY STATUS TO PENICILLIN SNOMED Code(s): 19038039 (3) Acute pyelonephritis Current Visit: Yes Status: Acute Priority: High Code(s): N10 - ACUTE PYELONEPHRITIS SNOMED Code(s): 58196884 (4) UTI (urinary tract infection) Current Visit: Yes Status: Acute Priority: High Code(s): N39.0 - URINARY TRACT INFECTION, SITE NOT SPECIFIED SNOMED Code(s): 25896200 Plan: 1patient presented to hospital with sepsis in this patient who did have a low- grade fever elevated white count source is complicated UTI in this patient with evidence of left-sided hydronephrosis status post cystoscopy and left ureteral stent placement. 2patient with E. coli bacteremia source is likely complicated UTI. 3patient with a penicillin allergy that will limit the number of antibiotics safe to use 4patient is afebrile white count is trending down still elevated and will be monitored closely repeat blood culture so far negative continue with Rocephin and repeat CBC with a.m. lab Dictation was produced using [employer] dictation software. please excuse any grammatical, word or spelling errors. Time with Patient: Less than 30
--- NOTE | 2024-02-12 15:14 | P.PN ---
Subjective Progress Note Date: 02/12/24 Principal diagnosis: Reason for follow-up is E. coli UTI and bacteremia Patient is a 83-year-old female with a past medical history significant for hypertension hyperlipidemia [place] history of uterine and lung cancer as well as kidney stone, patient has been brought into the hospital for evaluation of weakness, patient has been diagnosed with sepsis related to complicated UTI status post cystoscopy with left ureteral stent placement. On today's evaluation that is 02/12/2024,the patient remains to be afebrile, patient is on 2 L nasal cannula supplemental oxygen and denies any shortness of breath no chest pain or cough.Patient denies having any nausea or vomiting, no abdominal pain and no diarrhea has been reported, patient mention feeling better no new symptoms. Patient white count is down to 14.06, creatinine 0.7 Objective - Vital Signs Vital signs: Vital Signs Temp 98.3 F 02/12/24 15:04 Pulse 95 02/12/24 15:04 Resp 16 02/12/24 15:04 BP 132/74 02/12/24 15:04 Pulse Ox 95 02/12/24 15:04 FiO2 Intake & Output 02/11/24 02/12/24 02/12/24 18:59 06:59 18:59 Intake Total 454 236 Output Total 400 500 Balance 54 -500 236 Intake: Intake, IV Titration 100 Amount cefTRIAXone 2 gm In 100 Sodium Chloride 0.9% 50 ml @ 100 mls/hr IVPB Q24HR [facility] Rx#:[id number] Oral 354 236 Output: Urine 400 500 Other: Voiding Method Indwelling Catheter Indwelling Catheter # Bowel Movements 0 - Exam GENERAL DESCRIPTION: An elderly female lying in bed in no distress RESPIRATORY SYSTEM: Unlabored breathing , decreased breath sounds at bases HEART: S1 S2 regular rate and rhythm , ABDOMEN: Soft , no tenderness EXTREMITIES: No edema feet - Labs CBC & Chem 7: 02/12/24 05:55 02/12/24 05:55 Labs: Abnormal Lab Results - Last 24 Hours (Table) 02/12/24 02/12/24 Range/Units 05:55 05:55 WBC 14.06 H (4.50-10.00) X 10*3/uL RBC 3.74 L (4.10-5.20) X 10*6/uL Hgb 11.0 L (12.0-15.0) g/dL Hct 35.2 L (37.2-46.3) % MCHC 31.3 L (32.0-37.0) g/dL RDW 27.1 H (11.5-14.5) % Plt Count 515 H (140-440) X 10*3/uL Immature Gran # 0.28 H (0.00-0.04) X 10*3/uL Neutrophils # 12.01 H (1.80-7.70) X 10*3/uL Lymphocytes # 0.74 L (0.90-5.00) X 10*3/uL Anisocytosis (manual) 2+ A Elliptocytes 2+ A BUN/Creatinine Ratio 31.00 H (12.00-20.00) Ratio Glucose 126 H (70-110) mg/dL Calcium 8.5 L (8.7-10.3) mg/dL Total Protein 5.8 L (6.2-8.2) g/dL Albumin 3.0 L (3.8-4.9) g/dL Albumin/Globulin Ratio 1.07 L (1.60-3.17) Ratio Microbiology - Last 24 Hours (Table) 02/10/24 07:39 Blood Culture - Preliminary Blood 02/08/24 15:55 Blood Culture Gram Stain - Final Blood Blood Culture - Final Escherichia coli 02/08/24 16:10 Blood Culture Gram Stain - Final Blood Blood Culture - Final Escherichia coli Molecular ID Assessment and Plan (1) E coli bacteremia Current Visit: Yes Status: Acute Priority: High Code(s): R78.81 - BACTEREMIA; B96.20 - UNSP ESCHERICHIA COLI THE CAUSE OF DISEASES [facility] SNOMED Code(s): 958003176929 (2) Penicillin allergy Current Visit: Yes Status: Acute Code(s): Z88.0 - ALLERGY STATUS TO PENICILLIN SNOMED Code(s): 05970537 (3) Acute pyelonephritis Current Visit: Yes Status: Acute Priority: High Code(s): N10 - ACUTE PYELONEPHRITIS SNOMED Code(s): 88961891 (4) UTI (urinary tract infection) Current Visit: Yes Status: Acute Priority: High Code(s): N39.0 - URINARY TRACT INFECTION, SITE NOT SPECIFIED SNOMED Code(s): 01271583 Plan: 1patient presented to hospital with sepsis in this patient who did have a low- grade fever elevated white count source is complicated UTI in this patient with evidence of left-sided hydronephrosis status post cystoscopy and left ureteral stent placement. 2patient with E. coli bacteremia source is likely complicated UTI. 3patient with a penicillin allergy that will limit the number of antibiotics safe to use 4patient is afebrile, the patient white count is trending down repeat blood cultures were negative patient to continue with Rocephin and plan to finish therapy with oral Cipro x 10 days on discharge discussed with admitting physician Dictation was produced using [employer] dictation software. please excuse any grammatical, word or spelling errors. Time with Patient: Less than 30
[2024-02-13 12:26] VITALS: BMI 17.6
--- NOTE | 2024-02-13 12:47 | P.PN ---
Subjective Progress Note Date: 02/13/24 83-year-old lady with past medical history significant for hypertension, hyperlipidemia and memory impairment, coronary artery disease history of CABG in 2018, lung cancer who presented to the ER for evaluation for weakness. Patient has been feeling weak for the last 2 days, patient has been having poor a ppetite. Patient is complaining of nausea and unable to keep anything down. Patient also complaining abdominal pain. There is no complaint of blood in the stools. Patient is complaining of constipation. Denies any fever or chills. There is no complaint of chest pain or shortness of breath. Because of the symptoms, patient was in the ER Initial lab work done in the ER showed WBC 35.1, hemoglobin 12.9, platelet count 609, sodium 139, potassium 3.9, BUN 34, creatinine 1, glucose 203, plasma lactate 1.8, troponin 0.05 total protein 6.6, albumin 3.2 UA done showed leukocyte Estrace large amount, urine nitrite negative, urine WBC greater than 182 CTA chest done showed no evidence of PE, enlarged pulmonary trunk can be seen with pulmonary hypertension. Slightly interval progression of malignancy in the left upper lobe with bridging soft tissue CT abdominal pelvis done showed increased intrahepatic and extrahepatic biliary dilatation which extends to the ampulla. Right adrenal metastasis new since 07/13/22. Left 15.5 x 11 mm calculus within the left renal pelvis with abnormally dilated calyces throughout the left kidney EKG done in the ER showed heart rate of 151, no P waves irregular in rate and rhythm, no ST segment elevation or depression seen, no T-wave inversions seen. Chest x-ray done in the ER Patient admitted to internal medicine service 02/09. Patient seen and examined. Patient underwent cystoscopy with left retrograde pyelogram and left ureteral stent placement on 02/08. Initial lab work done today showed WBC 22.6 hemoglobin 1, platelet count 564, sodium 146, potassium 3.7, BUN 33, creatinine 0.82. States she is feeling much better. Denies any abdominal pain. . Patient seen and examined. Vital signs stable. Patient continues to be afebrile. Labs done this morning showed WBC 20.7, hemoglobin 11.7, sodium 145, potassium 4.2, BUN 27, creatinine 0.69. 2D echo done showed LVEF 50 to 55%, mildly decreased left ventricular ejection fraction, no obvious regional wall motion normalities 02/11. Patient seen and examined. Sitting comfortably in the bed. Still has leukocytosis. Denies any blood in the urine. 02/12. Patient seen and examined. Complaining of lethargy and weakness. Vital signs stable REVIEW OF SYSTEMS: CONSTITUTIONAL: No fever, no malaise,. CARDIOVASCULAR: No chest pain, no palpitations, no syncope. PULMONARY: No shortness of breath, no cough, GASTROINTESTINAL: No diarrhea, no nausea, no vomiting, no abdominal pain. NEUROLOGICAL: No headaches, no weakness, PHYSICAL EXAMINATION: GENERAL: The patient is alert and oriented x3, not in any acute distress. Well developed, well nourished. HEENT: Pupils are round and equally reacting to light. EOMI. No scleral icterus. No conjunctival pallor. Normocephalic, atraumatic. No pharyngeal erythema. No thyromegaly. CARDIOVASCULAR: S1 and S2 present. No murmurs, rubs, or gallops. PULMONARY: Chest is clear to auscultation, no wheezing or crackles. ABDOMEN: Soft, nontender, nondistended, normoactive bowel sounds. No palpable organomegaly. MUSCULOSKELETAL: No joint swelling or deformity. EXTREMITIES: No cyanosis, clubbing, or pedal edema. NEUROLOGICAL: Gross neurological examination did not reveal any focal deficits. SKIN: No rashes. Assessment and plan A-fib with RVR UTI Pyelonephritis Left renal stone with left hydronephrosis Bacteremia History of metastatic lung cancer Coronary artery disease history of CABG in 2018 Hyperlipidemia Hypertension Memory impairment Monitor vital signs Monitor CBC Monitor CMP Continue telemetry monitoring Follow-up on blood cultures Follow-up on urine culture S/p cystoscopy with left retrograde pyelogram and left ureteral stent placement on 02/08 continue IV Rocephin, can be switched to oral Cipro at discharge 2D echo done showed LVEF 50 to 55%, mildly decreased left ventricular ejection fraction, no obvious regional wall motion normalities Continue Toprol Cardiology following Urology following ID following oncology following, recommended continuation of palliative radiation therapy for lung mass. Labs and medication were reviewed.. Continue same treatment. Continue with symptomatic treatment. Resume home medication. Monitor labs and vitals. DVT and GI prophylaxis. Further recommendations as per clinical course of the patient Dictation was produced using [employer] software. please excuse any grammatical, word or spelling errors. Objective - Vital Signs Vital signs: Vital Signs Temp 98.1 F 02/13/24 07:30 Pulse 78 02/13/24 07:30 Resp 20 02/13/24 07:30 BP 139/69 02/13/24 07:30 Pulse Ox 95 02/13/24 07:30 FiO2 Intake & Output 02/12/24 02/13/24 02/13/24 18:59 06:59 18:59 Intake Total 476 240 Output Total 1200 1300 Balance -724 -1300 240 Weight 42.3 kg 42.3 kg Intake: Oral 476 240 Output: Urine 1200 1300 Other: Voiding Method Indwelling Catheter - Labs CBC & Chem 7: 02/12/24 05:55 02/12/24 05:55 Labs: Microbiology - Last 24 Hours (Table) 02/10/24 07:39 Blood Culture - Preliminary Blood
[2024-02-13 13:09] LABS: Anisocytosis Moderate; Basophils # (A) 0.1 k/uL (0-0.2); Basophils % (A) 1 %; Eosinophils # (A) 0.3 k/uL (0-0.7); Eosinophils % (A) 2 %; HCT 36.8 % (34.0-46.0); HGB 11.4 gm/dL (11.4-16.0); Hypochromasia Slight; Lymphocytes # (A) 0.8 k/uL (1.0-4.8); Lymphocytes % (A) 5 %; MCH 29.1 pg (25.0-35.0); MCV 93.8 fL (80.0-100.0); Macrocytosis Slight; Mean Platelet Volume 8.1; Monocytes # (A) 0.8 k/uL (0-1.0); Monocytes % (A) 6 %; Neutrophils # (A) 12.6 k/uL (1.3-7.7); Neutrophils % (A) 84 %; Platelet Count 594 k/uL (150-450); RBC 3.92 m/uL (3.80-5.40)
--- NOTE | 2024-02-13 16:25 | P.PN ---
Subjective Progress Note Date: 02/13/24 Principal diagnosis: Reason for follow-up is E. coli UTI and bacteremia Patient is a 83-year-old female with a past medical history significant for hypertension hyperlipidemia [place] history of uterine and lung cancer as well as kidney stone, patient has been brought into the hospital for evaluation of weakness, patient has been diagnosed with sepsis related to complicated UTI status post cystoscopy with left ureteral stent placement. On today's evaluation that is 02/13/2024, the patient continues to be afebrile, the patient is on room air and breathing comfortably, the Pt denies having any chest pain or cough, the patient denies having any abdominal pain no vomiting or any diarrhea has been reported by the nursing staff. Patient white count is 15,000 today creatinine 0.7 Objective - Vital Signs Vital signs: Vital Signs Temp 98.1 F 02/13/24 07:30 Pulse 78 02/13/24 07:30 Resp 20 02/13/24 07:30 BP 139/69 02/13/24 07:30 Pulse Ox 95 02/13/24 07:30 FiO2 Intake & Output 02/12/24 02/13/24 02/13/24 18:59 06:59 18:59 Intake Total 476 240 Output Total 1200 1300 Balance -724 -1300 240 Weight 42.3 kg 42.3 kg Intake: Oral 476 240 Output: Urine 1200 1300 Other: Voiding Method Indwelling Catheter - Exam GENERAL DESCRIPTION: An elderly female lying in bed in no distress RESPIRATORY SYSTEM: Unlabored breathing , decreased breath sounds at bases HEART: S1 S2 regular rate and rhythm , ABDOMEN: Soft , no tenderness EXTREMITIES: No edema feet - Labs CBC & Chem 7: 02/13/24 12:25 02/12/24 05:55 Labs: Microbiology - Last 24 Hours (Table) 02/10/24 07:39 Blood Culture - Preliminary Blood Assessment and Plan (1) E coli bacteremia Current Visit: Yes Status: Acute Priority: High Code(s): R78.81 - BACTEREMIA; B96.20 - UNSP ESCHERICHIA COLI THE CAUSE OF DISEASES CL[facility]SD [facility] SNOMED Code(s): 570544749713 (2) Penicillin allergy Current Visit: Yes Status: Acute Code(s): Z88.0 - ALLERGY STATUS TO PENICILLIN SNOMED Code(s): 93301150 (3) Acute pyelonephritis Current Visit: Yes Status: Acute Priority: High Code(s): N10 - ACUTE PYELONEPHRITIS SNOMED Code(s): 37900365 (4) UTI (urinary tract infection) Current Visit: Yes Status: Acute Priority: High Code(s): N39.0 - URINARY TRACT INFECTION, SITE NOT SPECIFIED SNOMED Code(s): 94302858 Plan: 1patient presented to hospital with sepsis in this patient who did have a low- grade fever elevated white count source is complicated UTI in this patient with evidence of left-sided hydronephrosis status post cystoscopy and left ureteral stent placement. 2patient with E. coli bacteremia source is likely complicated UTI. 3patient with a penicillin allergy that will limit the number of antibiotics safe to use 4patient is afebrile, the patient white count is slightly up today to be monitored closely for now continue with Rocephin repeat CBC with a.m. lab Dictation was produced using [employer] dictation software. please excuse any grammatical, word or spelling errors. Time with Patient: Less than 30
[2024-02-13] MEDS: HYDROcodone/APAP 5-325MG 1 EACH TAB PO PRN (22:30)
[2024-02-14 06:24] LABS: Anisocytosis Moderate; Basophils # (A) 0.1 k/uL (0-0.2); Basophils % (A) 1 %; Eosinophils # (A) 0.4 k/uL (0-0.7); Eosinophils % (A) 3 %; HCT 35.3 % (34.0-46.0); HGB 10.9 gm/dL (11.4-16.0); Hypochromasia Moderate; Lymphocytes # (A) 1.1 k/uL (1.0-4.8); Lymphocytes % (A) 8 %; MCH 29.9 pg (25.0-35.0); MCHC 30.8 g/dL (31.0-37.0); MCV 97.2 fL (80.0-100.0); Macrocytosis Moderate; Mean Platelet Volume 7.9; Monocytes # (A) 0.8 k/uL (0-1.0); Monocytes % (A) 6 %; Neutrophils # (A) 10.3 k/uL (1.3-7.7); Neutrophils % (A) 80 %; Platelet Count 588 k/uL (150-450); RBC 3.63 m/uL (3.80-5.40); RDW 23.5 % (11.5-15.5); WBC 12.9 k/uL (3.8-10.6)
[2024-02-14 07:36] VITALS: BP 122/69; PULSE 78; RESP 16; TEMP 97.5
--- NOTE | 2024-02-14 09:16 | P.DS ---
Providers Date of admission: 02/08/24 19:17 Expected date of discharge: 02/14/24 Attending physician: John Cardoso MD Consults: 02/08/24 18:03 Consult Physician Urgent Consulting Provider: Wang Rg Consult Reason/Comments: Elevated troponin, new onset a-fib Do you want consulting provider notified?: Yes Consult Physician Urgent Consulting Provider: Shira Brooks Consult Reason/Comments: UTI, sepsis Do you want consulting provider notified?: Yes 02/08/24 18:05 Consult Physician Urgent Consulting Provider: Johnnie Byrd Consult Reason/Comments: UTI, sepsis, lung cancer patient Do you want consulting provider notified?: Yes 02/08/24 18:06 Consult Physician Urgent Consulting Provider: Dax Fry Consult Reason/Comments: Enlarging left renal pelvis stone, hydronephrosis Do you want consulting provider notified?: Yes Primary care physician: Josseline [facility] Course: Discharge diagnoses; A-fib with RVR UTI Pyelonephritis Left renal stone with left hydronephrosis Bacteremia History of metastatic lung cancer Coronary artery disease history of CABG in 2018 Hyperlipidemia Hypertension Memory impairment Hospital course; 83-year-old lady with past medical history significant for hypertension, hyperlipidemia and memory impairment, coronary artery disease history of CABG in 2018, lung cancer who presented to the ER for evaluation for weakness. Patient has been feeling weak for the last 2 days, patient has been having poor appetite. Patient is complaining of nausea and unable to keep anything down. Patient also complaining abdominal pain. There is no complaint of blood in the stools. Patient is complaining of constipation. Denies any fever or chills. There is no complaint of chest pain or shortness of breath. Because of the symptoms, patient was in the ER Initial lab work done in the ER showed WBC 35.1, hemoglobin 12.9, platelet count 609, sodium 139, potassium 3.9, BUN 34, creatinine 1, glucose 203, plasma lactate 1.8, troponin 0.05 total protein 6.6, albumin 3.2 UA done showed leukocyte Estrace large amount, urine nitrite negative, urine WBC greater than 182 CTA chest done showed no evidence of PE, enlarged pulmonary trunk can be seen with pulmonary hypertension. Slightly interval progression of malignancy in the left upper lobe with bridging soft tissue CT abdominal pelvis done showed increased intrahepatic and extrahepatic biliary dilatation which extends to the ampulla. Right adrenal metastasis new since 07/13/22. Left 15.5 x 11 mm calculus within the left renal pelvis with abnormally dilated calyces throughout the left kidney EKG done in the ER showed heart rate of 151, no P waves irregular in rate and rhythm, no ST segment elevation or depression seen, no T-wave inversions seen. Chest x-ray done in the ER Patient admitted to internal medicine service 02/09. Patient seen and examined. Patient underwent cystoscopy with left retrograde pyelogram and left ureteral stent placement on 02/08. Initial lab work done today showed WBC 22.6 hemoglobin 1, platelet count 564, sodium 146, potassium 3.7, BUN 33, creatinine 0.82. States she is feeling much better. Denies any abdominal pain. Patient seen and examined. Vital signs stable. Patient continues to be afebrile. Labs done this morning showed WBC 20.7, hemoglobin 11.7, sodium 145, potassium 4.2, BUN 27, creatinine 0.69. 2D echo done showed LVEF 50 to 55%, mildly decreased left ventricular ejection fraction, no obvious regional wall motion normalities 02/11. Patient seen and examined. Sitting comfortably in the bed. Still has leukocytosis. Denies any blood in the urine. 02/12. Patient seen and examined. Complaining of lethargy and weakness. Vital signs stable 02/13. Seen and examined. Leukocytosis improved. ID recommend discharging on oral Cipro for 10 days. Outpatient follow-up with ID and urology PHYSICAL EXAMINATION: GENERAL: The patient is alert and oriented x3, not in any acute distress. Well developed, well nourished. HEENT: Pupils are round and equally reacting to light. EOMI. No scleral icterus. No conjunctival pallor. Normocephalic, atraumatic. No pharyngeal erythema. No thyromegaly. CARDIOVASCULAR: S1 and S2 present. No murmurs, rubs, or gallops. PULMONARY: Chest is clear to auscultation, no wheezing or crackles. ABDOMEN: Soft, nontender, nondistended, normoactive bowel sounds. No palpable organomegaly. MUSCULOSKELETAL: No joint swelling or deformity. EXTREMITIES: No cyanosis, clubbing, or pedal edema. NEUROLOGICAL: Gross neurological examination did not reveal any focal deficits. SKIN: No rashes. Dictation was produced using dragon dictation software. please excuse any grammatical, word or spelling errors. Patient Condition at Discharge: Fair Plan - Discharge Summary Discharge Rx Participant: No New Discharge Prescriptions: New ALPRAZolam [Xanax] 0.5 mg PO BID PRN 3 Days #6 tab PRN Reason: Anxiety Ciprofloxacin HCl [Cipro] 500 mg PO Q12HR 10 Days #20 tab Nystatin 100,000 Unit/ml Susp [Mycostatin Oral Susp] 3,000,000 unit PO QID 7 Days #140 ml HYDROcodone/APAP 5-325MG [[place] 5-325] 1 each PO QID PRN #12 tab PRN Reason: Pain Metoprolol Succinate (ER) [Toprol XL] 25 mg PO DAILY 30 Days #30 tab Continue Aspirin EC [Ecotrin Low Dose] 81 mg PO DAILY Nitroglycerin Sl Tabs [Nitrostat] 0.4 mg SUBLINGUAL Q5M PRN PRN Reason: Chest Pain dexAMETHasone [Decadron] 4 mg PO DAILY Albuterol Sulfate [Albuterol Sulfate Hfa] 1 - 2 puff INHALATION RT-Q4H PRN PRN Reason: Shortness Of Breath Ibuprofen [Motrin] 800 mg PO Q8H PRN PRN Reason: Pain Ondansetron [Zofran] 4 mg PO Q6H PRN PRN Reason: Nausea Capmatinib Hydrochloride [Tabrecta] 400 mg PO BID Magic Mouth Wash 5 ml PO QID Discontinued Metoprolol Succinate (ER) [Toprol Xl] 25 - 50 mg PO DAILY PRN PRN Reason: high bp ALPRAZolam [Xanax] 0.5 mg PO BID PRN PRN Reason: Anxiety HYDROcodone/APAP 5-325MG [[place] 5-325] 1 tab PO QID PRN PRN Reason: Pain Discharge Medication List Aspirin EC [Ecotrin Low Dose] 81 mg PO DAILY 07/11/22 [History] Nitroglycerin Sl Tabs [Nitrostat] 0.4 mg SUBLINGUAL Q5M PRN 07/11/22 [History] Albuterol Sulfate [Albuterol Sulfate Hfa] 1 - 2 puff INHALATION RT-Q4H PRN 08/20/22 [History] Capmatinib Hydrochloride [Tabrecta] 400 mg PO BID 02/08/24 [History] Ibuprofen [Motrin] 800 mg PO Q8H PRN 02/08/24 [History] Magic Mouth Wash 5 ml PO QID 02/08/24 [History] Ondansetron [Zofran] 4 mg PO Q6H PRN 02/08/24 [History] dexAMETHasone [Decadron] 4 mg PO DAILY 02/08/24 [History] ALPRAZolam [Xanax] 0.5 mg PO BID PRN 3 Days #6 tab 02/14/24 [Rx] Ciprofloxacin HCl [Cipro] 500 mg PO Q12HR 10 Days #20 tab 02/14/24 [Rx] HYDROcodone/APAP 5-325MG [[place] 5-325] 1 each PO QID PRN #12 tab 02/14/24 [Rx] Metoprolol Succinate (ER) [Toprol XL] 25 mg PO DAILY 30 Days #30 tab 02/14/24 [Rx] Nystatin 100,000 Unit/ml Susp [Mycostatin Oral Susp] 3,000,000 unit PO QID 7 Days #140 ml 02/14/24 [Rx] Follow up Appointment(s)/Referral(s): Josseline Zambrano MD [Primary Care Provider] - 1-2 days Carlito Segundo MD [STAFF PHYSICIAN] - 3 Weeks Shira Brooks MD [STAFF PHYSICIAN] - 1 Week Discharge Disposition: TRANSFER TO SNF/ECF
--- NOTE | 2024-02-14 22:52 | P.PN ---
Subjective Progress Note Date: 02/14/24 Principal diagnosis: Reason for follow-up is E. coli UTI and bacteremia Patient is a 83-year-old female with a past medical history significant for hypertension hyperlipidemia [place] history of uterine and lung cancer as well as kidney stone, patient has been brought into the hospital for evaluation of weakness, patient has been diagnosed with sepsis related to complicated UTI status post cystoscopy with left ureteral stent placement. On today's evaluation that is 02/14/2024, Patient is afebrile patient is currently on room air and denies having any shortness of breath, the patient denies any chest pain or cough, the patient denies any nausea vomiting did not have any abdominal pain and no diarrhea, patient mention feeling better. Patient white count is down to 12.9 blood culture repeat has been negative Objective - Vital Signs Vital signs: Vital Signs Temp 97.5 F L 02/14/24 07:29 Pulse 78 02/14/24 07:29 Resp 16 02/14/24 07:29 BP 122/69 02/14/24 07:29 Pulse Ox 96 02/14/24 07:29 FiO2 Intake & Output 02/13/24 02/14/24 02/14/24 18:59 06:59 18:59 Intake Total 240 118 Output Total 800 400 Balance 240 -800 -282 Weight 42.3 kg 43 kg Intake: Oral 240 118 Output: Urine 800 400 Other: Voiding Method Indwelling Catheter Indwelling Catheter # Bowel Movements 1 - Exam GENERAL DESCRIPTION: An elderly female lying in bed in no distress RESPIRATORY SYSTEM: Unlabored breathing , decreased breath sounds at bases HEART: S1 S2 regular rate and rhythm , ABDOMEN: Soft , no tenderness EXTREMITIES: No edema feet - Labs CBC & Chem 7: 02/14/24 05:30 02/12/24 05:55 Labs: Abnormal Lab Results - Last 24 Hours (Table) 02/13/24 02/14/24 02/14/24 Range/Units 12:25 05:30 05:34 WBC 15.0 H 12.9 H (3.8-10.6) k/uL RBC 3.63 L (3.80-5.40) m/uL Hgb 10.9 L (11.4-16.0) gm/dL MCHC 30.8 L (31.0-37.0) g/dL RDW 23.0 H 23.5 H (11.5-15.5) % Plt Count 594 H 588 H (150-450) k/uL Neutrophils # 12.6 H 10.3 H (1.3-7.7) k/uL Lymphocytes # 0.8 L (1.0-4.8) k/uL C-Reactive Protein 3.30 H (0.00-0.80) mg/dL Microbiology - Last 24 Hours (Table) 02/10/24 07:39 Blood Culture - Preliminary Blood Assessment and Plan (1) E coli bacteremia Status: Acute Priority: High Code(s): R78.81 - BACTEREMIA; B96.20 - UNSP ESCHERICHIA COLI THE CAUSE OF DISEASES CLASSD [facility] SNOMED Code(s): 419407416482 (2) Penicillin allergy Status: Acute Code(s): Z88.0 - ALLERGY STATUS TO PENICILLIN SNOMED Code(s): 38493653 (3) Acute pyelonephritis Status: Acute Priority: High Code(s): N10 - ACUTE PYELONEPHRITIS SNOMED Code(s): 20361444 (4) UTI (urinary tract infection) Status: Acute Priority: High Code(s): N39.0 - URINARY TRACT INFECTION, SITE NOT SPECIFIED SNOMED Code(s): 19375335 Plan: 1patient presented to hospital with sepsis in this patient who did have a low- grade fever elevated white count source is complicated UTI in this patient with evidence of left-sided hydronephrosis status post cystoscopy and left ureteral stent placement. 2patient with E. coli bacteremia source is likely complicated UTI. 3patient with a penicillin allergy that will limit the number of antibiotics safe to use 4patient is afebrile, the patient white count trending down patient to finish therapy with oral Cipro x 10 days on discharge and close outpatient follow-up Daughter at the bedside questions were answered Dictation was produced using [employer] software. please excuse any grammatical, word or spelling errors.
== END 2024-02-14 12:05 | DRG 854 ==
LOC: EC 12:26 → 3SCARD 19:17 → 6NMEDSUR 02-11 12:08
PROVIDERS: ADMIT Internal Medicine; ATTEND Internal Medicine
PROC: 3E033RZ Introduction of Antiarrhythmic into Peripheral Vein, Percutaneous Approach (ICD-10-PCS; 2024-02-08)
PROC: BT1F1ZZ Fluoroscopy of Left Kidney, Ureter and Bladder using Low Osmolar Contrast (ICD-10-PCS; principal; 2024-02-09 12:30)
PROC: 0T778DZ Dilation of Left Ureter with Intraluminal Device, Via Natural or Artificial Opening Endoscopic (ICD-10-PCS; principal; 2024-02-09 12:30)
DX: A41.51 Sepsis due to Escherichia coli [E. coli] (principal); C34.12 Malignant neoplasm of upper lobe, left bronchus or lung; C78.7 Secondary malignant neoplasm of liver and intrahepatic bile duct; C79.71 Secondary malignant neoplasm of right adrenal gland; N13.6 Pyonephrosis; N20.2 Calculus of kidney with calculus of ureter; I27.20 Pulmonary hypertension, unspecified; D45 Polycythemia vera; I48.0 Paroxysmal atrial fibrillation; I10 Essential (primary) hypertension; Z28.310 Unvaccinated for COVID-19; E78.5 Hyperlipidemia, unspecified; I25.10 Atherosclerotic heart disease of native coronary artery without angina pectoris; I25.2 Old myocardial infarction; R32 Unspecified urinary incontinence; N28.89 Other specified disorders of kidney and ureter; N32.89 Other specified disorders of bladder; M25.512 Pain in left shoulder; R79.89 Other specified abnormal findings of blood chemistry; K59.00 Constipation, unspecified; Z79.82 Long term (current) use of aspirin; Z79.899 Other long term (current) drug therapy; Z87.440 Personal history of urinary (tract) infections; Z87.442 Personal history of urinary calculi; Z95.1 Presence of aortocoronary bypass graft; Z88.0 Allergy status to penicillin; Z88.5 Allergy status to narcotic agent; Z85.42 Personal history of malignant neoplasm of other parts of uterus
CPT/HCPCS: 36415; 51701; 70553; 71275; 74177; 74420; 80053; 81001; 83036; 83605; 83690; 83735; 84484; 85025; 85610; 85730; 86140; 87040; 87077; 87086; 87186; 93005; 93306; 94760; 96361; 96365; 96366; 96367; 96368; 96375; 96376; 99291

== ENCOUNTER 2024-03-04 06:18 | Day surgery (SDC) | payer MEDICARE, BC ==
--- NOTE | 2024-03-01 06:37 | P.GSHP ---
History of Present Illness H&P Date: 03/01/24 Chief Complaint: Left hydronephrosis The patient is an 83-year-old white female being treated by Dr. Byrd for metastatic lung cancer. She presented to the ER last month with a 2-day history of progressive weakness, associated with nausea, diminished appetite, constipation, and abdominal discomfort. She denied dysuria, hematuria, and flank pain. She has known she has a left renal calculus for a couple of years, and states that she intermittently experiences left flank discomfort, but not pain. She has been treated for UTIs in the past. CT scan showed a large left midpole renal calculus, with evidence of hydronephrosis. She underwent placement of a left ureteral stent, and was found to have narrowing of the left proximal ureter as well as the left upper pole infundibulum resulting in upper pole hydronephrosis. Urine and blood cultures showed pansensitive E. coli. - Constitutional Constitutional: Reports weakness - Cardiovascular Cardiovascular: Reports high blood pressure - Gastrointestinal Gastrointestinal: Reports abdominal pain - Genitourinary (Female) Genitourinary: Reports kidney stones, Denies dysuria, Denies flank pain, Denies hematuria Past Medical History Past Medical History: Cancer, Hyperlipidemia, Hypertension, Myocardial Infarction ([place]) Additional Past Medical History / Comment(s): polycythemia, kidney stone, uterine cancer, lung cancer, was to have started a different antihypertensive but is not currently taking - couldn't remember what it was Last Myocardial Infarction Date:: 2017 History of Any Multi-Drug Resistant Organisms: None Reported Past Surgical History: Cholecystectomy, Coronary Bypass/CABG, Hysterectomy Additional Past Surgical History / Comment(s): stomach abscess removed, CABG (02/17/2018) Past Anesthesia/Blood Transfusion Reactions: No Reported Reaction, Motion Sickness Past Psychological History: No Psychological Hx Reported Smoking Status: Never smoker - Past Family History Mother Family Medical History: Myocardial Infarction ([place]) Father Family Medical History: Asthma, COPD, Myocardial Infarction ([place]) Medications and Allergies Home Medications Medication Instructions Recorded Confirmed Type Aspirin EC [Ecotrin Low Dose] 81 mg PO DAILY 07/11/22 02/08/24 History Nitroglycerin Sl Tabs [Nitrostat] 0.4 mg SUBLINGUAL Q5M PRN 07/11/22 02/08/24 History Albuterol Sulfate [Albuterol 1 - 2 puff INHALATION RT-Q4H PRN 08/20/22 02/08/24 History Sulfate Hfa] Capmatinib Hydrochloride [Tabrecta] 400 mg PO BID 02/08/24 02/08/24 History Ibuprofen [Motrin] 800 mg PO Q8H PRN 02/08/24 02/08/24 History Magic Mouth Wash 5 ml PO QID 02/08/24 02/08/24 History Ondansetron [Zofran] 4 mg PO Q6H PRN 02/08/24 02/08/24 History dexAMETHasone [Decadron] 4 mg PO DAILY 02/08/24 02/08/24 History ALPRAZolam [Xanax] 0.5 mg PO BID PRN 3 Days #6 tab 02/14/24 Rx Ciprofloxacin HCl [Cipro] 500 mg PO Q12HR 10 Days #20 tab 02/14/24 Rx HYDROcodone/APAP 5-325MG [[place] 1 each PO QID PRN #12 tab 02/14/24 Rx 5-325] Metoprolol Succinate (ER) [Toprol 25 mg PO DAILY 30 Days #30 tab 02/14/24 Rx XL] Allergies Allergy/AdvReac Type Severity Reaction Status Date / Time codeine Allergy Rash/Hives, Verified 02/08/24 14:20 swelling in throat Penicillins Allergy Rash/Hives, Verified 02/08/24 14:20 swelling in throat Surgical - Exam - General well developed, well nourished, no distress - Respiratory normal respiratory effort - Abdomen Abdomen: soft, non tender, no guarding, no rigid, no rebound - Psychiatric oriented to time, oriented to person, oriented to place, speech is normal, memory intact Results - Imaging CT scan - abdomen: report reviewed, image reviewed Assessment and Plan (1) Calculus of kidney Status: Acute Priority: High Code(s): N20.0 - CALCULUS OF KIDNEY SNOMED Code(s): 48599549 Plan: Cystoscopy, left ureteral stent removal, left ureteroscopy with Holmium laser lithotripsy and possible stone basketing. Given the stone burden, it may be necessary to replace the stent and perform a secondary procedure. Patient is aware of the fact that she has narrowing of the left proximal ureter and upper pole infundibulum, which may require balloon dilation and prolonged stent placement. She is also aware of potential risks, which include anesthesia, bleeding, infection, ureteral injury, and inability to successfully remove the calculus.
[~2024-03-04 06:18] MED LIST changes: -DEXAMETHASONE SOD PHOSPHATE 4 MG/ML 1 ML VIAL IV ONE; -LACTATED RINGERS 1,000 ML IV SCH; +LIDOCAINE 1% (10MG/ML) FOR IV START INTRADERMA PRN; -ONDANSETRON 4 MG/2 ML VIAL IVP ONE; +droPERidol 5 MG/2 ML VIAL IVP ONE; -fentaNYL (PF) 50 MCG/ML 2 ML AMP IV PRN
[2024-03-04] MEDS: IV FLUID CONTINUATION 1,000 ML IV ONE (06:50)
[2024-03-04] MEDS ORDERED: fentaNYL (PF) 50 MCG/ML 2 ML AMP IV PRN (07:00)
[2024-03-04 07:18] LABS: Glucose,Whole Blood 97 mg/dL (70-110)
--- NOTE | 2024-03-04 07:40 | XR ---
EXAMINATION TYPE: XR KUB DATE OF EXAM: 03/04/2024 HISTORY: Pain Comparison: 03/04/2024 Single KUB is submitted for interpretation. Findings: Right renal calculi: None Visualized. Right ureteral calculi: None Visualized. Left renal calculi: None Visualized. Left ureteral calculi: Left ureteral stent is again noted to be in place. In the region of the left renal pelvis is a 1.8 cm calculus unchanged in overall size and location since prior study. Pelvic calcifications: Sided pelvic phleboliths noted. Bowel gas pattern is unremarkable. No free air. No mass effects. Multiple retroperitoneal clips are seen. IMPRESSION: 1. As above
[2024-03-04] MEDS: ONDANSETRON 4 MG/2 ML VIAL IVP ONE (07:42)
[2024-03-04] MEDS: DEXAMETHASONE SOD PHOSPHATE 4 MG/ML 1 ML VIAL IV ONE (07:42)
[2024-03-04] MEDS: LACTATED RINGERS 1,000 ML IV SCH (07:42)
[2024-03-04] MEDS ORDERED: GLYCOPYRROLATE 0.2 MG/ML 2 ML VIAL ONE (07:57)
[2024-03-04] MEDS ORDERED: PHENYLEPHRINE 10 MG/ML VIAL ONE (07:57)
[2024-03-04] MEDS ORDERED: LIDOCAINE 1% INJ 10MG/ML (20 ML MDV) ONE (07:57)
[2024-03-04] MEDS ORDERED: ROCURONIUM 10 MG/ML (5 ML VIAL) IV ONE (07:57)
[2024-03-04] MEDS ORDERED: PROPOFOL 10 MG/ML 20 ML VIAL IV ONE (07:57)
[2024-03-04 09:43] VITALS: TEMP 97.9
--- NOTE | 2024-03-04 09:51 | P.OP ---
Date of Procedure: 03/04/24 Preoperative Diagnosis: Left renal calculus Postoperative Diagnosis: Same Procedure(s) Performed: Cystoscopy, left ureteroscopy with Holmium laser lithotripsy, left ureteral stent change Anesthesia: GETA Surgeon: Carlito Segundo Estimated Blood Loss (ml): 5 IV fluids (ml): 500 Pathology: none sent Condition: stable Disposition: PACU Indications for Procedure: The patient is an 83-year-old white female being treated by Dr. Byrd for metastatic lung cancer. She presented to the ER last month with a 2-day history of progressive weakness, associated with nausea, diminished appetite, constipation, and abdominal discomfort. She denied dysuria, hematuria, and flank pain. She has known she has a left renal calculus for a couple of years, and states that she intermittently experiences left flank discomfort, but not pain. She has been treated for UTIs in the past. CT scan showed a large left mid-pole renal calculus, with evidence of hydronephrosis. She underwent placement of a left ureteral stent, and was found to have narrowing of the left proximal ureter as well as the left upper pole infundibulum resulting in upper pole hydronephrosis. Urine and blood cultures showed pansensitive E. coli. Her UTI has resolved and she now comes for removal of the renal calculus. Operative Findings: Left renal calculus, dusted completely. Description of Procedure: The patient was taken to the operating room and placed in the dorsolithotomy position, with legs supported in Fabrice stirrups. The external genitalia was prepped and draped sterilely. The 30 lens was used to introduce the 21-Scottish Harden cystoscopic sheath through the urethra and into the bladder under direct vision. The bladder was examined in its entirety. No abnormalities were seen. Grasping forceps were used to grasp the distal end of the left ureteral stent, which was removed along with the cystoscope. A 0.038 inch Glidewire was passed through the stent, which was then removed. An 11/13-Scottish ureteral access catheter was passed over the wire, up to the proximal ureter. The Harden Sage Sciencera flexible ureteroscope was then passed through the ureteral access catheter sheath and advanced under direct vision. Narrowing of the left proximal ureter was noted. The Glidewire was passed through the ureteroscope, which was then advanced over the wire into the left renal pelvis, where the stone was readily visualized. The 272 micron Holmium laser probe was passed through the ureteroscope, and lithotripsy was performed using a dusting mode. As the calculus began to fragment, the remaining fragments were treated in a popcorning mode. There were no residual calculus fragments exceeding 1 mm in size. The Glidewire was passed through the ureteroscope, which was withdrawn under direct vision. Pullout ureteroscopy showed no evidence of ureteral trauma. The Glidewire was backloaded into the cystoscope, which was passed into the bladder. A 24 cm, 4.8 Scottish double-J ureteral stent was placed over the wire. Proper stent positioning was verified fluoroscopically and endoscopically. The bladder was emptied and the cystoscope removed. The patient tolerated the procedure well and was taken to the recovery room in stable condition. MATTHEW ROCKS Report: Procedure Acuity: Elective Stone Size and Location: 11 x 18 mm, left renal pelvis Ureteral Dilation: No Ureteral Access Sheath Used: Yes Stone Sent for Analysis: No All Stones/Fragments Were Removed with a Basket: No Complications: No Preoperative Antibiotics Given: Yes Stent Placed: Yes If Stent Placed, Was String Left Attached: No If Stent Placed, When is it to be Removed: 2 weeks Discharge Medications: None
--- NOTE | 2024-03-04 09:55 | FL ---
Fluoroscopy History: Left Kidney Stone FL TIME- 22.4 SEC DAP- [id number] LEFT KIDNEY STONE
[2024-03-04] MEDS: HYDROcodone/APAP 5-325MG 1 EACH TAB PO PRN (10:37)
[2024-03-04 12:07] VITALS: BP 125/78; PULSE 75; RESP 18
== END 2024-03-04 12:00 | disposition home or self-care (01) ==
LOC: OR 06:18
PROVIDERS: ATTEND Urology
DX: N20.0 Calculus of kidney (principal); E78.5 Hyperlipidemia, unspecified; I10 Essential (primary) hypertension; I25.2 Old myocardial infarction; Z79.52 Long term (current) use of systemic steroids; Z85.118 Personal history of other malignant neoplasm of bronchus and lung; Z85.42 Personal history of malignant neoplasm of other parts of uterus; Z87.440 Personal history of urinary (tract) infections; Z88.0 Allergy status to penicillin; Z90.49 Acquired absence of other specified parts of digestive tract; Z90.710 Acquired absence of both cervix and uterus; Z95.1 Presence of aortocoronary bypass graft
CPT/HCPCS: 74018; 52356; C1769; C1758; J1100; J0690; J2405; J2001; J2704; J2371

== ENCOUNTER 2024-04-29 18:40 | Inpatient (IN) | payer MEDICARE, BC ==
[~2024-04-29 18:40] MED LIST changes: +GENTAMICIN 80 MG/2 ML (MDV) VIAL ONE; +KETOROLAC 15 MG/ML 1 ML VIAL ONE; -LIDOCAINE 1% (10MG/ML) FOR IV START INTRADERMA PRN; +SODIUM CHLORIDE 0.9% 250 ML BAG ONE; +SODIUM CHLORIDE 0.9% 500 ML BAG ONE; -droPERidol 5 MG/2 ML VIAL IVP ONE
[2024-04-29] MEDS ORDERED: ACETAMINOPHEN TAB 325 MG TAB ONE (22:05)
[2024-04-30] MEDS ORDERED: ACETAMINOPHEN TAB 325 MG TAB ONE (02:38)
[2024-04-30] MEDS ORDERED: HYDROcodone/APAP 5-325MG 1 EACH TAB ONE (10:21)
[2024-04-30] MEDS ORDERED: HYDROcodone/APAP 10-325MG 1 EACH TAB ONE ×2 (12:40→17:14)
[2024-04-30] MEDS ORDERED: cefTRIAXone 1 GM VIAL ONE (17:14)
[2024-04-30] MEDS ORDERED: ALPRAZolam 0.25 MG TAB ONE (21:32)
[2024-04-30] MEDS ORDERED: HEPARIN SODIUM,PORCINE 5,000 UNIT/ML 1 ML VIAL ONE (21:32)
[2024-05-01] MEDS ORDERED: HYDROcodone/APAP 10-325MG 1 EACH TAB ONE ×3 (03:33→20:19)
[2024-05-01] MEDS ORDERED: PANTOPRAZOLE 40 MG/10 ML VIAL ONE (08:35)
[2024-05-01] MEDS ORDERED: HEPARIN SODIUM,PORCINE 5,000 UNIT/ML 1 ML VIAL ONE ×2 (08:35→20:03)
[2024-05-01] MEDS ORDERED: ALPRAZolam 0.25 MG TAB ONE ×2 (08:35→20:03)
[2024-05-02] MEDS ORDERED: PANTOPRAZOLE 40 MG/10 ML VIAL ONE (09:50)
[2024-05-02] MEDS ORDERED: ALPRAZolam 0.25 MG TAB ONE ×2 (09:50→20:53)
[2024-05-02] MEDS ORDERED: HEPARIN SODIUM,PORCINE 5,000 UNIT/ML 1 ML VIAL ONE ×2 (09:51→20:54)
[2024-05-02] MEDS ORDERED: HYDROcodone/APAP 10-325MG 1 EACH TAB ONE ×2 (09:51→20:53)
[2024-05-02] MEDS ORDERED: ASPIRIN 81 MG ONE (20:53)
[2024-05-03] MEDS ORDERED: HYDROcodone/APAP 10-325MG 1 EACH TAB ONE ×2 (03:08→18:43)
[2024-05-03] MEDS ORDERED: PANTOPRAZOLE 40 MG/10 ML VIAL ONE (10:06)
[2024-05-03] MEDS ORDERED: ALPRAZolam 0.25 MG TAB ONE (10:07)
[2024-05-03] MEDS ORDERED: ASPIRIN 81 MG ONE (10:07)
[2024-05-03] MEDS ORDERED: HEPARIN SODIUM,PORCINE 5,000 UNIT/ML 1 ML VIAL ONE ×2 (10:07→21:22)
[2024-05-03] MEDS ORDERED: ATORVASTATIN 40 MG TAB ONE (21:21)
[2024-05-03] MEDS ORDERED: METOPROLOL TARTRATE 25 MG TAB ONE ×2 (21:22→23:59)
[2024-05-03] MEDS ORDERED: SODIUM CHLORIDE 0.9% 100 ML BAG ONE (23:59)
[2024-05-03] MEDS ORDERED: MEROPENEM 1 GM VIAL IVPB ONE (23:59)
[2024-05-04] MEDS ORDERED: HYDROcodone/APAP 10-325MG 1 EACH TAB ONE ×2 (03:29→18:48)
[2024-05-04] MEDS ORDERED: PANTOPRAZOLE 40 MG/10 ML VIAL ONE (09:02)
[2024-05-04] MEDS ORDERED: ALPRAZolam 0.25 MG TAB ONE ×2 (09:03→23:04)
[2024-05-04] MEDS ORDERED: METOPROLOL TARTRATE 25 MG TAB ONE ×2 (09:03→23:04)
[2024-05-04] MEDS ORDERED: HEPARIN SODIUM,PORCINE 5,000 UNIT/ML 1 ML VIAL ONE ×2 (09:03→23:05)
[2024-05-04] MEDS ORDERED: ASPIRIN 81 MG ONE (09:03)
[2024-05-04] MEDS ORDERED: ATORVASTATIN 40 MG TAB ONE (23:04)
[2024-05-04] MEDS ORDERED: MEROPENEM 1 GM VIAL IVPB ONE (23:59)
[2024-05-04] MEDS ORDERED: SODIUM CHLORIDE 0.9% 100 ML BAG ONE (23:59)
[2024-05-05] MEDS ORDERED: HYDROcodone/APAP 10-325MG 1 EACH TAB ONE ×2 (01:48→17:05)
[2024-05-05] MEDS ORDERED: METOPROLOL TARTRATE 25 MG TAB ONE ×2 (08:54→21:39)
[2024-05-05] MEDS ORDERED: ASPIRIN 81 MG ONE (08:54)
[2024-05-05] MEDS ORDERED: PANTOPRAZOLE 40 MG/10 ML VIAL ONE (08:54)
[2024-05-05] MEDS ORDERED: HEPARIN SODIUM,PORCINE 5,000 UNIT/ML 1 ML VIAL ONE ×2 (08:55→21:39)
[2024-05-05] MEDS ORDERED: ALPRAZolam 0.25 MG TAB ONE ×2 (08:55→21:39)
[2024-05-05] MEDS ORDERED: ATORVASTATIN 40 MG TAB ONE (21:38)
[2024-05-05] MEDS ORDERED: NYSTATIN 100,000 UNIT/ML SUSP 500,000 UNIT/5 ML CUP ONE (23:59)
[2024-05-05] MEDS ORDERED: CEFTOLOZANE/TAZOBACTAM 1.5 GM VIAL IV ONE (23:59)
[2024-05-05] MEDS ORDERED: SODIUM CHLORIDE 0.9% 100 ML BAG ONE (23:59)
[2024-05-06] MEDS ORDERED: ASPIRIN 81 MG ONE (09:43)
[2024-05-06] MEDS ORDERED: METOPROLOL TARTRATE 25 MG TAB ONE ×2 (09:43→21:54)
[2024-05-06] MEDS ORDERED: PANTOPRAZOLE 40 MG/10 ML VIAL ONE (09:43)
[2024-05-06] MEDS ORDERED: HEPARIN SODIUM,PORCINE 5,000 UNIT/ML 1 ML VIAL ONE ×2 (09:44→21:55)
[2024-05-06] MEDS ORDERED: ALPRAZolam 0.25 MG TAB ONE ×2 (09:44→21:54)
[2024-05-06] MEDS ORDERED: FLUCONAZOLE 100 MG TAB ONE (14:28)
[2024-05-06] MEDS ORDERED: HYDROcodone/APAP 10-325MG 1 EACH TAB ONE ×2 (17:17→21:54)
[2024-05-06] MEDS ORDERED: ONDANSETRON 4 MG/2 ML VIAL ONE (17:17)
[2024-05-06] MEDS ORDERED: ATORVASTATIN 40 MG TAB ONE (21:54)
[2024-05-06] MEDS ORDERED: GENTAMICIN 80 MG/2 ML (MDV) VIAL ONE (23:59)
[2024-05-06] MEDS ORDERED: CEFTOLOZANE/TAZOBACTAM 1.5 GM VIAL IV ONE (23:59)
[2024-05-06] MEDS ORDERED: SODIUM CHLORIDE 0.9% 100 ML BAG ONE ×2 (23:59)
[2024-05-06] MEDS ORDERED: NYSTATIN 100,000 UNIT/ML SUSP 500,000 UNIT/5 ML CUP ONE (23:59)
[2024-05-07] MEDS ORDERED: HEPARIN SODIUM,PORCINE 5,000 UNIT/ML 1 ML VIAL ONE ×2 (09:29→21:09)
[2024-05-07] MEDS ORDERED: FLUCONAZOLE 100 MG TAB ONE (09:29)
[2024-05-07] MEDS ORDERED: METOPROLOL TARTRATE 25 MG TAB ONE ×2 (09:29→21:09)
[2024-05-07] MEDS ORDERED: PANTOPRAZOLE 40 MG/10 ML VIAL ONE (09:29)
[2024-05-07] MEDS ORDERED: ALPRAZolam 0.25 MG TAB ONE ×2 (09:29→21:09)
[2024-05-07] MEDS ORDERED: ASPIRIN 81 MG ONE (09:29)
[2024-05-07] MEDS ORDERED: IOPAMIDOL CONTRAST (ORAL USE) VIAL PO ONE ×2 (15:51→16:44)
[2024-05-07] MEDS ORDERED: HYDROcodone/APAP 10-325MG 1 EACH TAB ONE (17:22)
[2024-05-07] MEDS ORDERED: ATORVASTATIN 40 MG TAB ONE (21:08)
[2024-05-07] MEDS ORDERED: NYSTATIN 100,000 UNIT/ML SUSP 500,000 UNIT/5 ML CUP ONE (23:59)
[2024-05-08] MEDS ORDERED: PANTOPRAZOLE 40 MG/10 ML VIAL ONE (08:32)
[2024-05-08] MEDS ORDERED: ASPIRIN 81 MG ONE (08:33)
[2024-05-08] MEDS ORDERED: ATORVASTATIN 40 MG TAB ONE (08:33)
[2024-05-08] MEDS ORDERED: METOPROLOL TARTRATE 25 MG TAB ONE ×2 (08:33→21:00)
[2024-05-08] MEDS ORDERED: HEPARIN SODIUM,PORCINE 5,000 UNIT/ML 1 ML VIAL ONE (08:34)
[2024-05-08] MEDS ORDERED: ALPRAZolam 0.25 MG TAB ONE ×2 (08:34→21:01)
[2024-05-08] MEDS ORDERED: FLUCONAZOLE 100 MG TAB ONE (08:34)
[2024-05-08] MEDS ORDERED: NALOXONE 0.4 MG/ML 1 ML VIAL IV PRN (18:21)
[2024-05-08] MEDS ORDERED: POTASSIUM CHLORIDE ER 20 MEQ TAB.ER PO ONE (21:00)
[2024-05-08] MEDS ORDERED: GENTAMICIN PER PHARMACY MISCELLANE PRN (23:26)
[2024-05-08] MEDS ORDERED: ACETAMINOPHEN TAB 325 MG TAB PO PRN (23:33)
[2024-05-08] MEDS ORDERED: HYDROcodone/APAP 10-325MG 1 EACH TAB PO PRN (23:34)
[2024-05-08] MEDS ORDERED: ONDANSETRON 4 MG/2 ML VIAL IVP PRN (23:36)
[2024-05-08] MEDS ORDERED: HYDROmorphone 0.5 MG/0.5 ML SYRINGE IVP PRN (23:36)
[2024-05-08] MEDS ORDERED: NYSTATIN 100,000 UNIT/ML SUSP 500,000 UNIT/5 ML CUP ONE (23:59)
[2024-05-08] MEDS ORDERED: HYDROXYUREA 500 MG CAP PO ONE (23:59)
[2024-05-08] MEDS ORDERED: SODIUM CHLORIDE 0.9% 100 ML BAG ONE (23:59)
[2024-05-08] MEDS ORDERED: GENTAMICIN 80 MG/2 ML (MDV) VIAL ONE (23:59)
[2024-05-09] MEDS ORDERED: ACETAMINOPHEN TAB 325 MG TAB ONE (02:26)
[2024-05-09] MEDS: GENTAMICIN 260 MG in SODIUM CHLORIDE 0.9% 100 ML IVPB SCH (03:07)
[2024-05-09] MEDS: HYDROXYUREA 500 MG CAP PO SCH (03:07)
[2024-05-09] MEDS: NYSTATIN 100,000 UNIT/ML SUSP 500,000 UNIT/5 ML CUP PO SCH (03:07)
[2024-05-09 04:40] LABS: African American GFR (CKD) 84 (>60 ml/min/1.73 sqM); Anion Gap 5 mmol/L; Blood Urea Nitrogen 15 mg/dL (7-17); Calcium 8.4 mg/dL (8.4-10.2); Carbon Dioxide 25 mmol/L (22-30); Chloride 106 mmol/L (98-107); Glucose 119 mg/dL (74-99); Magnesium 1.5 mg/dL (1.6-2.3); Non-African American GFR(CKD) 73 (>60 ml/min/1.73 sqM); Potassium 3.9 mmol/L (3.5-5.1); Sodium 136 mmol/L (137-145)
[2024-05-09 04:43] LABS: Anisocytosis Slight; Basophils # (A) 0.1 k/uL (0-0.2); Basophils % (A) 0 %; Eosinophils # (A) 0.9 k/uL (0-0.7); Eosinophils % (A) 3 %; HCT 34.5 % (34.0-46.0); HGB 10.4 gm/dL (11.4-16.0); Hypochromasia Marked; Lymphocytes # (A) 0.8 k/uL (1.0-4.8); Lymphocytes % (A) 2 %; MCH 28.6 pg (25.0-35.0); MCHC 30.2 g/dL (31.0-37.0); MCV 94.8 fL (80.0-100.0); Mean Platelet Volume 7.8; Monocytes # (A) 1.2 k/uL (0-1.0); Monocytes % (A) 4 %; Neutrophils # (A) 30.4 k/uL (1.3-7.7); Neutrophils % (A) 91 %; RBC 3.65 m/uL (3.80-5.40); RDW 17.3 % (11.5-15.5); WBC 33.4 k/uL (3.8-10.6)
[2024-05-09 06:23] LABS: Platelet Count 1291 k/uL (150-450)
[2024-05-09 08:25] LABS: Poikilocytosis (M) Present; Toxic Vacuolation Present
[2024-05-09] MEDS: PANTOPRAZOLE 40 MG/10 ML VIAL IVP SCH (08:27)
[2024-05-09] MEDS: METOPROLOL TARTRATE 25 MG TAB PO SCH (09:14)
[2024-05-09] MEDS: ALPRAZolam 0.25 MG TAB PO SCH (09:16)
[2024-05-09] MEDS: ASPIRIN 81 MG PO SCH (09:24)
[2024-05-09] MEDS: VANCOMYCIN 125 MG CAPSULE PO SCH (09:24)
[2024-05-09] MEDS: HEPARIN SODIUM,PORCINE 5,000 UNIT/ML 1 ML VIAL SQ SCH (09:24)
[2024-05-09] MEDS: FLUCONAZOLE 100 MG TAB PO SCH (09:24)
[2024-05-09] MEDS ORDERED: Magnesium Replacement Protocol 1 EACH MISC MISCELLANE PRN (11:21)
--- NOTE | 2024-05-09 11:25 | P.PN ---
Subjective Progress Note Date: 05/09/24 Patient is evaluated today in follow-up on the medical floor. Has been started on oral vancomycin for a positive C. difficile. Patient underwent abdominal pelvic CT on May 07 with findings of small to moderate left and trace right pleural effusions as well as multiple pulmonary nodules in the visualized lower lungs the largest measuring 1.6 cm the largest nodule is located in the inferior lingula. There is retrocrural adenopathy on the right measuring 1.1 cm. There is left-sided colonic diverticulosis with wall thickening and surrounding inflammation of the distal sigmoid colon concerning for acute diverticulitis with moderate severe inflammation there is small to moderate left and trace rig ht pleural effusions and evidence of metastatic disease progression with numerous new pulmonary nodules at the lower lungs. There is additional disease progression with enlarging bilateral adrenal masses measuring up to 5.7 cm. Splenomegaly at 14.4 cm. Labs today revealing white blood cell count of 33, platelet count of 1200. Sodium 136, Renal function WNL. Review of Systems Constitutional: Denied any fatigue denied any fever. Cardio vascular: denied any chest pain, palpitations Gastrointestinal: denied any nausea, vomiting, Reports diarrhea Pulmonary: Denied any shortness of breath cough Neurologic denied any new focal deficits Left shoulder pain. All inpatient medications were reviewed and appropriate changes in these medications as dictated in the interval history and assessment and plan. PHYSICAL EXAMINATION: GENERAL: The patient is alert and oriented x2, not in any acute distress. Well developed, well nourished. Frail, Elderly. HEENT: Pupils are round and equally reacting to light. EOMI. No scleral icterus. No conjunctival pallor. Normocephalic, atraumatic. No pharyngeal erythema. No thyromegaly. CARDIOVASCULAR: S1 and S2 present. No murmurs, rubs, or gallops. PULMONARY: Chest is clear to auscultation, no wheezing or crackles. Diminished. ABDOMEN: Soft, nontender, nondistended, normoactive bowel sounds. No palpable organomegaly. MUSCULOSKELETAL: No joint swelling or deformity. EXTREMITIES: No cyanosis, clubbing, or pedal edema. NEUROLOGICAL: Gross neurological examination did not reveal any focal deficits. Diffuse weakness. Pain with passive rotation of the left shoulder joint. SKIN: No rashes. Assessment -Fall in room on 05/08/24 patient was incontinent of stool in the RR and slipped and fell. -Left shoulder pain post fall with xray negative for fracture or dislocation -Diarrhea secondary to acute C.Dif colitis with sepsis -Complicated Urinary tract infection with sepsis POA Culture showing drug resistant Pseudomonas aeruginosa patient was continued on IV gentamicin -Leukocytosis with concern for underlying malignancy possibly hematological -Abdomen/Pelvis CT revealing diverticulitis/colitis and this is likely secondary to the C. difficile infection -Leukocytosis, Elevated platelet count -Hypomagnesemia -Hx of recurrent UTI -Generalized weakness and medical debility secondary to above -Gait dysfunction -Hx of lung cancer on oral chemo with Dr. Byrd on an outpatient basis -Lower lung pulmonary nodules, adrenal masses and retrocrural adenopathy with concern for metastatic disease GI prophylaxis IV protonix DVT prophylaxis Subcu heparin Do Not Resuscitate Do Not Intubate Plan Patient has been started on oral Vancomycin secondary to the C.Dif colitis and IV gentamicin has been discontinued as recommended by Infectious Disease consultation. Hematology following patient has been started on hydroxyurea May need orthopedics consultation if left shoulder pain does not improve. Replace magnesium Continue oral nystatin swish and swallow Continue pain management IV dilaudid, oral norco PT/OT consultation in place and CM on board for discharge planning Repeat CBC, BMP in the AM The impression and plan of care has been dictated by Stefani Torres Nurse Practitioner as directed. Dr. Jaleel MD I have performed a history and physical examination and medical decision making of this patient, discussed the same with the dictator, and agree with the dictators assessment and plan as written, documented as a scribe. Based on total visit time, I have performed more than 50% of this visit. Objective - Vital Signs Vital signs: Vital Signs Temp 98.0 F 05/09/24 07:43 Pulse 86 05/09/24 07:43 Resp 16 05/09/24 07:43 BP 89/51 05/09/24 07:43 Pulse Ox 91 L 05/09/24 07:43 FiO2 Intake & Output 05/08/24 05/09/24 05/09/24 18:59 06:59 18:59 Weight 53.98 kg Other: Voiding Method Toilet Bedside Commode - Labs CBC & Chem 7: 05/09/24 02:49 05/09/24 02:49 Labs: Abnormal Lab Results - Last 24 Hours (Table) 05/09/24 05/09/24 Range/Units 02:49 02:49 WBC 33.4 H (3.8-10.6) k/uL RBC 3.65 L (3.80-5.40) m/uL Hgb 10.4 L (11.4-16.0) gm/dL MCHC 30.2 L (31.0-37.0) g/dL RDW 17.3 H (11.5-15.5) % Plt Count 1291 H* (150-450) k/uL Neutrophils # 30.4 H (1.3-7.7) k/uL Lymphocytes # 0.8 L (1.0-4.8) k/uL Monocytes # 1.2 H (0-1.0) k/uL Eosinophils # 0.9 H (0-0.7) k/uL Sodium 136 L (137-145) mmol/L Glucose 119 H (74-99) mg/dL Magnesium 1.5 L (1.6-2.3) mg/dL Assessment and Plan Time with Patient: Greater than 30
[2024-05-09] MEDS: SODIUM CHLORIDE 0.9% 1,000 ML IV SCH (12:48)
[2024-05-09] MEDS: MAGNESIUM SULFATE-D5W PMX 1 GM in DEXTROSE/WATER 1 100ML.BAG IVPB SCH (12:48)
--- NOTE | 2024-05-09 20:59 | P.PN ---
Subjective Progress Note Date: 05/09/24 Principal diagnosis: Reason for follow-up is leukocytosis and C. difficile colitis Patient is a 84-year-old female with multiple comorbidities initial presentation to the hospital with an outpatient urine culture positive for drug- resistant UTI in this patient also have history of metastatic cancer and hematological malignancy. On today's evaluation that is 05/09/2024,the patient denies any fever or any chills, patient is breathing comfortably on room air, the patient denies chest pain shortness of breath and no significant cough, patient denies abdominal pain, no nausea vomiting apparently the patient was having diarrhea and a stool for C. difficile came back positive. Patient white count is 33.4 creatinine 0.75 Objective - Vital Signs Vital signs: Vital Signs Temp 98.0 F 05/09/24 07:43 Pulse 86 05/09/24 07:43 Resp 16 05/09/24 07:43 BP 89/51 05/09/24 07:43 Pulse Ox 91 L 05/09/24 07:43 FiO2 Intake & Output 05/08/24 05/09/24 05/09/24 18:59 06:59 18:59 Weight 53.98 kg Other: Voiding Method Toilet Bedside Commode - Exam GENERAL DESCRIPTION: An elderly female lying in bed in no distress RESPIRATORY SYSTEM: Unlabored breathing , decreased breath sounds at bases HEART: S1 S2 regular rate and rhythm , ABDOMEN: Soft , no tenderness EXTREMITIES: No edema feet - Labs CBC & Chem 7: 05/09/24 02:49 05/09/24 02:49 Labs: Abnormal Lab Results - Last 24 Hours (Table) 05/09/24 05/09/24 Range/Units 02:49 02:49 WBC 33.4 H (3.8-10.6) k/uL RBC 3.65 L (3.80-5.40) m/uL Hgb 10.4 L (11.4-16.0) gm/dL MCHC 30.2 L (31.0-37.0) g/dL RDW 17.3 H (11.5-15.5) % Plt Count 1291 H* (150-450) k/uL Neutrophils # 30.4 H (1.3-7.7) k/uL Lymphocytes # 0.8 L (1.0-4.8) k/uL Monocytes # 1.2 H (0-1.0) k/uL Eosinophils # 0.9 H (0-0.7) k/uL Sodium 136 L (137-145) mmol/L Glucose 119 H (74-99) mg/dL Magnesium 1.5 L (1.6-2.3) mg/dL Assessment and Plan (1) C. difficile colitis Current Visit: Yes Status: Acute Code(s): A04.72 - ENTEROCOLITIS D/T CLOSTRIDIUM DIFFICILE, NOT SPCF RECUR SNOMED Code(s): 113019457 (2) Leukocytosis Current Visit: Yes Status: Acute Code(s): D72.829 - ELEVATED WHITE BLOOD CELL COUNT, UNSPECIFIED SNOMED Code(s): 985690621 (3) Penicillin allergy Current Visit: No Status: Acute Code(s): Z88.0 - ALLERGY STATUS TO PENICILLIN SNOMED Code(s): 47929730 Plan: 1-patient with initial admission to the hospital for multidrug-resistant Pseudomonas positive urine culture concerning for UTI adequately treated as repeat urine culture has been negative gentamicin has been discontinued creatinine is normal 2-patient also have leukocytosis multifactorial and a possible component of C. difficile colitis, oral vancomycin has been added as per discussion with MONITOR WORKER for admitting team and will see clinical response avoid antimotility agent Dictation was produced using [employer] dictation software. please excuse any grammatical, word or spelling errors. Time with Patient: Less than 30
[2024-05-09] MEDS: ATORVASTATIN 40 MG TAB PO SCH (22:27)
[2024-05-10 09:21] LABS: BUN/Creat Ratio 20.29 Ratio (12.00-20.00); Blood Urea Nitrogen 14.2 mg/dL (9.0-27.0); Calcium 8.4 mg/dL (8.7-10.3); Carbon Dioxide 23.8 mmol/L (21.6-31.8); Chloride 102 mmol/L (96-109); Glucose 88 mg/dL (70-110); Magnesium 1.8 mg/dL (1.5-2.4); Potassium 3.6 mmol/L (3.5-5.5); Sodium 137 mmol/L (135-145)
[2024-05-10 10:25] LABS: Basophils # (A) 0.14 X 10*3/uL (0.00-0.10); Basophils % (A) 0.5 %; Eosinophils # (A) 1.33 X 10*3/uL (0.04-0.35); Eosinophils % (A) 4.4 %; HCT 34.4 % (37.2-46.3); HGB 10.4 g/dL (12.0-15.0); Lymphocytes # (A) 0.87 X 10*3/uL (0.90-5.00); Lymphocytes % (A) 2.9 %; MCHC 30.2 g/dL (32.0-37.0); MCV 95.8 FL (80.0-97.0); Mean Platelet Volume 9.1 FL (9.5-12.2); Monocytes # (A) 1.05 X 10*3/uL (0.20-1.00); Monocytes % (A) 3.5 %; NRBC Per 100 WBC 0 X 10*3/uL (0.00-0.01); Neutrophils # (A) 26.22 X 10*3/uL (1.80-7.70); Neutrophils % (A) 87.1 %; Platelet Count 1090 X 10*3/uL (140-440); RBC 3.59 X 10*6/uL (4.10-5.20); RDW 17.7 % (11.5-14.5); WBC 30.08 X 10*3/uL (4.50-10.00)
[2024-05-10] MEDS: PANTOPRAZOLE 40 MG/10 ML VIAL ONE ×2 (11:29→11:30)
[2024-05-10] MEDS: ASPIRIN 81 MG ONE ×2 (11:30)
[2024-05-10] MEDS: ALPRAZolam 0.25 MG TAB ONE (11:30)
[2024-05-10] MEDS: METOPROLOL TARTRATE 25 MG TAB ONE (11:30)
[2024-05-10] MEDS: HYDROcodone/APAP 10-325MG 1 EACH TAB ONE (12:21)
[2024-05-10 15:21] VITALS: BMI 22.4
--- NOTE | 2024-05-10 15:36 | P.PN ---
Subjective Progress Note Date: 05/10/24 Patient is evaluated today in follow-up on the medical floor. Has been started on oral vancomycin for a positive C. difficile. Patient underwent abdominal pelvic CT on May 07 with findings of small to moderate left and trace right pleural effusions as well as multiple pulmonary nodules in the visualized lower lungs the largest measuring 1.6 cm the largest nodule is located in the inferior lingula. There is retrocrural adenopathy on the right measuring 1.1 cm. There is left-sided colonic diverticulosis with wall thickening and surrounding inflammation of the distal sigmoid colon concerning for acute diverticulitis with moderate severe inflammation there is small to moderate left and trace right pleural effusions and evidence of metastatic disease progression with numerous new pulmonary nodules at the lower lungs. There is additional disease progression with enlarging bilateral adrenal masses measuring up to 5.7 cm. Splenomegaly at 14.4 cm. Labs today revealing white blood cell count of 33, platelet count of 1200. Sodium 136, Renal function WNL. 05/10/2024 Patient is seen and evaluated in follow-up today currently lethargic although arousable. Patient continues on IV antibiotics with infectious disease following also had a C. difficile sample that was positive and patient is maintained on oral vancomycin for C. difficile. Oncology had been consulted as she follows with Dr. Byrd in the outpatient setting for lung cancer which is pending at this time. White count remains elevated although slightly improved today. Patient remains afebrile and not much of an appetite. Patient is maintained on soft foods. Recommend PT/OT therapy daily. Patient is in no code and plan was possible ECF on discharge. Will need to discuss with other consultations once evaluated by oncology regarding discharge planning. Will follow-up on repeat labs and continue to monitor for improvements in diarrhea. Sodium is 137 today with a potassium of 3.6, creatinine 0.7, magnesium slightly improved at 1.8. Review of Systems Constitutional: denied any fever. Reports feeling fatigued Cardio vascular: denied any chest pain, palpitations Gastrointestinal: denied any nausea, vomiting, Reports diarrhea Pulmonary: Denied any shortness of breath cough Neurologic denied any new focal deficits other than continuing to feel generally weak, left shoulder pain. All inpatient medications were reviewed and appropriate changes in these medications as dictated in the interval history and assessment and plan. PHYSICAL EXAMINATION: GENERAL: The patient is alert and oriented x2, not in any acute distress. Well developed, ill-appearing. Frail, Elderly. HEENT: Pupils are round and equally reacting to light. EOMI. No scleral icterus. No conjunctival pallor. Normocephalic, atraumatic. No pharyngeal erythema. No thyromegaly. CARDIOVASCULAR: S1 and S2 present. No murmurs, rubs, or gallops. PULMONARY: Chest is clear to auscultation, no wheezing or crackles. Diminished. ABDOMEN: Soft, thin, nontender, nondistended, normoactive bowel sounds. No palpable organomegaly. MUSCULOSKELETAL: No joint swelling or deformity. EXTREMITIES: No cyanosis, clubbing, or pedal edema. Muscle wasting noted on upper and lower extremities along with sternal region and clavicle region NEUROLOGICAL: Gross neurological examination did not reveal any focal deficits. Diffuse weakness. Pain with passive rotation of the left shoulder joint. SKIN: No rashes. Pale Assessment: -Fall in room on 05/08/24 patient was incontinent of stool in the RR and slipped and fell. -Left shoulder pain post fall with xray negative for fracture or dislocation -Diarrhea secondary to acute C.Dif colitis with sepsis -Complicated Urinary tract infection with sepsis POA Culture showing drug resistant Pseudomonas aeruginosa patient was continued on IV gentamicin -Leukocytosis with concern for underlying malignancy possibly hematological -Abdomen/Pelvis CT revealing diverticulitis/colitis and this is likely secondary to the C. difficile infection -Leukocytosis, Elevated platelet count -Hypomagnesemia, improving after replacement -Hx of recurrent UTI -Generalized weakness and medical debility secondary to above -Gait dysfunction -Hx of lung cancer on oral chemo with Dr. Byrd on an outpatient basis -Lower lung pulmonary nodules, adrenal masses and adenopathy with concern for metastatic disease GI prophylaxis IV protonix DVT prophylaxis Subcu heparin Do Not Resuscitate Do Not Intubate Plan: Patient has been started on oral Vancomycin secondary to the C.Dif colitis and IV gentamicin has been discontinued as recommended by Infectious Disease consultation. Hematology following patient has been started on hydroxyurea May need orthopedics consultation if left shoulder pain does not improve. Magnesium slightly improved at 1.8 and will follow-up with repeat labs Continue oral nystatin swish and swallow, encourage oral intake with soft foods and supplements between meals Continue pain management IV dilaudid, oral norco PT/OT consultation in place and CM on board for discharge planning Repeat CBC, BMP in the AM Overall prognosis is guarded at this time The impression and plan of care has been dictated by Adeline Ward, Nurse Practitioner as directed. Dr. Jaleel MD I have performed a history and physical examination and medical decision making of this patient, discussed the same with the dictator, and agree with the dictators assessment and plan as written, documented as a scribe. Based on total visit time, I have performed more than 50% of this visit. Objective - Vital Signs Vital signs: Vital Signs Temp 98.8 F 05/10/24 07:50 Pulse 117 H 05/10/24 07:50 Resp 18 05/10/24 07:50 BP 109/70 05/10/24 07:50 Pulse Ox 93 L 05/10/24 07:50 FiO2 Intake & Output 05/09/24 05/10/24 05/10/24 18:59 06:59 18:59 Intake Total 120 Balance 120 Intake: Oral 120 Other: Voiding Method Toilet Bedside Commode # Voids 2 3 # Bowel Movements 2 3 - Labs CBC & Chem 7: 05/10/24 05:55 05/10/24 05:55 Labs: Abnormal Lab Results - Last 24 Hours (Table) 05/10/24 Range/Units 05:55 BUN/Creatinine Ratio 20.29 H (12.00-20.00) Ratio Calcium 8.4 L (8.7-10.3) mg/dL
[2024-05-11 10:24] LABS: BUN/Creat Ratio 16.43 Ratio (12.00-20.00); Blood Urea Nitrogen 11.5 mg/dL (9.0-27.0); Carbon Dioxide 24.9 mmol/L (21.6-31.8); Chloride 103 mmol/L (96-109); Glucose 122 mg/dL (70-110); Magnesium 1.7 mg/dL (1.5-2.4); Potassium 2.9 mmol/L (3.5-5.5); Sodium 140 mmol/L (135-145)
[2024-05-11 10:25] LABS: ALT 12 U/L (8-44); AST 23 U/L (13-35); Albumin/Globulin Ratio 1.11 Ratio (1.60-3.17); Alkaline Phosphatase 120 U/L (41-126); Calcium 8.5 mg/dL (8.7-10.3); Globulin 2.7 g/dL (1.6-3.3); Total Bilirubin 0.4 mg/dL (0.3-1.2); Total Protein 5.7 g/dL (6.2-8.2)
[2024-05-11 10:35] LABS: Basophils # (A) 0.14 X 10*3/uL (0.00-0.10); Basophils % (A) 0.6 %; Eosinophils # (A) 1.49 X 10*3/uL (0.04-0.35); HCT 38.6 % (37.2-46.3); HGB 11.5 g/dL (12.0-15.0); Lymphocytes # (A) 0.76 X 10*3/uL (0.90-5.00); MCH 28.5 pg (27.0-32.0); MCHC 29.8 g/dL (32.0-37.0); MCV 95.8 FL (80.0-97.0); Mean Platelet Volume 9.1 FL (9.5-12.2); Monocytes # (A) 0.88 X 10*3/uL (0.20-1.00); Monocytes % (A) 3.5 %; NRBC Per 100 WBC 0 X 10*3/uL (0.00-0.01); Neutrophils # (A) 21.12 X 10*3/uL (1.80-7.70); Neutrophils % (A) 84.7 %; Platelet Count 1348 X 10*3/uL (140-440); RBC 4.03 X 10*6/uL (4.10-5.20); RDW 17.6 % (11.5-14.5); WBC 24.94 X 10*3/uL (4.50-10.00)
--- NOTE | 2024-05-11 12:52 | P.PN ---
Subjective Progress Note Date: 05/10/24 Principal diagnosis: Reason for follow-up is leukocytosis and C. difficile colitis Patient is a 84-year-old female with multiple comorbidities initial presentation to the hospital with an outpatient urine culture positive for drug- resistant UTI in this patient also have history of metastatic cancer and hematological malignancy. On today's evaluation that is 05/10/2024,the patient remains to be afebrile, patient is on room air not requiring supplemental oxygen and denies any shortness of breath no chest pain or cough.Patient denies having any nausea or vomiting, no abdominal pain and no worsening diarrhea has been reported. Patient white count is down to 30,000 creatinine 0.7 Objective - Vital Signs Vital signs: Vital Signs Temp 98.8 F 05/10/24 07:50 Pulse 117 H 05/10/24 07:50 Resp 18 05/10/24 07:50 BP 109/70 05/10/24 07:50 Pulse Ox 93 L 05/10/24 07:50 FiO2 Intake & Output 05/09/24 05/10/24 05/10/24 18:59 06:59 18:59 Intake Total 120 Balance 120 Intake: Oral 120 Other: Voiding Method Toilet Bedside Commode # Voids 2 3 1 # Bowel Movements 2 3 1 - Exam GENERAL DESCRIPTION: An elderly female lying in bed in no distress RESPIRATORY SYSTEM: Unlabored breathing , decreased breath sounds at bases HEART: S1 S2 regular rate and rhythm , ABDOMEN: Soft , no tenderness EXTREMITIES: No edema feet - Labs CBC & Chem 7: 05/11/24 07:37 05/11/24 07:37 Labs: Abnormal Lab Results - Last 24 Hours (Table) 05/10/24 05/10/24 Range/Units 05:55 05:55 WBC 30.08 H (4.50-10.00) X 10*3/uL RBC 3.59 L (4.10-5.20) X 10*6/uL Hgb 10.4 L (12.0-15.0) g/dL Hct 34.4 L (37.2-46.3) % MCHC 30.2 L (32.0-37.0) g/dL RDW 17.7 H (11.5-14.5) % Plt Count 1090 A* (140-440) X 10*3/uL MPV 9.1 L (9.5-12.2) FL Immature Gran # 0.47 H (0.00-0.04) X 10*3/uL Neutrophils # 26.22 H (1.80-7.70) X 10*3/uL Lymphocytes # 0.87 L (0.90-5.00) X 10*3/uL Monocytes # 1.05 H (0.20-1.00) X 10*3/uL Eosinophils # 1.33 H (0.04-0.35) X 10*3/uL Basophils # 0.14 H (0.00-0.10) X 10*3/uL BUN/Creatinine Ratio 20.29 H (12.00-20.00) Ratio Calcium 8.4 L (8.7-10.3) mg/dL Assessment and Plan (1) C. difficile colitis Current Visit: Yes Status: Acute Code(s): A04.72 - ENTEROCOLITIS D/T CLOSTRIDIUM DIFFICILE, NOT SPCF RECUR SNOMED Code(s): 995487805 (2) Leukocytosis Current Visit: Yes Status: Acute Code(s): D72.829 - ELEVATED WHITE BLOOD CELL COUNT, UNSPECIFIED SNOMED Code(s): 660501641 (3) Penicillin allergy Current Visit: No Status: Acute Code(s): Z88.0 - ALLERGY STATUS TO PENICILLIN SNOMED Code(s): 93723056 Plan: 1-patient with initial admission to the hospital for multidrug-resistant Pseudomonas positive urine culture concerning for UTI adequately treated as repeat urine culture has been negative gentamicin has been discontinued creatinine is normal 2-patient also have leukocytosis multifactorial and a possible component of C. difficile colitis, patient has been started on oral vancomycin, white count is trending down we will watch her clinical course closely Dictation was produced using [employer] dictation software. please excuse any grammatical, word or spelling errors. Time with Patient: Less than 30
--- NOTE | 2024-05-11 12:53 | P.PN ---
Subjective Progress Note Date: 05/11/24 Principal diagnosis: Reason for follow-up is leukocytosis and C. difficile colitis Patient is a 84-year-old female with multiple comorbidities initial presentation to the hospital with an outpatient urine culture positive for drug- resistant UTI in this patient also have history of metastatic cancer and hematological malignancy. On today's evaluation that is 05/11/2024, the patient continues to be afebrile, the patient is on room air and breathing comfortably, the Pt denies having any chest pain or cough, the patient denies having any abdominal pain no vomiting an d mention diarrhea has slowed down. Patient white count is down to 24.84 creatinine 0.7 Objective - Vital Signs Vital signs: Vital Signs Temp 98.5 F 05/11/24 07:17 Pulse 116 H 05/11/24 07:17 Resp 17 05/11/24 07:17 BP 128/74 05/11/24 07:17 Pulse Ox 92 L 05/11/24 07:17 FiO2 Intake & Output 05/10/24 05/11/24 05/11/24 18:59 06:59 18:59 Intake Total 420 Output Total 1 Balance 419 Weight 53.98 kg Intake: Oral 420 Output: Stool 1 Other: # Voids 4 1 1 # Bowel Movements 1 1 1 - Exam GENERAL DESCRIPTION: An elderly female lying in bed in no distress RESPIRATORY SYSTEM: Unlabored breathing , decreased breath sounds at bases HEART: S1 S2 regular rate and rhythm , ABDOMEN: Soft , no tenderness EXTREMITIES: No edema feet - Labs CBC & Chem 7: 05/11/24 07:37 05/11/24 07:37 Labs: Abnormal Lab Results - Last 24 Hours (Table) 05/11/24 05/11/24 Range/Units 07:37 07:37 WBC 24.94 H (4.50-10.00) X 10*3/uL RBC 4.03 L (4.10-5.20) X 10*6/uL Hgb 11.5 L (12.0-15.0) g/dL MCHC 29.8 L (32.0-37.0) g/dL RDW 17.6 H (11.5-14.5) % Plt Count 1348 A* (140-440) X 10*3/uL MPV 9.1 L (9.5-12.2) FL Immature Gran # 0.55 H (0.00-0.04) X 10*3/uL Neutrophils # 21.12 H (1.80-7.70) X 10*3/uL Lymphocytes # 0.76 L (0.90-5.00) X 10*3/uL Eosinophils # 1.49 H (0.04-0.35) X 10*3/uL Basophils # 0.14 H (0.00-0.10) X 10*3/uL Potassium 2.9 L (3.5-5.5) mmol/L Anion Gap 12.10 H (4.00-12.00) mmol/L Glucose 122 H (70-110) mg/dL Calcium 8.5 L (8.7-10.3) mg/dL Total Protein 5.7 L (6.2-8.2) g/dL Albumin 3.0 L (3.8-4.9) g/dL Albumin/Globulin Ratio 1.11 L (1.60-3.17) Ratio Assessment and Plan (1) C. difficile colitis Current Visit: Yes Status: Acute Code(s): A04.72 - ENTEROCOLITIS D/T CLOSTRIDIUM DIFFICILE, NOT SPCF RECUR SNOMED Code(s): 991265495 (2) Leukocytosis Current Visit: Yes Status: Acute Code(s): D72.829 - ELEVATED WHITE BLOOD CELL COUNT, UNSPECIFIED SNOMED Code(s): 233764506 (3) Penicillin allergy Current Visit: No Status: Acute Code(s): Z88.0 - ALLERGY STATUS TO PENICILLIN SNOMED Code(s): 37092960 Plan: 1-patient with initial admission to the hospital for multidrug-resistant Pseudomonas positive urine culture concerning for UTI adequately treated as repeat urine culture has been negative gentamicin has been discontinued creatinine is normal 2-patient also have leukocytosis multifactorial and a possible component of C. difficile colitis, 3-patient white count is down to 24,000 and the diarrhea has slowed down we will continue to treat the patient with oral vancomycin, avoid antimotility agents Dictation was produced using [employer] software. please excuse any grammatical, word or spelling errors. Time with Patient: Less than 30
[2024-05-11] MEDS ORDERED: Potassium Replacement Protocol 1 EACH MISC MISCELLANE PRN (14:12)
[2024-05-11] MEDS: LACTATED RINGERS 1,000 ML IV SCH (14:28)
[2024-05-11] MEDS: POTASSIUM BICARBONATE/CIT AC 20 MEQ TABLET.EFF NG-TUBE SCH (14:28)
--- NOTE | 2024-05-11 16:02 | P.PN ---
Subjective Progress Note Date: 05/11/24 Principal diagnosis: PV and met NSCLC In f/u today pt is very confused, she does not know where she is, is not able to tell me what day it is. She denied being in pain right now, she was able to sit up in bed. Objective - Vital Signs Vital signs: Vital Signs Temp 98.6 F 05/11/24 13:56 Pulse 90 05/11/24 13:56 Resp 17 05/11/24 13:56 BP 119/74 05/11/24 13:56 Pulse Ox 92 L 05/11/24 13:56 FiO2 Intake & Output 05/10/24 05/11/24 05/11/24 18:59 06:59 18:59 Intake Total 420 Output Total 1 Balance 419 Weight 53.98 kg Intake: Oral 420 Output: Stool 1 Other: # Voids 4 1 1 # Bowel Movements 1 1 1 - Constitutional General appearance: Present: cooperative, disheveled, no acute distress, thin - EENT Eyes: Present: anicteric sclerae ENT: Present: hearing grossly normal - Respiratory Details: resp even and unlabored - Cardiovascular Details: radial pulse 2+, regular - Peripheral edema foot Peripheral Edema: bilateral: None - Neurologic Neurologic: Present: CNII-XII intact - Musculoskeletal Musculoskeletal: Present: generalized weakness - Psychiatric Psychiatric Comment(s): alert, oriented to self Psychiatric: Present: appropriate affect - Labs CBC & Chem 7: 05/11/24 07:37 05/11/24 07:37 Labs: Abnormal Lab Results - Last 24 Hours (Table) 05/11/24 05/11/24 Range/Units 07:37 07:37 WBC 24.94 H (4.50-10.00) X 10*3/uL RBC 4.03 L (4.10-5.20) X 10*6/uL Hgb 11.5 L (12.0-15.0) g/dL MCHC 29.8 L (32.0-37.0) g/dL RDW 17.6 H (11.5-14.5) % Plt Count 1348 A* (140-440) X 10*3/uL MPV 9.1 L (9.5-12.2) FL Immature Gran # 0.55 H (0.00-0.04) X 10*3/uL Neutrophils # 21.12 H (1.80-7.70) X 10*3/uL Lymphocytes # 0.76 L (0.90-5.00) X 10*3/uL Eosinophils # 1.49 H (0.04-0.35) X 10*3/uL Basophils # 0.14 H (0.00-0.10) X 10*3/uL Potassium 2.9 L (3.5-5.5) mmol/L Anion Gap 12.10 H (4.00-12.00) mmol/L Glucose 122 H (70-110) mg/dL Calcium 8.5 L (8.7-10.3) mg/dL Total Protein 5.7 L (6.2-8.2) g/dL Albumin 3.0 L (3.8-4.9) g/dL Albumin/Globulin Ratio 1.11 L (1.60-3.17) Ratio Assessment and Plan (1) C. difficile colitis Current Visit: Yes Status: Acute Priority: High Code(s): A04.72 - ENTEROCOLITIS D/T CLOSTRIDIUM DIFFICILE, NOT SPCF RECUR SNOMED Code(s): 496503446 (2) UTI (urinary tract infection) Current Visit: Yes Status: Acute Priority: High Code(s): N39.0 - URINARY TRACT INFECTION, SITE NOT SPECIFIED SNOMED Code(s): 28819220 (3) Thrombocythemia Current Visit: Yes Status: Chronic Priority: Medium Code(s): D75.839 - THROMBOCYTOSIS, UNSPECIFIED SNOMED Code(s): 7032482 (4) Non-small cell lung cancer Current Visit: Yes Status: Chronic Priority: Medium Code(s): C34.90 - MALIGNANT NEOPLASM OF UNSP PART OF UNSP BRONCHUS OR LUNG SNOMED Code(s): 528410433 Plan: NSCLC, metastatic -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 Held after UTI BSrenal calculi in February and while in rehab. She was resumed on lower dose in March on DC from rehab. She missed recent appt with Dr. Byrd -Hold tabrectakil while inpt Thrombocythemia -hydrea DC'd when she started tabrecta, plt were mildly elevated in 500-700k range at that time -plt are significantly elevated currently as pt is acutely ill (c-diff, UTI) and she has been off of tabrecta -Pt currently resumed on hydrea -would anticipate plt decreasing as she is treated and recovered from acute infection. -Monitor plt for now. -Do not administer both hydrea and tabrecta
[2024-05-11] MEDS: POTASSIUM CHLORIDE ER 20 MEQ TAB.ER PO SCH (16:37)
--- NOTE | 2024-05-12 07:01 | P.PN ---
Subjective Progress Note Date: 05/11/24 Patient is evaluated today in follow-up on the medical floor. Has been started on oral vancomycin for a positive C. difficile. Patient underwent abdominal pelvic CT on May 07 with findings of small to moderate left and trace right pleural effusions as well as multiple pulmonary nodules in the visualized lower lungs the largest measuring 1.6 cm the largest nodule is located in the inferior lingula. There is retrocrural adenopathy on the right measuring 1.1 cm. There is left-sided colonic diverticulosis with wall thickening and surrounding inflammation of the distal sigmoid colon concerning for acute diverticulitis with moderate severe inflammation there is small to moderate left and trace right pleural effusions and evidence of metastatic disease progression with numerous new pulmonary nodules at the lower lungs. There is additional disease progression with enlarging bilateral adrenal masses measuring up to 5.7 cm. Splenomegaly at 14.4 cm. Labs today revealing white blood cell count of 33, platelet count of 1200. Sodium 136, Renal function WNL. 05/10/2024 Patient is seen and evaluated in follow-up today currently lethargic although arousable. Patient continues on IV antibiotics with infectious disease following also had a C. difficile sample that was positive and patient is maintained on oral vancomycin for C. difficile. Oncology had been consulted as she follows with Dr. Byrd in the outpatient setting for lung cancer which is pending at this time. White count remains elevated although slightly improved today. Patient remains afebrile and not much of an appetite. Patient is maintained on soft foods. Recommend PT/OT therapy daily. Patient is in no code and plan was possible ECF on discharge. Will need to discuss with other consultations once evaluated by oncology regarding discharge planning. Will follow-up on repeat labs and continue to monitor for improvements in diarrhea. Sodium is 137 today with a potassium of 3.6, creatinine 0.7, magnesium slightly improved at 1.8. 05/11/2024 Patient is seen in follow-up this morning lethargic although arousable and patient is more confused. Likely prolonged hospitalization and hospital- acquired delirium. Will add Seroquel at night. Oncology and infectious disease following and patient is maintained on Hydrea with elevated platelets. White count is trending down and patient remains afebrile. Patient reports her diarrhea has somewhat improved and less frequent and is maintained on oral vancomycin with infectious disease following. Recommend PT/OT therapy for evaluation as the plan was possibly rehab on discharge. Review of Systems Constitutional: denied any fever. Reports feeling fatigued Cardio vascular: denied any chest pain, palpitations Gastrointestinal: denied any nausea, vomiting, Reports diarrhea Pulmonary: Denied any shortness of breath cough Neurologic denied any new focal deficits other than continuing to feel generally weak, left shoulder pain but denies any new pain and reports does not hurt when she is not moving it a lot. All inpatient medications were reviewed and appropriate changes in these medications as dictated in the interval history and assessment and plan. PHYSICAL EXAMINATION: GENERAL: The patient is alert and oriented x2, not in any acute distress. Well developed, ill-appearing. Frail, Elderly. Appears more confused today HEENT: Pupils are round and equally reacting to light. EOMI. No scleral icterus. No conjunctival pallor. Normocephalic, atraumatic. No pharyngeal erythema. No thyromegaly. CARDIOVASCULAR: S1 and S2 present. No murmurs, rubs, or gallops. PULMONARY: Chest is clear to auscultation, no wheezing or crackles. Diminished. ABDOMEN: Soft, thin, nontender, nondistended, normoactive bowel sounds. No palpable organomegaly. MUSCULOSKELETAL: No joint swelling or deformity. EXTREMITIES: No cyanosis, clubbing, or pedal edema. Muscle wasting noted on upper and lower extremities along with sternal region and clavicle region NEUROLOGICAL: Gross neurological examination did not reveal any focal deficits. Diffuse weakness. Pain with passive rotation of the left shoulder joint. SKIN: No rashes. Pale Assessment: -Fall in room on 05/08/24 patient was incontinent of stool in the RR and slipped and fell. -Left shoulder pain post fall with xray negative for fracture or dislocation -Acute confusion, likely hospital-acquired delirium, will add Seroquel -Diarrhea secondary to acute C.Dif colitis with sepsis -Complicated Urinary tract infection with sepsis POA Culture showing drug resistant Pseudomonas aeruginosa patient was continued on IV gentamicin -Leukocytosis with concern for underlying malignancy possibly hematological -Abdomen/Pelvis CT revealing diverticulitis/colitis and this is likely secondary to the C. difficile infection -Leukocytosis, Elevated platelet count -Hypomagnesemia, improving after replacement -Hx of recurrent UTI -Generalized weakness and medical debility secondary to above -Gait dysfunction -Hx of lung cancer on oral chemo with Dr. Byrd on an outpatient basis -Lower lung pulmonary nodules, adrenal masses and adenopathy with concern for metastatic disease GI prophylaxis IV protonix DVT prophylaxis Subcu heparin Do Not Resuscitate Do Not Intubate Plan: Patient has been started on oral Vancomycin secondary to the C.Dif colitis and IV gentamicin has been discontinued as recommended by Infectious Disease consultation. Hematology following patient has been started on hydroxyurea Patient is becoming more acutely confused likely concerns for hospital-acquired delirium and will add Seroquel Magnesium slightly improved at 1.8 and will follow-up with repeat labs Continue oral nystatin swish and swallow, encourage oral intake with soft foods and supplements between meals Continue pain management with oral norco, avoid IV narcotics PT/OT consultation in place and CM on board for discharge planning Repeat CBC, BMP in the AM Overall prognosis is guarded at this time The impression and plan of care has been dictated by Adeline Ward, Nurse Practitioner as directed. Dr. Jaleel MD I have performed a history and physical examination and medical decision making of this patient, discussed the same with the dictator, and agree with the dictators assessment and plan as written, documented as a scribe. Based on total visit time, I have performed more than 50% of this visit. Objective - Vital Signs Vital signs: Vital Signs Temp 98.5 F 05/11/24 07:17 Pulse 116 H 05/11/24 07:17 Resp 17 05/11/24 07:17 BP 128/74 05/11/24 07:17 Pulse Ox 92 L 05/11/24 07:17 FiO2 Intake & Output 05/10/24 05/11/24 05/11/24 18:59 06:59 18:59 Intake Total 420 Output Total 1 Balance 419 Weight 53.98 kg Intake: Oral 420 Output: Stool 1 Other: # Voids 4 1 1 # Bowel Movements 1 1 1 - Labs CBC & Chem 7: 05/11/24 07:37 05/11/24 19:03 Labs: Abnormal Lab Results - Last 24 Hours (Table) 05/10/24 Range/Units 05:55 WBC 30.08 H (4.50-10.00) X 10*3/uL RBC 3.59 L (4.10-5.20) X 10*6/uL Hgb 10.4 L (12.0-15.0) g/dL Hct 34.4 L (37.2-46.3) % MCHC 30.2 L (32.0-37.0) g/dL RDW 17.7 H (11.5-14.5) % Plt Count 1090 A* (140-440) X 10*3/uL MPV 9.1 L (9.5-12.2) FL Immature Gran # 0.47 H (0.00-0.04) X 10*3/uL Neutrophils # 26.22 H (1.80-7.70) X 10*3/uL Lymphocytes # 0.87 L (0.90-5.00) X 10*3/uL Monocytes # 1.05 H (0.20-1.00) X 10*3/uL Eosinophils # 1.33 H (0.04-0.35) X 10*3/uL Basophils # 0.14 H (0.00-0.10) X 10*3/uL
[2024-05-12 09:08] LABS: Anisocytosis Slight; Basophils # (A) 0.1 k/uL (0-0.2); Basophils % (A) 0 %; Eosinophils % (A) 8 %; HCT 38.5 % (34.0-46.0); HGB 11.9 gm/dL (11.4-16.0); Hypochromasia Slight; Lymphocytes # (A) 0.6 k/uL (1.0-4.8); Lymphocytes % (A) 4 %; MCH 29.3 pg (25.0-35.0); MCV 94.6 fL (80.0-100.0); Mean Platelet Volume 7.7; Monocytes # (A) 0.3 k/uL (0-1.0); Monocytes % (A) 2 %; Neutrophils # (A) 11.4 k/uL (1.3-7.7); Neutrophils % (A) 85 %; RBC 4.07 m/uL (3.80-5.40); RDW 17.7 % (11.5-15.5); WBC 13.5 k/uL (3.8-10.6)
[2024-05-12 09:09] LABS: Platelet Count 1129 k/uL (150-450)
[2024-05-12 11:01] LABS: African American GFR (CKD) >90 (>60 ml/min/1.73 sqM); Anion Gap 5 mmol/L; Blood Urea Nitrogen 12 mg/dL (7-17); Carbon Dioxide 27 mmol/L (22-30); Chloride 109 mmol/L (98-107); Glucose 96 mg/dL (74-99); Magnesium 1.6 mg/dL (1.6-2.3); Non-African American GFR(CKD) 85 (>60 ml/min/1.73 sqM); Sodium 141 mmol/L (137-145)
--- NOTE | 2024-05-12 12:30 | P.PN ---
Subjective Progress Note Date: 05/12/24 Principal diagnosis: Reason for follow-up is leukocytosis and C. difficile colitis Patient is a 84-year-old female with multiple comorbidities initial presentation to the hospital with an outpatient urine culture positive for drug- resistant UTI in this patient also have history of metastatic cancer and hematological malignancy. On today's evaluation that is 05/12/2024, Patient is afebrile patient is currently on room air and denies having any shortness of breath, the patient denies any chest pain or cough, the patient denies any nausea vomiting did not have any abdominal pain and diarrhea has slowed down per the nursing staff. Patient white count is down to 13.5 creatinine 0.58 Objective - Vital Signs Vital signs: Vital Signs Temp 98.3 F 05/12/24 07:25 Pulse 79 05/12/24 07:25 Resp 18 05/12/24 07:25 BP 114/67 05/12/24 07:25 Pulse Ox 95 05/12/24 07:25 FiO2 Intake & Output 05/11/24 05/12/24 05/12/24 18:59 06:59 18:59 Other: Voiding Method Bedside Commode Diaper # Voids 1 # Bowel Movements 1 - Exam GENERAL DESCRIPTION: An elderly female lying in bed in no distress RESPIRATORY SYSTEM: Unlabored breathing , decreased breath sounds at bases HEART: S1 S2 regular rate and rhythm , ABDOMEN: Soft , no tenderness EXTREMITIES: No edema feet - Labs CBC & Chem 7: 05/12/24 08:17 05/12/24 08:17 Labs: Abnormal Lab Results - Last 24 Hours (Table) 05/12/24 05/12/24 Range/Units 08:17 08:17 WBC 13.5 H (3.8-10.6) k/uL RDW 17.7 H (11.5-15.5) % Plt Count 1129 H* (150-450) k/uL Neutrophils # 11.4 H (1.3-7.7) k/uL Lymphocytes # 0.6 L (1.0-4.8) k/uL Eosinophils # 1.0 H (0-0.7) k/uL Chloride 109 H (98-107) mmol/L Assessment and Plan (1) C. difficile colitis Current Visit: Yes Status: Acute Priority: High Code(s): A04.72 - ENTEROCOLITIS D/T CLOSTRIDIUM DIFFICILE, NOT SPCF RECUR SNOMED Code(s): 244961146 (2) Leukocytosis Current Visit: Yes Status: Acute Code(s): D72.829 - ELEVATED WHITE BLOOD CELL COUNT, UNSPECIFIED SNOMED Code(s): 042086541 (3) Penicillin allergy Current Visit: No Status: Acute Code(s): Z88.0 - ALLERGY STATUS TO PENICILLIN SNOMED Code(s): 39946165 Plan: 1-patient with initial admission to the hospital for multidrug-resistant Pseudomonas positive urine culture concerning for UTI adequately treated as rep eat urine culture has been negative gentamicin has been discontinued creatinine is normal 2-patient also have leukocytosis multifactorial and a possible component of C. difficile colitis, 3-patient diarrhea has slowed down and the white count is trending down she is on oral vancomycin plan is for 10-day course discussed with the COMPUTER RECYCLING WORKER for admitting team Dictation was produced using [employer] dictation software. please excuse any grammatical, word or spelling errors. Time with Patient: Less than 30
[2024-05-12] MEDS: QUEtiapine 25 MG TAB PO SCH (21:32)
[2024-05-12] MEDS ORDERED: VANCOMYCIN 125 MG CAPSULE PO ONE ×2 (23:20→23:30)
[2024-05-12] MEDS ORDERED: NYSTATIN 100,000 UNIT/ML SUSP 500,000 UNIT/5 ML CUP ONE ×2 (23:20→23:30)
[2024-05-12] MEDS ORDERED: HYDROXYUREA 500 MG CAP PO ONE ×2 (23:20→23:30)
[2024-05-13 08:03] LABS: African American GFR (CKD) >90 (>60 ml/min/1.73 sqM); Anion Gap 3 mmol/L; Blood Urea Nitrogen 12 mg/dL (7-17); Calcium 8.2 mg/dL (8.4-10.2); Carbon Dioxide 28 mmol/L (22-30); Chloride 106 mmol/L (98-107); Glucose 107 mg/dL (74-99); Non-African American GFR(CKD) 86 (>60 ml/min/1.73 sqM); Sodium 137 mmol/L (137-145)
[2024-05-13 08:15] LABS: Magnesium 1.4 mg/dL (1.6-2.3)
[2024-05-13] MEDS ORDERED: Magnesium Replacement Protocol 1 EACH MISC MISCELLANE PRN (09:32)
--- NOTE | 2024-05-13 09:46 | P.PN ---
Subjective Progress Note Date: 05/13/24 Patient is evaluated today in follow-up on the medical floor. Has been started on oral vancomycin for a positive C. difficile. Patient underwent abdominal pelvic CT on May 07 with findings of small to moderate left and trace right pleural effusions as well as multiple pulmonary nodules in the visualized lower lungs the largest measuring 1.6 cm the largest nodule is located in the inferior lingula. There is retrocrural adenopathy on the right measuring 1.1 cm. There is left-sided colonic diverticulosis with wall thickening and surrounding inflammation of the distal sigmoid colon concerning for acute diverticulitis with moderate severe inflammation there is small to moderate left and trace right pleural effusions and evidence of metastatic disease progression with numerous new pulmonary nodules at the lower lungs. There is additional disease progression with enlarging bilateral adrenal masses measuring up to 5.7 cm. Splenomegaly at 14.4 cm. Labs today revealing white blood cell count of 33, platelet count of 1200. Sodium 136, Renal function WNL. 05/10/2024 Patient is seen and evaluated in follow-up today currently lethargic although arousable. Patient continues on IV antibiotics with infectious disease following also had a C. difficile sample that was positive and patient is maintained on oral vancomycin for C. difficile. Oncology had been consulted as she follows with Dr. Byrd in the outpatient setting for lung cancer which is pending at this time. White count remains elevated although slightly improved today. Patient remains afebrile and not much of an appetite. Patient is maintained on soft foods. Recommend PT/OT therapy daily. Patient is in no code and plan was possible ECF on discharge. Will need to discuss with other consultations once evaluated by oncology regarding discharge planning. Will follow-up on repeat labs and continue to monitor for improvements in diarrhea. Sodium is 137 today with a potassium of 3.6, creatinine 0.7, magnesium slightly improved at 1.8. 05/11/2024 Patient is seen in follow-up this morning lethargic although arousable and patient is more confused. Likely prolonged hospitalization and hospital- acquired delirium. Will add Seroquel at night. Oncology and infectious disease following and patient is maintained on Hydrea with elevated platelets. White count is trending down and patient remains afebrile. Patient reports her diarrhea has somewhat improved and less frequent and is maintained on oral vancomycin with infectious disease following. Recommend PT/OT therapy for evaluation as the plan was possibly rehab on discharge. 05/12/2024 Patient is seen in follow-up this morning currently sitting up in the chair after working with physical therapy. Patient is significantly weak and has had prolonged hospitalization progressively getting worse and has not been eating very well. Patient's mentation waxes and wanes and patient continues with confusion. Seroquel added at night and patient also reports is feeling exhausted and not sleeping well although was found to be sleeping throughout much of the day. Patient denies any current pain although when attempting to reposition herself during exam in the chair there was wincing noted on her face regarding her left shoulder. Fractures were excluded status post fall on the left shoulder by imaging. Patient CODE STATUS was addressed and patient is no code and need to discuss further with patient's daughter regarding overall plan of care and clinical decline. Patient's diarrhea is somewhat improving and patient is maintained on oral Vanco with infectious disease following. IV antibiotics have been discontinued. Patient reports from yesterday to today 3 bowel movements but has lessened in intensity. Patient again is not eating very much at all. Patient continues on nystatin swish and swallow and outer mouth is noted with crusting and tongue continues to appear beefy. Overall prognosis is guarded at this time. Review of Systems Constitutional: denied any fever. Reports feeling fatigued and exhausted Cardio vascular: denied any chest pain, palpitations Gastrointestinal: denied any nausea, vomiting, Reports diarrhea although some what improved, no appetite at all Pulmonary: Denied any shortness of breath cough Neurologic denied any new focal deficits other than continuing to feel generally weak, left shoulder pain but denies any new pain and reports does not hurt when she is not moving it a lot. All inpatient medications were reviewed and appropriate changes in these medications as dictated in the interval history and assessment and plan. PHYSICAL EXAMINATION: GENERAL: The patient is alert and oriented x2, not in any acute distress. Well developed, ill-appearing. Frail, Elderly. Appears more confused today HEENT: Pupils are round and equally reacting to light. EOMI. No scleral icterus. No conjunctival pallor. Normocephalic, atraumatic. No pharyngeal erythema. No thyromegaly. Oral mucosa is dry CARDIOVASCULAR: S1 and S2 present. No murmurs, rubs, or gallops. PULMONARY: Chest is clear to auscultation, no wheezing or crackles. Diminished. ABDOMEN: Soft, thin, nontender, nondistended, normoactive bowel sounds. No palpable organomegaly. MUSCULOSKELETAL: No joint swelling or deformity. EXTREMITIES: No cyanosis, clubbing, or pedal edema. Muscle wasting noted on upper and lower extremities along with sternal region and clavicle region NEUROLOGICAL: Gross neurological examination did not reveal any focal deficits. Diffuse weakness. Pain with passive rotation of the left shoulder joint. SKIN: No rashes. Pale Assessment: -Fall in room on 05/08/24 patient was incontinent of stool in the RR and slipped and fell. -Left shoulder pain post fall with xray negative for fracture or dislocation -Acute confusion, likely hospital-acquired delirium, will continue Seroquel -Diarrhea secondary to acute C.Dif colitis with sepsis -Complicated Urinary tract infection with sepsis POA Culture showing drug re sistant Pseudomonas aeruginosa, patient continued IV gentamicin -Leukocytosis with concern for underlying malignancy possibly hematological, trending down likely secondary to C. difficile infection -Abdomen/Pelvis CT revealing diverticulitis/colitis and this is likely secondary to the C. difficile infection -Leukocytosis, Elevated platelet count -Hypomagnesemia, improving after replacement -Hx of recurrent UTI -Generalized weakness and medical debility secondary to above -Gait dysfunction -Hx of lung cancer on oral chemo with Dr. Byrd on an outpatient basis -Lower lung pulmonary nodules, adrenal masses and adenopathy with concern for metastatic disease GI prophylaxis IV protonix DVT prophylaxis Subcu heparin Do Not Resuscitate Do Not Intubate Plan: Patient has been started on oral Vancomycin secondary to the C.Dif colitis and IV gentamicin has been discontinued as recommended by Infectious Disease consultation. Hematology following patient has been started on hydroxyurea Patient is becoming more acutely confused likely concerns for hospital-acquired delirium and will add Seroquel. Mentation was slightly improved today was sitting up in the chair able to answer more appropriately although continues to have moments of confusion Magnesium being replaced per protocol Continue oral nystatin swish and swallow, encourage oral intake with soft foods and supplements between meals. Patient needs more meticulous mouth care Continue pain management with oral norco, avoid IV narcotics PT/OT consultation in place and CM on board for discharge planning Repeat CBC, BMP in the AM CODE STATUS was addressed and patient is no code. Need to discuss possible palliative or hospice with family Overall prognosis is guarded at this time The impression and plan of care has been dictated by Adeline Ward, Nurse Practitioner as directed. Dr. Jaleel MD I have performed a history and physical examination and medical decision making of this patient, discussed the same with the dictator, and agree with the dictators assessment and plan as written, documented as a scribe. Based on total visit time, I have performed more than 50% of this visit. Objective - Vital Signs Vital signs: Vital Signs Temp 98 F 05/13/24 02:00 Pulse 82 05/13/24 02:00 Resp 18 05/12/24 14:00 BP 105/60 05/13/24 02:00 Pulse Ox 97 05/13/24 02:00 FiO2 Intake & Output 05/12/24 05/13/24 05/13/24 18:59 06:59 18:59 Other: # Voids 2 1 # Bowel Movements 1 1 - Labs CBC & Chem 7: 05/12/24 08:17 05/13/24 07:24 Labs: Abnormal Lab Results - Last 24 Hours (Table) 05/12/24 05/13/24 Range/Units 08:17 07:24 Potassium 3.0 L (3.5-5.1) mmol/L Chloride 109 H (98-107) mmol/L Glucose 107 H (74-99) mg/dL Calcium 8.2 L (8.4-10.2) mg/dL Magnesium 1.4 L (1.6-2.3) mg/dL
[2024-05-13 10:15] LABS: Anisocytosis Slight; Basophils # (A) 0.1 k/uL (0-0.2); Basophils % (A) 1 %; Eosinophils # (A) 0.7 k/uL (0-0.7); Eosinophils % (A) 5 %; HCT 38.6 % (34.0-46.0); Hypochromasia Moderate; Lymphocytes # (A) 0.7 k/uL (1.0-4.8); Lymphocytes % (A) 5 %; MCH 29.3 pg (25.0-35.0); MCV 94.6 fL (80.0-100.0); Mean Platelet Volume 7.8; Monocytes # (A) 0.5 k/uL (0-1.0); Monocytes % (A) 3 %; Neutrophils # (A) 11.9 k/uL (1.3-7.7); Neutrophils % (A) 85 %; RBC 4.08 m/uL (3.80-5.40); RDW 17.7 % (11.5-15.5); WBC 13.9 k/uL (3.8-10.6)
[2024-05-13 11:54] LABS: Poikilocytosis (M) Present
[2024-05-13] MEDS: MAGNESIUM SULFATE-D5W PMX 1 GM in DEXTROSE/WATER 1 100ML.BAG IVPB SCH (12:09)
[2024-05-13] MEDS: LACTATED RINGERS 1,000 ML with POTASSIUM CHLORIDE 20 MEQ IV SCH (12:33)
[2024-05-13] MEDS: POTASSIUM CHLORIDE ER 20 MEQ TAB.ER PO STA (13:58)
--- NOTE | 2024-05-13 14:09 | P.DS ---
Providers Date of admission: 04/29/24 18:40 Expected date of discharge: 05/13/24 Attending physician: Bradley Medina MD Consults: 05/08/24 18:23 Consult Physician Routine Consulting Provider: Shira Brooks Consult Reason/Comments: uti, sepsis Do you want consulting provider notified?: Already Contacted 05/08/24 18:28 Consult Physician Routine Consulting Provider: Cesar Coles Consult Reason/Comments: lung cancer Do you want consulting provider notified?: Already Contacted Primary care physician: Stated None Hospital Course: Final diagnosis -Fall in room on 05/08/24 patient was incontinent of stool in the RR and slipped and fell. -Left shoulder pain post fall with xray negative for fracture or dislocation -Acute confusion, likely hospital-acquired delirium, will continue Seroquel -Diarrhea secondary to acute C.Dif colitis with sepsis -Complicated Urinary tract infection with sepsis POA Culture showing drug resistant Pseudomonas aeruginosa, patient has received adequate antibiotics for this -Leukocytosis with concern for underlying malignancy possibly hematological, trending down likely secondary to C. difficile infection -Abdomen/Pelvis CT revealing diverticulitis/colitis and this is likely secondary to the C. difficile infection -Leukocytosis, Elevated platelet count -Hypomagnesemia, improving after replacement -Hx of recurrent UTI -Moderate protein calorie malnutrition with a BMI of 22.5 -Generalized weakness and medical debility secondary to above -Gait dysfunction -Hx of lung cancer on oral chemo with Dr. Byrd on an outpatient basis -Lower lung pulmonary nodules, adrenal masses and adenopathy with concern for metastatic disease GI prophylaxis IV protonix DVT prophylaxis Subcu heparin Do Not Resuscitate Do Not Intubate Discharge disposition Patient is being discharged in a stable condition with guarded prognosis to [facility]. Patient will follow-up with Dr. Galicia in the outpatient setting upon discharge. Patient is to continue with oral Vanco every 6 hours for the next 10 days and close outpatient follow-up with infectious disease Dr. Brooks as scheduled. Patient is agreeable to no oncological care during ECF and will follow-up with oncology in the outpatient setting once discharged from ECF. Total time taken is greater than 35 minutes. Hospital course This is a 84-year-old female who was recently admitted with acute urinary tract infection with sepsis, present on admission with history of recurrent UTIs and noted to have E. coli along with Pseudomonas and maintained on gentamicin. Patient showed clinical improvement although continued to have persistent diarrhea and sample was obtained noted to have positive C. difficile and started on oral Vanco. Patient had elevated white count and evaluated by hemat ology/oncology and is trending down and currently 13.9 from 33 and is improving on oral Vanco. Patient has completed gentamicin and denies any further pain or burning or frequency with urination. Patient reports she has had less bowel movements and becoming less frequent. Patient's oral intake continues to be poor and needs encouragement including supplements between meals. Patient reports she has no real appetite. CODE STATUS was addressed and patient is no code. Possible hospice versus palliative also addressed as patient is clinically deteriorating with multiple comorbidities and is high risk for rehospitalization. Patient reports she is not interested in palliative or hospice at this time and is willing to go to [facility] for PT/OT therapy for continued strength and mobility. Family is agreeable and would like the patient to go to [facility]. Patient has been accepted and will be going to [facility] today. Patient's electrolytes continue to be abnormal including a low potassium and low magnesium which were replaced and recommend follow-up labs in the next 1 to 2 days for repeat CBC, CMP, magnesium. Per infectious disease recommendations avoid antimotility agents and continue with just Vanco orally for the next 10 days. Please refer to other consultation notes for further HPI. Currently no reports of chest pain, shortness of breath, or palpitations. Patient is afebrile. No reports of nausea or vomiting and patient is tolerating diet. Patient will be going to [facility] today. Guarded prognosis and high risk for readmissions given significant comorbidities. Physical exam: Gen: This is a 84-year-old female who is awake, alert and oriented x 2, intermittently confused and lethargic, thin built, elderly appearing, ill- appearing, cachectic HEENT: Head is atraumatic, normocephalic. Pupils equal, round. Sclerae is anicteric. NECK: Supple. No JVD. No lymphadenopathy. No thyromegaly. LUNGS: Diminished bilaterally otherwise clear to auscultation. No wheezes or rhonchi. No intercostal retractions. HEART: S1, S2 are muffled ABDOMEN: Soft. Thin, nontender bowel sounds are present. No masses. No tenderness. EXTREMITIES: No pedal edema. No calf tenderness. NEUROLOGICAL: Patient is awake, alert and oriented x2. Cranial nerves 2 through 12 are grossly intact. Diffusely weak Please refer to medication reconciliation sheet for a list of medications. The impression and plan of care has been dictated by Adeline Ward, Nurse Practitioner as directed. Dr. Jaleel MD I have performed a history and examination and MDM of this patient, discussed the same with the dictator, and agree with the dictator's assessment and plan as written ,documented as a scribe. Based on total visit time, I have performed more than 50% of the visit. Patient Condition at Discharge: Fair Plan - Discharge Summary New Discharge Prescriptions: New Fluconazole [Diflucan] 100 mg PO DAILY 10 Days #10 tab Heparin Sodium,Porcine (1 ml) [Heparin Sodium] 5,000 unit SQ BID each Hydroxyurea [Hydrea] 500 mg PO Q12H cap Atorvastatin [Lipitor] 40 mg PO HS tab Metoprolol Tartrate [Lopressor] 25 mg PO BID tab QUEtiapine [SEROquel] 12.5 mg PO HS tab Acetaminophen Tab [Tylenol] 650 mg PO Q6H PRN tab PRN Reason: MILD PAIN/FEVER OVER 100.5 Nystatin 100,000 Unit/ml Susp [Mycostatin Oral Susp] 500,000 unit PO Q6H ml HYDROcodone/APAP 10-325MG [[place] 10-325] 1 each PO Q4H PRN #4 tab PRN Reason: MODERATE Pain Pantoprazole Sodium [Protonix] 40 mg PO DAILY #30 tab Vancomycin HCl [Vancocin HCl] 250 mg PO QID 10 Days #40 cap ALPRAZolam [Xanax] 0.25 mg PO BID #4 tab Continue Aspirin EC [Ecotrin Low Dose] 81 mg PO DAILY Nitroglycerin Sl Tabs [Nitrostat] 0.4 mg SUBLINGUAL Q5M PRN PRN Reason: Chest Pain Albuterol Sulfate [Albuterol Sulfate Hfa] 1 - 2 puff INHALATION RT-Q4H PRN PRN Reason: Shortness Of Breath Ibuprofen [Motrin] 800 mg PO Q8H PRN PRN Reason: Pain Ondansetron [Zofran] 4 mg PO Q6H PRN PRN Reason: Nausea Discontinued dexAMETHasone [Decadron] 4 mg PO DAILY HYDROcodone/APAP 5-325MG [[place] 5-325] 1 each PO QID PRN #12 tab PRN Reason: Pain Metoprolol Succinate (ER) [Toprol XL] 25 mg PO DAILY 30 Days #30 tab Discharge Medication List Aspirin EC [Ecotrin Low Dose] 81 mg PO DAILY 07/11/22 [History] Nitroglycerin Sl Tabs [Nitrostat] 0.4 mg SUBLINGUAL Q5M PRN 07/11/22 [History] Albuterol Sulfate [Albuterol Sulfate Hfa] 1 - 2 puff INHALATION RT-Q4H PRN 08/20/22 [History] Ibuprofen [Motrin] 800 mg PO Q8H PRN 02/08/24 [History] Ondansetron [Zofran] 4 mg PO Q6H PRN 02/08/24 [History] ALPRAZolam [Xanax] 0.25 mg PO BID #4 tab 05/13/24 [Rx] Acetaminophen Tab [Tylenol] 650 mg PO Q6H PRN tab 05/13/24 [Rx] Atorvastatin [Lipitor] 40 mg PO HS tab 05/13/24 [Rx] Fluconazole [Diflucan] 100 mg PO DAILY 10 Days #10 tab 05/13/24 [Rx] HYDROcodone/APAP 10-325MG [[place] 10-325] 1 each PO Q4H PRN #4 tab 05/13/24 [Rx] Heparin Sodium,Porcine (1 ml) [Heparin Sodium] 5,000 unit SQ BID each 05/13/24 [Rx] Hydroxyurea [Hydrea] 500 mg PO Q12H cap 05/13/24 [Rx] Metoprolol Tartrate [Lopressor] 25 mg PO BID tab 05/13/24 [Rx] Nystatin 100,000 Unit/ml Susp [Mycostatin Oral Susp] 500,000 unit PO Q6H ml 05/13/24 [Rx] Pantoprazole Sodium [Protonix] 40 mg PO DAILY #30 tab 05/13/24 [Rx] QUEtiapine [SEROquel] 12.5 mg PO HS tab 05/13/24 [Rx] Vancomycin HCl [Vancocin HCl] 250 mg PO QID 10 Days #40 cap 05/13/24 [Rx] Follow up Appointment(s)/Referral(s): Joseph Galicia MD [STAFF PHYSICIAN] - 1 Week Johnnie Byrd MD [STAFF PHYSICIAN] - 1 Week Ambulatory/Diagnostic Orders: Complete Blood Count w/diff [LAB.AMB] Time Frame: 2 Days, Location: None Selected Activity/Diet/Wound Care/Special Instructions: Patient is going to [facility] as tolerated Continue on vancomycin oral 4 times daily for the next 10 days per ID recommendations Follow-up with oncology outpatient once discharged from ECF Follow-up with infectious disease outpatient Follow-up with primary care provider on discharge Repeat labs in the form of CMP, CBC, magnesium in 2 to 3 days Discharge Disposition: TRANSFER TO SNF/ECF
--- NOTE | 2024-05-13 15:21 | P.PN ---
Subjective Progress Note Date: 05/13/24 Principal diagnosis: Reason for follow-up is leukocytosis and C. difficile colitis Patient is a 84-year-old female with multiple comorbidities initial presentation to the hospital with an outpatient urine culture positive for drug- resistant UTI in this patient also have history of metastatic cancer and hematological malignancy. On today's evaluation that is 05/13/2024, patient has been afebrile, patient is breathing comfortably and is currently on 2 L nasal cannula oxygen, patient denies having any significant cough no chest pain shortness of breath, patient denies nausea vomiting or abdominal pain and diarrhea has slowed down per the nursing staff. The patient white count is 19.9 creatinine 0.55 Objective - Vital Signs Vital signs: Vital Signs Temp 98 F 05/13/24 02:00 Pulse 82 05/13/24 02:00 Resp 18 05/13/24 12:47 BP 105/60 05/13/24 02:00 Pulse Ox 97 05/13/24 02:00 FiO2 Intake & Output 05/12/24 05/13/24 05/13/24 18:59 06:59 18:59 Intake Total 100 100 Output Total 1 Balance 100 99 Weight 53.98 kg Intake: Oral 100 100 Output: Stool 1 Other: Voiding Method Bedside Commode Diaper # Voids 2 1 # Bowel Movements 1 1 - Exam GENERAL DESCRIPTION: An elderly female lying in bed in no distress RESPIRATORY SYSTEM: Unlabored breathing , decreased breath sounds at bases HEART: S1 S2 regular rate and rhythm , ABDOMEN: Soft , no tenderness EXTREMITIES: No edema feet - Labs CBC & Chem 7: 05/13/24 08:55 05/13/24 07:24 Labs: Abnormal Lab Results - Last 24 Hours (Table) 05/13/24 05/13/24 Range/Units 07:24 08:55 WBC 13.9 H (3.8-10.6) k/uL RDW 17.7 H (11.5-15.5) % Plt Count 1285 H* (150-450) k/uL Neutrophils # 11.9 H (1.3-7.7) k/uL Lymphocytes # 0.7 L (1.0-4.8) k/uL Potassium 3.0 L (3.5-5.1) mmol/L Glucose 107 H (74-99) mg/dL Calcium 8.2 L (8.4-10.2) mg/dL Magnesium 1.4 L (1.6-2.3) mg/dL Assessment and Plan (1) C. difficile colitis Current Visit: Yes Status: Acute Priority: High Code(s): A04.72 - ENTEROCOLITIS D/T CLOSTRIDIUM DIFFICILE, NOT SPCF RECUR SNOMED Code(s): 603963052 (2) Leukocytosis Current Visit: Yes Status: Acute Code(s): D72.829 - ELEVATED WHITE BLOOD CELL COUNT, UNSPECIFIED SNOMED Code(s): 408348816 (3) Penicillin allergy Current Visit: No Status: Acute Code(s): Z88.0 - ALLERGY STATUS TO PENICILLIN SNOMED Code(s): 43071736 Plan: 1-patient with initial admission to the hospital for multidrug-resistant Pseudomonas positive urine culture concerning for UTI adequately treated as repeat urine culture has been negative gentamicin has been discontinued c reatinine is normal 2-patient also have leukocytosis multifactorial and a possible component of C. d ifficile colitis, 3-patient diarrhea has slowed down and the white count improved as well plan is for 10-day course of oral vancomycin and close outpatient follow-up Dictation was produced using [employer] dictation software. please excuse any grammatical, word or spelling errors. Time with Patient: Less than 30
[2024-05-13 15:30] LABS: Platelet Count 1285 k/uL (150-450)
[2024-05-13 15:36] VITALS: BP 111/66; PULSE 88; RESP 17; TEMP 97.1
[2024-05-13] MEDS ORDERED: POTASSIUM CHLORIDE ER 20 MEQ TAB.ER PO ONE (16:00)
--- NOTE | 2024-05-26 07:19 | CT ---
Patient: Adelaide Mays Ordering Physician: Unknown, Unknown ID: [id number] Phone, Pager: Phone: N/A Pager: N/A : [phone] Age/Gender: 84Y, F Primary Location: N/A Procedure: CT abdomen pelvis wo con Study Date: 05/07/2024 5:43:00 PM EXAMINATION TYPE: CT abdomen pelvis wo con DATE OF EXAM: 05/07/2024 COMPARISON: 02/08/2024 HISTORY: 84-year-old female UTI, elevated WBC CT DLP: 555.8 mGycm. Automated exposure control for dose reduction was used. TECHNIQUE: Contiguous axial scanning of the abdomen and pelvis without IV contrast. Coronal and sagit claudia reconstructions performed. Oral contrast administered. FINDINGS: Median sternotomy wires. Borderline cardiomegaly. There is a new small to moderate left and trace rig ht pleural effusions as well as annual multiple pulmonary nodules in the visualized lower lungs, larg est measuring 1.6 cm. This largest nodule is located in the inferior lingula. Retrocrural adenopathy on the right measuring 1.1 cm. Lateral IV contrast limits assessment of the solid abdominal viscera, lymph nodes, and vascular struc tures. Suspected enlarging right adrenal mass now 5.3 cm versus 4.6 cm, previously. New left adrenal mass me asuring 5.7 cm proximal to the back wall of the gastric fundus. Left-sided nonobstructing renal calculi measuring up to 7 mm. Punctate 2 mm nonobstructive right aleja l stone. No hydronephrosis on either side Spleen is enlarged at 14.4 cm measured on coronal series. Pancreas is atrophic. No dilated small bowel or free air. Oral contrast progressed into the transverse colon. There is extensive left-sided colonic diverticulo sis. Circumferential wall thickening and moderate pericolonic inflammatory fat stranding about the mi d to distal sigmoid colon but additional moderate circumferential thickening extending to the rectum with perirectal fat stranding as well. Bladder partially distended. Uterus surgically absent. Multiple surgical clips in the pelvis and exte nding along the mid to lower retroperitoneum. Bones: Osteopenia. Moderate degenerative change of the hips. No osseous destructive process seen. IMPRESSION: 1. Left-sided colonic diverticulosis. There is wall thickening and surrounding inflammation along th e mid to distal sigmoid colon which may reflect acute diverticulitis with moderate to severe inflamma tion. However, given wall thickening extending down to involve the rectum as well, other nonspecific colitis remains possible as well. No abscess or free air. 2. Small to moderate left and trace right pleural effusions. There is evidence of metastatic disease progression with numerous new pulmonary nodules at the lower lungs. Largest nodule measuring 1.6 cm. 3. Additional disease progression with enlarging bilateral adrenal masses measuring up to 5.7 cm. Re trocrural adenopathy also suspicious. 4. Splenomegaly at 14.4 cm.
--- NOTE | 2024-06-01 11:33 | XR ---
[facility] - Radiology Report Patient: Adelaide Mays A Ordering Physician: Natan Lindsay ID: [id number] Phone, Pager: Phone: Pager: : [phone] Age/Gender: 83Y, F Primary Location: [id number] Procedure: XR CHEST 1V Study Date: 01/01/2024 12:03:25 PM Order #: [id number] EXAMINATION TYPE: XR chest 2V DATE OF EXAM: 05/06/2024 COMPARISON: 01/01/2024 HISTORY: Shortness of breath TECHNIQUE: Frontal and lateral views of the chest are obtained. FINDINGS: Scattered senescent parenchymal changes noted. Hyperinflation compatible with COPD. No evidence for infiltrate. No evidence for atelectasis. Left apical mass is redemonstrated. There ap pears to be small left basilar pleural effusion. Vague nodular density left midlung zone measures 1.5 cm. Heart size is stable. Mediastinal structures are stable and grossly unremarkable. No evidence for hilar prominence. Degenerative changes dorsal spine. IMPRESSION: 1. Left apical mass is redemonstrated. There appears to be small left basilar pleural effusion. Vague nodular density left midlung zone measures 1.5 cm.
--- NOTE | 2024-06-11 11:46 | CONS ---
CONSULTATION ATTENDING PHYSICIAN: Dr. Medina. REASON FOR CONSULTATION: Metastatic lung cancer. The patient admitted with UTI. HISTORY OF PRESENT ILLNESS: The patient is an 84-year-old white female, well known to our service. 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 The patient has been on Hydrea for several years. In late 2021, she was found to have a suspicious left lung mass, that was positive on PET scan. She was advised further workup, but then did not follow up in the office till the spring. At that time, repeat imaging had shown development of progression, with increase in size of the previously noted lung nodule, development of additional satellite lesions, adenopathy, and what appeared to be adrenal metastasis. The patient subsequently had bronchoscopy with biopsy, revealing poorly differentiated non-small cell carcinoma, likely adenocarcinoma. 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 The patient started treatment in 01/2024 but was then subsequently admitted to the hospital with nausea and vomiting, likely due to intercurrent UTI. Her treatment was held during that time, and then, subsequently, she was transferred to [facility] because of development of debility. After discharge from the [facility] in 03/2024, she was seen in the office and recommended resumption of her treatment. She was advised to hold the Hydrea while on her new antineoplastic drug. The patient was admitted this time with progressive weakness, loss of appetite, and intermittent nausea that had been developing over 1-2 weeks. She had sought attention with her PCP and had urine culture, showing drug-resistant Pseudomonas, leading to this admission. The patient has been treated with aggressive IV antibiotics, by ID. She is also followed by Cardiology because of her extensive past cardiac history. During this admission, her chest x-ray showed a small left pleural effusion and left-sided lung opacity, grossly similar to previous imaging. Her CBC showed marked elevation of her WBC, in the high 71818-03063 range, as well as elevation of platelets in the 8395-7814 range. Hemoglobin was adequate in the 11-12 range. The patient is a poor historian, and it is difficult to determine accuracy of her medication history. On repeated questioning, it appears that she did not resume the capmatinib, as soon after her office visit, she started feeling unwell again. She has also not been taking the Hydrea now for several months according to her. She denied any change in respiratory status, other than some mild progressive shortness of breath. No history of any hemoptysis or increased cough over baseline. PAST MEDICAL HISTORY/PAST SURGICAL HISTORY/FAMILY HISTORY/SOCIAL HISTORY: Reviewed in the office EMR, which included consultation from her last hospital admission. There are no updates. REVIEW OF SYSTEMS: GENERAL - Mostly for nausea, which has improved. Positive for decreased appetite and possibly some weight loss. Positive for progressive generalized weakness. HEENT - No history of any headaches, new visual complaints, difficulty swallowing or oral ulcers. LYMPH NODES - No lymphadenopathy noted. HEAD - No headaches or head trauma. EYES - No new visual complaints. CHEST - As per HPI. CARDIOVASCULAR - Mildly increased shortness of breath. Denied any new chest pain or symptoms concerning for CHF. ABDOMEN - Intermittent loose stools. - The patient has had a history of recurrent UTIs. She has had a renal stent placed with subsequent removal. Otherwise as per HPI. NEURO - Generalized weakness. No focal deficit. SKIN - No skin rash, unusual bleeding or bruising. MUSCULOSKELETAL - Generalized weakness. No new areas of bone pain. PHYSICAL EXAMINATION: VITAL SIGNS: Temperature was 98.9, pulse 99, respirations 14-16, and blood pressure 115/68. The patient has not been febrile during this admission. GENERAL - No pallor/depressed/cyanosis/JVD/significant edema. HEENT - Pupils are equal and reactive to light. Visual acuity appears to be grossly normal. Extraocular movements are intact. No oral ulcers. LYMPH NODES - No palpable adenopathy in bilateral cervical, supraclavicular, axillary, or inguinal regions. CHEST/LUNGS - Air entry is decreased throughout, suggestive of COPD. Essentially absent entry in the left base. CVS - S1, S2 normal with regular rate and rhythm. ABDOMEN - Soft, bowel sounds positive. No organomegaly or tenderness. NEUROLOGIC - Generalized weakness. No focal sensory motor deficit. PSYCH - The patient was calmer and cooperative. Comprehension appeared to be adequate. However, there appeared to be some difficulty with recall. SKIN - No petechiae/purpura or rash. MUSCULOSKELETAL - No significant edema or joint swelling. LAB/RADIOLOGY: Chest x-ray results as described above. CBC today showed WBC of 29.95, hemoglobin 11.3, and platelets of 1190 with differential showing predominant neutrophils at 27.05. Chem panel was unremarkable. ASSESSMENT AND PLAN: 1. Lung cancer, stage IV - the patient was recommended a targeted agent, as described in the HPI. However, she has not been able to take it now for about 2 months, since her last admission. As noted, after her [facility] discharge, it was recommended that she resume it, but apparently did not do so as she started feeling unwell again. This will continue to be on hold, until her infection is cleared. This can then be resumed as an outpatient. She will need repeat followup in the office after discharge to facilitate the same. Symptomatically, there does not appear to be immediate progression. 2. Leukocytosis and thrombocytosis - the patient does have known myeloproliferative disorder. She had been on Hydrea for several years, but has not been taking it for some months now, since 02/05, as this was held due to starting her new antineoplastic therapy. However, she has not been taking that either, as described above. As the patient is doing better with ongoing aggressive antibiotic therapy, and her counts are significantly elevated, she can be resumed on Hydrea while in the hospital. This can be stopped as an outpatient, once she is established on her new cancer medication. She should also be on aspirin. 3. Recurrent urinary tract infections/sepsis - Deferred to the admitting service and ID for management of the same. 4. Deferred to the admitting service and other consultants for management of other medical problems. Thank you for the consult. JOSE ENRIQUE / FELIPE: [id number] /
--- NOTE | 2024-06-11 11:52 | PN ---
PROGRESS NOTE DATE OF SERVICE: 05/06/2024 LOCATION: 460 services 05/06/2024. REASONS FOR FOLLOWUP: 1. Complicated UTI. 2. Leukocytosis. INTERVAL HISTORY: The patient denies having any fever or any chills. Breathing comfortably on room air. No chest pain, shortness of breath, or cough. No nausea, no vomiting. No abdominal pain. Still complaining of some burning of urine, hematuria. PHYSICAL EXAMINATION: VITAL SIGNS: Blood pressure 142/76, pulse of 100, temperature 98.7, she is 91% on room air. GENERAL DESCRIPTION: This is an elderly female, lying in bed, in no distress. RESPIRATORY SYSTEM: Unlabored breathing. Clear to auscultation anteriorly. HEART: S1, S2. Regular rate and rhythm. ABDOMEN: Soft. No tenderness. EXTREMITIES: No edema in feet. LABORATORY DATA: White count is up to 31.92. Creatinine 0.6. DIAGNOSTIC IMPRESSION AND PLAN: 1. Patient with complicated urinary tract infection with outpatient urine culture positive for drug-resistant Pseudomonas. The patient did have worsening of the white count when antibiotic has been switched to Zerbaxa. We will go ahead and discontinue Zerbaxa and start the patient on gentamicin while watching her kidney function closely. We will also need to get the culture done from this admission. 2. Oral thrush. To continue with nystatin swish and swallow and Diflucan. Repeat CBC tomorrow. Discussed with [facility] for admitting team. MMODL / IJN: [id number] /
--- NOTE | 2024-06-11 11:52 | PN ---
PROGRESS NOTE DATE OF SERVICE: 05/08/2024 LOCATION: 460. REASON FOR FOLLOWUP: 1. Complicated UTI. 2. Leukocytosis. INTERVAL HISTORY: The patient is afebrile. Apparently, the patient did have a fall and has been complaining of pain to the left shoulder area. No chest pain, shortness of breath, or cough. No abdominal pain or diarrhea. PHYSICAL EXAMINATION: VITAL SIGNS: Blood pressure 159/63, pulse of 97, temperature is . She is 95% on 2 L nasal cannula. GENERAL DESCRIPTION: This is an elderly female, lying in bed, in no distress. RESPIRATORY SYSTEM: Unlabored breathing. Clear to auscultation anteriorly. HEART: S1, S2. Regular rate and rhythm. ABDOMEN: Soft. No tenderness. LABORATORY DATA: Creatinine 0.63. White count 29.4. DIAGNOSTIC IMPRESSION AND PLAN: 1. The patient with complicated urinary tract infection with outpatient culture positive for drug-resistant Pseudomonas aeruginosa. The patient is on gentamicin. We will wait for the repeat culture to finalize. If negative, recommend discontinue the gentamicin. Currently waiting for CT of abdomen and pelvis. 2. Elevated white count, more likely underlying to hematological malignancy. Clinically doubt related to infection. Hematology is following the patient, was supposed to start on hydroxyurea. We will see how she response. MMODL / IJN: [id number] /
--- NOTE | 2024-06-11 11:52 | PN ---
PROGRESS NOTE DATE OF SERVICE: 05/04/2024 LOCATION: 460. REASON FOR FOLLOWUP: Drug-resistant urinary tract infection. INTERVAL HISTORY: The patient is afebrile. The patient is breathing comfortably on room air. Denies any chest pain, shortness of breath, or cough. No nausea, no vomiting. No abdominal pain, no diarrhea. PHYSICAL EXAMINATION: VITAL SIGNS: Blood pressure is 109/65, pulse of 80, temperature 98. GENERAL DESCRIPTION: Elderly female up in the bed in no distress, respiratory system. RESPIRATORY: Unlabored breathing. Clear to auscultation anteriorly. HEART: S1, S2. Regular rhythm. ABDOMEN: Soft, nontender. LABORATORY DATA: White count is 22.98. Urine culture done this admission so far not received. Urine culture from the outpatient setting shows a drug-resistant Pseudomonas. DIAGNOSTIC IMPRESSION AND PLAN: The patient with drug-resistant urinary tract infection. Cultures were showing a Pseudomonas sensitive only to gentamicin. The patient's white count responded to the meropenem to continue. We will try to obtain a culture that was done this admission and home nursing staff has been advised to advise to get another UA. We will repeat CBC tomorrow and evaluate the patient at that point. MMODL / IJN: [id number] /
--- NOTE | 2024-06-11 11:52 | PN ---
PROGRESS NOTE LOCATION: 460. REASON FOR FOLLOWUP: Complicated UTI. INTERVAL HISTORY: The patient is afebrile. The patient is breathing comfortably. No chest pain, shortness of breath, or cough. No nausea, no vomiting. No abdominal pain or diarrhea. PHYSICAL EXAMINATION: VITAL SIGNS: Blood pressure 130/70, the pulse of 89, temperature 97.8. GENERAL DESCRIPTION: This is an elderly female, up in the bed, in no distress. RESPIRATORY SYSTEM: Unlabored breathing. Clear to auscultation anteriorly. HEART: S1 and S2. Regular rate and rhythm. ABDOMEN: Soft, no tenderness. EXTREMITIES: No edema in feet. LABORATORY DATA: Creatinine 0.6. White count 22.95. Cultures done at the Urology has been positive for Pseudomonas and E coli. We are trying to obtain a sensitivity. DIAGNOSTIC IMPRESSION AND PLAN: The patient with complicated urinary tract infection with outpatient culture positive for Pseudomonas and Escherichia coli. We will try to get the sensitivity. The patient's white count responded to change of antibiotic to meropenem, outpatient antibiotic therapy. MMODL / IJN: [id number] /
--- NOTE | 2024-06-11 11:52 | CONS ---
CONSULTATION LOCATION: 1. until this morning that is 05/01/2024 REASON FOR CONSULTATION: UTI and sepsis. HISTORY OF PRESENT ILLNESS: The patient is an 84-year-old female with multiple comorbidities including metastatic lung cancer, left side. The patient also has history of kidney stones and recurrent UTI, who recently did have left ureteral stent was subsequently discontinued. The patient apparently has been treated with antibiotic for a couple of weeks now by her urologist and primary care physician. The patient has been sent to the ER by her urologist for IV gentamicin to be given in the hospital for urinary tract infection. However, no culture data has been sent to the ER physician and nobody has tried to track down those information. I did talk to the daughter at the bedside. She did not have any access to those labs on the Friday morning. The patient denies having any fever or any chills and no fever has been recorded during this hospital stay. Denies any headache or URI symptoms. The patient is complaining of upper back pain on the left side, mostly dull aching to sharp, occasionally [id number] intensity. No radiation. Denies any cough or sputum production. Did have some nausea, but no vomiting. No abdominal pain. The patient denies having any diarrhea. No burning or frequency of urine. No urgency. REVIEW OF SYSTEMS: Positive points have been mentioned in HPI. Rest of systems negative. PAST MEDICAL HISTORY: Reviewed and mentioned above. PAST SURGICAL HISTORY: Reviewed. SOCIAL HISTORY: Has been reviewed. FAMILY HISTORY: Has been reviewed. ALLERGIES: To penicillin with a rash and no history of any anaphylaxis, also allergic to codeine. MEDICATIONS: Currently, the patient is on, 1. Tylenol. 2. Gentamicin 250 mg q.48 hours. 3. She is on Marlow. 4. Rocephin 1 g daily. 5. Xanax. 6. Dilaudid. 7. Heparin. 8. Protonix. 9. Naloxone. PHYSICAL EXAMINATION: VITAL SIGNS: Blood pressure is 112/79, pulse of 90, temperature of 97.3, and no fever during this hospital stay. She is 93% on room air. GENERAL: The patient is an elderly female lying in bed in no distress. No tachypnea or accessory muscle of respiration use. HEENT: No pallor or scleral icterus. Oral mucosal membrane is moist. No pharyngeal erythema or thrush. NECK: Trachea is central. No thyromegaly. LUNGS: Unlabored breathing. Clear to auscultation anteriorly. No wheeze or crackle. HEART: S1 and S2. Regular rate and rhythm. ABDOMEN: Soft. No tenderness. No rigidity. EXTREMITIES: No edema in the feet. SKIN: No rash or mass palpable. NEUROLOGICAL: The patient is awake, alert, oriented x3. Mood and affect normal. LABORATORY DATA: BUN of 26, creatinine 0.53, hemoglobin , white count is 23.40. Troponin has been negative. Lactate was 1.1. No UA available on the chart and I did not have any access to her urine culture that was done in the outpatient setting by Urology. DIAGNOSTIC IMPRESSION AND PLAN: 1. The patient with a history of recurrent urinary tract infection complicated in this patient also history of ureteral stent and subsequent removal, has been sent to the hospital for IV gentamicin for urinary tract infection. I do not have any access to those culture report. The patient not given any symptoms suspicious for urinary tract infection. However, she did have elevated white count and also have a history of kidney stones requiring stent placement, recently discontinued Fosamax and we will try to obtain cultures. I will try to get a UA and culture as well as blood culture now. 2. Keeping in mind higher toxicity with gentamicin and her age, however, discontinued gentamicin and the Rocephin. 3. We will start the patient on Invanz 1 g daily pending culture information. 4. We will follow on clinical condition and culture to further adjust medication if needed. Thank you for this consultation. We will follow this patient along with you. Daughter at the bedside. Questions were answered. MMODL / IJN: [id number] /
--- NOTE | 2024-06-11 11:52 | PN ---
PROGRESS NOTE DATE OF SERVICE: 05/07/2024 LOCATION: [facility]. REASON FOR FOLLOWUP: Complicated UTI and leukocytosis. INTERVAL HISTORY: The patient is afebrile. She is breathing comfortably. No chest pain, shortness of breath, or cough. No abdominal pain. No vomiting or diarrhea has been reported. PHYSICAL EXAMINATION: VITAL SIGNS: Blood pressure 115/60 with a pulse of 99, temperature 97.9. She is 95% on 2 L. GENERAL DESCRIPTION: This is an elderly female, lying in bed, in no distress. RESPIRATORY SYSTEM: Unlabored breathing. Clear to auscultation anteriorly. HEART: S1, S2. Regular rate and rhythm. ABDOMEN: Soft, no tenderness. EXTREMITIES: No edema in the feet. LABORATORY DATA: White count 29.95. Last urine culture so far negative. DIAGNOSTIC IMPRESSION AND PLAN: The patient with history of complicated UTI being admitted to the hospital with drug- resistant Pseudomonas. Culture done here has been negative so far. Still has elevated white count. She will benefit from a CT abdomen . No evidence of any other etiologies possibly related to white count. Await hematology evaluation. Continue gentamicin while watching the kidney function closely. Possible to continue with Diflucan and nystatin swish and swallow. Repeat CBC tomorrow. Discussed with nursing staff. MMODL / IJN: [id number] /
--- NOTE | 2024-06-11 11:52 | PN ---
PROGRESS NOTE DATE OF SERVICE: 05/02/2024 LOCATION: 460. REASON FOR FOLLOWUP: Complicated UTI. INTERVAL HISTORY: The patient is afebrile. The patient is breathing comfortably. No chest pain, shortness of breath, or cough. No nausea, no vomiting. No abdominal pain, no diarrhea. PHYSICAL EXAMINATION: VITAL SIGNS: Her blood pressure is 113/67, pulse of 90, temperature 98, she is 92% room air. DESCRIPTION: The patient is an elderly female, up in the chair, in no distress. RESPIRATORY SYSTEM: Unlabored breathing, decreased breath sounds in the bases. No wheeze. HEART: S1, S2. Regular rate and rhythm. ABDOMEN: Soft, nontender. EXTREMITIES: No edema in feet. LABORATORY DATA: White count is up to 26,000 with a creatinine 0.57. DIAGNOSTIC IMPRESSION AND PLAN: The patient with complicated UTI, admitted to the hospital for IV antibiotic therapy. Unfortunately, we do not have any access to those cultures with worsening of the white count on Invanz, question of possible Pseudomonas. We will discontinue Invanz, start the patient on meropenem 1 g q.8 hours. Repeat CBC in the a.m. MMODL / IJN: [id number] /
--- NOTE | 2024-06-11 11:52 | PN ---
PROGRESS NOTE LOCATION: 460 REASON FOR FOLLOWUP: Complicated UTI, drug-resistant. INTERVAL HISTORY: The patient is afebrile. The patient is breathing comfortably. The patient denies having any chest pain, shortness of breath, or cough. No abdominal pain. Still complaining of some hematuria and burning. No vomiting. PHYSICAL EXAMINATION: VITAL SIGNS: Blood pressure 124/73, pulse of 90, temperature is 97.8. GENERAL DESCRIPTION: This is an elderly female, up in the chair, in no distress. RESPIRATORY SYSTEM: Unlabored breathing. Clear to auscultation anteriorly. HEART: S1, S2. Regular rate and rhythm. ABDOMEN: Soft, no tenderness. EXTREMITIES: No edema in feet. LABORATORY DATA: White count still elevated at 23.05. Creatinine 0.60. Repeat UA is mildly positive. Culture from this admission could not be obtained. DIAGNOSTIC IMPRESSION AND PLAN: 1. The patient is in the hospital with drug-resistant Pseudomonas urinary tract infection with cultures on the outpatient setting. We are still waiting on the culture done this admission. Repeat UA is mildly positive with persistently elevated white count. We will go ahead and discontinue meropenem and start the patient on Zerbaxa. If no response to Zerbaxa, we will have to switch her to gentamicin and just watch her kidney function closely. 2. Oral thrush. Add nystatin swish and swallow. Repeat CBC with a.m. labs. MMODL / IJN: [id number] /
== END 2024-05-13 16:51 | DRG 872 ==
LOC: 4SSUR 18:40
PROVIDERS: ADMIT Internal Medicine; ATTEND Internal Medicine
DX: A41.51 Sepsis due to Escherichia coli [E. coli] (principal); K57.32 Diverticulitis of large intestine without perforation or abscess without bleeding; N39.0 Urinary tract infection, site not specified; A04.72 Enterocolitis due to Clostridium difficile, not specified as recurrent; C34.90 Malignant neoplasm of unspecified part of unspecified bronchus or lung; C79.9 Secondary malignant neoplasm of unspecified site; F05 Delirium due to known physiological condition; E44.0 Moderate protein-calorie malnutrition; A41.52 Sepsis due to Pseudomonas; R16.1 Splenomegaly, not elsewhere classified; D69.6 Thrombocytopenia, unspecified; M25.512 Pain in left shoulder; Z66 Do not resuscitate; W18.39XA Other fall on same level, initial encounter; Y92.239 Unspecified place in hospital as the place of occurrence of the external cause; E83.42 Hypomagnesemia; R53.81 Other malaise; R53.1 Weakness; R91.8 Other nonspecific abnormal finding of lung field; Z88.0 Allergy status to penicillin; Z85.118 Personal history of other malignant neoplasm of bronchus and lung; D75.839 Thrombocytosis, unspecified; E27.9 Disorder of adrenal gland, unspecified; W01.0XXA Fall on same level from slipping, tripping and stumbling without subsequent striking against object, initial encounter; Z87.440 Personal history of urinary (tract) infections; Z88.5 Allergy status to narcotic agent; Z68.22 Body mass index [BMI] 22.0-22.9, adult
CPT/HCPCS: 71046; 74176; 80048; 80053; 83735; 84132; 84145; 85025; 87040; 87086; 93005; 94760; 99285